=== PATIENT | male | born 1975 | race Caucasian/White ===

== ENCOUNTER 2019-03-08 08:37 | Emergency (ER) | payer OTHER, SELFPAY ==
[2019-03-08 08:38] VITALS: BP 136/83; PULSE 59; RESP 18; TEMP 36.6; O2SAT 100; BMI 21.2
--- NOTE | 2019-03-08 08:47 | CT_ITS ---
STUDY: CT BRAIN WITHOUT CONTRAST REASON FOR EXAM: Male, 43 years old. 3 day history of right occipital headaches. RADIATION DOSAGE (If Supplied By Facility): CTDIvol = ( 44.99 ) mGy, DLP = ( 779.24 ) mGycm TECHNIQUE: Transaxial CT imaging of the brain was performed without administration of intravenous contrast material. Individualized dose optimization techniques were used for this CT. COMPARISON: No relevant priors. FINDINGS: Normal soft tissue structures. Normal calvarium. Normal size ventricles and extra-axial spaces for the patient's age. Normal white matter tracts of the cerebral hemispheres. There is a 7.7 mm hypodensity in the insular cortex of the right temporal lobe suggestive of a small lacunar infarct. Normal brainstem. Normal cerebellum. There is no intracranial hemorrhage. There are no findings of an acute ischemic infarction. Normal visualized paranasal sinuses. CT/Brain/Head without Contrast IMPRESSION: 7.7 mm hypodensity in the insular cortex of the right temporal lobe as described. This may represent a small lacunar infarct. Electronically Signed: Adalberto Floyd, at 10:07 EDT , Service support ,
--- NOTE | 2019-03-08 08:48 | ED.DCSUM_ITS ---
- ER Visit Summary Date of Service: 03/08/19 Chief Complaint: Headache History of Present Illness: The patient is a 43 M who presents with a headache. It started 3 days ago. On the right side of his head. He describes as sharp dull and throbbing. He has had nausea without vomiting. Denies any sinus pre ssure tenderness. He has had blurry vision without photophobia or visual changes. Denies any falls or trauma. No history of migraine headaches in the past. He tried Excedrin at home without any relief. Physical Examination: Vital signs reviewed. HEENT exam unremarkable. Heart is regular rate and rhythm without murmurs. Lungs are clear to auscultation. Abdomen is soft and nontender. Extremities reveal no edema. Skin exam normal. Neurologic exam normal. Test Results: CAT scan of the head reveals a small hypodensity in the insular cortex which could represent a small lacunar infarct. This is likely a chronic issue. Emergency Department Course and Treatment: Patient was given Reglan, Benadryl and Toradol. He was also given normal saline. The CAT scan reveals a small lacunar infarct which is likely chronic and not causing any issues at this time. He states that the sharp pounding pains have gone away but he still feels a slight ache. I will give him a dose of Decadron here as well. I will give him naproxen he can take at home. I feel he can be discharged to follow-up with his PCP. Treatment Plan: [] Disposition: Discharge Impression: Headache This note was generated with [employer] dictation software. It may contain incorrect words, spelling, and punctuation that were not noted in review of the chart prior to signing ED Disposition - Plan for ED Patient: Referrals: NOT,DEFINED [NON-STAFF] -
[2019-03-08] MEDS: Ketorolac 30 MG/ML Syringe IV (09:14)
[2019-03-08] MEDS: DiphenhydrAMINE 50 MG/ML Syringe 25 MG IV (09:14)
[2019-03-08] MEDS: 0.9% Normal Saline 1,000 ML 999 ML IV (09:14)
[2019-03-08] MEDS: proCHLORPERazine 10 MG/2 ML Vial IV (09:14)
[2019-03-08] MEDS: dexAMETHasone 10 MG/ML Vial IV (10:56)
== END 2019-03-08 11:04 | disposition home or self-care (01) ==
PROVIDERS: Emergency Provider Emergency Medicine
DX: R51 Headache (principal); R11.0 Nausea; H53.8 Other visual disturbances; I63.81 Other cerebral infarction due to occlusion or stenosis of small artery
CPT/HCPCS: 70450; 96361; 96374; 96375; 99284; J7030; A4216

== ENCOUNTER → 2022-07-08 | Outpatient (CLI) | payer BC, SELFPAY ==
--- NOTE | 2022-07-08 09:46 | RAD_ITS ---
HISTORY: Psoriatic arthropathy, bilateral tinnitus. TECHNIQUE: XR Pelvis 1 or 2 Views. COMPARISON: None. FINDINGS: OSSEOUS STRUCTURES: No acute displaced fracture identified. Note that overlapping bowel shadows may obscure osseous detail. Mineralization unremarkable. JOINT SPACES: No dislocation. Joint spaces maintained. RAD/Pelvis 1 or 2 Views IMPRESSION: No acute displaced fracture or dislocation identified. Electronically Signed: Dolores Garsia MD at 9:08 EST ,
[2022-07-08 12:19] LABS: Erythrocyte Sedimentation Rate 3 mm/hr (0-20)
[2022-07-08 12:22] LABS: Absolute Lymphocyte Count 1.34 X10^3/uL (0.83-4.51); Absolute Neutrophil Count 2.7 X10^3/uL (2.0-7.7); Basophil# 0.04 X10^3/uL; Basophil% 0.9 % (0-1); Eosinophils% 4.3 % (0-5); Hematocrit 44.9 % (40-54); Hemoglobin 14.7 g/dL (13.0-16.5); Lymphocyte # 1.34 X10^3/ul (0.83-4.51); Lymphocyte % 28.6 % (19-41); Mean Corp Hgb Conc 32.7 g/dL (32-36); Mean Corpuscular Hgb 30.4 pg (27.0-32.0); Mean Corpuscular Volume 92.8 fL (80-94); Mean Platelet Vol. 11.1 fl (6.2-12.0); Monocyte# 0.43 X10^3/uL; Monocyte% 9.2 % (0-10); NRBC Flagged by Analyzer 0 % (0-5); Neutrophil # 2.67 X10^3/uL (2.7-7.7); Neutrophil % 56.8 % (47-70); Platelet Count 227 K/mm3 (150-450); RBC Distribution Width CV 12.2 % (11.6-14.6); RBC Distribution Width SD 41.9 fl (35.1-43.9); Red Blood Count 4.84 M/mm3 (4.6-6.2); White Blood Count 4.7 K/mm3 (4.4-11.0)
[2022-07-08 12:52] LABS: AST(SGOT) 19 U/L (15-37); Alanine Aminotransfer ALT/SGPT 24 U/L (16-61); Albumin, Serum 3.8 g/dL (3.2-5.0); Alkaline Phosphatase 48 U/L (45-117); Anion Gap 3 (5-15); BUN 19 mg/dL (7-18); BUN/Creat Ratio 19.8 RATIO (10-20); CRP < 2.90 mg/L (0.0-3.0); Calcium,Total 9.1 mg/dL (8.5-10.1); Chloride 111 mmol/L (98-107); Creatinine, Serum 0.96 mg/dL (0.70-1.30); EST Glomerular Filtration Rate 89 mL/min (>60); Est Glom Filt Rate - Afr Amer 107 mL/min (>60); Globulin 3.9 g/dL (2.2-4.2); Glucose 103 mg/dL (74-106); Potassium 3.8 mmol/L (3.5-5.1); Protein, Total 7.7 g/dL (6.4-8.2); Rheumatoid Factor < 10.0 IU/mL (<15); Sodium Level 141 mmol/L (136-145)
[2022-07-08 13:15] LABS: Hepatitis B Surface Antibody Non-Reactive; Hepatitis B Surface Antigen Non-Reactive (Nonreactive); Hepatitis C Antibody Non-Reactive (Nonreactive)
[2022-07-09 18:32] LABS: CCP IgG Antibodies 0 units (0-19)
[2022-07-09 18:36] LABS: ANTINUCLEAR ANTIBODIES DIRECT Negative (Negative)
== END | disposition home or self-care (01) ==
LOC: MTLAB 09:41
PROVIDERS: PCP Internal Medicine; Visit Provider Internal Medicine Rheumatology
DX: L40.59 Other psoriatic arthropathy (principal); L40.8 Other psoriasis; H93.13 Tinnitus, bilateral; Z86.19 Personal history of other infectious and parasitic diseases
CPT/HCPCS: 36415; 72170; 80053; 85025; 85652; 86038; 86140; 86200; 86431; 86706; 86803; 87340

== ENCOUNTER → 2022-09-24 | Outpatient (CLI) | payer BC, SELFPAY ==
[2022-09-24 10:37] LABS: Absolute Lymphocyte Count 1.27 X10^3/uL (0.83-4.51); Absolute Neutrophil Count 2.5 X10^3/uL (2.0-7.7); Basophil# 0.03 X10^3/uL; Basophil% 0.7 % (0-1); Eosinophil# 0.29 X10^3/uL; Eosinophils% 6.6 % (0-5); Hematocrit 46.1 % (40-54); Hemoglobin 15.1 g/dL (13.0-16.5); Lymphocyte # 1.27 X10^3/ul (0.83-4.51); Lymphocyte % 28.7 % (19-41); Mean Corp Hgb Conc 32.8 g/dL (32-36); Mean Corpuscular Hgb 30.3 pg (27.0-32.0); Mean Corpuscular Volume 92.6 fL (80-94); Mean Platelet Vol. 10.5 fl (6.2-12.0); Monocyte# 0.37 X10^3/uL; Monocyte% 8.4 % (0-10); NRBC Flagged by Analyzer 0 % (0-5); Neutrophil # 2.45 X10^3/uL (2.7-7.7); Neutrophil % 55.4 % (47-70); Platelet Count 238 K/mm3 (150-450); RBC Distribution Width CV 12.9 % (11.6-14.6); RBC Distribution Width SD 43.5 fl (35.1-43.9); Red Blood Count 4.98 M/mm3 (4.6-6.2); White Blood Count 4.4 K/mm3 (4.4-11.0)
[2022-09-24 11:09] LABS: AST(SGOT) 25 U/L (15-37); Alanine Aminotransfer ALT/SGPT 32 U/L (16-61); Albumin, Serum 3.8 g/dL (3.2-5.0); Alkaline Phosphatase 50 U/L (45-117); Anion Gap 1 (5-15); BUN 11 mg/dL (7-18); BUN/Creat Ratio 10.1 RATIO (10-20); Calcium,Total 9.3 mg/dL (8.5-10.1); Chloride 107 mmol/L (98-107); Creatinine, Serum 1.09 mg/dL (0.70-1.30); EST Glomerular Filtration Rate 77 mL/min (>60); Est Glom Filt Rate - Afr Amer 93 mL/min (>60); Globulin 3.9 g/dL (2.2-4.2); Glucose 92 mg/dL (74-106); Potassium 4.6 mmol/L (3.5-5.1); Protein, Total 7.7 g/dL (6.4-8.2); Sodium Level 136 mmol/L (136-145)
== END | disposition home or self-care (01) ==
LOC: MTLAB 09:27
PROVIDERS: PCP Internal Medicine; Referring Provider Internal Medicine Rheumatology; Visit Provider Internal Medicine Rheumatology
DX: L40.59 Other psoriatic arthropathy (principal); L40.8 Other psoriasis; Z79.899 Other long term (current) drug therapy
CPT/HCPCS: 36415; 80053; 85025

== ENCOUNTER → 2022-11-08 | Outpatient (CLI) | payer BC, SELFPAY ==
[2022-11-08 10:10] LABS: Absolute Lymphocyte Count 1.61 X10^3/uL (0.83-4.51); Absolute Neutrophil Count 3.1 X10^3/uL (2.0-7.7); Basophil# 0.04 X10^3/uL; Basophil% 0.7 % (0-1); Eosinophil# 0.29 X10^3/uL; Eosinophils% 5.3 % (0-5); Hemoglobin 14.6 g/dL (13.0-16.5); Lymphocyte # 1.61 X10^3/ul (0.83-4.51); Lymphocyte % 29.3 % (19-41); Mean Corp Hgb Conc 33.2 g/dL (32-36); Mean Corpuscular Hgb 30.8 pg (27.0-32.0); Mean Corpuscular Volume 92.8 fL (80-94); Mean Platelet Vol. 10.2 fl (6.2-12.0); Monocyte# 0.47 X10^3/uL; Monocyte% 8.6 % (0-10); NRBC Flagged by Analyzer 0 % (0-5); Neutrophil # 3.07 X10^3/uL (2.7-7.7); Neutrophil % 55.9 % (47-70); Platelet Count 280 K/mm3 (150-450); RBC Distribution Width CV 13.3 % (11.6-14.6); RBC Distribution Width SD 44.6 fl (35.1-43.9); Red Blood Count 4.74 M/mm3 (4.6-6.2); White Blood Count 5.5 K/mm3 (4.4-11.0)
[2022-11-08 10:37] LABS: ALB/GLOB Ratio 1.1 RATIO (0.9-2.4); AST(SGOT) 23 U/L (15-37); Alanine Aminotransfer ALT/SGPT 23 U/L (16-61); Albumin, Serum 3.8 g/dL (3.2-5.0); Alkaline Phosphatase 48 U/L (45-117); Anion Gap 9 (5-15); BUN 19 mg/dL (7-18); BUN/Creat Ratio 18.6 RATIO (10-20); Calcium,Total 8.9 mg/dL (8.5-10.1); Chloride 108 mmol/L (98-107); Creatinine, Serum 1.02 mg/dL (0.70-1.30); EST Glomerular Filtration Rate 83 mL/min (>60); Est Glom Filt Rate - Afr Amer 100 mL/min (>60); Globulin 3.5 g/dL (2.2-4.2); Glucose 88 mg/dL (74-106); Potassium 4.1 mmol/L (3.5-5.1); Protein, Total 7.3 g/dL (6.4-8.2); Sodium Level 142 mmol/L (136-145)
== END | disposition home or self-care (01) ==
LOC: MTLAB 07:47
PROVIDERS: PCP Internal Medicine; Referring Provider Internal Medicine Rheumatology; Visit Provider Internal Medicine Rheumatology
DX: L40.59 Other psoriatic arthropathy (principal); Z79.899 Other long term (current) drug therapy
CPT/HCPCS: 36415; 80053; 85025

== ENCOUNTER → 2023-01-17 | Outpatient (CLI) | payer BC, SELFPAY ==
[2023-01-17 09:53] LABS: Absolute Lymphocyte Count 1.02 X10^3/uL (0.83-4.51); Absolute Neutrophil Count 2.2 X10^3/uL (2.0-7.7); Basophil# 0.03 X10^3/uL; Basophil% 0.8 % (0-1); Eosinophil# 0.24 X10^3/uL; Eosinophils% 6.1 % (0-5); Hematocrit 44.9 % (40-54); Hemoglobin 14.4 g/dL (13.0-16.5); Lymphocyte # 1.02 X10^3/ul (0.83-4.51); Mean Corp Hgb Conc 32.1 g/dL (32-36); Mean Corpuscular Volume 96.8 fL (80-94); Mean Platelet Vol. 10.8 fl (6.2-12.0); Monocyte# 0.47 X10^3/uL; NRBC Flagged by Analyzer 0 % (0-5); Neutrophil # 2.15 X10^3/uL (2.7-7.7); Neutrophil % 54.8 % (47-70); Platelet Count 233 K/mm3 (150-450); RBC Distribution Width CV 12.9 % (11.6-14.6); RBC Distribution Width SD 45.4 fl (35.1-43.9); Red Blood Count 4.64 M/mm3 (4.6-6.2); White Blood Count 3.9 K/mm3 (4.4-11.0)
[2023-01-17 10:33] LABS: AST(SGOT) 21 U/L (15-37); Alanine Aminotransfer ALT/SGPT 23 U/L (16-61); Albumin, Serum 3.7 g/dL (3.2-5.0); Alkaline Phosphatase 45 U/L (45-117); Anion Gap 5 (5-15); BUN 12 mg/dL (7-18); BUN/Creat Ratio 11.4 RATIO (10-20); Calcium,Total 9.2 mg/dL (8.5-10.1); Chloride 106 mmol/L (98-107); Creatinine, Serum 1.05 mg/dL (0.70-1.30); EST Glomerular Filtration Rate 80 mL/min (>60); Est Glom Filt Rate - Afr Amer 97 mL/min (>60); Globulin 3.6 g/dL (2.2-4.2); Glucose 114 mg/dL (74-106); Potassium 4.1 mmol/L (3.5-5.1); Protein, Total 7.3 g/dL (6.4-8.2); Sodium Level 141 mmol/L (136-145)
== END | disposition home or self-care (01) ==
LOC: MTLAB 08:00
PROVIDERS: PCP Internal Medicine; Referring Provider Internal Medicine Rheumatology; Visit Provider Internal Medicine Rheumatology
DX: L40.59 Other psoriatic arthropathy (principal); Z79.899 Other long term (current) drug therapy
CPT/HCPCS: 36415; 80053; 85025

== ENCOUNTER → 2023-04-11 | Outpatient (CLI) | payer BC, SELFPAY ==
[2023-04-11 10:21] LABS: Absolute Lymphocyte Count 1.35 X10^3/uL (0.83-4.51); Basophil# 0.04 X10^3/uL; Eosinophil# 0.19 X10^3/uL; Eosinophils% 4.6 % (0-5); Hemoglobin 14.4 g/dL (13.0-16.5); Lymphocyte # 1.35 X10^3/ul (0.83-4.51); Lymphocyte % 32.9 % (19-41); Mean Corp Hgb Conc 32.7 g/dL (32-36); Mean Corpuscular Hgb 30.8 pg (27.0-32.0); Mean Corpuscular Volume 94.2 fL (80-94); Mean Platelet Vol. 10.8 fl (6.2-12.0); Monocyte# 0.49 X10^3/uL; NRBC Flagged by Analyzer 0 % (0-5); Neutrophil # 2.02 X10^3/uL (2.7-7.7); Neutrophil % 49.3 % (47-70); Platelet Count 236 K/mm3 (150-450); RBC Distribution Width CV 12.8 % (11.6-14.6); RBC Distribution Width SD 43.8 fl (35.1-43.9); Red Blood Count 4.67 M/mm3 (4.6-6.2); White Blood Count 4.1 K/mm3 (4.4-11.0)
[2023-04-11 11:00] LABS: AST(SGOT) 24 U/L (15-37); Alanine Aminotransfer ALT/SGPT 28 U/L (16-61); Albumin, Serum 3.5 g/dL (3.2-5.0); Alkaline Phosphatase 53 U/L (45-117); Anion Gap 5 (5-15); BUN 18 mg/dL (7-18); BUN/Creat Ratio 15.9 RATIO (10-20); Calcium,Total 8.9 mg/dL (8.5-10.1); Chloride 108 mmol/L (98-107); Creatinine, Serum 1.13 mg/dL (0.70-1.30); EST Glomerular Filtration Rate 74 mL/min (>60); Est Glom Filt Rate - Afr Amer 89 mL/min (>60); Globulin 3.6 g/dL (2.2-4.2); Glucose 109 mg/dL (74-106); Potassium 4.1 mmol/L (3.5-5.1); Protein, Total 7.1 g/dL (6.4-8.2); Sodium Level 140 mmol/L (136-145)
== END | disposition home or self-care (01) ==
LOC: MTLAB 07:37
PROVIDERS: PCP Internal Medicine; Referring Provider Internal Medicine Rheumatology; Visit Provider Internal Medicine Rheumatology
DX: L40.59 Other psoriatic arthropathy (principal); L40.8 Other psoriasis; Z79.899 Other long term (current) drug therapy
CPT/HCPCS: 36415; 80053; 85025

== ENCOUNTER → 2023-07-15 | Outpatient (CLI) | payer BC, SELFPAY ==
--- OUTSIDE RECORDS SUMMARY | 2023-07-15 07:06 | XMS RPT_ITS | CCD ---
Author Name Unknown Address [address] [place] [address] Organization [facility] Care Team Providers Care Route Vending Machine Servicer Name Role Phone Zaid Philippe MD Primary Care Provider PRACHI ZARCO Attending Unavailable ZAID PHILIPPE Primary Care Unavailable PRACHI ZARCO Referring Unavailable ZAID PHILIPPE Primary Care Unavailable PRACHI ZARCO Attending Unavailable ZAID PHILIPPE Primary Care Unavailable ZAID PHILIPPE Primary Care Unavailable THELMA HARDIN Referring Unavailable ZAID PHILIPPE Primary Care Unavailable THELMA HARDIN Attending Unavailable Allergies Allergy Classification Reported Allergen(s) Allergy Type Date of Onset Reaction(s) Facility (1 source) Seasonal allergy; Translations: [SEASONAL ALLERGIES] Propensity to adverse reactions (disorder) 3 [facility] Repository Medications Completed/Discontinued Medications Medication Drug Class(es) Dates Sig (Normalized) Sig (Original) chondroitin sulfates 400 mg / glucosamine hydrochloride 500 mg oral capsule (2 sources) Start: 05-13-2019 take 1 capsule by mouth once daily Glucosamine-Chondr oit-Vit C-Mn (GLUCOSAMINE CHONDROITIN MAXSTR) 500-400 mg cap Take 1 capsule by mouth once daily. 0 05/13/2019 Active Problems Active Problems Problem Classification Problem Date Documented Date Episodic/Chronic Abdominal pain (1 source) Pelvic and perineal pain; Translations: [Pelvic pain] Onset: 03-19-2023 Episodic Genitourinary symptoms and ill-defined conditions (1 source) Unspecified symptoms and signs involving the genitourinary system; Translations: [Lower urinary tract symptoms (LUTS)] Onset: 03-19-2023 Episodic Other circulatory disease (1 source) Personal history of other diseases of the circulatory system; Translations: [History of Raynaud's syndrome] Onset: 06-06-2023 Episodic Other connective tissue disease (1 source) Pain in left hand; Translations: [Left hand pain] Onset: 06-06-2023 Episodic Other inflammatory condition of skin (3 sources) Psoriasis; Translations: [Psoriasis, unspecified] Onset: 06-20-2021 06-20-2021 Chronic Other inflammatory condition of skin (1 source) Psoriasis, unspecified; Translations: [Psoriasis and similar disorders] Onset: 06-20-2021 Chronic Spondylosis; intervertebral disc disorders; other back problems (2 sources) Degeneration of intervertebral disc; Translations: [DDD (degenerative disc disease)] Onset: 11-10-2009 11-10-2009 Chronic Past or Other Problems Problem Classification Problem Date Documented Da te Episodic/Chronic Immunizations and screening for infectious disease (7 sources) Patient encounter status; Translations: [Encounter for immunization] Onset: 10-25-2022 Episodic Other screening for suspected conditions (not mental disorders or infectious disease) (1 source) Encounter for screening for diabetes mellitus; Translations: [Screening for diabetes mellitus (DM)] Onset: 10-25-2022 Episodic Viral infection (2 sources) Postherpetic neuralgia; Translations: [Other postherpetic nervous system involvement] Onset: 03-22-2019 03-22-2019 Episodic Results Test Name Value Interpretation Reference Range Facil ity Vital Signs Date Time Vital Sign Value Performing Clinician Laine paulson 10-25-2022 07:57-0400 Body height 188.6 cm Prachi Zarco HACK DRIVER.VEHICLE DELIVERY WORKER Work Phone: [facility] 10-25-2022 07:57-0400 Body weight 75.75 kg Prachi Zarco HACK DRIVER.VEHICLE DELIVERY WORKER Work Phone: [facility] 10-25-2022 07:57-0400 Diastolic blood pressure 72 mm[Hg] Prachi Zarco HACK DRIVER.VEHICLE DELIVERY WORKER Work Phone: [facility] 10-25-2022 07:57-0400 Heart rate 72 /min Prachi Zarco HACK DRIVER.VEHICLE DELIVERY WORKER Work Phone: [facility] 10-25-2022 07:57-0400 Respiratory rate 16 /min Prachi Zarco HACK DRIVER.VEHICLE DELIVERY WORKER Work Phone: [facility] 10-25-2022 07:57-0400 Systolic blood pressure 110 mm[Hg] Prachi Zarco HACK DRIVER.VEHICLE DELIVERY WORKER Work Phone: [facility] Encounters Encounter Date Encounter Type Care Provider Facility Start: 06-06-2023 End: 06-07-2023 ambulatory [facility] Facility:[facility] Start: 03-19-2023 End: 03-20-2023 ambulatory ZAID PHILIPPE Facility:[facility] Start: 10-25-2022 End: 10-26-2022 ambulatory [facility] Facility:[facility] Start: 10-25-2022 Encounter for genera l adult medical examination without abnormal findings [facility] Start: 10-25-2022 End: 10-25-2022 Patient encounter procedure Prachi Zarco HACK DRIVER.VEHICLE DELIVERY WORKER Work Phone: [facility] Plan of Treatment Date Care Activity Detail Author Start: 05-13-2029 Urine microalbumin profile DTAP,TDAP,TD (3 - Td or Tdap) [facility] Start: 09-25-2025 DIABETES SCREEN DIABETES SCREEN [facility] Start: 07-02-2024 COLOGUARD (FIT-DNA) COLOGUARD (FIT-DNA) [facility] Start: 07-02-2024 COLORECTAL CANCER SCREENING COLORECTAL CANCER SCREENING [facility] Start: 05-14-2024 LIPID SCREEN LIPID SCREEN [facility] Start: 04-23-2023 Hepb vaccine adult 3 dose schedule for im use HEP B VACCINE, 3-DOSE, AGE 20+ YR (ENGERIX-B, RECOMBIVAX HB) Immunization/Injection Routine Encounter for immunization Expected: 04/23/2023 [facility] Work Phone: Immunizations Immunization Date Immunization Notes Care Provider Fa cility 03-25-2021 COVID-19 original vaccine, full dose, monovalent (MODERNA) Zaid Philippe MD Work Phone: [facility] Work Phone: 03-25-2021 influenza, injectabl e, quadrivalent, preservative free Zaid Philippe MD Work Phone: [facility] Work Phone: 05-16-2020 measles, mumps and rubella virus vaccine Zaid Philippe MD Work Phone: [facility] Work Phone: 03-01-2020 Seasonal, quadrivale nt, recombinant, injectable influenza vaccine, preservative free Zaid Philippe MD Work Phone: [facility] Work Phone: 05-13-2019 influenza, injectabl e, quadrivalent, contains preservative Zaid Philippe MD Work Phone: [facility] 05-13-2019 tetanus toxoid, redu iris diphtheria toxoid, and acellular pertussis vaccine, adsorbed Zaid Philippe MD Work Phone: [facility] 02-24-2013 influenza virus vacc ine, unspecified formulation Zaid Philippe MD Work Phone: [facility] 03-29-2009 novel Influenza-H1N1 -09, live virus for nasal administration Zaid Philippe MD Work Phone: [facility] Work Phone: 06-22-2008 tetanus toxoid, redu iris diphtheria toxoid, and acellular pertussis vaccine, adsorbed Zaid Philippe MD Work Phone: [facility] Payers Date Payer Category Payer Unknown [employer]SLEY [employer]ANNA PPO [id number] 2021-Present [phone] [address] [place] [address] PPO [id number] 2021 Unknown [id number] Social History Date Type Detail Facility Start: 09-27-2011 Tobacco smoking stat us TNIS Never smoked tobacco [facility] Start: 09-27-2011 Tobacco use and exposure Smoke less tobacco non-user [facility] Start: 06-25-2021 End: 10-25-2022 Alcohol intake Current non-drinker of alcohol (finding) [facility] Start: 06-11-2021 History SDOH Alcohol Frequency [address] [facility] Start: 06-11-2021 End: 06-16-2021 History SDOH Alcohol Std Drinks [address] [facility] Start: 06-11-2021 End: 06-16-2021 History SDOH Social Connections Phone [address] [facility] Start: 06-11-2021 History SDOH Financial [address] [facility] Start: 03-07-[address] [facility] Start: 1975 Sex Assigned At Male C [facility] Progress note 06-06-2023 Note Date & Type Note Facility 06-06-2023 Note HNO ID: [id number] Author: NITESH VEGAS RT(R) Service: Radiology Author Type: Technologist Type: Progress Notes Filed: 06/06/2023 13:49 Note Text: Radiology Service Progress Note PATIENT NAME: Naun Montes De Oca DATE OF SERVICE: June 06, 2023 TIME: 1:42 PM PATIENT IDENTITY VERIFICATION COMPLETED USING TWO (2) IDENTIFIERS: Name and Date of confirmed by patient verbally. FALL SCREENING: Has the patient had 2 falls in the last year or 1 fall with injury or currently using an Ambulatory Assistive Device (Walker, Cane, Wheelchair, Crutches, etc.)? No PATIENT GENDER DATA: Male PATIENT RELEVANT IMPLANT DATA REVIEWED: Not Applicable RADIOLOGY DEPARTMENT: General X-ray: Exam(s) Completed: Upper Extremity X-Ray(s): Hand, left PERIPHERAL IV DATA: Not applicable SIGNED BY: RT Napoleon(R) June 06, 2023 1:42 PM [facility] Progress note 06-06-2023 Note Date & Type Note Facility 06-06-2023 Note HNO ID: [id number] Author: PRACHI ZARCO APRN.VEHICLE DELIVERY WORKER Service: ? Author Type: Nurse Specialist Type: Progress Notes Filed: 06/06/2023 13:25 Note Text: SUBJECTIVE: Hepatitis B Vaccine(1 of 3 - 3-dose series) Never done Pneumococcal Vaccine(1 of 2 - PCV) Never done Shingrix Vaccine(1 of 2) Never done Covid-19 Vaccine( season) due on 04/22/2023 Depression Assessment due on 05/26/2023 HPI PCP: Zaid Philippe MD Naun Montes De Oca is a 47 year old male. PMH significant for ACTIVE PROBLEM LIST Ddd (Degenerative Disc Disease) Psoriasis and Similar Disorders Presents today for left hand pain, left index and left thumb pain present for a few days. Point tenderness at midpoint between finger and thumb, tender to palpation. No injury present. Feels his hand is more swollen than usual. Reports history of Raynaud's. Not currently taking beta-kemar. Notes his office can be cold. Not wearing gloves to his visit today because he left the house quickly. Continues on with methotrexate per business systems analyst. Notes that he took prednisone 10 mg for 3 days which did not seem to help much. No cord. No erythema. No recent intervention in his hand. Review of Systems Musculoskeletal: Positive for arthralgias. Skin: Positive for color change (fingers and hand). Objective BP 118/76 Pulse (!) 54 Resp 16 Wt 80.7 kg (178 lb) BMI 22.70 kg/m? Physical Exam Constitutional: Appearance: Normal appearance. He is normal weight. HENT: Head: Normocephalic and atraumatic. Right Ear: Tympanic membrane and ear canal normal. Left Ear: Tympanic membrane and ear canal normal. Eyes: Conjunctiva/sclera: Conjunctivae normal. Neck: Thyroid: No thyromegaly. Vascular: Normal carotid pulses. No JVD. Cardiovascular: Rate and Rhythm: Normal rate and regular rhythm. Pulses: Carotid pulses are 2+ on the right side and 2+ on the left side. Radial pulses are 2+ on the right side and 2+ on the left side. Heart sounds: Normal heart sounds. Pulmonary: Effort: Pulmonary effort is normal. Breath sounds: Normal breath sounds. Abdominal: General: Bowel sounds are normal. Palpations: Abdomen is soft. Musculoskeletal: Left hand: Tenderness present. Decreased strength. Normal pulse. Right lower leg: No edema. Left lower leg: No edema. Skin: General: Skin is warm. Comments: Bluish-purple discoloration both hands, both hands cool to touch Neurological: General: No focal deficit present. Mental Status: He is alert and oriented to person, place, and time. ALLERGIES Allergen Reactions Seasonal Allergies Unknown Medication Herbal Drugs tab Niaicin supplement twice daily from dermatology methotrexate 2.5 mg tablet 20 mg. folic acid 1 mg tablet cycloSPORINE (RESTASIS) 0.05 % ophthalmic emulsion ekotfhs-czdw-xsufr-oreg-capryl 100 mg-150 mg- 50 mg-150 mg cap Take by mouth. leucovorin (LEUCOVORIN) 15 mg tablet Take 15 mg by mouth one time a week. SOOLANTRA 1 % crea Apply 1 application to affected area daily at bedtime. Per [facility]. Bhcocvsuvmg-Njhohehkg-Lve C-Mn (GLUCOSAMINE CHONDROITIN MAXSTR) 500-400 mg cap Take 1 capsule by mouth once daily. multivitamin tablet Take 1 tablet by mouth once daily. 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 Contact dermatitis and other eczema, due to unspecified cause 06/22/2008 DDD (degenerative disc disease) 11/10/2009 External hemorrhoids without mention of complication 11/10/2009 Family history of diabetes mellitus 11/10/2009 Family history of melanoma 11/10/2009 Family history of prostate cancer 11/10/2009 Postherpetic neuralgia 03/22/2019 Shoulder dislocation, left, initial encounter 09/15/2017 Kayaking Tinea corporis 11/10/2009 Social History Tobacco Use Smoking status: Never Smokeless tobacco: Never Vaping Use Vaping Use: Never used Substance Use Topics Alcohol use: No Drug use: No ASSESSMENT/PLAN: 1. Left hand pain - ICD9: 729.5, ICD10: M79.642 (primary diagnosis) - XR HAND GENERAL 3V PA/LAT/OBL LEFT 2. History of Raynaud's syndrome - ICD9: V12.59, ICD10: Z86.79 - XR HAND GENERAL 3V PA/LAT/OBL LEFT 3. Psoriasis and similar disorders - ICD9: 696.1, ICD10: L40.9 - XR HAND GENERAL 3V PA/LAT/OBL LEFT Left hand pain of unclear etiology. Possible exacerbation of psoriasis. Exam consistent with Raynaud's, hands were cold and not wearing gloves. Endorse lifestyle measures. Consider beta-kemar if needed. He is concerned about possible clot in his hand but no recent intervention and exam is not consistent with this. Advised: Recommend keeping your hands warm, wear gloves fingerless minutes or long sleeves. Take prednisone 40 mg today, 30 mg tomorrow, 20 mg next day and 10 mg the following day. Take prednisone with food. Let us know if you are not feeling improved with these measures. (more content not included)... [facility] Progress note 03-19-2023 Note Date & Type Note Facility 03-19-2023 Note HNO ID: [id number] Author: Thelma Main APRN.SINTIA Service: ? Author Type: Nurse Practitioner Type: Progress Notes Filed: 03/19/2023 8:55 AM Note Text: CC: Patient presents with: prostate cancer screen muscle loss and weakness shingrix vaccine HPI Naun Montes De Oca is a 47 year old male who presents today for above. Patient reports intermittent urinary symptoms x 3 months. Symptoms include hesitancy, frequency, weak stream, urgency, nocturia 2-3 times a night. Denies hematuria and dysuria. Around the same time a few months he developed an intermittent discomfort in the pelvic/hip area. Described as a soreness and heat . Pain is not aggravated by anything and resolves on its own. Occasionally he will have a muscle spasm in the pelvic area when he urinates. He has a history of psoriatic arthritis treated with Methotrexate and leucovorin. Assembler Fitter monitors CBC and CMP every 3 months and he will have x-rays of both hips done in March. Review of Systems Constitutional: Positive for fatigue. Negative for chills, diaphoresis, fever and unexpected weight change. Gastrointestinal: Positive for diarrhea (chronic, intermittent). Negative for abdominal pain, anal bleeding, blood in stool, constipation, nausea, rectal pain and vomiting. Endocrine: Negative for polydipsia and polyphagia. Genitourinary: Negative for penile discharge, penile pain, penile swelling, scrotal swelling and testicular pain. 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 Contact dermatitis and other eczema, due to unspecified cause 06/22/2008 DDD (degenerative disc disease) 11/10/2009 External hemorrhoids without mention of complication 11/10/2009 Family history of diabetes mellitus 11/10/2009 Family history of melanoma 11/10/2009 Family history of prostate cancer 11/10/2009 Postherpetic neuralgia 03/22/2019 Shoulder dislocation, left, initial encounter 09/15/2017 Kayaking Tinea corporis 11/10/2009 PAST SURGICAL HISTORY Procedure Laterality Date NONE ALLERGIES Seasonal Allergies MEDICATIONS methotrexate 2.5 mg tablet take 6 tablets by mouth every week folic acid 1 mg tablet cycloSPORINE (RESTASIS) 0.05 % ophthalmic emulsion wcjslyz-chug-xqaai-oreg-capryl 100 mg-150 mg- 50 mg-150 mg cap Take by mouth. leucovorin (LEUCOVORIN) 15 mg tablet Take 15 mg by mouth one time a week. SOOLANTRA 1 % crea Apply 1 application to affected area daily at bedtime. Per [facility]. Hntxtsbfwcm-Xpbzqmmmf-Jfn C-Mn (GLUCOSAMINE CHONDROITIN MAXSTR) 500-400 mg cap Take 1 capsule by mouth once daily. multivitamin tablet Take 1 tablet by mouth once daily. FAMILY HISTORY Problem Relation Age of Onset Hypertension Mother Diabetes Mother Genitourinary () Father kidneys stones, Prostate Cancer, Renal insufficiency, Melanoma Cancer Father non-Hodgkins lymphoma Hypertension Maternal Grandfather Hypertension Maternal Grandmother other (Migraine) Sister other (Migraine) Sister Alzheimer's Disease Paternal Grandmother Social History Tobacco Use Smoking status: Never Smokeless tobacco: Never Vaping Use Vaping Use: Never used Substance Use Topics Alcohol use: No Drug use: No BP 132/84 Pulse 75 Resp 14 Wt 78.5 kg (173 lb) SpO2 99% BMI 22.06 kg/m? Physical Exam Vitals reviewed. Constitutional: General: He is not in acute distress. Appearance: Normal appearance. He is not ill-appearing. Cardiovascular: Rate and Rhythm: Normal rate and regular rhythm. Heart sounds: Normal heart sounds. No murmur heard. Pulmonary: Effort: Pulmonary effort is normal. Breath sounds: Normal breath sounds and air entry. No wheezing, rhonchi or rales. Abdominal: General: Bowel sounds are normal. There is no distension. Palpations: Abdomen is soft. There is no mass. Tenderness: There is no abdominal tenderness. Musculoskeletal: Lumbar back: No spasms or tenderness. Normal range of motion (discomfort with rotation). Negative right straight leg raise test and negative left straight leg raise test. Right hip: No deformity or tenderness. Normal range of motion (painless). Left hip: No deformity or tenderness. Normal range of motion (painless). Neurological: Mental Status: He is alert. DATA REVIEWED: most recent labs done at [facility], ordered by rheumatology ASSESSMENT/PLAN: 1. Pelvic pain - ICD9: [id number], ICD10: R10.2 (primary diagnosis) Etiology unclear Differential Diagnosis includes pelvic floor dysfunction, osteoarthritis, referred pain from lumbar spine Evaluate further with: - PSA/PROSTSPECAG DIAG - URINALYSIS, WITH MICROSCOPIC - URINE CULTURE Referral to urology for further evaluation and recommendations 2. Lower urinary tract symptoms (LUTS) - ICD9: 788.99, ICD10: R39.9 As above - PSA/PROSTSPECAG DIAG - URINALYSIS, WITH MICROSCOPIC - URINE CULTUR (more content not included)... [facility] Progress note 10-25-2022 Note Date & Type Note Facility 10-25-2022 Note HNO ID: [id number] Author: Prachi Zarco APRN.VEHICLE DELIVERY WORKER Service: ? Author Type: Nurse Specialist Type: Progress Notes Filed: 10/25/2022 9:33 AM Note Text: SUBJECTIVE: HEPATITIS B(1 of 3 - 3-dose series) Never done PNEUMOCOCCAL(1 - PCV) Never done HEPATITIS C SCREENING Never done HIV SCREENING Never done SHINGRIX VACCINE(1 of 2) Never done DIABETES SCREEN due on 05/14/2022 DEPRESSION ASSESSMENT Never done HPI PCP: Zaid Philippe MD Naun Montes De Oca is a 46 year old male. PMH significant for ACTIVE PROBLEM LIST Ddd (Degenerative Disc Disease) Postherpetic Neuralgia Psoriasis and Similar Disorders Presents today for routine physical exam. He is in his usual state of health. Weight is stable. Active. Tries to eat a healthy diet. He notes that psoriasis use seems worse with increased gluten intake. Labs completed 09/2022 at [facility] per Dr Matthews. See scanned documents. All WNL. Followed by Dr Matthews business systems analyst for psoriatic arthropathy. Taking methotrexate and leucovorin. He notes having Covid19 about three months ago. Did recover back to baseline. Notes did have shingles in the past. Has not yet had vaccine. Review of Systems Musculoskeletal: Positive for arthralgias. Skin: Positive for rash. Objective BP 110/72 Pulse 72 Resp 16 Ht 188.6 cm (6' 2.25 ) Wt 75.8 kg (167 lb) BMI 21.30 kg/m? Physical Exam Constitutional: Appearance: Normal appearance. He is normal weight. HENT: Head: Normocephalic and atraumatic. Right Ear: Tympanic membrane and ear canal normal. Left Ear: Tympanic membrane and ear canal normal. Eyes: Conjunctiva/sclera: Conjunctivae normal. Neck: Thyroid: No thyromegaly. Vascular: Normal carotid pulses. No JVD. Cardiovascular: Rate and Rhythm: Normal rate and regular rhythm. Pulses: Carotid pulses are 2+ on the right side and 2+ on the left side. Radial pulses are 2+ on the right side and 2+ on the left side. Heart sounds: Normal heart sounds. Pulmonary: Effort: Pulmonary effort is normal. Breath sounds: Normal breath sounds. Abdominal: General: Bowel sounds are normal. Palpations: Abdomen is soft. Musculoskeletal: Right lower leg: No edema. Left lower leg: No edema. Skin: General: Skin is warm. Neurological: General: No focal deficit present. Mental Status: He is alert and oriented to person, place, and time. ALLERGIES Allergen Reactions Seasonal Allergies Unknown Medication methotrexate 2.5 mg tablet take 6 tablets by mouth every week folic acid 1 mg tablet cycloSPORINE (RESTASIS) 0.05 % ophthalmic emulsion amkroyt-dmvz-vcgoe-oreg-capryl 100 mg-150 mg- 50 mg-150 mg cap Take by mouth. leucovorin (LEUCOVORIN) 15 mg tablet Take 15 mg by mouth one time a week. SOOLANTRA 1 % crea Apply 1 application to affected area daily at bedtime. Per [facility]. Maqhcyswfan-Wodmwbsbi-Daz C-Mn (GLUCOSAMINE CHONDROITIN MAXSTR) 500-400 mg cap Take 1 capsule by mouth once daily. multivitamin tablet Take 1 tablet by mouth once daily. 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 Contact dermatitis and other eczema, due to unspecified cause 06/22/2008 DDD (degenerative disc disease) 11/10/2009 External hemorrhoids without mention of complication 11/10/2009 Family history of diabetes mellitus 11/10/2009 Family history of melanoma 11/10/2009 Family history of prostate cancer 11/10/2009 Postherpetic neuralgia 03/22/2019 Shoulder dislocation, left, initial encounter 09/15/2017 Kayaking Tinea corporis 11/10/2009 Social History Tobacco Use Smoking status: Never Smokeless tobacco: Never Vaping Use Vaping Use: Never used Substance Use Topics Alcohol use: No Drug use: No Depression Screening 09/27/2011 06/11/2021 10/25/2022 PHQ-2 Score 0 0 0 PHQ-9 Score 4 - - Depression screening tool completed and reviewed. Based on score and interview, patient is not at risk for depression. Screening tool discussed with patient, and I recommended no further intervention at this time. ASSESSMENT/PLAN: 1. Routine medical exam - ICD9: V70.0, ICD10: Z00.00 (primary diagnosis) Endorse plant-based diet such as Mediterranean diet and routine exercise such as walking. 2. Encounter for immunization - ICD9: V03.89, ICD10: Z23 He will check with campus ambassador and regarding insurance coverage for vaccines. - PNEUMOCOCCAL VACCINE (PREVNAR 20) - ZOSTER VACCINE, RECOMBINANT (SHINGRIX) -eligible due to immunosuppression and age - HEP B VACCINE, 3-DOSE, AGE 20+ YR (ENGERIX-B, RECOMBIVAX HB) - HEP B VACCINE, 3-DOSE, AGE 20+ YR (ENGERIX-B, RECOMBIVAX HB) - HEP B VACCINE, 3-DOSE, AGE 20+ YR (ENGERIX-B, RECOMBIVAX HB) 3. Special screening examination for viral disease - ICD9: V73.99, ICD10: Z11.59 - HEP C AB IA W/CONF SCRN 4. Screening for HIV (human immunodeficiency virus) - ICD9: V73.89, ICD10: (more content not included)... [facility]22 Patient Instructions Note Date & Type Note Facility 10-25-2022 Instructions Prachi Zarco APRN.CNS - 10/25/2022 8:48 AM EDT Check with your business systems analyst regarding vaccines: Pneumococcal, shingles, hepatitis B Check with your insurance for what location to get vaccines may be best covered at your local pharmacy where you get prescriptions filled or at the clinic documented in this encounter [facility] History of Present illness Narrative 10-25-2022 Prachi Zarco APRN.CNS - 10/25/2022 8:16 AM EDT Note Date & Type Note Facility 10-25-2022 History of Presen t illness Narrative SUBJECTIVE: HEPATITIS B(1 of 3 - 3-dose series) Never done PNEUMOCOCCAL(1 - PCV) Never done HEPATITIS C SCREENING Never done HIV SCREENING Never done SHINGRIX VACCINE(1 of 2) Never done DIABETES SCREEN due on 05/14/2022 DEPRESSION ASSESSMENT Never done HPI PCP: Zaid Philippe MD Naun Montes De Oca is a 46 year old male. PMH significant for ACTIVE PROBLEM LIST Ddd (Degenerative Disc Disease) Postherpetic Neuralgia Psoriasis and Similar Disorders Presents today for routine physical exam. He is in his usual state of health. Weight is stable. Active. Tries to eat a healthy diet. He notes that psoriasis use seems worse with increased gluten intake. Labs completed 09/2022 at [facility] per Dr Matthews. See scanned documents. All WNL. Followed by Dr Matthews business systems analyst for psoriatic arthropathy. Taking methotrexate and leucovorin. He notes having Covid19 about three months ago. Did recover back to baseline. Notes did have shingles in the past. Has not yet had vaccine. Review of Systems Musculoskeletal: Positive for arthralgias. Skin: Positive for rash. Objective BP 110/72 Pulse 72 Resp 16 Ht 188.6 cm (6' 2.25 ) Wt 75.8 kg (167 lb) BMI 21.30 kg/m Physical Exam Constitutional: Appearance: Normal appearance. He is normal weight. HENT: Head: Normocephalic and atraumatic. Right Ear: Tympanic membrane and ear canal normal. Left Ear: Tympanic membrane and ear canal normal. Eyes: Conjunctiva/sclera: Conjunctivae normal. Neck: Thyroid: No thyromegaly. Vascular: Normal carotid pulses. No JVD. Cardiovascular: Rate and Rhythm: Normal rate and regular rhythm. Pulses: Carotid pulses are 2+ on the right side and 2+ on the left side. Radial pulses are 2+ on the right side and 2+ on the left side. Heart sounds: Normal heart sounds. Pulmonary: Effort: Pulmonary effort is normal. Breath sounds: Normal breath sounds. Abdominal: General: Bowel sounds are normal. Palpations: Abdomen is soft. Musculoskeletal: Right lower leg: No edema. Left lower leg: No edema. Skin: General: Skin is warm. Neurological: General: No focal deficit present. Mental Status: He is alert and oriented to person, place, and time. ALLERGIES Allergen Reactions Seasonal Allergies Unknown Medication methotrexate 2.5 mg tablet take 6 tablets by mouth every week folic acid 1 mg tablet cycloSPORINE (RESTASIS) 0.05 % ophthalmic emulsion rdpxvtx-ecgf-izavi-oreg-capryl 100 mg-150 mg- 50 mg-150 mg cap Take by mouth. leucovorin (LEUCOVORIN) 15 mg tablet Take 15 mg by mouth one time a week. SOOLANTRA 1 % crea Apply 1 application to affected area daily at bedtime. Per [facility]. Rgnpndzhrrx-Wbqiymadw-Iux C-Mn (GLUCOSAMINE CHONDROITIN MAXSTR) 500-400 mg cap Take 1 capsule by mouth once daily. multivitamin tablet Take 1 tablet by mouth once daily. 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 Contact dermatitis and other eczema, due to unspecified cause 06/22/2008 DDD (degenerative disc disease) 11/10/2009 External hemorrhoids without mention of complication 11/10/2009 Family history of diabetes mellitus 11/10/2009 Family history of melanoma 11/10/2009 Family history of prostate cancer 11/10/2009 Postherpetic neuralgia 03/22/2019 Shoulder dislocation, left, initial encounter 09/15/2017 Kayaking Tinea corporis 11/10/2009 Social History Tobacco Use Smoking status: Never Smokeless tobacco: Never Vaping Use Vaping Use: Never used Substance Use Topics Alcohol use: No Drug use: No Depression Screening 09/27/2011 06/11/2021 10/25/2022 PHQ-2 Score 0 0 0 PHQ-9 Score 4 - - Depression screening tool completed and reviewed. Based on score and interview, patient is not at risk for depression. Screening tool discussed with patient, and I recommended no further intervention at this time. ASSESSMENT/PLAN: 1. Routine medical exam - ICD9: V70.0, ICD10: Z00.00 (primary diagnosis) Endorse plant-based diet such as Mediterranean diet and routine exercise such as walking. 2. Encounter for immunization - ICD9: V03.89, ICD10: Z23 He will check with campus ambassador and regarding insurance coverage for vaccines. - PNEUMOCOCCAL VACCINE (PREVNAR 20) - ZOSTER VACCINE, RECOMBINANT (SHINGRIX) -eligible due to immunosuppression and age - HEP B VACCINE, 3-DOSE, AGE 20+ YR (ENGERIX-B, RECOMBIVAX HB) - HEP B VACCINE, 3-DOSE, AGE 20+ YR (ENGERIX-B, RECOMBIVAX HB) - HEP B VACCINE, 3-DOSE, AGE 20+ YR (ENGERIX-B, RECOMBIVAX HB) 3. Special screening examination for viral disease - ICD9: V73.99, ICD10: Z11.59 - HEP C AB IA W/CONF SCRN 4. Screening for HIV (human immunodeficiency virus) - ICD9: V73.89, ICD10: Z11.4 - HIV 1 2 COMBO(AG/AB),WITH REFLEX TO DIFFERENTIATION 5. Screening for diabetes mellitus (DM) - ICD9: V77.1, ICD10: Z13.1 Glucose within normal limits at [facility] 09/2022 6. Psoriasis and similar disorders - ICD9: 696.1, ICD10: L40.9 Followed by business systems analyst Dr. 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 Patient contacted and was much better. No further action. Patient states started with a tickle in throat that started on 08/19/22 and test + for COVID with home test on 08/21/22. Has been having a temp off and on and the highest reading is 101. Has been taking tylenol cold and flu and has been helping with the congestion. Dry cough which can be productive at times. Patient did states he had been taking methotrexate but not noted on medication list. Did suggest that he do a 16/12 virtual visit on line to see if he would need treated with Paxlovid. documented in this encounter [facility] History of Past illness Narrative 04-25-2009 Note Date & Type Note Facility documented as of this encounter (statuses as of 08/25/2022) [facility] History of Past illness Narrative 04-25-2009 Note Date & Type Note Facility documented as of this encounter (statuses as of 10/25/2022) [facility] Evaluation note Note Date & Type Note Facility documented in this encounter [facility] Summary Purpose Family History No Family History Records Found Advance Directives No Advanced Directives Records Found Additional Source Comments Source Comments (unrecognize d section and content) In the event this informatio n is protected by the Federal Confidentiality of Alcohol and Drug Abuse Patient Records regulations: The Federal rules restrict any use of the information to criminally investigate or prosecute any alcohol or drug abuse patient.[facility] event this information is protected by the Federal Confidentiality of Alcohol and Drug Abuse Patient Records regulations: The Federal rules restrict any use of the information to criminally investigate or prosecute any alcohol or drug abuse patient.[facility] Reason for Visit (unrecogniz ed section and content) Reason Comments [facility] Teams (unrecognized sec tion and content) Route Vending Machine Servicer Relationship Specialty Start Date End Date Zaid Philippe MD [address] [place] [address] PCP - General Internal Medicine 5/7/20 (unrecognized sect ion and content) No Status Records Found INFORMATION SOURCE (unrecogn ized section and content) FOR RECORDS PERTAINING TO PATIENTS WHO ARE OR HAVE BEEN ENROLLED IN A CHEMICAL DEPENDENCY/SUBSTANCEABUSE PROGRAM, SOME INFORMATION MAY BE OMITTED. This clinical summary was aggregated from multiple sources. Caution should be exercised in using it in the provision of clinical care. This summary normalizes information from multiple sources, and as a consequence, information in this document may materially change the coding, format and clinical context of patient data. In addition, data may be omitted in some cases. CLINICAL DECISIONS SHOULD BE BASED ON THE PRIMARY CLINICAL RECORDS. [facility] [employer] [facility]. provides no warranty or guarantee of the accuracy or completeness of information in this document.
[2023-07-15 09:54] LABS: Absolute Lymphocyte Count 1.34 X10^3/uL (0.83-4.51); Absolute Neutrophil Count 2.6 X10^3/uL (2.0-7.7); Basophil# 0.04 X10^3/uL; Basophil% 0.9 % (0-1); Eosinophil# 0.19 X10^3/uL; Eosinophils% 4.1 % (0-5); Hematocrit 44.3 % (40-54); Hemoglobin 14.7 g/dL (13.0-16.5); Lymphocyte # 1.34 X10^3/ul (0.83-4.51); Mean Corp Hgb Conc 33.2 g/dL (32-36); Mean Corpuscular Hgb 31.3 pg (27.0-32.0); Mean Corpuscular Volume 94.5 fL (80-94); Monocyte# 0.41 X10^3/uL; Monocyte% 8.9 % (0-10); NRBC Flagged by Analyzer 0 % (0-5); Neutrophil # 2.63 X10^3/uL (2.7-7.7); Neutrophil % 56.9 % (47-70); Platelet Count 242 K/mm3 (150-450); RBC Distribution Width SD 44.3 fl (35.1-43.9); Red Blood Count 4.69 M/mm3 (4.6-6.2); White Blood Count 4.6 K/mm3 (4.4-11.0)
[2023-07-15 10:09] LABS: AST(SGOT) 22 U/L (15-37); Alanine Aminotransfer ALT/SGPT 29 U/L (16-61); Albumin, Serum 3.7 g/dL (3.2-5.0); Alkaline Phosphatase 52 U/L (45-117); Anion Gap 3 (5-15); BUN 16 mg/dL (7-18); BUN/Creat Ratio 14.5 RATIO (10-20); Calcium,Total 9.1 mg/dL (8.5-10.1); Chloride 109 mmol/L (98-107); EST Glomerular Filtration Rate 76 mL/min (>60); Est Glom Filt Rate - Afr Amer 92 mL/min (>60); Globulin 3.7 g/dL (2.2-4.2); Glucose 123 mg/dL (74-106); Potassium 3.9 mmol/L (3.5-5.1); Protein, Total 7.4 g/dL (6.4-8.2); Sodium Level 139 mmol/L (136-145)
== END | disposition home or self-care (01) ==
LOC: MTLAB 07:03
PROVIDERS: PCP Internal Medicine; Referring Provider Internal Medicine Rheumatology; Visit Provider Internal Medicine Rheumatology
DX: L40.59 Other psoriatic arthropathy (principal); Z79.899 Other long term (current) drug therapy
CPT/HCPCS: 36415; 80053; 85025

== ENCOUNTER → 2023-10-03 | Outpatient (CLI) | payer BC, SELFPAY ==
[2023-10-03 10:29] LABS: Absolute Lymphocyte Count 1.24 X10^3/uL (0.83-4.51); Absolute Neutrophil Count 2.8 X10^3/uL (2.0-7.7); Basophil# 0.03 X10^3/uL; Basophil% 0.6 % (0-1); Eosinophil# 0.17 X10^3/uL; Eosinophils% 3.6 % (0-5); Hematocrit 46.3 % (40-54); Hemoglobin 15.1 g/dL (13.0-16.5); Lymphocyte # 1.24 X10^3/ul (0.83-4.51); Lymphocyte % 26.4 % (19-41); Mean Corp Hgb Conc 32.6 g/dL (32-36); Mean Corpuscular Hgb 31.3 pg (27.0-32.0); Mean Corpuscular Volume 95.9 fL (80-94); Mean Platelet Vol. 11.1 fl (6.2-12.0); Monocyte# 0.45 X10^3/uL; Monocyte% 9.6 % (0-10); NRBC Flagged by Analyzer 0 % (0-5); Neutrophil # 2.79 X10^3/uL (2.7-7.7); Neutrophil % 59.6 % (47-70); Platelet Count 268 K/mm3 (150-450); RBC Distribution Width CV 12.9 % (11.6-14.6); RBC Distribution Width SD 45.1 fl (35.1-43.9); Red Blood Count 4.83 M/mm3 (4.6-6.2); White Blood Count 4.7 K/mm3 (4.4-11.0)
[2023-10-03 11:24] LABS: ALB/GLOB Ratio 0.9 RATIO (0.9-2.4); AST(SGOT) 21 U/L (15-37); Alanine Aminotransfer ALT/SGPT 22 U/L (16-61); Albumin, Serum 3.6 g/dL (3.2-5.0); Alkaline Phosphatase 54 U/L (45-117); Anion Gap 4 (5-15); BUN 15 mg/dL (7-18); BUN/Creat Ratio 14.4 RATIO (10-20); Calcium,Total 9.1 mg/dL (8.5-10.1); Chloride 107 mmol/L (98-107); Creatinine, Serum 1.04 mg/dL (0.70-1.30); EST Glomerular Filtration Rate 81 mL/min (>60); Est Glom Filt Rate - Afr Amer 98 mL/min (>60); Globulin 3.8 g/dL (2.2-4.2); Glucose 100 mg/dL (74-106); Potassium 3.7 mmol/L (3.5-5.1); Protein, Total 7.4 g/dL (6.4-8.2); Sodium Level 140 mmol/L (136-145)
== END | disposition home or self-care (01) ==
LOC: MTLAB 08:05
PROVIDERS: PCP Internal Medicine; Referring Provider Internal Medicine Rheumatology; Visit Provider Internal Medicine Rheumatology
DX: L40.59 Other psoriatic arthropathy (principal); L40.8 Other psoriasis; H93.13 Tinnitus, bilateral; Z86.19 Personal history of other infectious and parasitic diseases; Z79.899 Other long term (current) drug therapy
CPT/HCPCS: 36415; 80053; 85025

== ENCOUNTER → 2023-12-30 | Outpatient (CLI) | payer BC, SELFPAY ==
[2023-12-30 10:39] LABS: Absolute Lymphocyte Count 1.77 X10^3/uL (0.83-4.51); Absolute Neutrophil Count 2.3 X10^3/uL (2.0-7.7); Basophil# 0.02 X10^3/uL; Basophil% 0.4 % (0-1); Eosinophil# 0.18 X10^3/uL; Eosinophils% 3.8 % (0-5); Hematocrit 42.5 % (40-54); Hemoglobin 14.1 g/dL (13.0-16.5); Lymphocyte # 1.77 X10^3/ul (0.83-4.51); Lymphocyte % 37.3 % (19-41); Mean Corp Hgb Conc 33.2 g/dL (32-36); Mean Corpuscular Volume 93.4 fL (80-94); Mean Platelet Vol. 11.4 fl (6.2-12.0); Monocyte# 0.41 X10^3/uL; Monocyte% 8.6 % (0-10); NRBC Flagged by Analyzer 0 % (0-5); Neutrophil # 2.34 X10^3/uL (2.7-7.7); Neutrophil % 49.5 % (47-70); Platelet Count 249 K/mm3 (150-450); RBC Distribution Width CV 12.9 % (11.6-14.6); RBC Distribution Width SD 43.9 fl (35.1-43.9); Red Blood Count 4.55 M/mm3 (4.6-6.2); White Blood Count 4.7 K/mm3 (4.4-11.0)
[2023-12-30 10:56] LABS: ALB/GLOB Ratio 0.9 RATIO (0.9-2.4); AST(SGOT) 24 U/L (15-37); Alanine Aminotransfer ALT/SGPT 27 U/L (16-61); Albumin, Serum 3.4 g/dL (3.2-5.0); Alkaline Phosphatase 56 U/L (45-117); Anion Gap 6 (5-15); BUN 15 mg/dL (7-18); BUN/Creat Ratio 13.2 RATIO (10-20); Chloride 109 mmol/L (98-107); Creatinine, Serum 1.14 mg/dL (0.70-1.30); EST Glomerular Filtration Rate 73 mL/min (>60); Est Glom Filt Rate - Afr Amer 88 mL/min (>60); Globulin 3.9 g/dL (2.2-4.2); Glucose 111 mg/dL (74-106); Protein, Total 7.3 g/dL (6.4-8.2); Sodium Level 139 mmol/L (136-145)
== END | disposition home or self-care (01) ==
LOC: MTLAB 08:15
PROVIDERS: PCP Internal Medicine; Referring Provider Internal Medicine Rheumatology; Visit Provider Internal Medicine Rheumatology
DX: L40.59 Other psoriatic arthropathy (principal); Z79.899 Other long term (current) drug therapy
CPT/HCPCS: 36415; 80053; 85025

== ENCOUNTER 2024-01-04 08:46 | Emergency (ER) | payer BC, SELFPAY ==
[2024-01-04 08:46] VITALS: BP 132/89; PULSE 64; RESP 16; TEMP 35.8; O2SAT 100; BMI 22.8
--- NOTE | 2024-01-04 09:38 | EX.ED.UPPERE ---
HPI History of Present Illness HPI Narrative: The patient presents with foreign body to his left middle finger that occurred this morning. Patient states he was cleaning out his car and there was a fish lure that was stuck on the floor of the trunk. Patient states that he did not realize that there was a fistula were in the trunk and when he pulled it became embedded into his left middle finger. Patient denies any paresthesias or weakness. Patient is unsure of his last tetanus. Patient describes the pain as sharp. Patient states nothing makes it better and nothing makes it worse. Chief Complaint: Foreign Body Informant: patient Occured/Mechanism Mechanism/Context: Yes puncture wound Onset/Context/Timing Onset: Today Context: Sudden Onset Timing: Continuous Quality of Pain: Sharp Location: Left middle finger Worsened by: Nothing Relieved by: Nothing Associated Symptoms Associated Symptoms: Negative for Parasthesia, Weakness or Loss of Funtion Narrative Tetanus Immunization: Unknown [facility] Medical History (Updated 01/04/24 @ 10:[address] Maximino Colin DO) Psoriatic arthritis Home Medications ?Medication ?Instructions ?Recorded ?Last Taken ?Type naproxen 500 mg tablet 500 mg PO BID PRN #20 tabs 03/08/19 Unknown Rx Allergy/AdvReac Type Severity Reaction Status Date / Time No Known Allergies Allergy Verified 01/04/24 08:46 Surgical History no surgical history no surgical history Social History Smoking Status: Never smoker ROS ROS ED Constitutional Constitutional ED: Denies chills or fever(s) Eyes Eyes: Denies blurry vision or change in vision ENT ENT ED: Denies rhinorrhea or sore throat Cardiovascular Cardiovascular: Denies chest pain or palpitations Respiratory/Chest Respiratory/Chest: Denies cough or dyspnea Gastrointestinal Gastrointestinal: Denies nausea or vomiting Genitourinary Genitourinary ED: Denies dysuria or hematuria Musculoskeletal Musculoskeletal: Denies back pain or neck pain Integumentary Denies abscess or rash Neurologic Neurologic: Denies headache(s) or weakness Allergic/Immunologic Allergic/Immunologic ED: Denies mouth swelling or urticaria EXAM Physical Exam Const Vital Signs: 01/04/24 08:46 01/04/24 08:52 Temperature 96.5 F L Temperature Source Temporal Pulse Rate 64 Respiratory Rate 16 Respiratory Effort Normal Respiratory Pattern Normal Blood Pressure 132/89 H Blood Pressure Mean 103 Pulse Ox 100 Oxygen Delivery Method Room Air Positive well nourished and well developed General Appearance ED: well developed and NAD HEENT Reports moist mucous membranes Neck full ROM and supple Extremity Extremity Narrative: There is a fishhook embedded into the radial aspect of the middle phalanx of the left middle finger. There is no surrounding erythema or warmth. There is no discharge or drainage noted. There is minimal bleeding noted. There is minimal tenderness. Sensation was intact to light touch in all digits. Capillary refill was less than 2 seconds in all digits. Strength is 5/5 in flexion and extension of the MP, PIP, and DIP joints of the left middle finger. Neuro oriented x3, CN's II-XII intact bilaterally, moves all extremities, no focal motor deficits and no sensory deficits noted Sensorium / Orientation: alert Motor Exam: strength 5/5 throughout Psych mental status grossly normal MDM MDM MDM Narrative Medical decision making narrative: The puncture wound area was cleaned with chlorhexidine and anesthetized with 1% lidocaine locally. The fishhook was pushed through the skin and the jalyn of the fishhook was cut off. The fishhook was then removed. Patient was given a tetanus booster. Patient was instructed to keep the wound clean and dry. Bacitracin dressing was applied. Patient was instructed to follow-up with his primary care physician in 5 to 7 days. Patient understood and was agreeable with the plan. All questions were answered. Discharge Plan Triage Chief Complaint: Foreign Body ED Provider: Maximino Colin Dx/Rx/DC Orders Clinical Impression: Foreign body in skin of left middle finger, Psoriatic arthritis Instructions: ED Foreign Body, Soft Tissue (Removed) Prescriptions: No Action naproxen 500 MG tablet 500 mg PO BID PRN Qty: 20 0RF Primary Care Provider: Zaid Dove Referrals: Zaid Dove MD [Primary Care Provider] - 5-7 Days Print Language: Lithuanian Disposition Disposition: Home, Self Care
[2024-01-04] MEDS: Diphth,Pertuss(Acell),Tet Vac 0.5 ML Vial IM (09:51)
[2024-01-04] MEDS: Lidocaine 1% (20 ml mdv) 20 ML Vial INFILT (09:52)
== END 2024-01-04 10:28 | disposition home or self-care (01) ==
PROVIDERS: Emergency Provider Emergency Medicine; PCP Internal Medicine; Visit Provider Emergency Medicine
DX: S60.453A Superficial foreign body of left middle finger, initial encounter (principal); L40.50 Arthropathic psoriasis, unspecified; W45.8XXA Other foreign body or object entering through skin, initial encounter
CPT/HCPCS: 90715; 99283

== ENCOUNTER → 2024-03-17 | Outpatient (CLI) | payer BC, SELFPAY ==
--- OUTSIDE RECORDS SUMMARY | 2024-03-17 08:33 | XMS RPT_ITS | CCD ---
Author Organization [facility] Care Team Providers Care Wellness Consultant Name Role Phone Derrell VALLES, Zaid Herron Primary Care Provider [phone] ZAID PHILIPPE Primary Care Unavailable INGE ZARCO Attending Unavailable ZAID PHILIPPE Primary Care Unavailable LEAH HARDIN Referring Unavailable ZAID PHILIPPE Primary Care Unavailable LEAH HARDIN Attending Unavailable ZAID PHILIPPE Primary Care Unavailable CAROLYN BUCKLEY Attending Unavailable ZAID PHILIPPE Primary Care Unavailable INGE ZARCO Referring Unavailable ZAID PHILIPPE Attending Unavailable ZAID PHILIPPE Primary Care Unavailable INGE ZARCO Referring Unavailable Zaid Philippe MD Primary Care Provider [phone] Allergies Allergy Classification Reported Allergen(s) Allergy Type Date of Onset Reaction(s) Facility (1 source) Seasonal allergy; Translations: [SEASONAL ALLERGIES] Propensity to adverse reactions (disorder) 3 [facility] Medications Current Medications Medication Drug Class(es) Dates Sig (Normalized) Sig (Original) chondroitin sulfates 400 mg / glucosamine hydrochloride 500 mg oral capsule (6 sources) Start: 05-13-2019 take 1 capsule by mouth once daily Glucosamine-Chondr oit-Vit C-Mn (GLUCOSAMINE CHONDROITIN MAXSTR) 500-400 mg cap Take 1 capsule by mouth once daily. 05/13/2019 Active Comment on above: Take 1 capsule by [facility] once daily. cycloSPORINE (RESTASIS) 0.05 % ophthalmic emulsion (5 sources) Start: 08-09-2022 cycloSPORINE (RESTASIS) 0.05 % ophthalmic emulsion 08/09/2022 Active Start: 08-09-2022 cycloSPORINE ( RESTASIS) 0.05 % ophthalmic emulsion folic acid 1 mg oral tablet (5 sources) Start: 10-23-2022 folic acid 1 m g tablet 10/23/2022 Active Herbal Drugs tab (4 sources) Start: 03-19-2023 Herbal Drugs t ab Niaicin supplement twice daily from dermatology 03/19/2023 Active Start: 03-19-2023 Herbal Drugs t ab Niaicin supplement twice daily from dermatology 0 03/19/2023 Active hyoscyamine sulfate 0.125 mg sublingual tablet (3 sources) Start: 10-28-2023 take 1 tablet under the tongue four times daily as needed hyoscyamine sublingual (LEVSIN SL) 0.125 mg Indications: Irritable bowel syndrome with both constipation and diarrhea Dissolve 1-2 tablets under the tongue four times a day as needed (gastrointestinal symptoms.). 100 tablet 0 10/28/2023 Active ivermectin 10 mg/ml topical cream (6 sources) Antiparasitic, Pediculicide Start: 05-13-2019 SOOLANTRA 1 % crea Apply 1 application to affected area daily at bedtime. Per [facility]. 0 05/13/2019 Active Comment on above: Apply 1 application to affected area daily at bedtime. Per [facility]. leucovorin 15 mg oral tablet (5 sources) Folate Analog Start: 09-26-2022 take 1 tablet by mouth every week leucovorin (LEUCOVORIN) 15 mg tablet Take 15 mg by mouth one time a week. 09/26/2022 Active Comment on above: Take 15 mg by mouth one time a week. methotrexate 2.5 mg oral tablet (5 sources) Folate Analog Metabolic Inhibitor Start: 09-26-2022 methotrexate 2.5 mg tablet 20 mg. 09/26/2022 Active Start: 09-26-2022 take 6 tablets by mo ut every week methotrexate 2.5 mg tablet take 6 tablets by mouth every week 0 09/26/2022 Active Comment on above: take 6 tablets by mo uth every week multivitamin tablet (6 sources) Start: 05-13-2019 take 1 tablet by mouth once daily multivitamin tablet Take 1 tablet by mouth once daily. 05/13/2019 Active Start: 05-13-2019 take 1 tablet by bon once daily multivitamin tablet Take 1 tablet by mouth once daily. 0 05/13/2019 Active Comment on above: Take 1 tablet by bon th once daily. ljzuqsz-qwnc-leubh-oreg-capr yl 100 mg-150 mg- 50 mg-150 mg cap (5 sources) swzqiwf-vsdq-gxj ve-oreg-ca pryl 100 mg-150 mg- 50 mg-150 mg cap Take by mouth. Active jedhxfq-ktxi-otv kc-ugrw-ydbkrc 100 mg-150 mg- 50 mg-150 mg cap Take by mouth. 0 Active Comment on above: Take by mouth. Problems Active Problems Problem Classification Problem Date Documented Da te Episodic/Chronic Immunizations and screening for infectious disease (9 sources) Patient encounter status; Translations: [Encounter for immunization] Onset: 03-19-2023 Episodic Other circulatory disease (1 source) H/O: cardiovascular disease; Translations: [Personal history of other diseases of the circulatory system] 06-06-2023 Episodic Other connective tissue disease (1 source) Pain of left hand; Translations: [Pain in left hand] 06-06-2023 Episodic Other gastrointestinal disorders (1 source) Irritable bowel syndrome; Translations: [Mixed irritable bowel syndrome] 10-28-2023 Chronic Other inflammatory condition of skin (8 sources) Psoriasis; Translations: [Psoriasis, unspecified] Onset: 06-20-2021 06-20-2021 Chronic Other inflammatory condition of skin (5 sources) Psoriatic arthritis; Translations: [Arthropathic psoriasis, unspecified] Onset: 09-30-2022 10-28-2023 Chronic Other inflammatory condition of skin (1 source) Psoriasis, unspecified; Translations: [Psoriasis and similar disorders] Onset: 06-20-2021 Chronic Spondylosis; intervertebral disc disorders; other back problems (6 sources) Degeneration of intervertebral disc; Translations: [DDD (degenerative disc disease)] Onset: 11-10-2009 11-10-2009 Chronic Past or Other Problems Problem Classification Problem Date Documented Date [...] Translations: [Left hand pain] Onset: 06-06-2023 Episodic Spondylosis; intervertebral disc disorders; other back problems (4 sources) Backache; Translations: [Dorsalgia, unspecified] Onset: 04-25-2009 Resolved: 11-10-2009 11-10-2009 Episodic Viral infection (6 sources) Postherpetic neuralgia; Translations: [Other postherpetic nervous system involvement] Onset: 03-22-2019 Resolved: 03-19-2023 03-22-2019 Episodic Results Test Name Value Interpretation Reference Range Facility CNOVon 11-26-2023 CNOV Office Visit (INTMWS ) FALGUNINAUN ([id number]) 1975 M Date Time Provider Department 11/26/23 7:20 AM CAROLYN BUCKLEY INTMWS During your visit today, we recorded the following information about you: Mukul Huff LPN 11/26/2023 7:52 AM Signed Patient here for his 2nd Hepatitis B injection. Vaccine given and Naun tolerated injection well. Allergies As of Date: 11/26/2023 Noted Allergy Reaction SEASONAL ALLERGIES 10/25/2022 16 - Unknown Date Reviewed: 10/28/2023 Reviewed by: Barb Spears LPN - Fully Assessed Reason for Visit: Imm/Inj [58] Primary Visit Diagnosis:Need for vaccination [Z23] Order(s):HEP B VACCINE, 3-DOSE, AGE 20+ YR (ENGERIX-B, RECOMBIVAX HB) [[id number]] Order #: [id number] FUTURE Prescriptions as of 11/26/2023 - hyoscyamine sublingual (LEVSIN SL) 0.125 mg Dissolve 1-2 tablets under the tongue four times a day as needed (gastrointestinal symptoms.). - Herbal Drugs tab Niaicin supplement twice daily from dermatology - methotrexate 2.5 mg tablet 20 mg. - folic acid 1 mg tablet - cycloSPORINE (RESTASIS) 0.05 % ophthalmic emulsion - kmjclwz-ocjm-oosgg-oreg-cap ryl 100 mg-150 mg- 50 mg-150 mg cap Take by mouth. - leucovorin (LEUCOVORIN) 15 mg tablet Take 15 mg by mouth one time a week. - SOOLANTRA 1 % crea Apply 1 application to affected area daily at bedtime. Per [facility]. - Iamrdrnusps-Urexanycu-Lxn C-Mn (GLUCOSAMINE CHONDROITIN MAXSTR) 500-400 mg cap Take 1 capsule by mouth once daily. - multivitamin tablet Take 1 tablet by mouth once daily. Problem List As Of Date 11/26/2023 Noted Resolved Unspecified Backache [M54.9] 04/25/2009 11/10/2009 DDD (Degenerative Disc Disease) [HYM6815] 11/10/2009 Postherpetic neuralgia [B02.29] 03/22/2019 03/19/2023 Psoriasis and similar disorders [L40.9] 06/20/2021 Psoriatic arthritis (HCC) [L40.50] 09/30/2022 Encounter Status:Closed by CAROLYN BUCKLEY on 11/26/23 [facility] CNOVon 10-28-2023 CNOV Office Visit (INTMWS ) NAUN MONTES DE OCA ([id number]) 1975 M Date Time Provider Department 10/28/23 8:00 AM ZAID PHILIPPE INTMWS During your visit today, we recorded the following information about you: Pulse Respiration Blood pressure Weight 60/minute 16/minute 116/72 81.2 kg Height 1.886 m Zaid Philippe MD 10/28/2023 9:14 AM Signed This note was created using NoteWriter. Subjective Patient presents with: Physical Naun Montes De Oca is a 47 year old male. He was doing well in general. He notes non specific fatigue related to his medications. Psoriatic arthritis was diagnosed last year primarily involving his hands and hips. He sees Dr. Avril Matthews and has been on methotrexate with improvement. He continues to be on topicals for psoriasis from Dr. Jose Reyes. He noted bloating, diarrhea, and constipation since he had post herpetic neuralgia and Covid few years ago. He has been modifying his diet to improve his symptoms. He had been on gluten free diet and was now starting a lactose free diet. His weight was up as he was not as active as before. Review of Systems Constitutional: Positive for fatigue. Negative for appetite change, fever and unexpected weight change. HENT: Negative. Eyes: Negative for visual disturbance. Respiratory: Negative for cough and shortness of breath. Cardiovascular: Negative for chest pain, palpitations and leg swelling. Gastrointestinal: Positive for constipation and diarrhea. Negative for abdominal pain, blood in stool, nausea and vomiting. Genitourinary: Negative for difficulty urinating. Musculoskeletal: Positive for arthralgias. Neurological: Negative for dizziness, numbness and headaches. Psychiatric/Behavioral: Negative. 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 Contact dermatitis and other eczema, due to unspecified cause 06/22/2008 DDD (degenerative disc disease) 11/10/2009 External hemorrhoids without mention of complication 11/10/2009 Family history of diabetes mellitus 11/10/2009 Family history of melanoma 11/10/2009 Family history of prostate cancer 11/10/2009 Postherpetic neuralgia 03/22/2019 Psoriatic arthritis (HCC) 09/30/2022 Shoulder dislocation, left, initial encounter 09/15/2017 Kayaking Tinea corporis 11/10/2009 PAST SURGICAL HISTORY Procedure Laterality Date NONE FAMILY HISTORY Problem Relation Age of Onset Hypertension Mother Diabetes Mother Genitourinary () Father kidneys stones, Prostate Cancer, Renal insufficiency, Melanoma Cancer Father non-Hodgkins lymphoma Skin Cancer Father other (Migraine) Sister other (Migraine) Sister Hypertension Maternal Grandmother Hypertension Maternal Grandfather Alzheimer's Disease Paternal Grandmother Social History Tobacco Use Smoking status: Never Smokeless tobacco: Never Vaping Use Vaping Use: Never used Substance Use Topics Alcohol use: No Drug use: No ALLERGIES Allergen Reactions Seasonal Allergies Unknown Current Outpatient Medications Medication Sig Herbal Drugs tab Niaicin supplement twice daily from dermatology methotrexate 2.5 mg tablet 20 mg. folic acid 1 mg tablet cycloSPORINE (RESTASIS) 0.05 % ophthalmic emulsion hrxibrm-yrgj-hdjdl-oreg-cap ryl 100 mg-150 mg- 50 mg-150 mg cap Take by mouth. leucovorin (LEUCOVORIN) 15 mg tablet Take 15 mg by mouth one time a week. SOOLANTRA 1 % crea Apply 1 application to affected area daily at bedtime. Per [facility]. Ffisklkmffx-Zanbipggr-Tra C-Mn (GLUCOSAMINE CHONDROITIN MAXSTR) 500-400 mg cap Take 1 capsule by mouth once daily. multivitamin tablet Take 1 tablet by mouth once daily. hyoscyamine sublingual (LEVSIN SL) 0.125 mg Dissolve 1-2 tablets under the tongue four times a day as needed (gastrointestinal symptoms.). No current facility-administered medications for this visit. Objective BP 116/72 (BP Site: Left Arm, BP Position: Sitting, BP Cuff Size: Large Adult) Pulse 60 Resp 16 Ht 188.6 cm (6' 2.25 ) Wt 81.2 kg (179 lb) BMI 22.83 kg/m? Physical Exam Constitutional: Appearance: Normal appearance. HENT: Head: Normocephalic. Eyes: General: No scleral icterus. Conjunctiva/sclera: Conjunctivae normal. Cardiovascular: Rate and Rhythm: Normal rate and regular rhythm. Heart sounds: No murmur heard. No gallop. Pulmonary: Breath sounds: Normal breath sounds. Abdominal: Palpations: Abdomen is soft. There is no mass. Tenderness: There is no abdominal tenderness. Musculoskeletal: General: No swelling or tenderness. Normal range of motion. Right lower leg: No edema. Left lower leg: No edema. Lymphadenopathy: Cervical: No cervical adenopathy. Neurological: General: No focal deficit present. Mental Status: He is alert. Depression Scre (more content not included)... Normal [facility] XR Hand - left PA and Latera l and Obliqueon 06-09-2023 IMPRESSION: Negative 3 views of the left hand. Chief Technician: INDER Transcribe Date/Time: Jun 09 2023 5:03P Dictated by : JONA PIZANO MD This examination was interpreted and the report reviewed and electronically signed by: JONA PIZANO MD on Jun 09 2023 5:05PM [facility] DIVISION OF RADIOLOGY * * *Final Report* * * DATE OF EXAM: Jun 06 2023 1:49PM [id number] - XR HAND 3V PA/LAT/OBL LT / PROCEDURE REASON: multiple diagnoses * * * * Physician Interpretation * * * * EXAM TITLE: XR HAND 3V PA/LAT/OBL LT EXAM DATE/TIME: 06/06/2023 1:49 PM COMPARISON: None. CLINICAL INDICATION/HISTORY: Raynaud's syndrome. TECHNIQUE: PA, lateral and oblique views of the left hand are presented. FINDINGS: No fractures or subluxations are noted. No bony erosions are seen. The joint spaces are well preserved. The mineralization of the bones is normal. There is no significant soft tissue swelling. DIVISION OF RADIOLOGY Provider, Nat Benton [facility] - 06/09/2023 * * *Final Report* * * DATE OF EXAM: Jun 06 2023 1:49PM WOX [id number] - XR HAND 3V PA/LAT/OBL LT / PROCEDURE REASON: multiple diagnoses * * * * Physician Interpretation * * * * EXAM TITLE: XR HAND 3V PA/LAT/OBL LT EXAM DATE/TIME: 06/06/2023 1:49 PM COMPARISON: None. CLINICAL INDICATION/HISTORY: Raynaud's syndrome. TECHNIQUE: PA, lateral and oblique views of the left hand are presented. FINDINGS: No fractures or subluxations are noted. No bony erosions are seen. The joint spaces are well preserved. The mineralization of the bones is normal. There is no significant soft tissue swelling. IMPRESSION IMPRESSION: Negative 3 views of the left hand. Chief Technician: PSCB Transcribe Date/Time: Jun 09 2023 5:03P Dictated by : JONA PIZANO MD This examination was interpreted and the report reviewed and electronically signed by: JONA PIZANO MD on Jun 09 2023 5:05PM [facility] XR Hand - left PA and Latera l and ObliqueOrdered By: Cc Provider on 06-09-2023 [facility] CNOVon 06-06-2023 CNOV Office Visit (INTMWS ) NAUN MONTES DE OCA ([id number]) 1975 M Date Time Provider Department 06/06/23 12:40 PM INGE ZARCO INTMWS During your visit today, we recorded the following information about you: Pulse Respiration Blood pressure Weight 54/minute 16/minute 118/76 80.7 kg Inge Zarco, DATA SECURITY ADMINISTRATOR.HEEL GOUGER 06/06/2023 1:25 PM Signed SUBJECTIVE: Hepatitis B Vaccine(1 of 3 - [...] house quickly. Continues on with methotrexate per discharge door operator. Notes that he took prednisone 10 mg [...] tablet cycloSPORINE (RESTASIS) 0.05 % ophthalmic emulsion lptylar-gadk-wdeez-oreg-cap ryl 100 mg-150 mg- 50 mg-150 mg cap Take by mouth. leucovorin (LEUCOVORIN) 15 mg tablet Take 15 mg by mouth one time a week. SOOLANTRA 1 % crea Apply 1 application to affected area daily at bedtime. Per [facility]. Htfxvrmedqj-Qcrawbupi-Row C-Mn (GLUCOSAMINE CHONDROITIN MAXSTR) 500-400 mg cap [...] is not consistent with this. Advised: Recommend keep (more content not included)... Normal [facility] XR HAND 3V PA/LAT/OBL LTon 0 06-06-2023 XR HAND 3V PA/LAT/OBL LT * * *Final Report* * * DATE OF EXAM: Jun 06 2023 1:49PM WOX [id number] - XR HAND 3V PA/LAT/OBL LT / PROCEDURE REASON: multiple diagnoses * * * * Physician Interpretation * * * * EXAM TITLE: XR HAND 3V PA/LAT/OBL LT EXAM DATE/TIME: 06/06/2023 1:49 PM COMPARISON: None. CLINICAL INDICATION/HISTORY: Raynaud's syndrome. TECHNIQUE: PA, lateral and oblique views of the left hand are presented. FINDINGS: No fractures or subluxations are noted. No bony erosions are seen. The joint spaces are well preserved. The mineralization of the bones is normal. There is no significant soft tissue swelling. IMPRESSION: Negative 3 views of the left hand. Chief Technician: PSCB Transcribe Date/Time: Jun 09 2023 5:03P Dictated by : JONA PIZANO MD This examination was interpreted and the report reviewed and electronically signed by: JONA PIZANO MD on Jun 09 2023 5:05PM EST [id number] Normal [facility] XR Hand - left PA and Latera l and Obliqueon 06-06-2023 Radiology Study observation (narrative) [facility] Bacteria Ur Culton 3 Bacteria identified Cx Nom (U) CULTURE, URINE: No growth (<1,000 CFU/ml) Normal [facility] Comment on above: Performed By: #### 2 857-1 #### [facility] CLIA [id number] [address] [place] [address] [place] CNOVon 03-19-2023 CNOV Office Visit (INTMWS ) NAUN MONTES DE OCA ([id number]) 1975 M Date Time Provider Department 03/19/23 8:00 AM LEAH BOOGIE INTMWS During your visit today, we recorded the following information about you: Pulse Respiration Blood pressure Weight 75/minute 14/minute 132/84 78.5 kg Leah Boogie APRN.WATER REUSE PROGRAM MANAGER 03/19/2023 8:55 AM Signed CC: Patient presents with: prostate cancer screen [...] psoriatic arthritis treated with Methotrexate and leucovorin. Ribbon Cutter monitors CBC and CMP every 3 months [...] tablet cycloSPORINE (RESTASIS) 0.05 % ophthalmic emulsion blayyno-lgzi-ewxoh-oreg-cap ryl 100 mg-150 mg- 50 mg-150 mg cap Take by mouth. leucovorin (LEUCOVORIN) 15 mg tablet Take 15 mg by mouth one time a week. SOOLANTRA 1 % crea Apply 1 application to affected area daily at bedtime. Per [facility]. Knehahzfuub-Lsyuwusqd-Fss C-Mn (GLUCOSAMINE CHONDROITIN MAXSTR) 500-400 mg cap [...] DATA REVIEWED: most recent labs done at [facility], ordered by rheumatology ASSESSMENT/PLAN: 1. Pelvic pain - ICD9: [id number], ICD10: R10.2 (primary diagnosis) Etiology unclear Differential Diagnosis includes pelvic floor dysfunction, osteoarthritis, referred pain from lumbar spine Evaluate further with: - PSA/PROSTSPECAG DIAG - URINALYSIS, WITH DE (more content not included)... Normal [facility] HCV Ab Ser Qlon 03-19-2023 HCV Ab Ql (S) Negative Normal Negative [facility] Comment on above: Order Comment: Speci men Type: BLOOD SPECIMEN Ordering Facility: [facility] Address: [address] [address] Result Comment: The result suggests no evidence of active infection with Hepatitis C virus. Should recent infection be suspected, repeat testing may be considered 4-6 weeks after this draw. Performed By: #### 1 6128-1 #### [facility] CLIA [id number] [address] [place] [address] [place] HIV 1+2 Ab IA Qlon 3 HIV 1 and 2 Ab IA.rapid Nom Normal [facility] Comment on above: Order Comment: Speci men Type: BLOOD SPECIMEN Ordering Facility: [facility] Address: [address] [address] Result Comment: Test not indicated. Performed By: #### 2 857-1 #### [facility] CLIA [id number] [address] [place] [address] [place] HIV 1+2 Ab+HIV1 p24 Ag IA Ql Non-Reactive Normal Nonreactive [facility] Comment on above: Order Comment: Speci men Type: BLOOD SPECIMEN Ordering Facility: [facility] Address: [address] [address] Performed By: #### 2 857-1 #### [facility] CLIA [id number] [address] [place] [address] [place] HIV immunoassay testing algorithm interpretation (S/P/Bld) [Interp] Normal [facility] Comment on above: Order Comment: Speci men Type: BLOOD SPECIMEN Ordering Facility: [facility] Address: [address] [address] Result Comment: No e vidence of HIV-1 or HIV-2 infection. Should recent infection be suspected, repeat testing may be considered 2-3 weeks after this draw. [place] Rev. Code 3701.243(E): This information has been disclosed to you from confidential records protected from disclosure by state law. ???You shall make no further disclosure of this information without the specific, written, and informed release of the individual to whom it pertains or as otherwise permitted by state law. A general authorization for the release of medical or other information is not sufficient for the purpose of the release of HIV test results or diagnoses. Performed By: #### 2 857-1 #### [facility] CLIA [id number] [address] [place] [address] [place] PSA [facility] 03-19-2023 Prostate specific Ag [Mass/Vol] 2.04 ng/mL Normal <2.60 [facility] Comment on above: Order Comment: Speci men Type: BLOOD SPECIMEN Ordering Facility: [facility] Address: [address] [place] [address] Result Comment: Tota l PSA test methodology used is the Electrochemiluminescence Immunoassay by [employer]. Total PSA values by differing methodologies cannot be interchanged. Performed By: #### 2 857-1 #### [facility] CLIA [id number] [address] [place] [address] [place] Urinalysis complete panel (U )on 03-19-2023 Bacteria LM.HPF (Urine sed) [#/Area] Negative Normal Negative [facility] Comment on above: Order Comment: Speci men Type: URINE SPECIMEN Ordering Facility: [facility] Address: [address] [place] [address] Performed By: #### 2 4356-8 #### [facility] CLIA [id number] [address] [place] [address] [place] Bilirubin Ql (U) Negative Normal Negative [facility] Comment on above: Order Comment: Speci men Type: URINE SPECIMEN Ordering Facility: [facility] Address: [address] [place] [address] Performed By: #### 2 4356-8 #### [facility] CLIA [id number] [address] [place] [address] [place] Clarity (Unsp spec) Clear Normal Clear [facility] Comment on above: Order Comment: Speci men Type: URINE SPECIMEN Ordering Facility: [facility] Address: [address] [place] [address] Performed By: #### 2 4356-8 #### [facility] CLIA [id number] [address] [place] [address] [place] Color (U) Yellow Normal Yellow [facility] Comment on above: Order Comment: Speci men Type: URINE SPECIMEN Ordering Facility: [facility] Address: [address] [place] [address] Performed By: #### 2 4356-8 #### [facility] CLIA [id number] [address] [place] [address] [place] Epithelial cells LM.HPF (Urine sed) [#/Area] None Seen Normal [facility] Comment on above: Order Comment: Speci men Type: URINE SPECIMEN Ordering Facility: [facility] Address: [address] [place] [address] Performed By: #### 2 4356-8 #### [facility] CLIA [id number] [address] [place] [address] [place] Glucose Test strip (U) [Mass/Vol] Negative Normal Negative [facility] Comment on above: Order Comment: Speci men Type: URINE SPECIMEN Ordering Facility: [facility] Address: [address] [place] [address] Performed By: #### 2 4356-8 #### [facility] CLIA [id number] [address] [place] [address] [place] Hemoglobin Ql (U) Negative Normal Negative [facility] Comment on above: Order Comment: Speci men Type: URINE SPECIMEN Ordering Facility: [facility] Address: [address] [place] [address] Performed By: #### 2 4356-8 #### [facility] CLIA [id number] [address] [place] [address] [place] Hyaline casts (Urine sed) [#/Area] 4-10 /LPF Abnormal 0 /LPF [facility] Comment on above: Order Comment: Speci men Type: URINE SPECIMEN Ordering Facility: [facility] Address: [address] [address] Performed By: #### 2 4356-8 #### [facility] CLIA [id number] [address] [place] [address] [place] Ketones Ql (U) Trace Abnormal Negative [facility] Comment on above: Order Comment: Speci men Type: URINE SPECIMEN Ordering Facility: [facility] Address: [address] [place] [address] Performed By: #### 2 4356-8 #### [facility] CLIA [id number] [address] [place] [address] [place] Leukocyte esterase Test strip Ql (U) Negative Normal Negative [facility] Comment on above: Order Comment: Speci men Type: URINE SPECIMEN Ordering Facility: [facility] Address: [address] [address] Performed By: #### 2 4356-8 #### [facility] CLIA [id number] [address] [place] [address] [place] Nitrite Ql (U) Negative Normal Negative [facility] Comment on above: Order Comment: Speci men Type: URINE SPECIMEN Ordering Facility: [facility] Address: [address] [address] Performed By: #### 2 4356-8 #### [facility] CLIA [id number] [address] [place] [address] [place] pH (U) 6.5 [pH] Normal <8.5 [facility] Comment on above: Order Comment: Speci men Type: URINE SPECIMEN Ordering Facility: [facility] Address: [address] [address] Performed By: #### 2 4356-8 #### [facility] CLIA [id number] [address] [place] [address] [place] Protein (U) [Mass/Vol] Negative Normal Negative [facility] Comment on above: Order Comment: Speci men Type: URINE SPECIMEN Ordering Facility: [facility] Address: [address] [address] Performed By: #### 2 4356-8 #### [facility] CLIA [id number] [address] [place] [address] [place] RBC LM.HPF (Urine sed) [#/Area] 0-2 /HPF Normal 0-2 /HPF [facility] Comment on above: Order Comment: Speci men Type: URINE SPECIMEN Ordering Facility: [facility] Address: [address] [address] Performed By: #### 2 4356-8 #### [facility] CLIA [id number] [address] [place] [address] [place] Specific gravity (U) [Rel density] 1.018 Normal 1.005-1.030 [facility] Comment on above: Order Comment: Speci men Type: URINE SPECIMEN Ordering Facility: [facility] Address: [address] [place] [address] Performed By: #### 2 4356-8 #### [facility] CLIA [id number] [address] [place] [address] [place] Urobilinogen Ql (U) 0.2 EU/dL Normal 0.2-1.0 EU/dL [facility] Comment on above: Order Comment: Speci men Type: URINE SPECIMEN Ordering Facility: [facility] Address: [address] [place] [address] Performed By: #### 2 4356-8 #### [facility] CLIA [id number] [address] [place] [address] [place] WBC LM.HPF (Urine sed) [#/Area] 0-5 /HPF Normal 0-5 /HPF [facility] Comment on above: Order Comment: Speci men Type: URINE SPECIMEN Ordering Facility: [facility] Address: [address] [place] [address] Performed By: #### 2 4356-8 #### [facility] CLIA [id number] [address] [place] [address] [place] Vital Signs Date Time Vital Sign Value Performing Clinician Faci khurram 10-28-2023 08:00-0400 Body height 188.6 cm Zaid Philippe MD Work Phone: [facility] 10-28-2023 08:00-0400 Body mass index (BMI) [Ratio] 22.83 kg/m2 Zaid Philippe MD Work Phone: [facility] 10-28-2023 08:00-0400 Body weight 81.19 kg Zaid Philippe MD Work Phone: [facility] 10-28-2023 08:00-0400 Diastolic blood pressure 72 mm[Hg] Zaid Philippe MD Work Phone: [facility] 10-28-2023 08:00-0400 Heart rate 60 /min Zaid Philippe MD Work Phone: [facility] 10-28-2023 08:00-0400 Respiratory rate 16 /min Zaid Philippe MD Work Phone: [facility] 10-28-2023 08:00-0400 Systolic blood pressure 116 mm[Hg] Zaid Philippe MD Work Phone: [facility] 10-25-2022 07:57-0400 Body height 188.6 cm Inge Zarco DATA SECURITY ADMINISTRATOR.HEEL GOUGER Work Phone: [facility] 10-25-2022 07:57-0400 Body weight 75.75 kg Inge Zarco DATA SECURITY ADMINISTRATOR.HEEL GOUGER Work Phone: [facility] 10-25-2022 07:57-0400 Diastolic blood pressure 72 mm[Hg] Inge Zarco DATA SECURITY ADMINISTRATOR.HEEL GOUGER Work Phone: [facility] 10-25-2022 07:57-0400 Heart rate 72 /min Inge Zarco DATA SECURITY ADMINISTRATOR.HEEL GOUGER Work Phone: [facility] 10-25-2022 07:57-0400 Respiratory rate 16 /min Inge Zarco DATA SECURITY ADMINISTRATOR.HEEL GOUGER Work Phone: [facility] 10-25-2022 07:57-0400 Systolic blood pressure 110 mm[Hg] Inge Zarco DATA SECURITY ADMINISTRATOR.HEEL GOUGER Work Phone: [facility] Encounters Encounter Date Encounter Type Care Provider Facility Start: 11-26-2023 End: 11-26-2023 ambulatory ZAID PHILIPPE Facility:[facility] Start: 11-26-2023 End: 11-26-2023 Patient encounter procedure Carolyn Marcio DATA SECURITY ADMINISTRATOR.WATER REUSE PROGRAM MANAGER Work Phone: [facility] Comment on above: Need for vaccination (Primary Dx) Start: 11-13-2023 ambulatory Zaid huynh MD Work Phone: [facility] Start: 11-13-2023 Patient encounter procedure Vi margarita Philippe MD Work Phone: [facility] [place] Comment on above: Consult Appointment Start: 10-28-2023 End: 10-28-2023 ambulatory ZAID PHILIPPE Facility:[facility] Start: 10-28-2023 End: 10-28-2023 Patient encounter procedure Zaid Philippe MD Work Phone: [facility] Comment on above: Routine medical exam (Primary Dx); Irritable bowel syndrome with both constipation and diarrhea; Psoriatic arthritis (HCC); Need for vaccination Start: 10-28-2023 End: 10-28-2023 Patient encounter status Zaid Philippe MD Work Phone: [facility] Work Phone: Start: 06-06-2023 End: 06-06-2023 Subsequent hospital visit by physician Xr [facility] Work Phone: Radiology Comment on above: Left hand pain [M79. 642] Start: 06-06-2023 End: 06-06-2023 ambulatory ZAID PHILIPPE Facility:[facility] Start: 03-19-2023 End: 03-19-2023 ambulatory ZAID PHILIPPE Facility:[facility] Start: 10-25-2022 End: 10-25-2022 Patient encounter procedure Inge Zarco APRN.HEEL GOUGER Work Phone: [facility] [place] Comment on above: Routine medical exam (Primary Dx); Encounter for immunization; Special screening examination for viral disease; Screening for HIV (human immunodeficiency virus); Screening for diabetes mellitus (DM); Psoriasis and similar disorders Start: 10-25-2022 End: 10-25-2022 Patient encounter status Inge Zarco APRN.HEEL GOUGER Work Phone: [facility] [place] Start: 08-23-2022 Telephone encounter Zaid avila MD Work Phone: [facility] Comment on above: + covid home test Procedures Date Procedure Procedure Detail Performing Clinician Start: 10-28-2023 Adult depression screening assessment [facility] Work Phone: Start: 06-06-2023 Radex hand minimum 3 views Inge Zarco APRN.HEEL GOUGER Work Phone: Start: 05-14-2019 Lipid 1996 panel - S iliana or Plasma Zaid Philippe MD Work Phone: Plan of Treatment Date Care Activity Detail Author Start: 01-03-2034 Urine microalbumin profile DTaP,Tdap,Td Vaccine (4 - Td or Tdap) [facility] Start: 05-13-2029 Urine microalbumin profile [facility] Start: 09-25-2025 DIABETES SCREEN DIABETES SCREEN [facility] Start: 09-25-2025 Diabetes Screening Diabetes Screenin g [facility] Start: 10-28-2024 End: 10-28-2024 Patient encounter procedure 10/28/2024 8:00 AM EDT Office Visit [facility] [place] [address], [place] [id number] Zaid Philippe MD [address] [place], [place] [id number] Annual [facility] [place] Comment on above: Annual Start: 10-27-2024 Anxiety Screening Anxiety Screening [facility] Start: 10-27-2024 Depression Screening Depression Scre ening [facility] Start: 07-02-2024 COLOGUARD (FIT-DNA) COLOGUARD (FIT-D NA) [facility] Start: 07-02-2024 COLORECTAL CANCER SCREENING COLORECTAL CANCER SCREENING [facility] Start: 07-02-2024 Screening for malign ant neoplasm of colon [facility] Start: 05-14-2024 Lipid panel Lipid Screening [facility] Start: 05-14-2024 LIPID SCREEN LIPID SCREEN [facility] Start: 04-28-2024 Hepatitis B Vaccine (3 of 3 - 19+ 3-dose series) Hepatitis B Vaccine (3 of 3 - 19+ 3-dose series) [facility] Start: 04-25-2024 Hepb vaccine adult 3 dose schedule for im use HEP B VACCINE, 3-DOSE, AGE 20+ YR (ENGERIX-B, RECOMBIVAX HB) Immunization/Injection Routine Need for vaccination Expected: 04/25/2024 (Approximate) [facility] Comment on above: Expected: 04/25/2024 (Approximate) Start: 03-29-2024 End: 03-29-2024 Nursing evaluation of patient and report 03/29/2024 9:15 AM EST Nurse Visit [facility] [place] [address] [place], [place] [phone] Nurse, [place] [address] [place], [place] [phone] Hep B - 3rd [facility] [place] Comment on above: Hep B - 3rd Start: 01-25-2024 Covid-19 Vaccine ( season) Covid-19 Vaccine ( season) [facility] Start: 01-25-2024 Influenza vaccination Influenza Vacc ine (#1) [facility] Start: 11-27-2023 Hepb vaccine adult 3 dose schedule for im use HEP B VACCINE, 3-DOSE, AGE 20+ YR (ENGERIX-B, RECOMBIVAX HB) Immunization/Injection Routine Need for vaccination Expected: 11/27/2023 (Approximate) [facility] Work Phone: Comment on above: Expected: 11/27/2023 (Approximate) Start: 11-27-2023 Orders Only 11/27/2023 Ord ers Only [facility] [place] [address] [place] [address] Zaid Philippe MD [address] [place], [place] [id number] Need for vaccination [facility] [place] Comment on above: Need for vaccination Start: 11-26-2023 End: 11-26-2023 Patient encounter procedure 11/26/2023 7:20 AM EDT Office Visit [facility] [place] [address], [place] [phone] Carolyn Buckley APRN.WATER REUSE PROGRAM MANAGER [address] [place], [place] [address] Shot 2 of Hepatitis B vax [facility] Comment on above: Shot 2 of Hepatitis B vax Start: 11-25-2023 Hepatitis B Vaccine (2 of 3 - 19+ 3-dose series) Hepatitis B Vaccine (2 of 3 - 19+ 3-dose series) [facility] Start: 04-23-2023 Hepb vaccine adult 3 dose schedule for im use HEP B VACCINE, 3-DOSE, AGE 20+ YR (ENGERIX-B, RECOMBIVAX HB) Immunization/Injection Routine Encounter for immunization Expected: 04/23/2023 [facility] Work Phone: Comment on above: Expected: 04/23/2023 Start: 04-22-2023 Covid-19 Vaccine ( season) Covid-19 Vaccine () [facility] Start: 01-24-2023 Influenza vaccination INFLUENZA (Sea son Ended) [facility] Start: 11-24-2022 Hepb vaccine adult 3 dose schedule for im use HEP B VACCINE, 3-DOSE, AGE 20+ YR (ENGERIX-B, RECOMBIVAX HB) Immunization/Injection Routine Encounter for immunization Expected: 11/24/2022 [facility] Work Phone: Comment on above: Expected: 11/24/2022 Start: 10-25-2022 End: 12-25-2022 Hepatitis C virus Ab [Presence] in Serum HEP C AB IA W/CONF SCRN Lab Routine Special screening examination for viral disease Expected: 10/25/2022, Expires: 12/25/2022 [facility] Work Phone: Comment on above: Expected: 10/25/2022 , Expires: 12/25/2022 Start: 10-25-2022 End: 12-25-2022 HIV 1+2 Ab [Presence] in Serum or Plasma by Immunoassay HIV 1 2 COMBO(AG/AB),WITH REFLEX TO DIFFERENTIATION Lab Routine Screening for HIV (human immunodeficiency virus) Expected: 10/25/2022, Expires: 12/25/2022 [facility] Work Phone: Comment on above: Expected: 10/25/2022 , Expires: 12/25/2022 Start: 05-26-2022 DEPRESSION ASSESSMENT DEPRESSION ASS ESSMENT [facility] Start: 05-14-2022 DIABETES SCREEN DIABETES SCREEN [facility] Start: 05-20-2021 COVID-19 VACCINE (4 - Booster for Moderna series) COVID-19 VACCINE (4 - Booster for Moderna series) [facility] Start: 11-30-2019 Colonoscopy COLONOSCOPY [facility] Start: 11-30-[address] COLONOGRAPHY [facility] Start: 11-30-2019 FECAL OCCULT BLOOD FECAL OCCULT BLOO D [facility] Start: 11-30-2019 Screening for malign ant neoplasm of colon [facility] Start: 11-30-2019 SIGMOIDOSCOPY SIGMOIDOSCOPY [facility] Start: 1993 SHINGRIX VACCINE (1 of 2) SHINGRIX VACCINE (1 of 2) [facility] Start: 1992 HEPATITIS C SCREENING HEPATITIS C SC REENING [facility] Start: 1992 HIV SCREENING HIV SCREENING [facility] Start: 1980 PNEUMOCOCCAL (1 - PCV) PNEUMOCOCCAL (1 - PCV) [facility] Start: 1980 Pneumococcal vaccination Pneumococcal Vaccine (1 of 2 - PCV) [facility] Start: 1974 HEPATITIS B (1 of 3 - 3-dose series) HEPATITIS B (1 of 3 - 3-dose series) [facility] Hepb vaccine adult 3 dose schedule for im use HEP B VACCINE, 3-DOSE, AGE 20+ YR (ENGERIX-B, RECOMBIVAX HB) Immunization/Injection Routine Encounter for immunization 1 Occurrences starting 10/25/2022 [facility] Work Phone: Comment on above: 1 Occurrences starti ng 10/25/2022 Hzv zoster vacc recombinant adjuvanted im njx ZOSTER VACCINE, RECOMBINANT (SHINGRIX) Immunization/Injection Routine Encounter for immunization 1 Occurrences starting 10/25/2022 [facility] Work Phone: Comment on above: 1 Occurrences starti ng 10/25/2022 Pneumococcal vaccination PNEUMOCOCCAL VACCINE (PREVNAR 20) Immunization/Injection Routine Encounter for immunization 1 Occurrences starting 10/25/2022 [facility] Work Phone: Comment on above: 1 [facility]ur[facility]i ng [facility] Immunization Date Immunization Notes Care Provider Stephan vasquez 11-26-2023 hepatitis B vaccine, adult dosage Carolyn Buckley APRN.CNP Work Phone: [facility] 10-28-2023 hepatitis B vaccine, adult dosage Zaid Philippe MD Work Phone: [facility] 04-07-2023 influenza, injectabl e, quadrivalent, preservative free Zaid Philippe MD Work Phone: [facility] 04-07-2023 influenza virus vacc ine, unspecified formulation Carolyn Messinarenetta ROCKWATER REUSE PROGRAM MANAGER Work Phone: [facility] 02-08-2022 influenza, injectabl e, quadrivalent, preservative free Zaid Philippe MD Work Phone: [facility] 03-25-2021 COVID-19 original vaccine, full dose, monovalent (MODERNA) Zaid Philippe MD Work Phone: [facility] Work Phone: 03-25-2021 influenza, injectabl e, quadrivalent, preservative free Zaid Philippe MD Work Phone: [facility] Work Phone: 05-16-2020 measles, mumps and rubella virus vaccine Zaid Philippe MD Work Phone: [facility] Work Phone: 03-01-2020 Seasonal, quadrivale nt, recombinant, injectable influenza vaccine, preservative free Zaid Philippe MD Work Phone: [facility] Work Phone: 05-13-2019 influenza, injectabl e, quadrivalent, contains preservative Zaid Philippe MD Work Phone: [facility] 05-13-2019 tetanus toxoid, redu iris diphtheria toxoid, and acellular pertussis vaccine, adsorbed Zaid Philippe MD Work Phone: [facility] 02-24-2013 influenza virus vacc ine, unspecified formulation Zaid Philippe MD Work Phone: [facility] 03-29-2009 novel Influenza-H1N1 -09, live virus for nasal administration Zaid Philippe MD Work Phone: [facility] Work Phone: 06-22-2008 tetanus toxoid, redu iris diphtheria toxoid, and acellular pertussis vaccine, adsorbed Zaid Philippe MD Work Phone: [facility] Payers Date Payer Category Payer Unknown [employer] PPO [id number] 2021-Present [phone] [address] [place] [address] PPO [id number] 2021 Unknown [id number] Social History Date Type Detail Facility Start: 09-27-2011 Tobacco smoking stat [facility] Never smoked tobacco [facility] Start: 09-27-2011 Tobacco use and exposure Smoke less tobacco non-user [facility] Start: 06-25-2021 End: 06-06-2023 Alcohol intake Current non-drinker of alcohol (finding) [facility] Start: 06-11-2021 History SDOH Alcohol Frequency 3 [facility] Start: 06-11-2021 End: 06-16-2021 History SDOH Alcohol Std Drinks 1 [facility] Start: 06-11-2021 End: 06-16-2021 History SDOH Social Connections Phone 2 [facility] Start: 06-11-2021 History SDOH Financial 5 [facility] Start: 03-07-2020 Education 20 [facility] Start: 1975 Sex Assigned At Male C [facility] Start: 10-25-2022 End: 03-17-2023 History of Social function [facility] Start: 10-25-2022 End: 03-17-2023 [facility] [employer] [facility] Has the [employer], or [employer] threatened to shut off services in your home in past 12Mo No [facility] Frequency of Social Gatherings with Friends and Family Not on file [facility] Are you now , , , , never or living with a partner? [facility] How often to you hav e a drink containing alcohol? Monthly or less [facility] How many standard dr inks containing alcohol do you have on a typical day? 1 or 2 [facility] How often do you hav e 6 or more drinks on 1 occasion? Never [facility] Do you feel stress - tense, restless, nervous, or anxious, or unable to sleep at night because your mind is troubled all the time - these days [OSQ] Only a little [facility] (I/We) worried wheth er (my/our) food would run out before (I/we) got money to buy more. Never true [facility] Start: 04-18-2020 Gender identity Identifies as male gender (finding) [facility] Start: 04-18-2020 Sexual orientation Heterosexual (fin vidal) [facility] Clinical Notes 04-25-2009 to 11-26-2023 Mukul Huff LPN - 11/26/2023 7:37 AM EDTTelephone Encounter - Elizabeth Muniz LPN - 11/17/2023 9:39 AM EDTTelephone Encounter - Elizabeth Muniz LPN - 11/17/2023 9:39 AM EDTPatient Instructions Note Date & Type Note Facility 11-26-2023 Note HNO ID: [id number] Author: MUKUL HUFF LPN Service: ? Author Type: LICENSED NURSE Type: Progress Notes Filed: 11/26/2023 07:52 Note Text: Patient here for his 2nd Hepatitis B injection. Vaccine given and Naun tolerated injection well. [facility] 11-26-2023 History of Presen t illness Narrative Patient here for his 2nd Hepatitis B injection. Vaccine given and Naun tolerated injection well. documented in this encounter [facility] 11-17-2023 Telephone encounter Note Message left to pts father to either call in for appt for daughter or have daughter call in. [facility] 11-17-2023 Miscellaneous Notes Message left to pts father to either call in for appt for daughter or have daughter call in. Schedule daughter to establish. documented in this encounter [facility] 11-15-2023 Telephone encounter Note Schedule daughter to establish. [facility] 10-28-2023 Instructions Zaid Philippe MD - 10/28/2023 8:45 AM EDT Hepatitis B 3 shot series. Consider FODMAP diet for irritable bowel syndrome. documented in this encounter [facility] 10-28-2023 Note HNO ID: [id number] Author: ZAID PHILIPPE MD Service: ? Author Type: Physician Type: Progress Notes Filed: 10/28/2023 09:14 Note Text: This note was created using G-Snap!riter. Subjective Patient presents with: Physical Naun Montes De Oca is a 47 year old male. He was doing well in general. He notes non specific fatigue related to his medications. Psoriatic arthritis was diagnosed last year primarily involving his hands and hips. He sees Dr. Avril Matthews and has been on methotrexate with improvement. He continues to be on topicals for psoriasis from Dr. Jose Reyes. He noted bloating, diarrhea, and constipation since he had post herpetic neuralgia and Covid few years ago. He has been modifying his diet to improve his symptoms. He had been on gluten free diet and was now starting a lactose free diet. His weight was up as he was not as active as before. Review of Systems Constitutional: Positive for fatigue. Negative for appetite change, fever and unexpected weight change. HENT: Negative. Eyes: Negative for visual disturbance. Respiratory: Negative for cough and shortness of breath. Cardiovascular: Negative for chest pain, palpitations and leg swelling. Gastrointestinal: Positive for constipation and diarrhea. Negative for abdominal pain, blood in stool, nausea and vomiting. Genitourinary: Negative for difficulty urinating. Musculoskeletal: Positive for arthralgias. Neurological: Negative for dizziness, numbness and headaches. Psychiatric/Behavioral: Negative. 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 Contact dermatitis and other eczema, due to unspecified cause 06/22/2008 DDD (degenerative disc disease) 11/10/2009 External hemorrhoids without mention of complication 11/10/2009 Family history of diabetes mellitus 11/10/2009 Family history of melanoma 11/10/2009 Family history of prostate cancer 11/10/2009 Postherpetic neuralgia 03/22/2019 Psoriatic arthritis (HCC) 09/30/2022 Shoulder dislocation, left, initial encounter 09/15/2017 Kayaking Tinea corporis 11/10/2009 PAST SURGICAL HISTORY Procedure Laterality Date NONE FAMILY HISTORY Problem Relation Age of Onset Hypertension Mother Diabetes Mother Genitourinary () Father kidneys stones, Prostate Cancer, Renal insufficiency, Melanoma Cancer Father non-Hodgkins lymphoma Skin Cancer Father other (Migraine) Sister other (Migraine) Sister Hypertension Maternal Grandmother Hypertension Maternal Grandfather Alzheimer's Disease Paternal Grandmother Social History Tobacco Use Smoking status: Never Smokeless tobacco: Never Vaping Use Vaping Use: Never used Substance Use Topics Alcohol use: No Drug use: No ALLERGIES Allergen Reactions Seasonal Allergies Unknown Current Outpatient Medications Medication Sig Herbal Drugs tab Niaicin supplement twice daily from dermatology methotrexate 2.5 mg tablet 20 mg. folic acid 1 mg tablet cycloSPORINE (RESTASIS) 0.05 % ophthalmic emulsion pcyzxdh-rlsg-atsyy-oreg-capryl 100 mg-150 mg- 50 mg-150 mg cap Take by mouth. leucovorin (LEUCOVORIN) 15 mg tablet Take 15 mg by mouth one time a week. SOOLANTRA 1 % crea Apply 1 application to affected area daily at bedtime. Per [facility]. Cueitjaxjlb-Rufkwxgzl-Lhi C-Mn (GLUCOSAMINE CHONDROITIN MAXSTR) 500-400 mg cap Take 1 capsule by mouth once daily. multivitamin tablet Take 1 tablet by mouth once daily. hyoscyamine sublingual (LEVSIN SL) 0.125 mg Dissolve 1-2 tablets under the tongue four times a day as needed (gastrointestinal symptoms.). No current facility-administered medications for this visit. Objective BP 116/72 (BP Site: Left Arm, BP Position: Sitting, BP Cuff Size: Large Adult) Pulse 60 Resp 16 Ht 188.6 cm (6' 2.25 ) Wt 81.2 kg (179 lb) BMI 22.83 kg/m? Physical Exam Constitutional: Appearance: Normal appearance. HENT: Head: Normocephalic. Eyes: General: No scleral icterus. Conjunctiva/sclera: Conjunctivae normal. Cardiovascular: Rate and Rhythm: Normal rate and regular rhythm. Heart sounds: No murmur heard. No gallop. Pulmonary: Breath sounds: Normal breath sounds. Abdominal: Palpations: Abdomen is soft. There is no mass. Tenderness: There is no abdominal tenderness. Musculoskeletal: General: No swelling or tenderness. Normal range of motion. Right lower leg: No edema. Left lower leg: No edema. Lymphadenopathy: Cervical: No cervical adenopathy. Neurological: General: No focal deficit present. Mental Status: He is alert. Depression Screening PHQ-2 Score PATSY-2 Total Score 10/28/2023 0 0 Depression screening tool completed and reviewed. Based on score and interview, patient is not at risk for depression. Screening tool discussed with patient, and I recommended no further intervention at this time. Assessment and Shawn (more content not included)... [facility] 10-28-2023 History of Presen t illness Narrative This note was created using [email or web address]. Subjective Patient presents with: Physical Naun Montes De Oca is a 47 year old male. He was doing well in general. He notes non specific fatigue related to his medications. Psoriatic arthritis was diagnosed last year primarily involving his hands and hips. He sees Dr. Avril Matthews and has been on methotrexate with improvement. He continues to be on topicals for psoriasis from Dr. Jose Reyes. He noted bloating, diarrhea, and constipation since he had post herpetic neuralgia and Covid few years ago. He has been modifying his diet to improve his symptoms. He had been on gluten free diet and was now starting a lactose free diet. His weight was up as he was not as active as before. Review of Systems Constitutional: Positive for fatigue. Negative for appetite change, fever and unexpected weight change. HENT: Negative. Eyes: Negative for visual disturbance. Respiratory: Negative for cough and shortness of breath. Cardiovascular: Negative for chest pain, palpitations and leg swelling. Gastrointestinal: Positive for constipation and diarrhea. Negative for abdominal pain, blood in stool, nausea and vomiting. Genitourinary: Negative for difficulty urinating. Musculoskeletal: Positive for arthralgias. Neurological: Negative for dizziness, numbness and headaches. Psychiatric/Behavioral: Negative. 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 Contact dermatitis and other eczema, due to unspecified cause 06/22/2008 DDD (degenerative disc disease) 11/10/2009 External hemorrhoids without mention of complication 11/10/2009 Family history of diabetes mellitus 11/10/2009 Family history of melanoma 11/10/2009 Family history of prostate cancer 11/10/2009 Postherpetic neuralgia 03/22/2019 Psoriatic arthritis (HCC) 09/30/2022 Shoulder dislocation, left, initial encounter 09/15/2017 Kayaking Tinea corporis 11/10/2009 PAST SURGICAL HISTORY Procedure Laterality Date NONE FAMILY HISTORY Problem Relation Age of Onset Hypertension Mother Diabetes Mother Genitourinary () Father kidneys stones, Prostate Cancer, Renal insufficiency, Melanoma Cancer Father non-Hodgkins lymphoma Skin Cancer Father other (Migraine) Sister other (Migraine) Sister Hypertension Maternal Grandmother Hypertension Maternal Grandfather Alzheimer's Disease Paternal Grandmother Social History Tobacco Use Smoking status: Never Smokeless tobacco: Never Vaping Use Vaping Use: Never used Substance Use Topics Alcohol use: No Drug use: No ALLERGIES Allergen Reactions Seasonal Allergies Unknown Current Outpatient Medications Medication Sig Herbal Drugs tab Niaicin supplement twice daily from dermatology methotrexate 2.5 mg tablet 20 mg. folic acid 1 mg tablet cycloSPORINE (RESTASIS) 0.05 % ophthalmic emulsion jnajtsr-murd-bsfzd-oreg-capryl 100 mg-150 mg- 50 mg-150 mg cap Take by mouth. leucovorin (LEUCOVORIN) 15 mg tablet Take 15 mg by mouth one time a week. SOOLANTRA 1 % crea Apply 1 application to affected area daily at bedtime. Per [facility]. Rmwjhnpyzrh-Qstugxuaw-Zuo C-Mn (GLUCOSAMINE CHONDROITIN MAXSTR) 500-400 mg cap Take 1 capsule by mouth once daily. multivitamin tablet Take 1 tablet by mouth once daily. hyoscyamine sublingual (LEVSIN SL) 0.125 mg Dissolve 1-2 tablets under the tongue four times a day as needed (gastrointestinal symptoms.). No current facility-administered medications for this visit. Objective BP 116/72 (BP Site: Left Arm, BP Position: Sitting, BP Cuff Size: Large Adult) Pulse 60 Resp 16 Ht 188.6 cm (6' 2.25 ) Wt 81.2 kg (179 lb) BMI 22.83 kg/m Physical Exam Constitutional: Appearance: Normal appearance. HENT: Head: Normocephalic. Eyes: General: No scleral icterus. Conjunctiva/sclera: Conjunctivae normal. Cardiovascular: Rate and Rhythm: Normal rate and regular rhythm. Heart sounds: No murmur heard. No gallop. Pulmonary: Breath sounds: Normal breath sounds. Abdominal: Palpations: Abdomen is soft. There is no mass. Tenderness: There is no abdominal tenderness. Musculoskeletal: General: No swelling or tenderness. Normal range of motion. Right lower leg: No edema. Left lower leg: No edema. Lymphadenopathy: Cervical: No cervical adenopathy. Neurological: General: No focal deficit present. Mental Status: He is alert. Depression Screening PHQ-2 Score PATSY-2 Total Score 10/28/2023 0 0 Depression screening tool completed and reviewed. Based on score and interview, patient is not at risk for depression. Screening tool discussed with patient, and I recommended no further intervention at this time. Assessment and Plan 1. Routine medical exam - ICD9: V70.0, ICD10: Z00.00 (primary diagnosis) - Counseled on healthy diet and regular exercise - Patient was counseled [id number] by myself (the billing provider) for the following immunizations and vaccine components, including side effects: Hep B Vaccine. Patient consents for immunization and understands risks and benefits. A VIS sheet on each immunization was given to the patient. 2. Irritable bowel syndrome with both constipation and diarrhea - ICD9: 564.1, ICD10: K58.2 - Consider FODMAP diet. - HYOSCYAMINE 0.125 MG SUBLINGUAL TABLET Discussed medication dosage, usage, goals of therapy, and side effects. 3. Psoriatic arthritis (HCC) - ICD9: 696.0, ICD10: L40.50 - Controlled per rheumatology. 4. Need for vaccination - ICD9: V05.9, ICD10: Z23 - HEP B VACCINE, 3-DOSE, AGE 20+ YR (ENGERIX-B, RECOMBIVAX HB) - HEP B VACCINE, 3-DOSE, AGE 20+ YR (ENGERIX-B, RECOMBIVAX HB) - HEP B VACCINE, 3-DOSE, AGE 20+ YR (ENGERIX-B, RECOMBIVAX HB) Zaid Philippe MD documented in this encounter [facility] 06-06-2023 History of Presen t illness Narrative Radiology Service Progress Note PATIENT NAME: Naun Montes eD Oca DATE OF SERVICE: June 06, 2023 [...] RT Napoleon(R) June 06, 2023 1:42 PM documented in this encounter [facility] 06-06-2023 Miscellaneous Notes No concerning findings on x-ray of hand. documented in this encounter [facility] 06-06-2023 Note HNO ID: [id number] Author: CAROLYN VEGAS RT(Renetta) Service: Radiology Author Type: Technologist Type: Progress [...] RT Napoleon(R) June 06, 2023 1:42 PM [facility] 06-06-2023 Progress note Formatting of t his note might be different from the original. No concerning findings on x-ray of hand. [facility] 06-06-2023 Note HNO ID: [id number] Author: INGE ZARCO APRN.CNS Service: ? Author Type: Nurse Specialist Type: Progress Notes Filed: 06/06/2023 13:25 Note Text: SUBJECTIVE: Hepatitis B Vaccine(1 of 3 - 3-dose series) Never done Pneumococcal Vaccine(1 of 2 - PCV) Never done Shingrix Vaccine(1 of 2) Never done Covid-19 Vaccine(2022- season) due on 04/22/2023 Depression Assessment due [...] house quickly. Continues on with methotrexate per discharge door operator. Notes that he took prednisone 10 mg [...] tablet cycloSPORINE (RESTASIS) 0.05 % ophthalmic emulsion wwmsnfl-rthm-mqkhs-oreg-capryl 100 mg-150 mg- 50 mg-150 mg cap Take by mouth. leucovorin (LEUCOVORIN) 15 mg tablet Take 15 mg by mouth one time a week. SOOLANTRA 1 % crea Apply 1 application to affected area daily at bedtime. Per [facility]. Cqixezbqiae-Qxpfrmxcu-Kru C-Mn (GLUCOSAMINE CHONDROITIN MAXSTR) 500-400 mg cap [...] with these measures. (more content not included)... [facility] 03-19-2023 Note HNO ID: [id number] Author: Leah Boogie APRN.WATER REUSE PROGRAM MANAGER Service: ? Author Type: Nurse Practitioner Type: [...] psoriatic arthritis treated with Methotrexate and leucovorin. Ribbon Cutter monitors CBC and CMP every 3 months [...] tablet cycloSPORINE (RESTASIS) 0.05 % ophthalmic emulsion bddzkjl-nopu-tnyqe-oreg-capryl 100 mg-150 mg- 50 mg-150 mg cap Take by mouth. leucovorin (LEUCOVORIN) 15 mg tablet Take 15 mg by mouth one time a week. SOOLANTRA 1 % crea Apply 1 application to affected area daily at bedtime. Per [facility]. Rosatddhgaw-Kwumsmysq-Wme C-Mn (GLUCOSAMINE CHONDROITIN MAXSTR) 500-400 mg cap [...] DATA REVIEWED: most recent labs done at [facility], ordered by rheumatology ASSESSMENT/PLAN: 1. Pelvic pain - ICD9: [id number], ICD10: R10.2 (primary diagnosis) Etiology unclear Differential [...] - URINE CULTUR (more content not included)... [facility] 10-25-2022 Instructions Inge Zarco APRN.CNS - 10/25/2022 8:48 AM EDT Check with your discharge door operator regarding vaccines: Pneumococcal, shingles, hepatitis B Check with your insurance for what location to get vaccines may be best covered at your local pharmacy where you get prescriptions filled or at the clinic documented in this encounter [facility] 10-25-2022 History of Presen t illness Narrative [...] increased gluten intake. Labs completed 09/[address] [facility] per Dr Matthews. See scanned documents. All WNL. Followed by Dr Matthews discharge door operator for psoriatic arthropathy. Taking methotrexate and leucovorin. [...] tablet cycloSPORINE (RESTASIS) 0.05 % ophthalmic emulsion sgqbywv-ujyc-qntkw-oreg-capryl 100 mg-150 mg- 50 mg-150 mg cap Take by mouth. leucovorin (LEUCOVORIN) 15 mg tablet Take 15 mg by mouth one time a week. SOOLANTRA 1 % crea Apply 1 application to affected area daily at bedtime. Per [facility]. Diyzosusyyq-Ufiknxiwi-Sqe C-Mn (GLUCOSAMINE CHONDROITIN MAXSTR) 500-400 mg cap [...] V03.89, ICD10: Z23 He will check with director radio news and regarding insurance coverage for vaccines. - [...] ICD10: Z13.1 Glucose within normal limits at [facility] 09/2022 6. Psoriasis and similar disorders - ICD9: 696.1, ICD10: L40.9 Followed by discharge door operator Dr. Matthews Currently controlled with methotrexate Physical form completed and returned 1 yr follow up MD Inge Robert APRN.HEEL GOUGER documented in this encounter [facility] 08-25-2022 Miscellaneous Notes Patient contacted and was much better. No [...] list. Did suggest that he do a 24/7 virtual visit on line to see if he would need treated with Paxlovid. documented in this encounter [facility] 04-25-2009 History of Past i llness Narrative Problem Noted Date Resolved Date Backache, unspecified 04/25/2009 11/10/2009 documented as of this encounter (statuses as of 08/25/2022) [facility]12[facility] History of Past illness Narrative* Problem Noted Date Resolved Date Backache, unspecified 04/25/2009 11/10/2009 documented as of this encounter (statuses as of 10/25/2022) [facility] note* Diagnosis Routine medical exam- Primary Routine general medical examination at a health care facility Encounter for immunization Need for other specified prophylactic vaccination against single bacterial disease Special screening examination for viral disease Special screening examination for unspecified viral disease Screening for HIV (human immunodeficiency virus) Special screening examination for other specified viral diseases Screening for diabetes mellitus (DM) Screening for diabetes mellitus Psoriasis and similar disorders Other psoriasis documented in this encounter [facility] note* Diagnosis Routine medical exam- Primary Routine general medical examination at a health care facility Irritable bowel syndrome with both constipation and diarrhea Psoriatic arthritis (HCC) Psoriatic arthropathy Need for vaccination Need for prophylactic vaccination and inoculation against unspecified single disease [facility] Diagnosis Need for vaccination- Primary Need for prophylactic vaccination and inoculation against unspecified single disease Need for vaccination Need for prophylactic vaccination and inoculation against unspecified single disease documented in this encounter [facility] note* Diagnosis Left hand pain Pain in limb History of Raynaud's syndrome Personal history of other diseases of circulatory system Psoriasis and similar disorders Other psoriasis documented in this encounter [facility] for referral (narrative)* Diagnostic Procedure Only (Routine) - Closed Specialty Diagnoses / Procedures Referred By Saskia westbrook Referred To Contact XR IMAGING Diagnoses Left hand pain History of Raynaud's syndrome Psoriasis and similar disorders Procedures XR HAND GENERAL 3V PA/LAT/OBL LEFT RADEX HAND MINIMUM 3 VIEWS Inge Zarco APRN.CNS [address] [place] [address] [place] [id number] Referral ID Status Reason Start Date Expiration Date V isits Requested Visits Authorized [id number] Closed Auto-Generate d Referral 06/06/2023 07/05/[address] [facility] for visit Narrative* Diagnostic Procedure Only (Routine) - Closed Specialty Diagnoses / Procedures Referred By Contac t Referred To Contact XR IMAGING Diagnoses Left hand pain History of Raynaud's syndrome Psoriasis and similar disorders Procedures XR HAND GENERAL 3V PA/LAT/OBL LEFT RADEX HAND MINIMUM 3 VIEWS Inge Zarco, DATA SECURITY ADMINISTRATOR.HEEL GOUGER [address] [facility] [place] [address] [place] [address] Referral ID Status Reason Start Date Expiration Date V isits Requested Visits Authorized [id number] Closed Auto-Generate d Referral 06/06/2023 07/05/2024 1 1 [facility] Summary Purpose Family History No Family History [...] or prosecute any alcohol or drug abuse patient.[facility] the event this information is protected by the Federal Confidentiality of Alcohol and Drug Abuse Patient Records regulations: The Federal rules restrict any use of the information to criminally investigate or prosecute any alcohol or drug abuse patient.[facility] the event this information is protected by the Federal Confidentiality of Alcohol and Drug Abuse Patient Records regulations: The Federal rules restrict any use of the information to criminally investigate or prosecute any alcohol or drug abuse patient.[facility] the event this information is protected by the Federal Confidentiality of Alcohol and Drug Abuse Patient Records regulations: The Federal rules restrict any use of the information to criminally investigate or prosecute any alcohol or drug abuse patient.[facility] the event this information is protected by the Federal Confidentiality of Alcohol and Drug Abuse Patient Records regulations: The Federal rules restrict any use of the information to criminally investigate or prosecute any alcohol or drug abuse patient.[facility] the event this information is protected by the Federal Confidentiality of Alcohol and Drug Abuse Patient Records regulations: The Federal rules restrict any use of the information to criminally investigate or prosecute any alcohol or drug abuse patient.[facility] Reason for Visit (unrecogniz ed section and content) Reason Comments + covid home test Reason Comments Camp Physical Reason Comments Physical Reason Comments Imm/Inj Care Teams (unrecognized sec tion and content) Wellness Consultant Relationship Specialty Start Date End Date Zaid Philippe MD [address] [place] [address] PCP - General Internal Medicine 09/30/19 Wellness Consultant Relationship Specialty Start Date End Date Zaid Philippe MD [address] [place], [place] [id number] PCP - General Internal Medicine 09/30/19 Wellness Consultant Relationship Specialty Start Date End Date Zaid Philippe MD [address] [place] [address] PCP - General Internal Medicine 09/30/19 Wellness Consultant Relationship Specialty Start Date End Date Zaid Philippe MD [address] [place] [address] PCP - General Internal Medicine 09/30/19 Wellness Consultant Relationship Specialty Start Date End Date Zaid Philippe MD [address] [place] [address] PCP - General Internal Medicine 09/30/19 Wellness Consultant Relationship Specialty Start Date End Date Zaid Philippe MD [address] [place] [address] PCP - General Internal Medicine 09/30/19 (unrecognized sect ion and content) No Status Records Found INFORMATION SOURCE (unrecogn ized section and content) DATE CREATED AUTHOR 11/27/2023 [facility] FOR RECORDS PERTAINING TO PATIENTS WHO ARE [...] BE BASED ON THE PRIMARY CLINICAL RECORDS. [facility]. provides no warranty or guarantee of the accuracy or completeness of information in this document.
[2024-03-17 10:33] LABS: Absolute Lymphocyte Count 1.46 X10^3/uL (0.83-4.51); Absolute Neutrophil Count 2.5 X10^3/uL (2.0-7.7); Basophil# 0.05 X10^3/uL; Basophil% 1.1 % (0-1); Eosinophil# 0.17 X10^3/uL; Eosinophils% 3.6 % (0-5); Hematocrit 44.2 % (40-54); Hemoglobin 14.5 g/dL (13.0-16.5); Lymphocyte # 1.46 X10^3/ul (0.83-4.51); Lymphocyte % 30.9 % (19-41); Mean Corp Hgb Conc 32.8 g/dL (32-36); Mean Corpuscular Hgb 30.7 pg (27.0-32.0); Mean Corpuscular Volume 93.6 fL (80-94); Mean Platelet Vol. 11.6 fl (6.2-12.0); Monocyte# 0.49 X10^3/uL; Monocyte% 10.4 % (0-10); NRBC Flagged by Analyzer 0 % (0-5); Neutrophil # 2.54 X10^3/uL (2.7-7.7); Neutrophil % 53.8 % (47-70); Platelet Count 253 K/mm3 (150-450); RBC Distribution Width CV 12.6 % (11.6-14.6); RBC Distribution Width SD 43.4 fl (35.1-43.9); Red Blood Count 4.72 M/mm3 (4.6-6.2); White Blood Count 4.7 K/mm3 (4.4-11.0)
[2024-03-17 11:00] LABS: AST(SGOT) 21 U/L (15-37); Alanine Aminotransfer ALT/SGPT 28 U/L (16-61); Albumin, Serum 3.6 g/dL (3.2-5.0); Alkaline Phosphatase 55 U/L (45-117); Anion Gap 3 (5-15); BUN 16 mg/dL (7-18); Calcium,Total 9.1 mg/dL (8.5-10.1); Chloride 108 mmol/L (98-107); EST Glomerular Filtration Rate 84 mL/min (>60); Est Glom Filt Rate - Afr Amer 102 mL/min (>60); Globulin 3.6 g/dL (2.2-4.2); Glucose 88 mg/dL (74-106); Potassium 4.4 mmol/L (3.5-5.1); Protein, Total 7.2 g/dL (6.4-8.2); Sodium Level 138 mmol/L (136-145)
== END | disposition home or self-care (01) ==
LOC: MTLAB 08:14
PROVIDERS: PCP Internal Medicine; Referring Provider Internal Medicine Rheumatology; Visit Provider Internal Medicine Rheumatology
DX: L40.59 Other psoriatic arthropathy (principal); Z79.899 Other long term (current) drug therapy
CPT/HCPCS: 36415; 80053; 85025

== ENCOUNTER → 2024-03-19 | Outpatient (CLI) | payer BC, SELFPAY ==
--- OUTSIDE RECORDS SUMMARY | 2024-03-19 08:06 | XMS RPT_ITS | CCD ---
Author Organization [facility] Care Team Providers Care Community Health Planning Director Name Role Phone Derrell VALLES, Zaid Herron Primary Care Provider [phone] ZAID PHILIPPE Primary Care Unavailable INGE ZARCO [...] Zaid Philippe MD Primary Care Provider [phone] Allergies Allergy Classification Reported Allergen(s) Allergy Type Date of Onset Reaction(s) Facility (1 source) Seasonal allergy; Translations: [SEASONAL ALLERGIES] Propensity to adverse reactions (disorder) 3 [facility] Repository Medications Current Medications Medication Drug Class(es) Dates Sig (Normalized) Sig (Original) chondroitin sulfates 400 mg / glucosamine hydrochloride 500 mg oral capsule (6 sources) Start: 05-13-2019 take 1 capsule by mouth once daily Glucosamine-Chondr oit-Vit C-Mn (GLUCOSAMINE CHONDROITIN MAXSTR) 500-400 mg cap Take 1 capsule by mouth once daily. 05/13/2019 Active Comment on above: Take 1 capsule by [facility] once daily. cycloSPORINE (RESTASIS) 0.05 % [...] affected area daily at bedtime. Per [facility]. 0 05/13/2019 Active Comment on above: Apply 1 application to affected area daily at bedtime. Per [facility]. leucovorin 15 mg oral tablet (5 [...] 1 tablet by bon th once daily. hmyyciq-gxxn-jwihu-oreg-capr yl 100 mg-150 mg- 50 mg-150 mg cap (5 sources) xwinjsm-nzeg-myb ve-oreg-ca pryl 100 mg-150 mg- 50 mg-150 mg cap Take by mouth. Active kdljsoe-gevy-pol eb-nbzm-rymapo 100 mg-150 mg- 50 mg-150 mg cap [...] 11-26-2023 CNOV Office Visit (INTMWS ) FALGUNINAUN ([id number]) 1975 M Date Time Provider Department 11/26/23 [...] 3-DOSE, AGE 20+ YR (ENGERIX-B, RECOMBIVAX HB) [[id number]] Order #: [id number] FUTURE Prescriptions as of 11/26/2023 - hyoscyamine sublingual (LEVSIN SL) 0.125 mg Dissolve 1-2 tablets under the tongue four times a day as needed (gastrointestinal symptoms.). - Herbal Drugs tab Niaicin supplement twice daily from dermatology - methotrexate 2.5 mg tablet 20 mg. - folic acid 1 mg tablet - cycloSPORINE (RESTASIS) 0.05 % ophthalmic emulsion - rqflozn-nskd-vhtby-oreg-cap ryl 100 mg-150 mg- 50 mg-150 mg cap Take by mouth. - leucovorin (LEUCOVORIN) 15 mg tablet Take 15 mg by mouth one time a week. - SOOLANTRA 1 % crea Apply 1 application to affected area daily at bedtime. Per [facility]. - Xozycnycmvz-Uxhwomifj-Wqz C-Mn (GLUCOSAMINE CHONDROITIN MAXSTR) 500-400 mg cap Take 1 capsule by mouth once daily. - multivitamin tablet Take 1 tablet by mouth once daily. Problem List As Of Date 11/26/2023 Noted Resolved Unspecified Backache [M54.9] 04/25/2009 11/10/2009 DDD (Degenerative Disc Disease) [[id number]] 11/10/2009 Postherpetic neuralgia [B02.29] 03/22/2019 03/19/2023 Psoriasis and similar disorders [L40.9] 06/20/2021 Psoriatic arthritis (HCC) [L40.50] 09/30/2022 Encounter Status:Closed by CAROLYN BUCKLEY on 11/26/23 [facility] CNOVon 10-28-2023 CNOV Office Visit (INTMWS ) NAUN MONTES DE OCA ([id number]) 1975 M Date Time Provider Department 10/28/23 [...] tablet cycloSPORINE (RESTASIS) 0.05 % ophthalmic emulsion vwidffg-yhrq-lfzdq-oreg-cap ryl 100 mg-150 mg- 50 mg-150 mg cap Take by mouth. leucovorin (LEUCOVORIN) 15 mg tablet Take 15 mg by mouth one time a week. SOOLANTRA 1 % crea Apply 1 application to affected area daily at bedtime. Per [facility]. Hqvayacgwvd-Sfznmhapp-Ftf C-Mn (GLUCOSAMINE CHONDROITIN MAXSTR) 500-400 mg cap [...] Depression Scre (more content not included)... Normal [facility] XR Hand - left PA and Latera l and Obliqueon 06-09-2023 IMPRESSION: Negative 3 views of the left hand. Lumber Tailer: INDER Transcribe Date/Time: Jun 09 2023 5:03P Dictated by : JONA PIZANO MD This examination was interpreted and the report reviewed and electronically signed by: JONA PIZANO MD on Jun 09 2023 5:05PM [facility] DIVISION OF RADIOLOGY * * *Final Report* [...] swelling. DIVISION OF RADIOLOGY Provider, Nat Benton [facility] - 06/09/2023 * * *Final Report* * [...] Negative 3 views of the left hand. Lumber Tailer: PSCB Transcribe Date/Time: Jun 09 2023 5:03P Dictated by : JONA PIZANO MD This examination was interpreted and the report reviewed and electronically signed by: JONA PIZANO MD on Jun 09 2023 5:05PM [facility] XR Hand - left PA and Latera l and ObliqueOrdered By: Cc Provider on 06-09-2023 [facility] CNOVon 06-06-2023 CNOV Office Visit (INTMWS ) NAUN MONTES DE OCA ([id number]) 1975 M Date Time Provider Department 06/06/23 12:40 PM INGE ZARCO INTMWS During your visit today, we recorded the following information about you: Pulse Respiration Blood pressure Weight 54/minute 16/minute 118/76 80.7 kg Inge Zarco, ADOPTION SERVICES MANAGER.CAMERA REPAIR TECHNICIAN 06/06/2023 1:25 PM Signed SUBJECTIVE: Hepatitis B [...] house quickly. Continues on with methotrexate per aging room operator. Notes that he took prednisone 10 [...] tablet cycloSPORINE (RESTASIS) 0.05 % ophthalmic emulsion lbvntrx-qjwy-mnshm-oreg-cap ryl 100 mg-150 mg- 50 mg-150 mg cap Take by mouth. leucovorin (LEUCOVORIN) 15 mg tablet Take 15 mg by mouth one time a week. SOOLANTRA 1 % crea Apply 1 application to affected area daily at bedtime. Per [facility]. Bfafalshtrd-Lhylbaziu-Reo C-Mn (GLUCOSAMINE CHONDROITIN MAXSTR) 500-400 mg cap [...] Recommend keep (more content not included)... Normal [facility] XR HAND 3V PA/LAT/OBL LTon 0 06-06-2023 [...] Negative 3 views of the left hand. Lumber Tailer: PSCB Transcribe Date/Time: Jun 09 2023 5:03P Dictated by : JONA PIZANO MD This examination was interpreted and the report reviewed and electronically signed by: JONA PIZANO MD on Jun 09 2023 5:05PM EST [id number] Normal [facility] XR Hand - left PA and Latera l and Obliqueon 06-06-2023 Radiology Study observation (narrative) [facility] Bacteria Ur Culton 3 Bacteria identified Cx Nom (U) CULTURE, URINE: No growth (<1,000 CFU/ml) Normal [facility] Comment on above: Performed By: #### 2 857-1 #### [facility] CLIA [id number] [address] [address] [place] CNOVon 03-19-2023 CNOV Office Visit (INTMWS ) NAUN MONTES DE OCA ([id number]) 1975 M Date Time Provider Department 03/19/23 8:00 AM LEAH BOOGIE INTMWS During your visit today, we recorded the following information about you: Pulse Respiration Blood pressure Weight 75/minute 14/minute 132/84 78.5 kg Leah Boogie APRN.STORE MERCHANDISER 03/19/2023 8:55 AM Signed CC: Patient presents [...] psoriatic arthritis treated with Methotrexate and leucovorin. Mold Mechanic monitors CBC and CMP every 3 months [...] tablet cycloSPORINE (RESTASIS) 0.05 % ophthalmic emulsion isiurjm-qtyq-zghvr-oreg-cap ryl 100 mg-150 mg- 50 mg-150 mg cap Take by mouth. leucovorin (LEUCOVORIN) 15 mg tablet Take 15 mg by mouth one time a week. SOOLANTRA 1 % crea Apply 1 application to affected area daily at bedtime. Per [facility]. Lrfzagoidcy-Ukptkptur-Tmw C-Mn (GLUCOSAMINE CHONDROITIN MAXSTR) 500-400 mg cap [...] DATA REVIEWED: most recent labs done at [facility], ordered by rheumatology ASSESSMENT/PLAN: 1. Pelvic pain - ICD9: [id number], ICD10: R10.2 (primary diagnosis) Etiology unclear Differential Diagnosis includes pelvic floor dysfunction, osteoarthritis, referred pain from lumbar spine Evaluate further with: - PSA/PROSTSPECAG DIAG - URINALYSIS, WITH IA (more content not included)... Normal [facility] HCV Ab Ser Qlon 03-19-2023 HCV Ab Ql (S) Negative Normal Negative [facility] Comment on above: Order Comment: Speci men Type: BLOOD SPECIMEN Ordering Facility: [facility] Address: [address] [place] [address] Result Comment: The result suggests no evidence of active infection with Hepatitis C virus. Should recent infection be suspected, repeat testing may be considered 4-6 weeks after this draw. Performed By: #### 1 6128-1 #### [facility] CLIA [id number] [address] [place] [address] [place] HIV 1+2 Ab IA Qlon 3 HIV 1 and 2 Ab IA.rapid Nom Normal [facility] Comment on above: Order Comment: Speci men Type: BLOOD SPECIMEN Ordering Facility: [facility] Address: [address] [place] [address] Result Comment: Test not indicated. Performed By: #### 2 857-1 #### [facility] CLIA [id number] [address] [place] [address] [place] HIV 1+2 Ab+HIV1 p24 Ag IA Ql Non-Reactive Normal Nonreactive [facility] Comment on above: Order Comment: Speci men Type: BLOOD SPECIMEN Ordering Facility: [facility] Address: [address] [place] [address] Performed By: #### 2 857-1 #### [facility] CLIA [id number] [address] [place] [address] [place] HIV immunoassay testing algorithm interpretation (S/P/Bld) [Interp] Normal [facility] Comment on above: Order Comment: Speci men Type: BLOOD SPECIMEN Ordering Facility: [facility] Address: [address] [place] [address] Result Comment: No e vidence of HIV-1 or HIV-2 infection. Should recent infection be suspected, repeat testing may be considered 2-3 weeks after this draw. [place] Rev. Code 3701.243(E): This information has been [...] diagnoses. Performed By: #### 2 857-1 #### [facility] CLIA [id number] [address] [place] [address] [place] PSA [facility] 03-19-2023 Prostate specific Ag [Mass/Vol] 2.04 ng/mL Normal <2.60 [facility] Comment on above: Order Comment: Speci men Type: BLOOD SPECIMEN Ordering Facility: [facility] Address: [address] [place] [address] Result Comment: Tota l PSA test methodology used is the Electrochemiluminescence Immunoassay by [employer]. Total PSA values by differing methodologies cannot be interchanged. Performed By: #### 2 857-1 #### [facility] CLIA [id number] [address] [place] [address] [place] Urinalysis complete panel (U )on 03-19-2023 Bacteria LM.HPF (Urine sed) [#/Area] Negative Normal Negative [facility] Comment on above: Order Comment: Speci men Type: URINE SPECIMEN Ordering Facility: [facility] Address: [address] [place] [address] Performed By: #### 2 4356-8 #### [facility] CLIA [id number] [address] [place] [address] [place] Bilirubin Ql (U) Negative Normal Negative [facility] Comment on above: Order Comment: Speci men Type: URINE SPECIMEN Ordering Facility: [facility] Address: [address] [place] [address] Performed By: #### 2 4356-8 #### [facility] CLIA [id number] [address] [place] [address] [place] Clarity (Unsp spec) Clear Normal Clear [facility] Comment on above: Order Comment: Speci men Type: URINE SPECIMEN Ordering Facility: [facility] Address: [address] [place] [address] Performed By: #### 2 4356-8 #### [facility] CLIA [id number] [address] [place] [address] [place] Color (U) Yellow Normal Yellow [facility] Comment on above: Order Comment: Speci men Type: URINE SPECIMEN Ordering Facility: [facility] Address: [address] [place] [address] Performed By: #### 2 4356-8 #### [facility] CLIA [id number] [address] [place] [address] [place] Epithelial cells LM.HPF (Urine sed) [#/Area] None Seen Normal [facility] Comment on above: Order Comment: Speci men Type: URINE SPECIMEN Ordering Facility: [facility] Address: [address] [place] [address] Performed By: #### 2 4356-8 #### [facility] CLIA [id number] [address] [place] [address] [place] Glucose Test strip (U) [Mass/Vol] Negative Normal Negative [facility] Comment on above: Order Comment: Speci men Type: URINE SPECIMEN Ordering Facility: [facility] Address: [address] [place] [address] Performed By: #### 2 4356-8 #### [facility] CLIA [id number] [address] [place] [address] [place] Hemoglobin Ql (U) Negative Normal Negative [facility] Comment on above: Order Comment: Speci men Type: URINE SPECIMEN Ordering Facility: [facility] Address: [address] [place] [address] Performed By: #### 2 4356-8 #### [facility] CLIA [id number] [address] [place] [address] [place] Hyaline casts (Urine sed) [#/Area] 4-10 /LPF Abnormal 0 /LPF [facility] Comment on above: Order Comment: Speci men Type: URINE SPECIMEN Ordering Facility: [facility] Address: [address] [place] [address] Performed By: #### 2 4356-8 #### [facility] CLIA [id number] [address] [place] [address] [place] Ketones Ql (U) Trace Abnormal Negative [facility] Comment on above: Order Comment: Speci men Type: URINE SPECIMEN Ordering Facility: [facility] Address: [address] [place] [address] Performed By: #### 2 4356-8 #### [facility] CLIA [id number] [address] [place] [address] [place] Leukocyte esterase Test strip Ql (U) Negative Normal Negative [facility] Comment on above: Order Comment: Speci men Type: URINE SPECIMEN Ordering Facility: [facility] Address: [address] [place] [address] Performed By: #### 2 4356-8 #### [facility] CLIA [id number] [address] [place] [address] [place] Nitrite Ql (U) Negative Normal Negative [facility] Comment on above: Order Comment: Speci men Type: URINE SPECIMEN Ordering Facility: [facility] Address: [address] [place] [address] Performed By: #### 2 4356-8 #### [facility] CLIA [id number] [address] [place] [address] [place] pH (U) 6.5 [pH] Normal <8.5 [facility] Comment on above: Order Comment: Speci men Type: URINE SPECIMEN Ordering Facility: [facility] Address: [address] [place] [address] Performed By: #### 2 4356-8 #### [facility] CLIA [id number] [address] [place] [address] [place] Protein (U) [Mass/Vol] Negative Normal Negative [facility] Comment on above: Order Comment: Speci men Type: URINE SPECIMEN Ordering Facility: [facility] Address: [address] [place] [address] Performed By: #### 2 4356-8 #### [facility] CLIA [id number] [address] [place] [address] [place] RBC LM.HPF (Urine sed) [#/Area] 0-2 /HPF Normal 0-2 /HPF [facility] Comment on above: Order Comment: Speci men Type: URINE SPECIMEN Ordering Facility: [facility] Address: [address] [place] [address] Performed By: #### 2 4356-8 #### [facility] CLIA [id number] [address] [place] [address] [place] Specific gravity (U) [Rel density] 1.018 Normal 1.005-1.030 [facility] Comment on above: Order Comment: Speci men Type: URINE SPECIMEN Ordering Facility: [facility] Address: [address] [place] [address] Performed By: #### 2 4356-8 #### [facility] CLIA [id number] [address] [place] [address] [place] Urobilinogen Ql (U) 0.2 EU/dL Normal 0.2-1.0 EU/dL [facility] Comment on above: Order Comment: Speci men Type: URINE SPECIMEN Ordering Facility: [facility] Address: [address] [place] [address] Performed By: #### 2 4356-8 #### [facility] CLIA [id number] [address] [place] [address] [place] WBC LM.HPF (Urine sed) [#/Area] 0-5 /HPF Normal 0-5 /HPF [facility] Comment on above: Order Comment: Speci men Type: URINE SPECIMEN Ordering Facility: [facility] Address: [address] [place] [address] Performed By: #### 2 4356-8 #### [facility] CLIA [id number] [address] [place] [address] [place] Vital Signs Date Time Vital Sign Value Performing Clinician Faci khurram 10-28-2023 08:00-0400 Body height 188.6 cm Zaid Philippe MD Work Phone: [facility] 10-28-2023 08:00-0400 Body mass index (BMI) [Ratio] 22.83 kg/m2 Zaid Philippe MD Work Phone: [facility] 10-28-2023 08:00-0400 Body weight 81.19 kg Zaid Philippe MD Work Phone: [facility] 10-28-2023 08:00-0400 Diastolic blood pressure 72 mm[Hg] Zaid Philippe MD Work Phone: [facility] 10-28-2023 08:00-0400 Heart rate 60 /min Zaid Philippe MD Work Phone: [facility] 10-28-2023 08:00-0400 Respiratory rate 16 /min Zaid Philippe MD Work Phone: [facility] 10-28-2023 08:00-0400 Systolic blood pressure 116 mm[Hg] Zaid Philippe MD Work Phone: [facility] 10-25-2022 07:57-0400 Body height 188.6 cm Inge Zarco ADOPTION SERVICES MANAGER.CAMERA REPAIR TECHNICIAN Work Phone: [facility] 10-25-2022 07:57-0400 Body weight 75.75 kg Inge Zarco ADOPTION SERVICES MANAGER.CAMERA REPAIR TECHNICIAN Work Phone: [facility] 10-25-2022 07:57-0400 Diastolic blood pressure 72 mm[Hg] Inge Zacro ADOPTION SERVICES MANAGER.CAMERA REPAIR TECHNICIAN Work Phone: [facility] 10-25-2022 07:57-0400 Heart rate 72 /min Inge Zarco ADOPTION SERVICES MANAGER.CAMERA REPAIR TECHNICIAN Work Phone: [facility] 10-25-2022 07:57-0400 Respiratory rate 16 /min Inge Zarco ADOPTION SERVICES MANAGER.CAMERA REPAIR TECHNICIAN Work Phone: [facility] 10-25-2022 07:57-0400 Systolic blood pressure 110 mm[Hg] Inge Zarco ADOPTION SERVICES MANAGER.CAMERA REPAIR TECHNICIAN Work Phone: [facility] Encounters Encounter Date Encounter Type Care Provider Facility Start: 11-26-2023 End: 11-26-2023 ambulatory ZAID PHILIPPE Facility:[facility] Start: 11-26-2023 End: 11-26-2023 Patient encounter procedure Carolyn Marcio ADOPTION SERVICES MANAGER.STORE MERCHANDISER Work Phone: [facility] Comment on above: Need for vaccination (Primary Dx) Start: 11-13-2023 ambulatory Zaid huynh MD Work Phone: [facility] Start: 11-13-2023 Patient encounter procedure Vi margarita Philippe MD Work Phone: [facility] [place] Comment on above: Consult Appointment Start: 10-28-2023 End: 10-28-2023 ambulatory ZAID PHILIPPE Facility:[facility] Start: 10-28-2023 End: 10-28-2023 Patient encounter procedure Zaid Philippe MD Work Phone: [facility] Comment on above: Routine medical exam (Primary Dx); Irritable bowel syndrome with both constipation and diarrhea; Psoriatic arthritis (HCC); Need for vaccination Start: 10-28-2023 End: 10-28-2023 Patient encounter status Zaid Philippe MD Work Phone: [facility] Work Phone: Start: 06-06-2023 End: 06-06-2023 Subsequent hospital visit by physician [facility] Work Phone: Radiology Comment on above: Left hand pain [M79. 642] Start: 06-06-2023 End: 06-06-2023 ambulatory ZAID PHILIPPE Facility:[facility] Start: 03-19-2023 End: 03-19-2023 ambulatory ZAID PHILIPPE Facility:[facility] Start: 10-25-2022 End: 10-25-2022 Patient encounter procedure Inge Zarco APRN.CAMERA REPAIR TECHNICIAN Work Phone: [facility] [place] Comment on above: Routine medical exam (Primary Dx); Encounter for immunization; Special screening examination for viral disease; Screening for HIV (human immunodeficiency virus); Screening for diabetes mellitus (DM); Psoriasis and similar disorders Start: 10-25-2022 End: 10-25-2022 Patient encounter status Inge Zarco APRN.CAMERA REPAIR TECHNICIAN Work Phone: [facility] [place] Start: 08-23-2022 Telephone encounter Zaid avila MD Work Phone: [facility] Comment on above: + covid home test Procedures Date Procedure Procedure Detail Performing Clinician Start: 10-28-2023 Adult depression screening assessment [facility] Work Phone: Start: 06-06-2023 Radex hand minimum 3 views Inge Zarco APRN.CAMERA REPAIR TECHNICIAN Work Phone: Start: 05-14-2019 Lipid 1996 panel - S iliana or Plasma Zaid Philippe MD Work Phone: Plan of Treatment Date Care Activity Detail Author Start: 01-03-2034 Urine microalbumin profile DTaP,Tdap,Td Vaccine (4 - Td or Tdap) [facility] Start: 05-13-2029 Urine microalbumin profile [facility] Start: 09-25-2025 DIABETES SCREEN DIABETES SCREEN [facility] Start: 09-25-2025 Diabetes Screening Diabetes Screenin g [facility] Start: 10-28-2024 End: 10-28-2024 Patient encounter procedure 10/28/2024 8:00 AM EDT Office Visit [facility] [place] [address] [place], [place] [phone] Zaid Philippe MD [address] [place], [place] [phone] Annual [facility] [place] Comment on above: Annual Start: 10-27-2024 Anxiety Screening Anxiety Screening [facility] Start: 10-27-2024 Depression Screening Depression Scre ening [facility] Start: 07-02-2024 COLOGUARD (FIT-DNA) COLOGUARD (FIT-D NA) [facility] Start: 07-02-2024 COLORECTAL CANCER SCREENING COLORECTAL CANCER SCREENING [facility] Start: 07-02-2024 Screening for malign ant neoplasm of colon [facility] Start: 05-14-2024 Lipid panel Lipid Screening [facility] Start: 05-14-2024 LIPID SCREEN LIPID SCREEN [facility] Start: 04-28-2024 Hepatitis B Vaccine (3 of 3 - 19+ 3-dose series) Hepatitis B Vaccine (3 of 3 - 19+ 3-dose series) [facility] Start: 04-25-2024 Hepb vaccine adult 3 dose schedule for im use HEP B VACCINE, 3-DOSE, AGE 20+ YR (ENGERIX-B, RECOMBIVAX HB) Immunization/Injection Routine Need for vaccination Expected: 04/25/2024 (Approximate) [facility] Comment on above: Expected: 04/25/2024 (Approximate) Start: 03-29-2024 End: 03-29-2024 Nursing evaluation of patient and report 03/29/2024 9:15 AM EST Nurse Visit [facility] [place] [address] [place], [place] [phone] Nurse, [place] [address] [place], [place] [phone] Hep B - 3rd [facility] [place] Comment on above: Hep B - 3rd Start: 01-25-2024 Covid-19 Vaccine ( season) Covid-19 Vaccine ( season) [facility] Start: 01-25-2024 Influenza vaccination Influenza Vacc ine (#1) [facility] Start: 11-27-2023 Hepb vaccine adult 3 dose schedule for im use HEP B VACCINE, 3-DOSE, AGE 20+ YR (ENGERIX-B, RECOMBIVAX HB) Immunization/Injection Routine Need for vaccination Expected: 11/27/2023 (Approximate) [facility] Work Phone: Comment on above: Expected: 11/27/2023 (Approximate) Start: 11-27-2023 Orders Only 11/27/2023 Ord ers Only [facility] [place] [address] [place] [address] Zaid Philippe MD [address] [place], [place] [id number] Need for vaccination [facility] Comment on above: Need for vaccination Start: 11-26-2023 End: 11-26-2023 Patient encounter procedure 11/26/2023 7:20 AM EDT Office Visit [facility] [address] [place], [place] [address] Carolyn Buckley APRN.STORE MERCHANDISER [address] [place], [place] [address] Shot 2 of Hepatitis B vax [facility] [place] Comment on above: Shot 2 of Hepatitis B vax Start: 11-25-2023 Hepatitis B Vaccine (2 of 3 - 19+ 3-dose series) Hepatitis B Vaccine (2 of 3 - 19+ 3-dose series) [facility] Start: 04-23-2023 Hepb vaccine adult 3 dose schedule for im use HEP B VACCINE, 3-DOSE, AGE 20+ YR (ENGERIX-B, RECOMBIVAX HB) Immunization/Injection Routine Encounter for immunization Expected: 04/23/2023 [facility] Work Phone: Comment on above: Expected: 04/23/2023 Start: 04-22-2023 Covid-19 Vaccine ( season) Covid-19 Vaccine () [facility] Start: 01-24-2023 Influenza vaccination INFLUENZA (Sea son Ended) [facility] Start: 11-24-2022 Hepb vaccine adult 3 dose schedule for im use HEP B VACCINE, 3-DOSE, AGE 20+ YR (ENGERIX-B, RECOMBIVAX HB) Immunization/Injection Routine Encounter for immunization Expected: 11/24/2022 [facility] Work Phone: Comment on above: Expected: 11/24/2022 Start: 10-25-2022 End: 12-25-2022 Hepatitis C virus Ab [Presence] in Serum HEP C AB IA W/CONF SCRN Lab Routine Special screening examination for viral disease Expected: 10/25/2022, Expires: 12/25/2022 [facility] Work Phone: Comment on above: Expected: 10/25/2022 , Expires: 12/25/2022 Start: 10-25-2022 End: 12-25-2022 HIV 1+2 Ab [Presence] in Serum or Plasma by Immunoassay HIV 1 2 COMBO(AG/AB),WITH REFLEX TO DIFFERENTIATION Lab Routine Screening for HIV (human immunodeficiency virus) Expected: 10/25/2022, Expires: 12/25/2022 [facility] Work Phone: Comment on above: Expected: 10/25/2022 , Expires: 12/25/2022 Start: 05-26-2022 DEPRESSION ASSESSMENT DEPRESSION ASS ESSMENT [facility] Start: 05-14-2022 DIABETES SCREEN DIABETES SCREEN [facility] Start: 05-20-2021 COVID-19 VACCINE (4 - Booster for Moderna series) COVID-19 VACCINE (4 - Booster for Moderna series) [facility] Start: 11-30-2019 Colonoscopy COLONOSCOPY [facility] Start: 11-30-[address] COLONOGRAPHY [facility] Start: 11-30-2019 FECAL OCCULT BLOOD FECAL OCCULT BLOO D [facility] Start: 11-30-2019 Screening for malign ant neoplasm of colon [facility] Start: 11-30-2019 SIGMOIDOSCOPY SIGMOIDOSCOPY [facility] Start: 1993 SHINGRIX VACCINE (1 of 2) SHINGRIX VACCINE (1 of 2) [facility] Start: 1992 HEPATITIS C SCREENING HEPATITIS C SC REENING [facility] Start: 1992 HIV SCREENING HIV SCREENING [facility] Start: 1980 PNEUMOCOCCAL (1 - PCV) PNEUMOCOCCAL (1 - PCV) [facility] Start: 1980 Pneumococcal vaccination Pneumococcal Vaccine (1 of 2 - PCV) [facility] Start: 1974 HEPATITIS B (1 of 3 - 3-dose series) HEPATITIS B (1 of 3 - 3-dose series) [facility] Hepb vaccine adult 3 dose schedule for im use HEP B VACCINE, 3-DOSE, AGE 20+ YR (ENGERIX-B, RECOMBIVAX HB) Immunization/Injection Routine Encounter for immunization 1 Occurrences starting 10/25/2022 [facility] Work Phone: Comment on above: 1 Occurrences starti ng 10/25/2022 Hzv zoster vacc recombinant adjuvanted im njx ZOSTER VACCINE, RECOMBINANT (SHINGRIX) Immunization/Injection Routine Encounter for immunization 1 Occurrences starting 10/25/2022 [facility] Work Phone: Comment on above: 1 Occurrences starti ng 10/25/2022 Pneumococcal vaccination PNEUMOCOCCAL VACCINE (PREVNAR 20) Immunization/Injection Routine Encounter for immunization 1 Occurrences starting 10/25/2022 [facility] Work Phone: Comment on above: 1 Occurrences starti ng 10/25/[facility]22 [facility] Immun[facility] Immunization Date Immunization Notes Care Provider Stephan vasquez 11-26-2023 hepatitis B vaccine, adult dosage Carolyn Buckley APRN.CNP Work Phone: [facility] 10-28-2023 hepatitis B vaccine, adult dosage Zaid Philippe MD Work Phone: [facility] 04-07-2023 influenza, injectabl e, quadrivalent, preservative free Zaid Philippe MD Work Phone: [facility] 04-07-2023 influenza virus vacc ine, unspecified formulation Carolyn Messinarenetta [employer] Work Phone: [facility] 02-08-2022 influenza, injectabl e, quadrivalent, preservative free Zaid Philippe MD Work Phone: [facility] 03-25-2021 COVID-19 original vaccine, full dose, monovalent (MODERNA) Zaid Philippe MD Work Phone: [facility] Work Phone: 03-25-2021 influenza, injectabl e, quadrivalent, preservative free Zaid Philippe MD Work Phone: [facility] Work Phone: 05-16-2020 measles, mumps and rubella virus vaccine Zaid Philippe MD Work Phone: [facility] Work Phone: 03-01-2020 Seasonal, quadrivale nt, recombinant, injectable influenza vaccine, preservative free Zaid Philippe MD Work Phone: [facility] Work Phone: 05-13-2019 influenza, injectabl e, quadrivalent, contains preservative Zaid Philippe MD Work Phone: [facility] 05-13-2019 tetanus toxoid, redu iris diphtheria toxoid, and acellular pertussis vaccine, adsorbed Zaid Philippe MD Work Phone: [facility] 02-24-2013 influenza virus vacc ine, unspecified formulation Zaid Philippe MD Work Phone: [facility] 03-29-2009 novel Influenza-H1N1 -09, live virus for nasal administration Zaid Philippe MD Work Phone: [facility] Work Phone: 06-22-2008 tetanus toxoid, redu iris diphtheria toxoid, and acellular pertussis vaccine, adsorbed Zaid Philippe MD Work Phone: [facility] Payers Date Payer Category Payer Unknown [employer] PPO [id number] 2021-Present [phone] [address] [place] [address] PPO [id number] 2021 Unknown [id number] Social History Date Type Detail Facility Start: 09-27-2011 Tobacco smoking stat [facility] Never smoked tobacco [facility] Start: 09-27-2011 Tobacco use and exposure Smoke less tobacco non-user [facility] Start: 06-25-2021 End: 06-06-2023 Alcohol intake Current non-drinker of alcohol (finding) [facility] Start: 06-11-2021 History SDOH Alcohol Frequency 3 [facility] Start: 06-11-2021 End: 06-16-2021 History SDOH Alcohol Std Drinks 1 [facility] Start: 06-11-2021 End: 06-16-2021 History SDOH Social Connections Phone 2 [facility] Start: 06-11-2021 History SDOH Financial 5 [facility] Start: 03-07-2020 Education 20 [facility] Start: 1975 Sex Assigned At Male C [facility] Start: 10-25-2022 End: 03-17-2023 History of Social function [facility] Start: 10-25-2022 End: 03-17-2023 [facility] [employer] [facility] Has the [employer], or [employer] threatened to shut off services in your home in past 12Mo No [facility] Frequency of Social Gatherings with Friends and Family Not on file [facility] Are you now , , , , never or living with a partner? [facility] How often to you hav e a drink containing alcohol? Monthly or less [facility] How many standard dr inks containing alcohol do you have on a typical day? 1 or 2 [facility] How often do you hav e 6 or more drinks on 1 occasion? Never [facility] Do you feel stress - tense, restless, nervous, or anxious, or unable to sleep at night because your mind is troubled all the time - these days [OSQ] Only a little [facility] (I/We) worried wheth er (my/our) food would run out before (I/we) got money to buy more. Never true [facility] Start: 04-18-2020 Gender identity Identifies as male gender (finding) [facility] Start: 04-18-2020 Sexual orientation Heterosexual (fin vidal) [facility] Clinical Notes 04-25-2009 to 11-26-2023 Mukul Huff LPN - 11/26/2023 7:37 AM EDTTelephone Encounter - Elizabeth Muniz LPN - 11/17/2023 9:39 AM EDTTelephone Encounter - Elizabeth Muniz LPN - 11/17/2023 9:39 AM EDTPatient Instructions Note Date & Type Note Facility 11-26-2023 Note HNO ID: [id number] Author: MUKUL HUFF LPN Service: ? Author Type: LICENSED NURSE Type: Progress Notes Filed: 11/26/2023 07:52 Note Text: Patient here for his 2nd Hepatitis B injection. Vaccine given and Naun tolerated injection well. [facility] 11-26-2023 History of Presen t illness Narrative Patient here for his 2nd Hepatitis B injection. Vaccine given and Naun tolerated injection well. documented in this encounter [facility] 11-17-2023 Telephone encounter Note Message left to pts father to either call in for appt for daughter or have daughter call in. [facility] 11-17-2023 Miscellaneous Notes Message left to pts father to either call in for appt for daughter or have daughter call in. Schedule daughter to establish. documented in this encounter [facility] 11-15-2023 Telephone encounter Note Schedule daughter to establish. [facility] 10-28-2023 Instructions Zaid Philippe MD - 10/28/2023 8:45 AM EDT Hepatitis B 3 shot series. Consider FODMAP diet for irritable bowel syndrome. documented in this encounter [facility] 10-28-2023 Note HNO ID: [id number] Author: ZAID PHILIPPE MD Service: ? Author Type: Physician Type: Progress Notes Filed: 10/28/2023 09:14 Note Text: This note was created using [employer]. Subjective Patient presents with: Physical Naun Montes [...] tablet cycloSPORINE (RESTASIS) 0.05 % ophthalmic emulsion lpowebp-talv-xcuwv-oreg-capryl 100 mg-150 mg- 50 mg-150 mg cap Take by mouth. leucovorin (LEUCOVORIN) 15 mg tablet Take 15 mg by mouth one time a week. SOOLANTRA 1 % crea Apply 1 application to affected area daily at bedtime. Per [facility]. Xnbvbztkrrc-Sviextdih-Bue C-Mn (GLUCOSAMINE CHONDROITIN MAXSTR) 500-400 mg cap [...] Assessment and Shawn (more content not included)... [facility] 10-28-2023 History of Presen t illness Narrative This note was created using [employer] Subjective Patient presents with: Physical Naun Montes [...] tablet cycloSPORINE (RESTASIS) 0.05 % ophthalmic emulsion dmklnir-xfph-ogsen-oreg-capryl 100 mg-150 mg- 50 mg-150 mg cap Take by mouth. leucovorin (LEUCOVORIN) 15 mg tablet Take 15 mg by mouth one time a week. SOOLANTRA 1 % crea Apply 1 application to affected area daily at bedtime. Per [facility]. Ofczdgpxnks-Moopkcori-Qtq C-Mn (GLUCOSAMINE CHONDROITIN MAXSTR) 500-400 mg cap [...] and regular exercise - Patient was counseled [id number]-[id number] by myself (the billing provider) for the [...] Zaid Philippe MD documented in this encounter [facility] 06-06-2023 History of Presen t illness Narrative [...] 2023 1:42 PM documented in this encounter [facility] 06-06-2023 Miscellaneous Notes No concerning findings on x-ray of hand. documented in this encounter [facility] 06-06-2023 Note HNO ID: [id number] Author: CAROLYN VEGAS RT(Renetta) Service: Radiology Author [...] RT Napoleon(R) June 06, 2023 1:42 PM [facility] 06-06-2023 Progress note Formatting of t his note might be different from the original. No concerning findings on x-ray of hand. [facility] 06-06-2023 Note HNO ID: [id number] Author: INGE ZARCO APRN.CNS Service: ? Author [...] house quickly. Continues on with methotrexate per aging room operator. Notes that he took prednisone 10 [...] tablet cycloSPORINE (RESTASIS) 0.05 % ophthalmic emulsion byemiqh-qjcl-vnacm-oreg-capryl 100 mg-150 mg- 50 mg-150 mg cap Take by mouth. leucovorin (LEUCOVORIN) 15 mg tablet Take 15 mg by mouth one time a week. SOOLANTRA 1 % crea Apply 1 application to affected area daily at bedtime. Per [facility]. Qqfyymdvbvy-Hkflssdbp-Mfu C-Mn (GLUCOSAMINE CHONDROITIN MAXSTR) 500-400 mg cap [...] with these measures. (more content not included)... [facility] 03-19-2023 Note HNO ID: [id number] Author: Leah Boogie APRN.[employer] Service: ? Author Type: Nurse Practitioner Type: [...] psoriatic arthritis treated with Methotrexate and leucovorin. Mold Mechanic monitors CBC and CMP every 3 months [...] tablet cycloSPORINE (RESTASIS) 0.05 % ophthalmic emulsion bhrqizs-mmxz-xzwax-oreg-capryl 100 mg-150 mg- 50 mg-150 mg cap Take by mouth. leucovorin (LEUCOVORIN) 15 mg tablet Take 15 mg by mouth one time a week. SOOLANTRA 1 % crea Apply 1 application to affected area daily at bedtime. Per [facility]. Qczdgaxjyui-Besgkyipx-Anw C-Mn (GLUCOSAMINE CHONDROITIN MAXSTR) 500-400 mg cap [...] DATA REVIEWED: most recent labs done at [facility], ordered by rheumatology ASSESSMENT/PLAN: 1. Pelvic pain - ICD9: [id number], ICD10: R10.2 (primary diagnosis) Etiology unclear Differential [...] - URINE CULTUR (more content not included)... [facility] 10-25-2022 Instructions Inge Zarco APRN.CNS - 10/25/2022 8:48 AM EDT Check with your aging room operator regarding vaccines: Pneumococcal, shingles, hepatitis B Check with your insurance for what location to get vaccines may be best covered at your local pharmacy where you get prescriptions filled or at the clinic documented in this encounter [facility] 10-25-2022 History of Presen t illness Narrative [...] increased gluten intake. Labs completed 09/2022 at [facility] per Dr Matthews. See scanned documents. All WNL. Followed by Dr Matthews aging room operator for psoriatic arthropathy. Taking methotrexate and [...] tablet cycloSPORINE (RESTASIS) 0.05 % ophthalmic emulsion mqwpubv-qvny-mlfyq-oreg-capryl 100 mg-150 mg- 50 mg-150 mg cap Take by mouth. leucovorin (LEUCOVORIN) 15 mg tablet Take 15 mg by mouth one time a week. SOOLANTRA 1 % crea Apply 1 application to affected area daily at bedtime. Per [facility]. Scvewpjdwzj-Axregaqid-Vyl C-Mn (GLUCOSAMINE CHONDROITIN MAXSTR) 500-400 mg cap [...] V03.89, ICD10: Z23 He will check with ms sql server developer and regarding insurance coverage for vaccines. - [...] ICD10: Z13.1 Glucose within normal limits at [facility] 09/2022 6. Psoriasis and similar disorders - ICD9: 696.1, ICD10: L40.9 Followed by aging room operator Dr. Matthews Currently controlled with methotrexate Physical form completed and returned 1 yr follow up MD Inge Robert APRN.CAMERA REPAIR TECHNICIAN documented in this encounter [facility] 08-25-2022 Miscellaneous Notes Patient contacted and was [...] treated with Paxlovid. documented in this encounter [facility] 04-25-2009 History of Past i llness Narrative Problem Noted Date Resolved Date Backache, unspecified 04/25/2009 11/10/2009 documented as of this encounter (statuses as of 08/25/2022) [facility]12-01-2009 History of Past illness Narrative* Problem Noted Date Resolved Date Backache, unspecified 04/25/2009 11/10/2009 documented as of this encounter (statuses as of 10/25/2022) [facility] note* Diagnosis Routine medical exam- Primary [...] disorders Other psoriasis documented in this encounter [facility] note* Diagnosis Routine medical exam- Primary Routine general medical examination at a health care facility Irritable bowel syndrome with both constipation and diarrhea Psoriatic arthritis (HCC) Psoriatic arthropathy Need for vaccination Need for prophylactic vaccination and inoculation against unspecified single disease [facility] Need for vaccination- Primary Need for prophylactic vaccination and inoculation against unspecified single disease Need for vaccination Need for prophylactic vaccination and inoculation against unspecified single disease documented in this encounter [facility] note* Diagnosis Left hand pain Pain in limb History of Raynaud's syndrome Personal history of other diseases of circulatory system Psoriasis and similar disorders Other psoriasis documented in this encounter [facility] for referral (narrative)* Diagnostic Procedure Only (Routine) - Closed Specialty Diagnoses / Procedures Referred By Saskia westbrook Referred To Contact XR IMAGING Diagnoses Left hand pain History of Raynaud's syndrome Psoriasis and similar disorders Procedures XR HAND GENERAL 3V PA/LAT/OBL LEFT RADEX HAND MINIMUM 3 VIEWS Inge Zarco APRN.CNS [address] [place] [address] [place] [address] Referral ID Status Reason Start Date Expiration Date V isits Requested Visits Authorized [id number] Closed Auto-Generate d Referral 06/06/2023 07/05/2024 1 1 [facility] for visit Narrative* Diagnostic Procedure Only (Routine) - Closed Specialty Diagnoses / Procedures Referred By Contac t Referred To Contact XR IMAGING Diagnoses Left hand pain History of Raynaud's syndrome Psoriasis and similar disorders Procedures XR HAND GENERAL 3V PA/LAT/OBL LEFT RADEX HAND MINIMUM 3 VIEWS Inge Zarco, ADOPTION SERVICES MANAGER.CAMERA REPAIR TECHNICIAN [address] [place] [address] [place] [address] Referral ID Status Reason Start Date Expiration Date V isits Requested Visits Authorized [id number] Closed Auto-Generate d Referral 06/06/2023 07/05/2024 1 1 [facility] Summary Purpose Family History No Family History [...] or prosecute any alcohol or drug abuse patient.[facility] the event this information is protected by the Federal Confidentiality of Alcohol and Drug Abuse Patient Records regulations: The Federal rules restrict any use of the information to criminally investigate or prosecute any alcohol or drug abuse patient.[facility] the event this information is protected by the Federal Confidentiality of Alcohol and Drug Abuse Patient Records regulations: The Federal rules restrict any use of the information to criminally investigate or prosecute any alcohol or drug abuse patient.[facility] Administration[facility] the event this information is protected by the Federal Confidentiality of Alcohol and Drug Abuse Patient Records regulations: The Federal rules restrict any use of the information to criminally investigate or prosecute any alcohol or drug abuse patient.[facility] the event this information is protected by the Federal Confidentiality of Alcohol and Drug Abuse Patient Records regulations: The Federal rules restrict any use of the information to criminally investigate or prosecute any alcohol or drug abuse patient.[facility] Administration[facility] the event this information is protected by the Federal Confidentiality of Alcohol and Drug Abuse Patient Records regulations: The Federal rules restrict any use of the information to criminally investigate or prosecute any alcohol or drug abuse patient.[facility] Reason for Visit (unrecogniz ed section and content) Reason Comments + covid home test Reason Comments Camp Physical Reason Comments Physical Reason Comments Imm/Inj Care Teams (unrecognized sec tion and content) Community Health Planning Director Relationship Specialty Start Date End Date Zaid Philippe MD [address] [place] [address] PCP - General Internal Medicine 09/30/19 Community Health Planning Director Relationship Specialty Start Date End Date Zaid Philippe MD [address] [place], [place] [id number] PCP - General Internal Medicine 09/30/19 Community Health Planning Director Relationship Specialty Start Date End Date Zaid Philippe MD [address] [place] [address] PCP - General Internal Medicine 09/30/19 Community Health Planning Director Relationship Specialty Start Date End Date Zaid Philippe MD [address] [place] [address] PCP - General Internal Medicine 09/30/19 Community Health Planning Director Relationship Specialty Start Date End Date Zaid Philippe MD [address] [place] [address] PCP - General Internal Medicine 09/30/19 Community Health Planning Director Relationship Specialty Start Date End Date Zaid Philippe MD [address] [place] [address] PCP - General Internal Medicine 09/30/19 (unrecognized sect ion and content) No Status Records Found INFORMATION SOURCE (unrecogn ized section and content) DATE CREATED AUTHOR 11/27/2023 [facility] FOR RECORDS PERTAINING TO PATIENTS WHO ARE [...] BE BASED ON THE PRIMARY CLINICAL RECORDS. [facility]. provides no warranty or guarantee of the accuracy or completeness of information in this document.
[2024-03-23 14:10] LABS: QNTFERON TB Mitogen Value > 10.00 IU/mL (.); QNTFERON TB Nil Value 0 IU/mL (.); QNTFERON TB1+ Ag Value 0.01 IU/mL (.); QNTFERON TB2+ Ag Value 0 IU/mL (.); QNTIFERON TB Positive Criteria Negative (Negative)
== END | disposition home or self-care (01) ==
LOC: MTLAB 07:55
PROVIDERS: PCP Internal Medicine; Referring Provider Internal Medicine Rheumatology; Visit Provider Internal Medicine Rheumatology
DX: L40.59 Other psoriatic arthropathy (principal); Z79.899 Other long term (current) drug therapy
CPT/HCPCS: 36415; 86480

== ENCOUNTER → 2024-06-07 | Outpatient (CLI) | payer BC, SELFPAY ==
[2024-06-07 10:28] LABS: Absolute Lymphocyte Count 1.35 X10^3/uL (0.83-4.51); Absolute Neutrophil Count 2.5 X10^3/uL (2.0-7.7); Basophil# 0.03 X10^3/uL; Basophil% 0.6 % (0-1); Eosinophils% 4.3 % (0-5); Hematocrit 43.7 % (40-54); Hemoglobin 14.3 g/dL (13.0-16.5); Lymphocyte # 1.35 X10^3/ul (0.83-4.51); Lymphocyte % 28.9 % (19-41); Mean Corp Hgb Conc 32.7 g/dL (32-36); Mean Corpuscular Hgb 31.1 pg (27.0-32.0); Mean Platelet Vol. 11.4 fl (6.2-12.0); Monocyte# 0.56 X10^3/uL; NRBC Flagged by Analyzer 0 % (0-5); Neutrophil # 2.52 X10^3/uL (2.7-7.7); Platelet Count 240 K/mm3 (150-450); RBC Distribution Width CV 13.1 % (11.6-14.6); RBC Distribution Width SD 44.7 fl (35.1-43.9); White Blood Count 4.7 K/mm3 (4.4-11.0)
[2024-06-07 11:02] LABS: ALB/GLOB Ratio 1.1 RATIO (0.9-2.4); AST(SGOT) 26 U/L (15-37); Alanine Aminotransfer ALT/SGPT 29 U/L (16-61); Albumin, Serum 3.8 g/dL (3.2-5.0); Alkaline Phosphatase 60 U/L (45-117); Anion Gap 4 (5-15); BUN 20 mg/dL (7-18); BUN/Creat Ratio 17.2 RATIO (10-20); Calcium,Total 9.4 mg/dL (8.5-10.1); Chloride 108 mmol/L (98-107); Creatinine, Serum 1.16 mg/dL (0.70-1.30); EST Glomerular Filtration Rate 71 mL/min (>60); Est Glom Filt Rate - Afr Amer 86 mL/min (>60); Globulin 3.6 g/dL (2.2-4.2); Glucose 100 mg/dL (74-106); Potassium 4.5 mmol/L (3.5-5.1); Protein, Total 7.4 g/dL (6.4-8.2); Sodium Level 140 mmol/L (136-145)
== END | disposition home or self-care (01) ==
LOC: MTLAB 08:23
PROVIDERS: PCP Internal Medicine; Referring Provider Internal Medicine Rheumatology; Visit Provider Internal Medicine Rheumatology
DX: L40.59 Other psoriatic arthropathy (principal); Z79.899 Other long term (current) drug therapy
CPT/HCPCS: 36415; 80053; 85025

== ENCOUNTER → 2024-08-27 | Outpatient (CLI) | payer BC, SELFPAY ==
[2024-08-27 10:47] LABS: Absolute Lymphocyte Count 1.28 X10^3/uL (0.83-4.51); Absolute Neutrophil Count 3.6 X10^3/uL (2.0-7.7); Basophil# 0.05 X10^3/uL; Basophil% 0.9 % (0-1); Eosinophil# 0.18 X10^3/uL; Eosinophils% 3.2 % (0-5); Hematocrit 44.6 % (40-54); Hemoglobin 14.6 g/dL (13.0-16.5); Lymphocyte # 1.28 X10^3/ul (0.83-4.51); Lymphocyte % 22.6 % (19-41); Mean Corp Hgb Conc 32.7 g/dL (32-36); Mean Corpuscular Hgb 31.3 pg (27.0-32.0); Mean Corpuscular Volume 95.5 fL (80-94); Mean Platelet Vol. 11.1 fl (6.2-12.0); Monocyte# 0.55 X10^3/uL; Monocyte% 9.7 % (0-10); NRBC Flagged by Analyzer 0 % (0-5); Neutrophil # 3.57 X10^3/uL (2.7-7.7); Neutrophil % 63.1 % (47-70); Platelet Count 251 K/mm3 (150-450); RBC Distribution Width CV 13.1 % (11.6-14.6); RBC Distribution Width SD 45.5 fl (35.1-43.9); Red Blood Count 4.67 M/mm3 (4.6-6.2); White Blood Count 5.7 K/mm3 (4.4-11.0)
[2024-08-27 11:28] LABS: ALB/GLOB Ratio 1.4 RATIO (0.9-2.4); AST(SGOT) 30 U/L (<=37); Alanine Aminotransfer ALT/SGPT 25 U/L (<=46); Albumin, Serum 4.2 g/dL (3.5-5.0); Alkaline Phosphatase 59 U/L (40-129); Anion Gap 11 (5-15); BUN 17 mg/dL (4-19); BUN/Creat Ratio 15.4 RATIO (10-20); Calcium,Total 9.6 mg/dL (7.6-11.0); Carbon Dioxide 25.4 mmol/L (21.0-32.0); Chloride 104 mmol/L (98-108); Creatinine, Serum 1.08 mg/dL (0.70-1.20); EST Glomerular Filtration Rate 84 (>60); Globulin 3.1 g/dL (2.2-4.2); Glucose 103 mg/dL (70-99); Potassium 4.1 mmol/L (3.3-5.1); Protein, Total 7.3 g/dL (5.9-8.4); Sodium Level 141 mmol/L (133-145); Total Bilirubin 0.49 mg/dL (0.00-1.30)
== END | disposition home or self-care (01) ==
LOC: MTLAB 07:55
PROVIDERS: PCP Internal Medicine; Referring Provider Internal Medicine Rheumatology; Visit Provider Internal Medicine Rheumatology
DX: L40.59 Other psoriatic arthropathy (principal); Z79.899 Other long term (current) drug therapy
CPT/HCPCS: 36415; 80053; 85025

== ENCOUNTER → 2024-11-18 | Outpatient (CLI) | payer BC, SELFPAY ==
--- OUTSIDE RECORDS SUMMARY | 2024-11-18 07:18 | XMS RPT_ITS | CCD ---
Author Organization [facility] Care Team Providers Care Veneer Splicer Name Role Phone Zaid hPilippe MD Primary Care Provider Derrell VALLES, Dr. Mar Primary Care Provider Cassie VALLES, Dr. Knight Attending Provider Cassie VALLES, Dr. Knight Referring Provider Antonia Matthews Attending Unavailable Derrell, Zaid Primary Care Unavailable Vellanki, Antonia Referring Unavailable Derrell, Zaid Primary Care Unavailable Vellanki, Antonia Referring Unavailable Vellanki, Antonia Attending Unavailable Derrell, Zaid Primary Care Unavailable Williamlanki, Antonia Referring Unavailable Williamlanbruno, Antonia Attending Unavailable Derrell, Zaid Primary Care Unavailable Williamlanki, Antonia Referring Unavailable Williamlanki, Antonia Attending Unavailable Derrell, Zaid Primary Care Unavailable Vellanki, Antonia Referring Unavailable Vellanki, Antonia Attending Unavailable Maximino Colin Attending Unavailable Derrell, Zaid Primary Care Unavailable Derrell, Zaid Primary Care Unavailable Vellanki, Antonia Referring Unavailable Williamlanbruno, Antonia Attending Unavailable Zaid Philippe MD Primary Care Provider Joceline KEEL PRESS OPERATOR.SIMULATION DEVELOPER, Leah M Unavailable CAROLYN BUCKLEY Attending Unavailable ZAID PHILIPPE Primary Care Unavailable ZAID PHILIPPE Attending Unavailable DERRELL, ZAID Herron Primary Care Unavailable ZAID PHILIPPE Attending Unavailable ZAID PHILIPPE Primary Care Unavailable DERRELL, ZAID Herron Primary Care Unavailable STEPHEN CABELLO Attending Unavailable ZAID PHILIPPE Primary Care Unavailable Allergies Allergy Classification Reported Allergen(s) Allergy Type Date of Onset Reaction(s) Facility (1 source) Seasonal allergy; Translations: [SEASONAL ALLERGIES] Propensity to adverse reactions (disorder) [facility] Repository Medications Current Medications Medication Drug Class(es) Dates Sig (Normalized) Sig (Original) chondroitin sulfates 400 mg / glucosamine hydrochloride 500 mg oral capsule (12 sources) Start: 05-13-2019 take 1 capsule by mouth once daily Glucosamine-Chondr oit-Vit C-Mn (GLUCOSAMINE CHONDROITIN MAXSTR) 500-400 mg cap Take 1 capsule by mouth once daily. 05/13/2019 Active Comment on above: Take 1 capsule by [facility] once daily. cycloSPORINE (RESTASIS) 0.05 % ophthalmic emulsion (11 sources) Start: 08-09-2022 cycloSPORINE (RESTASIS) 0.05 % ophthalmic emulsion 08/09/2022 Active Start: 08-09-2022 cycloSPORINE ( RESTASIS) 0.05 % ophthalmic emulsion doxycycline monohydrate 100 mg oral capsule (2 sources) Tetracycline-class Drug Start: 10-25-2024 End: 10-25-2024 take 2 capsules by mouth twice daily doxycycline monohydrate (MONODOX) 100 mg capsule Take 2 capsules by mouth two times a day for 1 day. 2 capsule 10/25/2024 10/25/2024 Discontinued Start: 10-25-2024 End: 10-25-2024 take 2 capsules by mouth once doxycycline monohydrate (MONODOX) 100 mg capsule Take 2 capsules by mouth one time only for 1 dose. 2 capsule 10/25/2024 10/25/2024 Active folic acid 1 mg oral tablet (11 sources) Start: 10-23-2022 folic acid 1 m g tablet 10/23/2022 Active 1 ml guselkumab 100 mg/ml auto-injector (5 sources) Interleukin-23 Antagonist Start: 10-28-2024 guselkumab (TREMFYA) 100 mg/mL auto-injector Inject 100 mg subcutaneously every 8 weeks. 10/28/2024 Active Start: 10-25-2024 End: 10-28-2024 guselkumab (TREMFYA) 100 mg/ mL auto-injector Inject 100 mg subcutaneously every 4 weeks. 10/25/2024 10/28/2024 Discontinued Herbal Drugs tab (8 sources) Start: 03-19-2023 End: 10-28-2024 Herbal Drugs tab Niaicin sup plement twice daily from dermatology 03/19/2023 10/28/2024 Discontinued Start: 03-19-2023 Herbal Drugs t ab Niaicin supplement twice daily from dermatology 03/19/2023 Active Start: 03-19-2023 Herbal Drugs t ab Niaicin supplement twice daily from dermatology 0 03/19/2023 Active hyoscyamine sulfate 0.125 mg sublingual tablet (7 sources) Start: 10-28-2023 End: 10-28-2024 take 1 tablet under the tongue four times daily as needed hyoscyamine sublingual (LEVSIN SL) 0.125 mg Indications: Irritable bowel syndrome with both constipation and diarrhea Dissolve 1-2 tablets under the tongue four times a day as needed (gastrointestinal symptoms.). 100 tablet 10/28/2023 10/28/2024 Discontinued ivermectin 10 mg/ml topical cream (12 sources) Antiparasitic, Pediculicide Start: 05-13-2019 SOOLANTRA 1 % crea Apply 1 application to affected area daily at bedtime. Per [facility]. 0 05/13/2019 Active Comment on above: Apply 1 application to affected area daily at bedtime. Per [facility]. leucovorin 15 mg oral tablet (11 sources) Folate Analog Start: 09-26-2022 take 1 tablet by mouth every week leucovorin (LEUCOVORIN) 15 mg tablet Take 15 mg by mouth one time a week. 09/26/2022 Active Comment on above: Take 15 mg by mouth one time a week. methotrexate 2.5 mg oral tablet (12 sources) Folate Analog Metabolic Inhibitor Start: 10-31-2024 take 8 tablets by mouth once methotrexate 2.5 mg tablet Take 8 tablets by mouth every Friday. 10/31/2024 Active Start: 10-31-2024 take 8 tablets by mouth once m ethotrexate 2.5 mg tablet Take 8 tablets by mouth every Friday. 10/31/2024 Active Start: 09-26-2022 End: 10-28-2024 methotrexate 2.5 mg tablet 2 0 mg. 09/26/2022 10/28/2024 Discontinued Start: 09-26-2022 take 6 tablets by mo ut every week methotrexate 2.5 mg tablet take 6 tablets by mouth every week 0 09/26/2022 Active Comment on above: take 6 tablets by mo uth every week multivitamin tablet (12 sources) Start: 05-13-2019 take 1 tablet by mouth once daily multivitamin tablet Take 1 tablet by mouth once daily. 05/13/2019 Active Start: 05-13-2019 take 1 tablet by bon th once daily multivitamin tablet Take 1 tablet by mouth once daily. 0 05/13/2019 Active Comment on above: Take 1 tablet by bon th once daily. naproxen 500 mg oral tablet (5 sources) Nonsteroidal Anti-inflammatory Drug Start: 03-08-20 take 1 tablet by mouth twice daily as needed Naproxen 500 MG tablet Active 500 mg PO TWICE DAILY NEEDED March 08, 2019 12:00am ruxolitinib (3 sources) Start: 10-25-19 24 ruxolitinib (OPZELURA) 1.5 % cream Apply to affected area. 10/25/2023 Active triamcinolone acetonide 1 mg/ml topical cream (3 sources) Corticosteroid Start: 10-14-19 24 triamcinolone acetonide (KENALOG) 0.1 % cream 10/14/2023 Active znvvxlm-zpxo-nsnjc-or eg-capryl 100 mg-150 mg- 50 mg-150 mg cap (9 sources) End: 10-29-19 25 odiwrsr-mqav-atefd-o reg-capryl 100 mg-150 mg- 50 mg-150 mg cap Take by mouth. 10/28/2024 Discontinued mppteyp-ndlw-aiw fg-emxg-uubngz 100 mg-150 mg- 50 mg-150 mg cap Take by mouth. Active dtmampl-ktyo-kdo ns-myoy-ifweel 100 mg-150 mg- 50 mg-150 mg cap Take by mouth. 0 Active Comment on above: Take by mouth. Problems Active Problems Problem Classification Problem Date Documented Da te Episodic/Chronic Other circulatory disease (1 source) H/O: cardiovascular disease; Translations: [Personal history of other diseases of the circulatory system] 06-06-2023 Episodic Other connective tissue disease (1 source) Pain of left hand; Translations: [Pain in left hand] 06-06-2023 Episodic Other gastrointestinal disorders (1 source) Irritable bowel syndrome; Translations: [Mixed irritable bowel syndrome] 10-28-2023 Chronic Other inflammatory condition of skin (15 sources) Psoriasis; Translations: [Psoriasis, unspecified] Onset: 06-20-2021 06-20-2021 Chronic Other inflammatory condition of skin (13 sources) Psoriatic arthritis; Translations: [Arthropathic psoriasis, unspecified] Onset: 09-30-2022 10-28-2023 Chronic Other inflammatory condition of skin (1 source) Other psoriatic arthropathy; Translations: [Other psoriatic arthropathy] Onset: 09-01-2024 Chronic Other inflammatory condition of skin (1 source) Arthropathic psoriasis, unspecified; Translations: [Psoriatic arthritis (HCC)] Onset: 10-28-2023 Chronic Other inflammatory condition of skin (1 source) Psoriasis, unspecified; Translations: [Psoriasis and similar disorders] Onset: 06-20-2021 Chronic Other screening for suspected conditions (not mental disorders or infectious disease) (2 sources) Encounter for screening for malignant neoplasm of colon; Translations: [Encounter for screening for lipoid disorders] Onset: 10-28-2024 Episodic Screening and history of mental health and substance abuse codes (2 sources) Encounter for screening for depression; Translations: [Encounter for screening examination for other mental health and behavioral disorders] Onset: 10-28-2024 Episodic Past or Other Problems Problem Classification Problem Date Documented Date Episodic/Chronic Immunizations and screening for infectious disease (16 sources) Patient encounter status; Translations: [Encounter for immunization] Onset: 11-26-2023 Episodic Spondylosis; intervertebral disc disorders; other back problems (12 sources) Degeneration of intervertebral disc; Translations: [DDD (degenerative disc disease)] Onset: 11-10-2009 Resolved: 10-28-2024 11-10-2009 Chronic Spondylosis; intervertebral disc disorders; other back problems (10 sources) Backache; Translations: [Dorsalgia, unspecified] Onset: 04-25-2009 Resolved: 11-10-2009 11-10-2009 Episodic Superficial injury; contusion (2 sources) Superficial foreign body of left middle finger, initial encounter; Translations: [Foreign body in skin of left middle finger] Onset: 01-19-2024 01-12-2024 Episodic Viral infection (12 sources) Postherpetic neuralgia; Translations: [Other postherpetic nervous system involvement] Onset: 03-22-2019 Resolved: 03-19-2023 03-22-2019 Episodic Results Test Name Value Interpretation Reference Range Facility [facility] 11-01-2024 CNOV Office Visit (INTMWS) FALGUNINAUN RUIZ ([id number]) 1975 M Date Time Provider Department 11/01/24 6:20 PM ZAID PHILIPPE INTMWS During your visit today, we recorded the following information about you: Barb Spears LPN 11/01/2024 6:24 PM Signed Patient given Pneumovax Patient tolerated injection well. Barb Spears LPN Allergies As of Date: 11/01/2024 Noted Allergy Reaction SEASONAL ALLERGIES 10/25/2022 16 - Unknown Date Reviewed: 10/28/2024 Reviewed by: Barb Spears LPN - Fully Assessed Primary Visit Diagnosis:Need for vaccination [Z23] Prescriptions as of 11/01/2024 - ruxolitinib (OPZELURA) 1.5 % cream Apply to affected area. - triamcinolone acetonide (KENALOG) 0.1 % cream - guselkumab (TREMFYA) 100 mg/mL auto-injector Inject 100 mg subcutaneously every 8 weeks. - methotrexate 2.5 mg tablet Take 8 tablets by mouth every Friday. - folic acid 1 mg tablet - cycloSPORINE (RESTASIS) 0.05 % ophthalmic emulsion - leucovorin (LEUCOVORIN) 15 mg tablet Take 15 mg by mouth one time a week. - SOOLANTRA 1 % crea Apply 1 application to affected area daily at bedtime. [facility] - Glucosamine-Chondroi t-Vit C-Mn (GLUCOSAMINE CHONDROITIN MAXSTR) 500-400 mg cap Take 1 capsule by mouth once daily. - multivitamin tablet Take 1 tablet by mouth once daily. Problem List As Of Date 11/01/2024 Noted Resolved Unspecified Backache [M54.9] 04/25/2009 11/10/2009 DDD (degenerative disc disease) [UTA1232] 11/10/2009 10/28/2024 Postherpetic neuralgia [B02.29] 03/22/2019 03/19/2023 Psoriasis and similar disorders [L40.9] 06/20/2021 Psoriatic arthritis (HCC) [L40.50] 09/30/2022 Encounter Status:Closed by BARB SPEARS on 11/01/24 [facility] CNOVon 10-28-2024 CNOV Office Visit (INTMWS) NAUN MONTES DE OCA ([id number]) 1975 M Date Time Provider Department 10/28/24 8:00 AM ZAID PHILIPPE INTMWS During your visit today, we recorded the following information about you: Pulse Respiration Blood pressure Weight 56/minute 16/minute 118/74 78.7 kg Height 1.88 m Barb Spears LPN 10/28/2024 8:53 AM Signed [facility] OPEN ACCESS QUESTIONNAIRE 1. Are you currently having any new or unusual stomach/gastrointest inal issues at this time such as constipation, diarrhea, abdominal pain, rectal bleeding etc?No 2. Do you have any difficulty swallowing? No 3. Do you have any implanted devices such as a defibrillator, pacemaker, cardiac stents or deep brain stimulator? No 4. Do you take any Blood thinners such as Coumadin, Plavix, Xarelto, Eliquis, Brilinta or any other blood thinner? No 5. Do you have any new or past cardiac (heart) or pulmonary (lung) issues? No 6. Do you currently use any oxygen? No 7. Have you been hospitalized in the past 6 weeks? No 8. Have you had difficulty with anesthesia previously re: Difficult intubation? No Other difficulty or allergic reaction to anesthesia other than post op N/V? No 9. Are you on dialysis? No 10. Do you have any bleeding disorders such as hemophilia or Factor 5? No 11. Are you an Insulin Dependent Diabetic? No IF ANY OF THE TOP ELEVEN QUESTIONS ARE ANSWERED YES PLEASE SCHEDULE THE PATIENT FOR A CONSULT. advised 12. Is the patient's BMI 40 or greater? No:Body mass index is 22.28 kg/m?.. 13. Do you take any narcotics or anti-Anxiety medications? No 14. Do you use any illegal or recreational drugs including marijuana? No 15. Any alcohol use: No. 16. Have you been diagnosed with chronic liver disease such as hepatitis or cirrhosis? No 17. Do you have a seizure disorder? No 18. Do you have ulcerative colitis or Crohn's disease? No 19. Are you or could you be ? No 20. Any other important health information we should be made aware of prior to your colonoscopy? Yes / Autoimmune disease To be completed by LIP: Did patient have MAC anesthesia with a previous endoscopy procedure? No Patient appropriate for Open Access Colonoscopy: Yes: appropriate for Open Access Procedure Checklist: Prior to closing the encounter: Complete questionnaire: Yes Confirm Prep order has been Ordered/Pended: Yes. Patient's procedure could be delayed if not given the script for the prep. Please ensure the prep is escripted to pharmacy or printed. Instructions for the prep will print upon filing or pending this smartset. Please send all open access questionnaires to [facility] Pool #[id number] Zaid Philippe MD 10/28/2024 8:53 AM Signed This note was created using Snacksquareriter. Subjective Patient presents with: Physical Naun Montes De Oca is a 48 year old male. He was doing reasonably well. He mainly dealt with chronic multiple joint pains and stiffness aggravated by overuse. He had no new concerns. He sees Dr. Avril Matthews for rheumatology; Dr. Jose Reyes for dermatology; and Dr. Strickland for optometry. Review of Systems Constitutional: Negative for fatigue, fever and unexpected weight change. HENT: Negative. Eyes: Negative. Respiratory: Negative. Cardiovascular: Negative. Gastrointestinal: Mild IBS. Genitourinary: Negative. Musculoskeletal: Positive for arthralgias. Negative for back pain and neck pain. Neurological: Negative for dizziness, numbness and headaches. Psychiatric/Behavior al: Negative. PAST MEDICAL HISTORY Diagnosis Date Allergic [...] Postherpetic neuralgia 03/22/2019 Psoriatic arthritis (HCC) 09/30/2022 Dr. Avril Matthews Shoulder dislocation, left, initial encounter 09/15/2017 Kayaking [...] Never Smokeless tobacco: Never Vaping Use Vaping status: Never Used Substance Use Topics Alcohol use: No Drug use: No ALLERGIES Allergen Reactions Seasonal Allergies Unknow (more content not included)... Normal [facility] Absolute neutrophil countOrd ered By: Antonia Matthews on 08-27-2024 Neutrophils (Bld) [#/Vol] 3.6 10*3/uL 2.0-7.7 [facility] Anion gap in Serum or Plasma Ordered By: Antonia Matthews on 08-27-2024 Anion gap [Moles/Vol] 11 mmol/L 5-15 [facility] BUN/creatinine ratioOrdered By: Antonia Matthews on 08-27-2024 Urea nitrogen/Creatinine [Mass ratio] 15.4 mg/mg 10-20 [facility] Basophil percentageOrdered B y: Antonia Matthews on 08-27-2024 Basophils/100 WBC (Bld) 0.9 % 0-1 [facility] Bilirubin, totalOrdered By: Antonia Matthews on 08-27-2024 Bilirubin [Mass/Vol] 0.49 mg/dL 0.00-1.30 [facility] CBC W/Diff, Automatedon Absolute Lymph 1.28 X10 3/uL Normal 0.83-4.51 [facility] Comment on above: Performed By: #### L [id number], L100.0100 #### [facility] [address] [place], [address] Absolute Neut 3.6 X10 3/uL Normal 2.0-7.7 [facility] Comment on above: Performed By: #### L [id number], L100.0100 #### [facility] [address] [place], [address] Basophils/100 WBC (Bld) 0.9 % Normal 0-1 [facility] Comment on above: Performed By: #### L [id number], L100.0100 #### [facility] [address] [place], [address] Eosinophils/100 WBC (Bld) 3.2 % Normal 0-5 [facility] Comment on above: Performed By: #### L [id number], L100.0100 #### [facility] [address] [place], [address] Erythrocyte distribution width (RBC) [Ratio] 13.1 % Normal 11.6-14.6 [facility] Comment on above: Performed By: #### L [id number], L100.0100 #### [facility] [address] [place], [address] Hematocrit (Bld) [Volume fraction] 44.6 % Normal 40-54 [facility] Comment on above: Performed By: #### L [id number], L100.0100 #### [facility] [address] [place], [address] Hemoglobin (Bld) [Mass/Vol] 14.6 g/dL Normal 13.0-16.5 [facility] Comment on above: Performed By: #### L 500.4050, L100.0100 #### [facility] [address] [place], [address] IG% 0.500 Normal 0.0-0.9 [facility] Comment on above: Result Comment: IG% - Immature Granulocytes (promyelocytes, myelocytes and metamyelocytes) > 1% indicates that a LEFT SHIFT is Present. Performed By: #### L 500.4050, L100.0100 #### [facility] [address] [place], [address] Lymphocytes/100 WBC (Bld) 22.6 % Normal 19-41 [facility] Comment on above: Performed By: #### L 500.4050, L100.0100 #### [facility] [address] [place], [address] MCH (RBC) [Entitic mass] 31.3 pg Normal 27.0-32.0 [facility] Comment on above: Performed By: #### L 500.4050, L100.0100 #### [facility] [address] [place], [address] MCHC (RBC) [Mass/Vol] 32.7 g/dL Normal 32-36 [facility] Comment on above: Performed By: #### L 500.4050, L100.0100 #### [facility] [address] [place], [address] MCV (RBC) [Entitic vol] 95.5 fL High 80-94 [facility] Comment on above: Performed By: #### L 500.4050, L100.0100 #### [facility] [address] [place], [address] Monocytes/100 WBC (Bld) 9.7 % Normal 0-10 [facility] Comment on above: Performed By: #### L [id number], L100.0100 #### [facility] [address] [place], [address] Neutrophils/100 WBC (Bld) 63.1 % Normal 47-70 [facility] Comment on above: Performed By: #### L [id number], L100.0100 #### [facility] [address] [place], [address] Nucleated RBC (Bld) [#/Vol] 0 10*3/uL Normal 0-5 [facility] Comment on above: Performed By: #### L 500.4050, L100.0100 #### [facility] [address] [place], [address] Platelet mean volume (Bld) [Entitic vol] 11.1 fL Normal 6.2-12.0 [facility] Comment on above: Performed By: #### L 500.4050, L100.0100 #### [facility] [address] [place], [address] Platelets (Bld) [#/Vol] 251 10*3/uL Normal 150-450 [facility] Comment on above: Performed By: #### L 500.4050, L100.0100 #### [facility] [address] [place], [address] RBC (Bld) [#/Vol] 4.67 10*6/uL Normal 4.6-6.2 [facility] Comment on above: Performed By: #### L 500.4050, L100.0100 #### [facility] [address] [place], [address] RDW SD 45.5 fl High 35.1-43.9 [facility] Comment on above: Performed By: #### L [id number], L100.0100 #### [facility] [address] [place], [address] WBC (Bld) [#/Vol] 5.7 10*3/uL Normal 4.4-11.0 [facility] Comment on above: Performed By: #### L 500.4050, L100.0100 #### [facility] [address] [place], [address] Carbon dioxide, total [Moles /volume] in Central venous bloodOrdered By: Antonia Matthews on 08-27-2024 CO2 [Moles/Vol] 25.4 mmol/L 21.0-32.0 [facility] Chloride assayOrdered By: Félix Matthews on 08-27-2024 Chloride [Moles/Vol] 104 mmol/L 98-108 [facility] Comprehensive Metabolic Prof ilon 08-27-2024 Albumin [Mass/Vol] 4.2 g/dL Normal 3.5-5.0 [facility] Comment on above: Performed By: #### L 500.4050, L100.0100 #### [facility] [address] [place], [address] Albumin/Globulin [Mass ratio] 1.4 {ratio} Normal 0.9-2.4 [facility] Comment on above: Performed By: #### L 500.4050, L100.0100 #### [facility] [address] [place], [address] ALK PHOS 59 U/L Normal 40-129 [facility] Comment on above: Performed By: #### L 500.4050, L100.0100 #### [facility] [address] [place], [address] ALT [Catalytic activity/Vol] 25 U/L Normal <=46 [facility] Comment on above: Performed By: #### L 500.4050, L100.0100 #### [facility] [address] [place], [address] AST [Catalytic activity/Vol] 30 U/L Normal <=37 [facility] Comment on above: Performed By: #### L 500.4050, L100.0100 #### [facility] [address] [place], [address] Bilirubin [Mass/Vol] 0.49 mg/dL Normal 0.00-1.30 [facility] Comment on above: Performed By: #### L [id number], L100.0100 #### [facility] [address] [place], [address] BUN/CRE 15.4 RATIO Normal 10-20 [facility] Comment on above: Performed By: #### L [id number], L100.0100 #### [facility] [address] [place], [address] Calcium [Mass/Vol] 9.6 mg/dL Normal 7.6-11.0 [facility] Comment on above: Performed By: #### L [id number], L100.0100 #### [facility] [address] [place], [address] Chloride [Moles/Vol] 104 mmol/L Normal 98-108 [facility] Comment on above: Performed By: #### L [id number], L100.0100 #### [facility] [address] [place], [address] CO2 [Moles/Vol] 25.4 mmol/L Normal 21.0-32.0 [facility] Comment on above: Performed By: #### L 500.4050, L100.0100 #### [facility] [address] [place], [address] Creatinine [Mass/Vol] 1.08 mg/dL Normal 0.70-1.20 [facility] Comment on above: Performed By: #### L 500.4050, L100.0100 #### [facility] [address] [place], [address] GAP 11 Normal 5-15 [facility] Comment on above: Performed By: #### L 500.4050, L100.0100 #### [facility] [address] [place], [address] GFR/1.73 sq M.predicted among non-blacks MDRD (S/P/Bld) [Vol rate/Area] 84 mL/min/{1.73_m2} Normal >60 [facility] Comment on above: Result Comment: mL/m in/1.73m2 CKD-EPI Creatinine Equation (2020) Performed By: #### L 500.4050, L100.0100 #### [facility] [address] [place], [address] Globulin (S) [Mass/Vol] 3.1 g/dL Normal 2.2-4.2 [facility] Comment on above: Performed By: #### L 500.4050, L100.0100 #### [facility] [address] [place], [address] Glucose [Mass/Vol] 103 mg/dL High 70-99 [facility] Comment on above: Performed By: #### L 500.4050, L100.0100 #### [facility] [address] [place], [address] Potassium [Moles/Vol] 4.1 mmol/L Normal 3.3-5.1 [facility] Comment on above: Performed By: #### L 500.4050, L100.0100 #### [facility] [address] [place], [address] Sodium [Moles/Vol] 141 mmol/L Normal 133-145 [facility] Comment on above: Performed By: #### L 500.4050, L100.0100 #### [facility] [address] [place], [address] T PROT 7.3 g/dL Normal 5.9-8.4 [facility] Comment on above: Performed By: #### L 500.4050, L100.0100 #### [facility] [facility] [address] [place], [place], [id number] Urea nitrogen [Mass/Vol] 17 mg/dL Normal 4-19 [facility] Comment on above: Performed By: #### L 500.4050, L100.0100 #### [facility] [address] [place], [address] Eosinophil percentageOrdered By: Antonia Matthews on 08-27-2024 Eosinophils/100 WBC (Bld) 3.2 % 0-5 [facility] Erythrocyte distribution wid th (RBC) [Ratio]Ordered By: Antonia Matthews on 08-27-2024 Erythrocyte distribution width (RBC) [Entitic vol] 45.5 fL High 35.1-43.9 [facility] Erythrocyte distribution wid th ratioOrdered By: Antonia Matthews on 08-27-2024 Erythrocyte distribution width (RBC) [Ratio] 13.1 % 11.6-14.6 [facility] GFR/1.73 sq M.predicted carlo g non-blacks MDRD (S/P/Bld) [Vol rate/Area]Ordered By: Antonia Matthews on 08-27-2024 Estimated GFR (MDRD) Non-Af Amer 84 >60 [facility] Comment on above: mL/min/1.73m2 CKD-EP I Creatinine Equation (2020) Hematocrit Auto (Bld) [Volum e fraction]Ordered By: Antonia Matthews on 08-27-2024 Hematocrit (Bld) [Volume fraction] 44.6 % 40-54 [facility] Hemoglobin measurementOrdere d By: Antonia Matthews on 08-27-2024 Hemoglobin (Bld) [Mass/Vol] 14.6 g/dL 13.0-16.5 [facility] Immature granulocytes/100 WB C Auto (Bld)Ordered By: Antonia Matthews on 08-27-2024 Immature granulocytes/100 WBC (Bld) 0.500 % 0.0-0.9 [facility] Comment on above: IG% - Immature Granu locytes (promyelocytes, myelocytes and metamyelocytes) > 1% indicates that a LEFT SHIFT is Present. Laboratory - Chemistry and C hemistry - challengeOrdered By: Antonia Matthews on 08-27-2024 AST [Catalytic activity/Vol] 30 U/L <38 [facility] Lymphocytes Auto (Unsp spec) [#/Vol]Ordered By: Antonia Matthews on 08-27-2024 Lymphocytes (Bld) [#/Vol] 1.28 10*3/uL 0.83-4.51 [facility] Lymphocytes/100 WBC Auto (Un sp spec)Ordered By: Antonia Matthews on 08-27-2024 Lymphocytes/100 WBC (Bld) 22.6 % 19-41 [facility] MCV (mean corpuscular volume ) determinationOrdered By: Antonia Matthews on 08-27-2024 MCV (RBC) [Entitic vol] 95.5 fL High 80-94 [facility] Mean corpuscular hemoglobin (MCH) determinationOrdered By: Antonia Matthews on 08-27-2024 MCH (RBC) [Entitic mass] 31.3 pg 27.0-32.0 [facility] Mean corpuscular hemoglobin concentration (MCHC) determinationOrdered By: Antonia Matthews on 08-27-2024 MCHC (RBC) [Mass/Vol] 32.7 g/dL 32-36 [facility] Mean platelet volume determi nationOrdered By: Antonia Matthews on 08-27-2024 Platelet mean volume (Bld) [Entitic vol] 11.1 fL 6.2-12.0 [facility] Monocyte percentageOrdered B y: Antonia Matthews on 08-27-2024 Monocytes/100 WBC (Bld) 9.7 % 0-10 [facility] Neutrophil percentageOrdered By: Antonia Matthews on 08-27-2024 Neutrophils/100 WBC (Bld) 63.1 % 47-70 [facility] Nucleated red blood cell per centageOrdered By: Antonia Matthews on 08-27-2024 Nucleated RBC/100 WBC (Bld) [Ratio] 0 % 0-5 [facility] Platelet countOrdered By: Félix Matthews on 08-27-2024 Platelets (Bld) [#/Vol] 251 10*3/uL 150-450 [facility] Potassium (Unsp spec) [Mass/ Vol]Ordered By: Antonia Matthews on 08-27-2024 Potassium [Moles/Vol] 4.1 mmol/L 3.3-5.1 [facility] RBC Auto (Bld) [#/Vol]Ordere d By: Antonia Matthews on 08-27-2024 RBC (Bld) [#/Vol] 4.67 10*6/uL 4.6-6.2 [facility] Serum creatinine measurement (mass/volume)Ordered By: Antonia Matthews on 08-27-2024 Creatinine [Mass/Vol] 1.08 mg/dL 0.70-1.20 [facility] Serum globulin measurementOr dered By: Antonia Matthews on 08-27-2024 Globulin (S) [Mass/Vol] 3.1 g/dL 2.2-4.2 [facility] Serum glucose measurement (m ass/volume)Ordered By: Antonia Matthews on 08-27-2024 Glucose [Mass/Vol] 103 mg/dL High 70-99 [facility] Serum or plasma alanine hadley otransferase (ALT) measurementOrdered By: Antonia Matthews on 08-27-2024 ALT [Catalytic activity/Vol] 25 U/L <47 [facility] Serum or plasma albumin freida urement (mass/volume)Ordered By: Antonia Matthews on 08-27-2024 Albumin [Mass/Vol] 4.2 g/dL 3.5-5.0 [facility] Serum or plasma albumin/glob ulin mass ratioOrdered By: Antonia Matthews on 08-27-2024 Albumin/Globulin [Mass ratio] 1.4 {ratio} 0.9-2.4 [facility] Serum or plasma alkaline wai sphatase measurementOrdered By: Antonia Matthews 08-27-2024 ALP [Catalytic activity/Vol] 59 U/L 40-129 [facility] Serum or plasma calcium freida urement (mass/volume)Ordered By: Antonia Matthews on 08-27-2024 Calcium [Mass/Vol] 9.6 mg/dL 7.6-11.0 [facility] Serum or plasma urea nitroge n measurement (mass/volume)Ordered By: Antonia Matthews on 08-27-2024 Urea nitrogen [Mass/Vol] 17 mg/dL 4-19 [facility] Sodium levelOrdered By: Noris Matthews on 08-27-2024 Sodium [Moles/Vol] 141 mmol/L 133-145 [facility] Total proteinOrdered By: Robbie Matthews on 08-27-2024 Protein [Mass/Vol] 7.3 g/dL 5.9-8.4 [facility] White blood cell (WBC) count Ordered By: Antonia Matthews on 08-27-2024 WBC (Bld) [#/Vol] 5.7 10*3/uL 4.4-11.0 [facility] Absolute neutrophil countOrd ered By: Antonia Matthews on 06-07-2024 Neutrophils (Bld) [#/Vol] 2.5 10*3/uL 2.0-7.7 [facility] Albumin to globulin ratioOrd ered By: Antonia Matthews on 06-07-2024 Albumin/Globulin [Mass ratio] 1.1 {ratio} 0.9-2.4 [facility] Basophil percentageOrdered B y: Antonia Matthews on 06-07-2024 Basophils/100 WBC (Bld) 0.6 % 0-1 [facility] Bilirubin, totalOrdered By: Antonia Matthews on 06-07-2024 Bilirubin [Mass/Vol] 0.40 mg/dL 0.20-1.00 [facility] Comment on above: For patients on eltr ombopag therapy, use of Dimension [place] TBIL is not recommended. Blood urea nitrogen (BUN)/cr eatinine ratioOrdered By: Antonia Matthews on 06-07-2024 Urea nitrogen/Creatinine [Mass ratio] 17.2 mg/mg 10-20 [facility] CBC W/Diff, Automatedon 05-26 Absolute Lymph 1.35 X10 3/uL Normal 0.83-4.51 [facility] Comment on above: Performed By: #### L 500.4050, L100.0100 #### [facility] [address] [place], [place] [address]kriss [place], [address] Absolute Neut 2.5 X10 3/uL Normal 2.0-7.7 [facility] Comment on above: Performed By: #### L 500.4050, L100.0100 #### [facility] [address] [place], [address] Basophils/100 WBC (Bld) 0.6 % Normal 0-1 [facility] Comment on above: Performed By: #### L 500.4050, L100.0100 #### [facility] [address] [place], [address] Eosinophils/100 WBC (Bld) 4.3 % Normal 0-5 [facility] Comment on above: Performed By: #### L 500.4050, L100.0100 #### [facility] [address] [place], [address] Erythrocyte distribution width (RBC) [Ratio] 13.1 % Normal 11.6-14.6 [facility] Comment on above: Performed By: #### L 500.4050, L100.0100 #### [facility] [address] [place], [address] Hematocrit (Bld) [Volume fraction] 43.7 % Normal 40-54 [facility] Comment on above: Performed By: #### L 500.4050, L100.0100 #### [facility] [address] [place], [address] Hemoglobin (Bld) [Mass/Vol] 14.3 g/dL Normal 13.0-16.5 [facility] Comment on above: Performed By: #### L 500.4050, L100.0100 #### [facility] [address] [place], [address] IG% 0.200 Normal 0.0-0.9 [facility] Comment on above: Result Comment: IG% - Immature Granulocytes (promyelocytes, myelocytes and metamyelocytes) > 1% indicates that a LEFT SHIFT is Present. Performed By: #### L 500.4050, L100.0100 #### [facility] [address] [place], [address] Lymphocytes/100 WBC (Bld) 28.9 % Normal 19-41 [facility] Comment on above: Performed By: #### L 500.4050, L100.0100 #### [facility] [address] [place], [address] MCH (RBC) [Entitic mass] 31.1 pg Normal 27.0-32.0 [facility] Comment on above: Performed By: #### L 500.4050, L100.0100 #### [facility] [address] [place], [address] MCHC (RBC) [Mass/Vol] 32.7 g/dL Normal 32-36 [facility] Comment on above: Performed By: #### L 500.4050, L100.0100 #### [facility] [address] [place], [address] MCV (RBC) [Entitic vol] 95.0 fL High 80-94 [facility] Comment on above: Performed By: #### L 500.4050, L100.0100 #### [facility] [address] [place], [address] Monocytes/100 WBC (Bld) 12.0 % High 0-10 [facility] Comment on above: Performed By: #### L 500.4050, L100.0100 #### [facility] [address] [place], [address] Neutrophils/100 WBC (Bld) 54.0 % Normal 47-70 [facility] Comment on above: Performed By: #### L 500.4050, L100.0100 #### [facility] [address] [place], [address] Nucleated RBC (Bld) [#/Vol] 0 10*3/uL Normal 0-5 [facility] Comment on above: Performed By: #### L 500.4050, L100.0100 #### [facility] [address] [place], [address] Platelet mean volume (Bld) [Entitic vol] 11.4 fL Normal 6.2-12.0 [facility] Comment on above: Performed By: #### L 500.4050, L100.0100 #### [facility] [address] [place], [address] Platelets (Bld) [#/Vol] 240 10*3/uL Normal 150-450 [facility] Comment on above: Performed By: #### L 500.4050, L100.0100 #### [facility] [address] [place], [address] RBC (Bld) [#/Vol] 4.60 10*6/uL Normal 4.6-6.2 [facility] Comment on above: Performed By: #### L 500.4050, L100.0100 #### [facility] [address] [place], [address] RDW SD 44.7 fl High 35.1-43.9 [facility] Comment on above: Performed By: #### L 500.4050, L100.0100 #### [facility] [address] [place], [address] WBC (Bld) [#/Vol] 4.7 10*3/uL Normal 4.4-11.0 [facility] Comment on above: Performed By: #### L 500.4050, L100.0100 #### [facility] [address] [place], [address] Carbon dioxide measurementOr dered By: Antonia Matthews on 06-07-2024 CO2 [Moles/Vol] 28.0 mmol/L 21.0-32.0 [facility] Chloride measurementOrdered By: Antonia Matthews on 06-07-2024 Chloride [Moles/Vol] 108 mmol/L High 98-107 [facility] Comprehensive Metabolic Prof ilon 06-07-2024 Albumin [Mass/Vol] 3.8 g/dL Normal 3.2-5.0 [facility] Comment on above: Performed By: #### L 500.4050, L100.0100 #### [facility] [address] [place], [address] Albumin/Globulin [Mass ratio] 1.1 {ratio} Normal 0.9-2.4 [facility] Comment on above: Performed By: #### L 500.4050, L100.0100 #### [facility] [address] [place], [address] ALK P 60 U/L Normal 45-117 [facility] Comment on above: Performed By: #### L 500.4050, L100.0100 #### [facility] [address] [place], [address] ALT [Catalytic activity/Vol] 29 U/L Normal 16-61 [facility] Comment on above: Performed By: #### L 500.4050, L100.0100 #### [facility] [address] [place], [address] AST [Catalytic activity/Vol] 26 U/L Normal 15-37 [facility] Comment on above: Performed By: #### L 500.4050, L100.0100 #### [facility] [address] [place], [address] Bilirubin [Mass/Vol] 0.40 mg/dL Normal 0.20-1.00 [facility] Comment on above: Result Comment: For patients on eltrombopag therapy, use of Dimension [place] TBIL is not recommended. Performed By: #### L 500.4050, L100.0100 #### [facility] [address] [place], [address] BUN/CRE 17.2 RATIO Normal 10-20 [facility] Comment on above: Performed By: #### L 500.4050, L100.0100 #### [facility] [address] [place], [address] CA,Total 9.4 mg/dL Normal 8.5-10.1 [facility] Comment on above: Performed By: #### L 500.4050, L100.0100 #### [facility] [address] [place], [address] Chloride [Moles/Vol] 108 mmol/L High 98-107 [facility] Comment on above: Performed By: #### L 500.4050, L100.0100 #### [facility] [address] [place], [address] CO2 [Moles/Vol] 28.0 mmol/L Normal 21.0-32.0 [facility] Comment on above: Performed By: #### L 500.4050, L100.0100 #### [facility] [address] [place], [address] Creatinine [Mass/Vol] 1.16 mg/dL Normal 0.70-1.30 [facility] Comment on above: Result Comment: The validity of the calculated GFR GFRAA in patients over 70 years has not been determined. Clinical correlation is essential. Performed By: #### L 500.4050, L100.0100 #### [facility] [address] [place], [address] EST GFR - AA 86 mL/min Normal >60 [facility] Comment on above: Result Comment: Afri can [place] GFR Calc Performed By: #### L 500.4050, L100.0100 #### [facility] [address] [place], [address] GAP 4 Low 5-15 [facility] Comment on above: Performed By: #### L 500.4050, L100.0100 #### [facility] [address] [place], [address] GFR/1.73 sq M.predicted among non-blacks MDRD (S/P/Bld) [Vol rate/Area] 71 mL/min/{1.73_m2} Normal >60 [facility] Comment on above: Result Comment: Non- GFR Calc Performed By: #### L 500.4050, L100.0100 #### [facility] [address] [place], [address] Globulin (S) [Mass/Vol] 3.6 g/dL Normal 2.2-4.2 [facility] Comment on above: Performed By: #### L 500.4050, L100.0100 #### [facility] [address] [place], [address] Glucose [Mass/Vol] 100 mg/dL Normal 74-106 [facility] Comment on above: Result Comment: Fast ing Glucose result from 100 to 125 mg/dL suggests IMPAIRED HOMEOSTASIS per A.D.A. criteria. Performed By: #### L 500.4050, L100.0100 #### [facility] [address] [place], [address] Potassium [Moles/Vol] 4.5 mmol/L Normal 3.5-5.1 [facility] Comment on above: Performed By: #### L 500.4050, L100.0100 #### [facility] [address] [place], [address] Sodium [Moles/Vol] 140 mmol/L Normal 136-145 [facility] Comment on above: Performed By: #### L 500.4050, L100.0100 #### [facility] [address] [place], [address] T PROT 7.4 g/dL Normal 6.4-8.2 [facility] Comment on above: Performed By: #### L 500.4050, L100.0100 #### [facility] [address] [place], [address] Urea nitrogen [Mass/Vol] 20 mg/dL High 7-18 [facility] Comment on above: Performed By: #### L 500.4050, L100.0100 #### [facility] [address] [place], [address] Eosinophil percentageOrdered By: Antonia Matthews on 06-07-2024 Eosinophils/100 WBC (Bld) 4.3 % 0-5 [facility] Erythrocyte distribution wid th (RBC) [Ratio]Ordered By: Antonia Matthews on 06-07-2024 Erythrocyte distribution width (RBC) [Entitic vol] 44.7 fL High 35.1-43.9 [facility] Erythrocyte distribution wid th ratioOrdered By: Antonia Matthews on 06-07-2024 Erythrocyte distribution width (RBC) [Ratio] 13.1 % 11.6-14.6 [facility] Estimated glomerular filtrat ion rate (GFR) AmericanOrdered By: Antonia Matthews on 06-07-2024 Estimated GFR (MDRD) Amer 86 mL/min >60 [facility] Comment on above: GFR Calc Glomerular filtration rate ( GFR) estimationOrdered By: Antonia Matthews on 06-07-2024 Estimated GFR (MDRD) Non-Af Amer 71 mL/min >60 [facility] Comment on above: Non- GFR Calc Glucose measurementOrdered B y: Antonia Matthews on 06-07-2024 Glucose [Mass/Vol] 100 mg/dL 74-106 [facility] Comment on above: Fasting Glucose resu lt from 100 to 125 mg/dL suggests IMPAIRED HOMEOSTASIS per A.D.A. criteria. Hematocrit Auto (Bld) [Volum e fraction]Ordered By: Antonia Matthews on 06-07-2024 Hematocrit (Bld) [Volume fraction] 43.7 % 40-54 [facility] Hemoglobin measurementOrdere d By: Antonia Matthews on 06-07-2024 Hemoglobin (Bld) [Mass/Vol] 14.3 g/dL 13.0-16.5 [facility] Immature granulocytes/100 WB C Auto (Bld)Ordered By: Antonia Matthews on 06-07-2024 Immature granulocytes/100 WBC (Bld) 0.200 % 0.0-0.9 [facility] Comment on above: IG% - Immature Granu locytes (promyelocytes, myelocytes and metamyelocytes) > 1% indicates that a LEFT SHIFT is Present. Laboratory - Chemistry and C hemistry - challengeOrdered By: Antonia Matthews on 06-07-2024 AST [Catalytic activity/Vol] 26 U/L 15-37 [facility] Lymphocytes Auto (Unsp spec) [#/Vol]Ordered By: Antonia Matthews on 06-07-2024 Lymphocytes (Bld) [#/Vol] 1.35 10*3/uL 0.83-4.51 [facility] Lymphocytes/100 WBC Auto (Un sp spec)Ordered By: Antonia Matthews on 06-07-2024 Lymphocytes/100 WBC (Bld) 28.9 % 19-41 [facility] MCV (mean corpuscular volume ) determinationOrdered By: Antonia Matthews on 06-07-2024 MCV (RBC) [Entitic vol] 95.0 fL High 80-94 [facility] Mean corpuscular hemoglobin (MCH) determinationOrdered By: Antonia Matthews on 06-07-2024 MCH (RBC) [Entitic mass] 31.1 pg 27.0-32.0 [facility] Mean corpuscular hemoglobin concentration (MCHC) determinationOrdered By: Antonia Matthews on 06-07-2024 MCHC (RBC) [Mass/Vol] 32.7 g/dL 32-36 [facility] Mean platelet volume determi nationOrdered By: Antonia Matthews on 06-07-2024 Platelet mean volume (Bld) [Entitic vol] 11.4 fL 6.2-12.0 [facility] Monocyte percentageOrdered B y: Antonia Matthews on 06-07-2024 Monocytes/100 WBC (Bld) 12.0 % High 0-10 [facility] Neutrophil percentageOrdered By: Antonia Matthews on 06-07-2024 Neutrophils/100 WBC (Bld) 54.0 % 47-70 [facility] Nucleated red blood cell per centageOrdered By: Antonia Matthews on 06-07-2024 Nucleated RBC/100 WBC (Bld) [Ratio] 0 % 0-5 [facility] Platelet countOrdered By: Félix Matthews on 06-07-2024 Platelets (Bld) [#/Vol] 240 10*3/uL 150-450 [facility] Potassium measurementOrdered By: Antonia Matthews on 06-07-2024 Potassium [Moles/Vol] 4.5 mmol/L 3.5-5.1 [facility] RBC Auto (Bld) [#/Vol]Ordere d By: Antonia Matthews on 06-07-2024 RBC (Bld) [#/Vol] 4.60 10*6/uL 4.6-6.2 [facility] Serum anion gap measurementO rdered By: Antonia Matthews on 06-07-2024 Anion gap [Moles/Vol] 4 mmol/L Low 5-15 [facility] Serum globulin measurementOr dered By: Antonia Matthews on 06-07-2024 Globulin (S) [Mass/Vol] 3.6 g/dL 2.2-4.2 [facility] Serum or plasma alanine hadley otransferase (ALT) measurementOrdered By: Antonia Matthews on 06-07-2024 ALT [Catalytic activity/Vol] 29 U/L 16-61 [facility] Serum or plasma albumin freida urement (mass/volume)Ordered By: Antonia Matthews on 06-07-2024 Albumin [Mass/Vol] 3.8 g/dL 3.2-5.0 [facility] Serum or plasma alkaline wai sphatase measurementOrdered By: Antonia Matthews on 06-07-2024 ALP [Catalytic activity/Vol] 60 U/L 45-117 [facility] Serum or plasma calcium freida urement (mass/volume)Ordered By: Antonia Matthews on 06-07-2024 Calcium [Mass/Vol] 9.4 mg/dL 8.5-10.1 [facility] Serum or plasma creatinine m easurement (mass/volume)Ordered By: Antonia Matthews on 06-07-2024 Creatinine [Mass/Vol] 1.16 mg/dL 0.70-1.30 [facility] Comment on above: The validity of the calculated GFR & GFRAA in patients over 70 years has not been determined. Clinical correlation is essential. Serum or plasma urea nitroge n measurement (mass/volume)Ordered By: Antonia Matthews on 06-07-2024 Urea nitrogen [Mass/Vol] 20 mg/dL High 7-18 [facility] Sodium levelOrdered By: Noris Matthews on 06-07-2024 Sodium [Moles/Vol] 140 mmol/L 136-145 [facility] Total proteinOrdered By: Robbie Matthews on 06-07-2024 Protein [Mass/Vol] 7.4 g/dL 6.4-8.2 [facility] White blood cell (WBC) count Ordered By: Antonia Mathtews on 06-07-2024 WBC (Bld) [#/Vol] 4.7 10*3/uL 4.4-11.0 [facility] CNNURSEon 03-29-2024 [facility] Nurse Visit (FAMPWS) NAUN MONTES DE OCA ([id number]) 1975 M Date Time Provider Department 03/29/24 9:15 AM [place] NURSE FAMPWS During your visit today, we recorded the following information about you: Simi Winkler LPN 03/29/2024 8:46 AM Signed Patient presents for Hepatitis B vaccine. Denies any problems at this time. Tolerated injection well. Simi Winkler LPN Allergies As of Date: 03/29/2024 Noted Allergy Reaction SEASONAL ALLERGIES 10/25/2022 16 - Unknown Date Reviewed: 10/28/2023 Reviewed by: Barb Spears LPN - Fully Assessed Reason for Visit: Imm/Inj [58] Primary Visit Diagnosis:Encounter for immunization [Z23] Prescriptions as of 03/29/2024 - hyoscyamine sublingual (LEVSIN SL) 0.125 mg Dissolve 1-2 tablets under the tongue four times a day as needed (gastrointestinal symptoms.). - Herbal Drugs tab Niaicin supplement twice daily from dermatology - methotrexate 2.5 mg tablet 20 mg. - folic acid 1 mg tablet - cycloSPORINE (RESTASIS) 0.05 % ophthalmic emulsion - omxwuaa-qkxj-mvyeu-o reg-capryl 100 mg-150 mg- 50 mg-150 mg cap Take by mouth. - leucovorin (LEUCOVORIN) 15 mg tablet Take 15 mg by mouth one time a week. - SOOLANTRA 1 % crea Apply 1 application to affected area daily at bedtime. Per [facility]. - Glucosamine-Chondroi t-Vit C-Mn (GLUCOSAMINE CHONDROITIN MAXSTR) 500-400 mg cap Take 1 capsule by mouth once daily. - multivitamin tablet Take 1 tablet by mouth once daily. Problem List As Of Date 03/29/2024 Noted Resolved Unspecified Backache [M54.9] 04/25/2009 11/10/2009 DDD (Degenerative Disc Disease) [TWX4831] 11/10/2009 Postherpetic neuralgia [B02.29] 03/22/2019 03/19/2023 Psoriasis and similar disorders [L40.9] 06/20/2021 Psoriatic arthritis (HCC) [L40.50] 09/30/2022 Encounter Status:Closed by SIMI WINKLER on 03/29/24 Normal [facility] Quantiferon TB-Gold+on 03-23 QFT MITOGEN VIKTORIA > 10.00 Normal . [facility] Comment on above: Performed By: #### L 9388.8000 #### [facility] [address] [place], [address] QFT NIL VALUE 0 IU/mL Normal . [facility] Comment on above: Performed By: #### L 3400.8000 #### [facility] [address] [place], [address] QFT TB GOLD+ Comment Normal . [facility] Comment on above: Result Comment: Abraham tiFERON-TB Gold Plus is a qualitative indirect test for M tuberculosis infection (including disease) and is intended for use in conjunction with risk assessment, radiography, and other medical and diagnostic evaluations. The QuantiFERON-TB Gold Plus result is determined by subtracting the Nil value from either TB antigen (Ag) value. The Mitogen tube serves as a control for the test. Performed By: #### L 3400.8000 #### [facility] [address] [place], [place], [id number] ([phone]) QFT TB POS CRIT Negative Normal Negative [facility] Comment on above: Result Comment: No r esponse to M tuberculosis antigens detected. Infection with M tuberculosis is unlikely, but high risk individuals should be considered for additional testing (ATS/IDSA/CDC Clinical Practice Guidelines, 2017). The reference range is an Antigen minus Nil result of <0.35 IU/mL. The specimen received for QuantiFERON testing was incubated by the ordering institution. Specific procedures outlined in our Directory of Services and in the package insert for the QuantiFERON Gold (In Tube) test must be followed to enable for proper stimulation of cells for the production of interferon gamma. Chemiluminescence immunoassay methodology Performed at: [address] [id number] Parent Partner: Marcelo Vee PhD, Phone: [phone] Performed By: #### L 3400.8000 #### [facility] [address] [place], [address] QFT TB1+ AG VIKTORIA 0.01 IU/mL Normal . [facility] Comment on above: Performed By: #### L 3400.8000 #### [facility] [address] [place], [address] QFT TB2+ AG VIKTORIA 0 IU/mL Normal . [facility] Comment on above: Performed By: #### L 3400.8000 #### [facility] [address] [place], [address] CBC W/Diff, Automatedon 10-2 -2023 Absolute Lymph 1.46 X10 3/uL Normal 0.83-4.51 [facility] Comment on above: Performed By: #### L 100.0100, L500.4050 #### [facility] [address] [place], [address] Absolute Neut 2.5 X10 3/uL Normal 2.0-7.7 [facility] Comment on above: Performed By: #### L 100.0100, L500.4050 #### [facility] [address] [place], [address] Basophils/100 WBC (Bld) 1.1 % High 0-1 [facility] Comment on above: Performed By: #### L 100.0100, L500.4050 #### [facility] [address] [place], [address] Eosinophils/100 WBC (Bld) 3.6 % Normal 0-5 [facility] Comment on above: Performed By: #### L 100.0100, L500.4050 #### [facility] [address] [place], [address] Erythrocyte distribution width (RBC) [Ratio] 12.6 % Normal 11.6-14.6 [facility] Comment on above: Performed By: #### L 100.0100, L500.4050 #### [facility] [address] [place], [address] Hematocrit (Bld) [Volume fraction] 44.2 % Normal 40-54 [facility] Comment on above: Performed By: #### L 100.0100, L500.4050 #### [facility] [address] [place], [address] Hemoglobin (Bld) [Mass/Vol] 14.5 g/dL Normal 13.0-16.5 [facility] Comment on above: Performed By: #### L 100.0100, L500.4050 #### [facility] [address] [place], [address] IG% 0.200 Normal 0.0-0.9 [facility] Comment on above: Result Comment: IG% - Immature Granulocytes (promyelocytes, myelocytes and metamyelocytes) > 1% indicates that a LEFT SHIFT is Present. Performed By: #### L 100.0100, L500.4050 #### [facility] [address] [place], [address] Lymphocytes/100 WBC (Bld) 30.9 % Normal 19-41 [facility] Comment on above: Performed By: #### L 100.0100, L500.4050 #### [facility] [address] [place], [address] MCH (RBC) [Entitic mass] 30.7 pg Normal 27.0-32.0 [facility] Comment on above: Performed By: #### L 100.0100, L500.4050 #### [facility] [address] [place], [address] MCHC (RBC) [Mass/Vol] 32.8 g/dL Normal 32-36 [facility] Comment on above: Performed By: #### L 100.0100, L500.4050 #### [facility] [address] [place], [address] MCV (RBC) [Entitic vol] 93.6 fL Normal 80-94 [facility] Comment on above: Performed By: #### L 100.0100, L500.4050 #### [facility] [address] [place], [address] Monocytes/100 WBC (Bld) 10.4 % High 0-10 [facility] Comment on above: Performed By: #### L 100.0100, L500.4050 #### [facility] [address] [place], [address] Neutrophils/100 WBC (Bld) 53.8 % Normal 47-70 [facility] Comment on above: Performed By: #### L 100.0100, L500.4050 #### [facility] [address] [place], [address] Nucleated RBC (Bld) [#/Vol] 0 10*3/uL Normal 0-5 [facility] Comment on above: Performed By: #### L 100.0100, L500.4050 #### [facility] [address] [place], [address] Platelet mean volume (Bld) [Entitic vol] 11.6 fL Normal 6.2-12.0 [facility] Comment on above: Performed By: #### L 100.0100, L500.4050 #### [facility] [address] [place], [address] Platelets (Bld) [#/Vol] 253 10*3/uL Normal 150-450 [facility] Comment on above: Performed By: #### L 100.0100, L500.4050 #### [facility] [address] [place], [address] RBC (Bld) [#/Vol] 4.72 10*6/uL Normal 4.6-6.2 [facility] Comment on above: Performed By: #### L 100.0100, L500.4050 #### [facility] [address] [place], [address] RDW SD 43.4 fl Normal 35.1-43.9 [facility] Comment on above: Performed By: #### L 100.0100, L500.4050 #### [facility] [address] [place], [address] WBC (Bld) [#/Vol] 4.7 10*3/uL Normal 4.4-11.0 [facility] Comment on above: Performed By: #### L 100.0100, L500.4050 #### [facility] [address] [place], [address] Comprehensive Metabolic Prof ilon 03-17-2024 Albumin [Mass/Vol] 3.6 g/dL Normal 3.2-5.0 [facility] Comment on above: Performed By: #### L 100.0100, L500.4050 #### [facility] [address] [place], [address] Albumin/Globulin [Mass ratio] 1.0 {ratio} Normal 0.9-2.4 [facility] Comment on above: Performed By: #### L 100.0100, L500.4050 #### [facility] [address] [place], [address] ALK P 55 U/L Normal 45-117 [facility] Comment on above: Performed By: #### L 100.0100, L500.4050 #### [facility] [address] [place], [address] ALT [Catalytic activity/Vol] 28 U/L Normal 16-61 [facility] Comment on above: Performed By: #### L 100.0100, L500.4050 #### [facility] [address] [place], [address] AST [Catalytic activity/Vol] 21 U/L Normal 15-37 [facility] Comment on above: Performed By: #### L 100.0100, L500.4050 #### [facility] [address] [place], [address] Bilirubin [Mass/Vol] 0.40 mg/dL Normal 0.20-1.00 [facility] Comment on above: Result Comment: For patients on eltrombopag therapy, use of Dimension [place] TBIL is not recommended. Performed By: #### L 100.0100, L500.4050 #### [facility] [address] [place], [address] BUN/CRE 16.0 RATIO Normal 10-20 [facility] Comment on above: Performed By: #### L 100.0100, L500.4050 #### [facility] [address] [place], [address] CA,Total 9.1 mg/dL Normal 8.5-10.1 [facility] Comment on above: Performed By: #### L 100.0100, L500.4050 #### [facility] [address] [place], [address] Chloride [Moles/Vol] 108 mmol/L High 98-107 [facility] Comment on above: Performed By: #### L 100.0100, L500.4050 #### [facility] [address] [place], [address] CO2 [Moles/Vol] 27.0 mmol/L Normal 21.0-32.0 [facility] Comment on above: Performed By: #### L 100.0100, L500.4050 #### [facility] [address] [place], [address] Creatinine [Mass/Vol] 1.00 mg/dL Normal 0.70-1.30 [facility] Comment on above: Result Comment: The validity of the calculated GFR GFRAA in patients over 70 years has not been determined. Clinical correlation is essential. Performed By: #### L 100.0100, L500.4050 #### [facility] [address] [place], [address] EST GFR - AA 102 mL/min Normal >60 [facility] Comment on above: Result Comment: Afri can [place] GFR Calc Performed By: #### L 100.0100, L500.4050 #### [facility] [address] [place], [address] GAP 3 Low 5-15 [facility] Comment on above: Performed By: #### L 100.0100, L500.4050 #### [facility] [address] [place], [address] GFR/1.73 sq M.predicted among non-blacks MDRD (S/P/Bld) [Vol rate/Area] 84 mL/min/{1.73_m2} Normal >60 [facility] Comment on above: Result Comment: Non- GFR Calc Performed By: #### L 100.0100, L500.4050 #### [facility] [address] [place], [address] Globulin (S) [Mass/Vol] 3.6 g/dL Normal 2.2-4.2 [facility] Comment on above: Performed By: #### L 100.0100, L500.4050 #### [facility] [address] [place], [address] Glucose [Mass/Vol] 88 mg/dL Normal 74-106 [facility] Comment on above: Performed By: #### L 100.0100, L500.4050 #### [facility] [address] [place], [address] Potassium [Moles/Vol] 4.4 mmol/L Normal 3.5-5.1 [facility] Comment on above: Performed By: #### L 100.0100, L500.4050 #### [facility] [address] [place], [address] Sodium [Moles/Vol] 138 mmol/L Normal 136-145 [facility] Comment on above: Performed By: #### L 100.0100, L500.4050 #### [facility] [address] [place], [address] T PROT 7.2 g/dL Normal 6.4-8.2 [facility] Comment on above: Performed By: #### L 100.0100, L500.4050 #### [facility] [address] [place], [address] Urea nitrogen [Mass/Vol] 16 mg/dL Normal 7-18 [facility] Comment on above: Performed By: #### L 100.0100, L500.4050 #### [facility] [address] [place], [address] Emergency Department Summary on 01-04-2024 Emergency Department Summary [facility] Medical Records Department [address] [place] [address] Emergency Department Summary 01/04/24 MR#: [id number] Acct: [id number] Name: NAUN MONTES DE OCA Rep #: [id number] : 1975 48 From: Maximino Colin DO PCP: Dr. Zaid Philippe MD Status:DEP ER Location: ED HPI History of Present Illness HPI Narrative: The patient presents with foreign body to his left middle finger that occurred this morning. Patient states he was cleaning out his car and there was a fish lure that was stuck on the floor of the trunk. Patient states that he did not realize that there was a fistula were in the trunk and when he pulled it became embedded into his left middle finger. Patient denies any paresthesias or weakness. Patient is unsure of his last tetanus. Patient describes the pain as sharp. Patient states nothing makes it better and nothing makes it worse. Chief Complaint: Foreign Body Informant: patient Occured/Mechanism Mechanism/Context: Yes puncture wound Onset/Context/Timing Onset: Today Context: Sudden Onset Timing: Continuous Quality of Pain: Sharp Location: Left middle finger Worsened by: Nothing Relieved by: Nothing Associated Symptoms Associated Symptoms: Negative for Parasthesia, Weakness or Loss of Funtion Narrative Tetanus Immunization: Unknown [facility] Medical History (Updated 01/04/24 @ 10:[address] Maximino Schwiger, DO) Psoriatic arthritis Home Medications ???Medication ???Instructions ???Recorded ???Last Taken ???Type naproxen 500 mg tablet 500 mg PO BID PRN #20 tabs 03/08/19 Unknown Rx Allergy/AdvReac Type Severity Reaction Status Date / Time No Known Allergies Allergy Verified 01/04/24 08:46 Surgical History no surgical history no surgical history Social History Smoking Status: Never smoker ROS ROS ED Constitutional Constitutional ED: Denies chills or fever(s) Eyes Eyes: Denies blurry vision or change in vision ENT ENT ED: Denies rhinorrhea or sore throat Cardiovascular Cardiovascular: Denies chest pain or palpitations Respiratory/Chest Respiratory/Chest: Denies cough or dyspnea Gastrointestinal Gastrointestinal: Denies nausea or vomiting Genitourinary Genitourinary ED: Denies dysuria or hematuria Musculoskeletal Musculoskeletal: Denies back pain or neck pain Integumentary Denies abscess or rash Neurologic Neurologic: Denies headache(s) or weakness Allergic/Immunologic Allergic/Immunologic ED: Denies mouth swelling or urticaria EXAM Physical Exam Const Vital Signs: 01/04/24 08:46 01/04/24 08:52 Temperature 96.5 F L Temperature Source Temporal Pulse Rate 64 Respiratory Rate 16 Respiratory Effort Normal Respiratory Pattern Normal Blood Pressure 132/89 H Blood Pressure Mean 103 Pulse Ox 100 Oxygen Delivery Method Room Air Positive well nourished and well developed General Appearance ED: well developed and NAD HEENT Reports moist mucous membranes Neck full ROM and supple Extremity Extremity Narrative: There is a fishhook embedded into the radial aspect of the middle phalanx of the left middle finger. There is no surrounding erythema or warmth. There is no discharge or drainage noted. There is minimal bleeding noted. There is minimal tenderness. Sensation was intact to light touch in all digits. Capillary refill was less than 2 seconds in all digits. Strength is 5/5 in flexion and extension of the MP, PIP, and DIP joints of the left middle finger. Neuro oriented x3, CN's II-XII intact bilaterally, moves all extremities, no focal motor deficits and no sensory deficits noted Sensorium / Orientation: alert Motor Exam: strength 5/5 throughout Psych mental status grossly normal MDM MDM MDM Narrative Medical decision making narrative: The puncture wound area was cleaned with chlorhexidine and anesthetized with 1% lidocaine locally. The fishhook was pushed through the skin and the jalyn of the fishhook was cut off. The fishhook was then removed. Patient was given a tetanus booster. Patient was instructed to keep the wound clean and dry. Bacitracin dressing was applied. Patient was instructed to follow-up with his primary care physician in 5 to 7 days. Patient understood and was agreeable with the plan. All questions were answered. Discharge Plan Triage Chief Complaint: Foreign Body ED Provider: Maximino Colin Dx/Rx/DC Orders Clinical Impression: Foreign body in skin of left middle finger, Psoriatic arthritis Instructions: ED Foreign Body, Soft Tissue (Removed) Prescriptions: No Action naproxen 500 MG tablet 500 mg PO BID PRN Qty: 20 0RF Primary Care Provider: Zaid Philippe Referrals: Zaid Philippe MD [Primary Care Provider] - 5-7 Day (more content not included)... Normal [facility] CBC W/Diff, Automatedon 08-0 Absolute Lymph 1.77 X10 3/uL Normal 0.83-4.51 [facility] Comment on above: Performed By: #### L 100.0100, L500.4050 #### [facility] [address] [place], [address] Absolute Neut 2.3 X10 3/uL Normal 2.0-7.7 [facility] Comment on above: Performed By: #### L 100.0100, L500.4050 #### [facility] [address] [place], [address] Basophils/100 WBC (Bld) 0.4 % Normal 0-1 [facility] Comment on above: Performed By: #### L 100.0100, L500.4050 #### [facility] [address] [place], [address] Eosinophils/100 WBC (Bld) 3.8 % Normal 0-5 [facility] Comment on above: Performed By: #### L 100.0100, L500.4050 #### [facility] [address] [place], [address] Erythrocyte distribution width (RBC) [Ratio] 12.9 % Normal 11.6-14.6 [facility] Comment on above: Performed By: #### L 100.0100, L500.4050 #### [facility] [address] [place], [address] Hematocrit (Bld) [Volume fraction] 42.5 % Normal 40-54 [facility] Comment on above: Performed By: #### L 100.0100, L500.4050 #### [facility] [address] [place], [address] Hemoglobin (Bld) [Mass/Vol] 14.1 g/dL Normal 13.0-16.5 [facility] Comment on above: Performed By: #### L 100.0100, L500.4050 #### [facility] [address] [place], [address] IG% 0.400 Normal 0.0-0.9 [facility] Comment on above: Result Comment: IG% - Immature Granulocytes (promyelocytes, myelocytes and metamyelocytes) > 1% indicates that a LEFT SHIFT is Present. Performed By: #### L 100.0100, L500.4050 #### [facility] [address] [place], [address] Lymphocytes/100 WBC (Bld) 37.3 % Normal 19-41 [facility] Comment on above: Performed By: #### L 100.0100, L500.4050 #### [facility] [address] [place], [address] MCH (RBC) [Entitic mass] 31.0 pg Normal 27.0-32.0 [facility] Comment on above: Performed By: #### L 100.0100, L500.4050 #### [facility] [address] [place], [address] MCHC (RBC) [Mass/Vol] 33.2 g/dL Normal 32-36 [facility] Comment on above: Performed By: #### L 100.0100, L500.4050 #### [facility] [address] [place], [address] MCV (RBC) [Entitic vol] 93.4 fL Normal 80-94 [facility] Comment on above: Performed By: #### L 100.0100, L500.4050 #### [facility] [address] [place], [address] Monocytes/100 WBC (Bld) 8.6 % Normal 0-10 [facility] Comment on above: Performed By: #### L 100.0100, L500.4050 #### [facility] [address] [place], [address] Neutrophils/100 WBC (Bld) 49.5 % Normal 47-70 [facility] Comment on above: Performed By: #### L 100.0100, L500.4050 #### [facility] [address] [place], [address] Nucleated RBC (Bld) [#/Vol] 0 10*3/uL Normal 0-5 [facility] Comment on above: Performed By: #### L 100.0100, L500.4050 #### [facility] [address] [place], [address] Platelet mean volume (Bld) [Entitic vol] 11.4 fL Normal 6.2-12.0 [facility] Comment on above: Performed By: #### L 100.0100, L500.4050 #### [facility] [address] [place], [address] Platelets (Bld) [#/Vol] 249 10*3/uL Normal 150-450 [facility] Comment on above: Performed By: #### L 100.0100, L500.4050 #### [facility] [address] [place], [address] RBC (Bld) [#/Vol] 4.55 10*6/uL Low 4.6-6.2 [facility] Comment on above: Performed By: #### L 100.0100, L500.4050 #### [facility] [address] [place], [address] RDW SD 43.9 fl Normal 35.1-43.9 [facility] Comment on above: Performed By: #### L 100.0100, L500.4050 #### [facility] [address] [place], [address] WBC (Bld) [#/Vol] 4.7 10*3/uL Normal 4.4-11.0 [facility] Comment on above: Performed By: #### L 100.0100, L500.4050 #### [facility] [address] [place], [address] Comprehensive Metabolic Prof [facility] 12-30-2023 Albumin [Mass/Vol] 3.4 g/dL Normal 3.2-5.0 [facility] Comment on above: Performed By: #### L 100.0100, L500.4050 #### [facility] [address] [place], [address] Albumin/Globulin [Mass ratio] 0.9 {ratio} Normal 0.9-2.4 [facility] Comment on above: Performed By: #### L 100.0100, L500.4050 #### [facility] [address] [place], [address] ALK P 56 U/L Normal 45-117 [facility] Comment on above: Performed By: #### L 100.0100, L500.4050 #### [facility] [address] [place], [address] ALT [Catalytic activity/Vol] 27 U/L Normal 16-61 [facility] Comment on above: Performed By: #### L 100.0100, L500.4050 #### [facility] [address] [place], [address] AST [Catalytic activity/Vol] 24 U/L Normal 15-37 [facility] Comment on above: Performed By: #### L 100.0100, L500.4050 #### [facility] [address] [place], [address] Bilirubin [Mass/Vol] 0.40 mg/dL Normal 0.20-1.00 [facility] Comment on above: Result Comment: For patients on eltrombopag therapy, use of Dimension [place] TBIL is not recommended. Performed By: #### L 100.0100, L500.4050 #### [facility] [address] [place], [address] BUN/CRE 13.2 RATIO Normal 10-20 [facility] Comment on above: Performed By: #### L 100.0100, L500.4050 #### [facility] [address] [place], [address] CA,Total 9.0 mg/dL Normal 8.5-10.1 [facility] Comment on above: Performed By: #### L 100.0100, L500.4050 #### [facility] [address] [place], [address] Chloride [Moles/Vol] 109 mmol/L High 98-107 [facility] Comment on above: Performed By: #### L 100.0100, L500.4050 #### [facility] [address] [place], [address] CO2 [Moles/Vol] 24.0 mmol/L Normal 21.0-32.0 [facility] Comment on above: Performed By: #### L 100.0100, L500.4050 #### [facility] [address] [place], [address] Creatinine [Mass/Vol] 1.14 mg/dL Normal 0.70-1.30 [facility] Comment on above: Result Comment: The validity of the calculated GFR GFRAA in patients over 70 years has not been determined. Clinical correlation is essential. Performed By: #### L 100.0100, L500.4050 #### [facility] [address] [place], [address] EST GFR - AA 88 mL/min Normal >60 [facility] Comment on above: Result Comment: Afri can [place] GFR Calc Performed By: #### L 100.0100, L500.4050 #### [facility] [address] [place], [address] GAP 6 Normal 5-15 [facility] Comment on above: Performed By: #### L 100.0100, L500.4050 #### [facility] [address] [place], [address] GFR/1.73 sq M.predicted among non-blacks MDRD (S/P/Bld) [Vol rate/Area] 73 mL/min/{1.73_m2} Normal >60 [facility] Comment on above: Result Comment: Non- GFR Calc Performed By: #### L 100.0100, L500.4050 #### [facility] [address] [place], [address] Globulin (S) [Mass/Vol] 3.9 g/dL Normal 2.2-4.2 [facility] Comment on above: Performed By: #### L 100.0100, L500.4050 #### [facility] [address] [place], [address] Glucose [Mass/Vol] 111 mg/dL High 74-106 [facility] Comment on above: Result Comment: Fast ing Glucose result from 100 to 125 mg/dL suggests IMPAIRED HOMEOSTASIS per A.D.A. criteria. Performed By: #### L 100.0100, L500.4050 #### [facility] [address] [place], [address] Potassium [Moles/Vol] 4.0 mmol/L Normal 3.5-5.1 [facility] Comment on above: Performed By: #### L 100.0100, L500.4050 #### [facility] [address] [place], [address] Sodium [Moles/Vol] 139 mmol/L Normal 136-145 [facility] Comment on above: Performed By: #### L 100.0100, L500.4050 #### [facility] [address] [place], [address] T PROT 7.3 g/dL Normal 6.4-8.2 [facility] Comment on above: Performed By: #### L 100.0100, L500.4050 #### [facility] [address] [place], [address] Urea nitrogen [Mass/Vol] 15 mg/dL Normal 7-18 [facility] Comment on above: Performed By: #### L 100.0100, L500.4050 #### [facility] [address] [place], [address] CNOVon 11-26-2023 CNOV Office Visit (INTMWS) NAUN MONTES DE OCA ([id number]) 1975 M Date Time Provider Department 11/26/23 7:20 AM CAROLYN BUCKLEY During your visit today, we recorded the following information about you: Mignon Huff LPN 11/26/2023 7:52 AM Signed Patient [...] 3-DOSE, AGE 20+ YR (ENGERIX-B, RECOMBIVAX HB) [[id number]] Order #: [id number] FUTURE Prescriptions as of 11/26/2023 - hyoscyamine sublingual (LEVSIN SL) 0.125 mg Dissolve 1-2 tablets under the tongue four times a day as needed (gastrointestinal symptoms.). - Herbal Drugs tab Niaicin supplement twice daily from dermatology - methotrexate 2.5 mg tablet 20 mg. - folic acid 1 mg tablet - cycloSPORINE (RESTASIS) 0.05 % ophthalmic emulsion - ytjebeq-myeh-wtpzi-o reg-capryl 100 mg-150 mg- 50 mg-150 mg cap Take by mouth. - leucovorin (LEUCOVORIN) 15 mg tablet Take 15 mg by mouth one time a week. - SOOLANTRA 1 % crea Apply 1 application to affected area daily at bedtime. Per [facility]. - Glucosamine-Chondroi t-Vit C-Mn (GLUCOSAMINE CHONDROITIN MAXSTR) 500-400 mg cap Take 1 capsule by mouth once daily. - multivitamin tablet Take 1 tablet by mouth once daily. Problem List As Of Date 11/26/2023 Noted Resolved Unspecified Backache [M54.9] 04/25/2009 11/10/2009 DDD (Degenerative Disc Disease) [SRF9460] 11/10/2009 Postherpetic neuralgia [B02.29] 03/22/2019 03/19/2023 Psoriasis and similar disorders [L40.9] 06/20/2021 Psoriatic arthritis (HCC) [L40.50] 09/30/2022 Encounter Status:Closed by CAROLYN BUCKLEY on 11/26/23 Normal [facility] CBC W/Diff, Automatedon 05-1 0-2023 Absolute Lymph 1.24 X10 3/uL Normal 0.83-4.51 [facility] Comment on above: Performed By: #### L 500.4050, L100.0100 #### [facility] [address] [place], [address] Absolute Neut 2.8 X10 3/uL Normal 2.0-7.7 [facility] Comment on above: Performed By: #### L 500.4050, L100.0100 #### [facility] [address] [place], [address] Basophils/100 WBC (Bld) 0.6 % Normal 0-1 [facility] Comment on above: Performed By: #### L 500.4050, L100.0100 #### [facility] [address] [place], [address] Eosinophils/100 WBC (Bld) 3.6 % Normal 0-5 [facility] Comment on above: Performed By: #### L [id number], L100.0100 #### [facility] [address] [place], [address] Erythrocyte distribution width (RBC) [Ratio] 12.9 % Normal 11.6-14.6 [facility] Comment on above: Performed By: #### L 500.4050, L100.0100 #### [facility] [address] [place], [address] Hematocrit (Bld) [Volume fraction] 46.3 % Normal 40-54 [facility] Comment on above: Performed By: #### L 500.4050, L100.0100 #### [facility] [address] [place], [address] Hemoglobin (Bld) [Mass/Vol] 15.1 g/dL Normal 13.0-16.5 [facility] Comment on above: Performed By: #### L 500.4050, L100.0100 #### [facility] [address] [place], [address] IG% 0.200 Normal 0.0-0.9 [facility] Comment on above: Result Comment: IG% - Immature Granulocytes (promyelocytes, myelocytes and metamyelocytes) > 1% indicates that a LEFT SHIFT is Present. Performed By: #### L 500.4050, L100.0100 #### [facility] [address] [place], [address] Lymphocytes/100 WBC (Bld) 26.4 % Normal 19-41 [facility] Comment on above: Performed By: #### L 500.4050, L100.0100 #### [facility] [address] [place], [address] MCH (RBC) [Entitic mass] 31.3 pg Normal 27.0-32.0 [facility] Comment on above: Performed By: #### L [id number], L100.0100 #### [facility] [address] [place], [address] MCHC (RBC) [Mass/Vol] 32.6 g/dL Normal 32-36 [facility] Comment on above: Performed By: #### L [id number], L100.0100 #### [facility] [address] [place], [address] MCV (RBC) [Entitic vol] 95.9 fL High 80-94 [facility] Comment on above: Performed By: #### L [id number], L100.0100 #### [facility] [address] [place], [address] Monocytes/100 WBC (Bld) 9.6 % Normal 0-10 [facility] Comment on above: Performed By: #### L 500.4050, L100.0100 #### [facility] [address] [place], [address] Neutrophils/100 WBC (Bld) 59.6 % Normal 47-70 [facility] Comment on above: Performed By: #### L 500.4050, L100.0100 #### [facility] [address] [place], [address] Nucleated RBC (Bld) [#/Vol] 0 10*3/uL Normal 0-5 [facility] Comment on above: Performed By: #### L [id number], L100.0100 #### [facility] [address] [place], [address] Platelet mean volume (Bld) [Entitic vol] 11.1 fL Normal 6.2-12.0 [facility] Comment on above: Performed By: #### L 500.4050, L100.0100 #### [facility] [address] [place], [address] Platelets (Bld) [#/Vol] 268 10*3/uL Normal 150-450 [facility] Comment on above: Performed By: #### L [id number], L100.0100 #### [facility] [address] [place], [address] RBC (Bld) [#/Vol] 4.83 10*6/uL Normal 4.6-6.2 [facility] Comment on above: Performed By: #### L 500.4050, L100.0100 #### [facility] [address] [place], [address] RDW SD 45.1 fl High 35.1-43.9 [facility] Comment on above: Performed By: #### L 500.4050, L100.0100 #### [facility] [address] [place], [address] WBC (Bld) [#/Vol] 4.7 10*3/uL Normal 4.4-11.0 [facility] Comment on above: Performed By: #### L 500.4050, L100.0100 #### [facility] [address] [place], [address] Comprehensive Metabolic Prof ilon 10-03-2023 Albumin [Mass/Vol] 3.6 g/dL Normal 3.2-5.0 [facility] Comment on above: Performed By: #### L 500.4050, L100.0100 #### [facility] [address] [place], [address] Albumin/Globulin [Mass ratio] 0.9 {ratio} Normal 0.9-2.4 [facility] Comment on above: Performed By: #### L 500.4050, L100.0100 #### [facility] [address] [place], [address] ALK P 54 U/L Normal 45-117 [facility] Comment on above: Performed By: #### L 500.4050, L100.0100 #### [facility] [address] [place], [address] ALT [Catalytic activity/Vol] 22 U/L Normal 16-61 [facility] Comment on above: Performed By: #### L [id number], L100.0100 #### [facility] [address] [place], [address] AST [Catalytic activity/Vol] 21 U/L Normal 15-37 [facility] Comment on above: Performed By: #### L 500.4050, L100.0100 #### [facility] [address] [place], [address] Bilirubin [Mass/Vol] 0.50 mg/dL Normal 0.20-1.00 [facility] Comment on above: Result Comment: For patients on eltrombopag therapy, use of Dim[place] TBIL is not recommended. Performed By: #### L 500.4050, L100.0100 #### [facility] [address] [place], [address] BUN/CRE 14.4 RATIO Normal 10-20 [facility] Comment on above: Performed By: #### L 500.4050, L100.0100 #### [facility] [address] [place], [address] CA,Total 9.1 mg/dL Normal 8.5-10.1 [facility] Comment on above: Performed By: #### L 500.4050, L100.0100 #### [facility] [address] [place], [address] Chloride [Moles/Vol] 107 mmol/L Normal 98-107 [facility] Comment on above: Performed By: #### L 500.4050, L100.0100 #### [facility] [address] [place], [address] CO2 [Moles/Vol] 29.0 mmol/L Normal 21.0-32.0 [facility] Comment on above: Performed By: #### L 500.4050, L100.0100 #### [facility] [address] [place], [address] Creatinine [Mass/Vol] 1.04 mg/dL Normal 0.70-1.30 [facility] Comment on above: Result Comment: The validity of the calculated GFR GFRAA in patients over 70 years has not been determined. Clinical correlation is essential. Performed By: #### L 500.4050, L100.0100 #### [facility] [address] [place], [address] EST GFR - AA 98 mL/min Normal >60 [facility] Comment on above: Result Comment: Afri can [place] GFR Calc Performed By: #### L 500.4050, L100.0100 #### [facility] [address] [place], [address] GAP 4 Low 5-15 [facility] Comment on above: Performed By: #### L 500.4050, L100.0100 #### [facility] [address] [place], [address] GFR/1.73 sq M.predicted among non-blacks MDRD (S/P/Bld) [Vol rate/Area] 81 mL/min/{1.73_m2} Normal >60 [facility] Comment on above: Result Comment: Non- GFR Calc Performed By: #### L 500.4050, L100.0100 #### [facility] [address] [place], [address] Globulin (S) [Mass/Vol] 3.8 g/dL Normal 2.2-4.2 [facility] Comment on above: Performed By: #### L 500.4050, L100.0100 #### [facility] [address] [place], [address] Glucose [Mass/Vol] 100 mg/dL Normal 74-106 [facility] Comment on above: Result Comment: Fast ing Glucose result from 100 to 125 mg/dL suggests IMPAIRED HOMEOSTASIS per A.D.A. criteria. Performed By: #### L 500.4050, L100.0100 #### [facility] [address] [place], [address] Potassium [Moles/Vol] 3.7 mmol/L Normal 3.5-5.1 [facility] Comment on above: Performed By: #### L 500.4050, L100.0100 #### [facility] [address] [place], [address] Sodium [Moles/Vol] 140 mmol/L Normal 136-145 [facility] Comment on above: Performed By: #### L 500.4050, L100.0100 #### [facility] [address] [place], [address] T PROT 7.4 g/dL Normal 6.4-8.2 [facility] Comment on above: Performed By: #### L 500.4050, L100.0100 #### [facility] [address] [place], [address] Urea nitrogen [Mass/Vol] 15 mg/dL Normal 7-18 [facility] Comment on above: Performed By: #### L 500.4050, L100.0100 #### [facility] [address] [place], [address] Absolute lymphocyte countOrd ered By: Antonia Matthews on 07-15-2023 Lymphocytes Auto (Unsp spec) [#/Vol] 1.34 10*3/uL 0.83-4.51 [facility] Automated lymphocyte count a s percentage of total leukocytesOrdered By: Antonia Matthews on 07-15-2023 Lymphocytes/100 WBC Auto (Unsp spec) 29.0 % 19-41 [facility] Basophil percentageOrdered B y: Antonia Matthews on 07-15-2023 Basophils/100 WBC (Bld) 0.9 % 0-1 [facility] Bilirubin [Mass/Vol] 0.50 mg/dL 0.20-1.00 [facility] Comment on above: For patients on eltr ombopag therapy, use of [place] TBIL is not recommended. Chloride [Moles/Vol] 109 mmol/L 98-107 [facility] Eosinophils/100 WBC (Bld) 4.1 % 0-5 [facility] Glucose [Mass/Vol] 123 mg/dL 74-106 [facility] Comment on above: Fasting Glucose resu lt from 100 to 125 mg/dL suggests IMPAIRED HOMEOSTASIS per A.D.A. criteria. Hemoglobin (Bld) [Mass/Vol] 14.7 g/dL 13.0-16.5 [facility] Monocytes/100 WBC (Bld) 8.9 % 0-10 [facility] Neutrophils (Bld) [#/Vol] 2.6 10*3/uL 2.0-7.7 [facility] Neutrophils/100 WBC (Bld) 56.9 % 47-70 [facility] Potassium [Moles/Vol] 3.9 mmol/L 3.5-5.1 [facility] Protein [Mass/Vol] 7.4 g/dL 6.4-8.2 [facility] Sodium [Moles/Vol] 139 mmol/L 136-145 [facility] WBC (Bld) [#/Vol] 4.6 10*3/uL 4.4-11.0 [facility] Determination of erythrocyte mean corpuscular volume (MCV)Ordered By: Antonia Matthews on 07-15-2023 MCV (RBC) [Entitic vol] 94.5 fL 80-94 [facility] Erythrocyte distribution wid th ratioOrdered By: Antonia Matthews on 07-15-2023 Erythrocyte distribution width (RBC) [Ratio] 13.0 % 11.6-14.6 [facility] Erythrocyte distribution wid th standard deviationOrdered By: Antonia Matthews on 07-15-2023 Erythrocyte distribution width (RBC) [Entitic vol] 44.3 fL 35.1-43.9 [facility] Hematocrit Auto (Bld) [Volum e fraction]Ordered By: Antonia Matthews on 07-15-2023 Hematocrit (Bld) [Volume fraction] 44.3 % 40-54 [facility] Immature granulocytes/100 WB C Auto (Bld)Ordered By: Antonia Matthews on 07-15-2023 Immature granulocytes/100 WBC (Bld) 0.200 % 0.0-0.9 [facility] Comment on above: IG% - Immature Granu locytes (promyelocytes, myelocytes and metamyelocytes) > 1% indicates that a LEFT SHIFT is Present. Laboratory - Chemistry and C hemistry - challengeOrdered By: Antonia Matthews on 07-15-2023 Albumin/Globulin [Mass ratio] 1.0 {ratio} 0.9-2.4 [facility] ALP [Catalytic activity/Vol] 52 U/L 45-117 [facility] ALT [Catalytic activity/Vol] 29 U/L 16-61 [facility] CO2 [Moles/Vol] 27.0 mmol/L 21.0-32.0 [facility] Globulin (S) [Mass/Vol] 3.7 g/dL 2.2-4.2 [facility] Urea nitrogen/Creatinine [Mass ratio] 14.5 mg/mg 10-20 [facility] - Hematology and Cell countsOrdered By: Antonia Matthews on 07-15-2023 MCH (RBC) [Entitic mass] 31.3 pg 27.0-32.0 [facility] MCHC (RBC) [Mass/Vol] 33.2 g/dL 32-36 [facility] Nucleated RBC/100 WBC (Bld) [Ratio] 0 % 0-5 [facility] Platelet mean volume (Bld) [Entitic vol] 11.0 fL 6.2-12.0 [facility] Platelets (Bld) [#/Vol] 242 10*3/uL 150-450 [facility] No Panel InformationOrdered By: Antonia Matthews on 07-15-2023 Estimated GFR (MDRD) Amer 92 mL/min >60 [facility] Comment on above: GFR Calc Estimated GFR (MDRD) Non-Af Amer 76 mL/min >60 [facility] Comment on above: Non- GFR Calc RBC Auto (Bld) [#/Vol]Ordere d By: Antonia Matthews on 07-15-2023 RBC (Bld) [#/Vol] 4.69 10*6/uL 4.6-6.2 [facility] Serum or plasma calcium freida urement (mass/volume)Ordered By: Antonia Matthews on 07-15-2023 Calcium [Mass/Vol] 9.1 mg/dL 8.5-10.1 [facility] Serum or plasma creatinine m easurement (mass/volume)Ordered By: Antonia Matthews on 07-15-2023 Creatinine [Mass/Vol] 1.10 mg/dL 0.70-1.30 [facility] Comment on above: The validity of the calculated GFR & GFRAA in patients over 70 years has not been determined. Clinical correlation is essential. Serum or plasma urea nitroge n measurement (mass/volume)Ordered By: Antonia Matthews on 07-15-2023 Urea nitrogen [Mass/Vol] 16 mg/dL 7-18 [facility] Thin prep Papanicolaou smear with manual screeningOrdered By: Antonia Matthews on 07-15-2023 Thin prep Papanicolaou smear with manual screening 3.7 g/dL 3.2-5.0 [facility] Thin prep Papanicolaou smear with manual screening 22 U/L 15-37 [facility] Thin prep Papanicolaou smear with manual screening 3 5-15 [facility] XR Hand - left PA and Latera l and Obliqueon 06-09-2023 IMPRESSION: Negative 3 views of the left hand. Stamping Die Maker: INDER Transcribe Date/Time: Jun 09 2023 5:03P Dictated by : JONA PIZANO MD This examination was interpreted and the report reviewed and electronically signed by: JONA PIZANO MD on Jun 09 2023 5:05PM [facility] DIVISION OF RADIOLOGY * * *Final [...] soft tissue swelling. DIVISION OF RADIOLOGY Provider, [facility] - 06/09/2023 * * *Final Report* * [...] Negative 3 views of the left hand. Stamping Die Maker: PSCB Transcribe Date/Time: Jun 09 2023 5:03P Dictated by : JONA PIZANO MD This examination was interpreted and the report reviewed and electronically signed by: JONA PIZANO MD on Jun 09 2023 5:05PM EST [facility] XR Hand - left PA and Latera l and ObliqueOrdered By: [facility] Provider on 06-09-2023 [facility] XR Hand - left PA and Latera l and Obliqueon 06-06-2023 Radiology Study observation (narrative) [facility] Absolute lymphocyte countOrd ered By: Antonia Matthews on 04-11-2023 Lymphocytes Auto (Unsp spec) [#/Vol] 1.35 10*3/uL 0.83-4.51 [facility] Basophil percentageOrdered B y: Antonia Matthews on 04-11-2023 Basophils/100 WBC (Bld) 1.0 % 0-1 [facility] Bilirubin [Mass/Vol] 0.40 mg/dL 0.20-1.00 [facility] Comment on above: For patients on eltr ombopag therapy, use of [place] TBIL is not recommended. Chloride [Moles/Vol] 108 mmol/L 98-107 [facility] Eosinophils/100 WBC (Bld) 4.6 % 0-5 [facility] Glucose [Mass/Vol] 109 mg/dL 74-106 [facility] Comment on above: Fasting Glucose resu lt from 100 to 125 mg/dL suggests IMPAIRED HOMEOSTASIS per A.D.A. criteria. Neutrophils (Bld) [#/Vol] 2.0 10*3/uL 2.0-7.7 [facility] Neutrophils/100 WBC (Bld) 49.3 % 47-70 [facility] Potassium [Moles/Vol] 4.1 mmol/L 3.5-5.1 [facility] Protein [Mass/Vol] 7.1 g/dL 6.4-8.2 [facility] Sodium [Moles/Vol] 140 mmol/L 136-145 [facility] WBC (Bld) [#/Vol] 4.1 10*3/uL 4.4-11.0 [facility] Blood erythrocytes count (nu mber/volume)Ordered By: Antonia Matthews on 04-11-2023 RBC (Bld) [#/Vol] 4.67 10*6/uL 4.6-6.2 [facility] Blood hemoglobin measurement (mass/volume)Ordered By: Antonia Matthews on 04-11-2023 Hemoglobin (Bld) [Mass/Vol] 14.4 g/dL 13.0-16.5 [facility] Blood lymphocytes/100 leukoc ytesOrdered By: Antonia Matthews on 04-11-2023 Lymphocytes/100 WBC (Bld) 32.9 % 19-41 [facility] Blood monocytes/100 leukocyt esOrdered By: Antonia Matthews on 04-11-2023 Monocytes/100 WBC (Bld) 12.0 % 0-10 [facility] Blood platelet mean volumeOr dered By: Antonia Matthews on 04-11-2023 Platelet mean volume (Bld) [Entitic vol] 10.8 fL 6.2-12.0 [facility] Determination of erythrocyte mean corpuscular volume (MCV)Ordered By: Antonia Matthews on 04-11-2023 MCV (RBC) [Entitic vol] 94.2 fL 80-94 [facility] Hematocrit Auto (Bld) [Volum e fraction]Ordered By: Antonia Matthews on 04-11-2023 Hematocrit (Bld) [Volume fraction] 44.0 % 40-54 [facility] - Chemistry and C hemistry - challengeOrdered By: Antonia Matthews on 04-11-2023 ALP [Catalytic activity/Vol] 53 U/L 45-117 [facility] ALT [Catalytic activity/Vol] 28 U/L 16-61 [facility] CO2 [Moles/Vol] 27.0 mmol/L 21.0-32.0 [facility] Globulin (S) [Mass/Vol] 3.6 g/dL 2.2-4.2 [facility] Urea nitrogen/Creatinine [Mass ratio] 15.9 mg/mg 10-20 [facility] - Hematology and Cell countsOrdered By: Antonia Matthews on 04-11-2023 Erythrocyte distribution width (RBC) [Entitic vol] 43.8 fL 35.1-43.9 [facility] Erythrocyte distribution width (RBC) [Ratio] 12.8 % 11.6-14.6 [facility] Immature granulocytes/100 WBC (Bld) 0.200 % 0.0-0.9 [facility] Comment on above: IG% - Immature Granu locytes (promyelocytes, myelocytes and metamyelocytes) > 1% indicates that a LEFT SHIFT is Present. MCH (RBC) [Entitic mass] 30.8 pg 27.0-32.0 [facility] Nucleated RBC/100 WBC (Bld) [Ratio] 0 % 0-5 [facility] MCHC Auto (RBC) [Mass/Vol]Or dered By: Antonia Matthews on 04-11-2023 MCHC (RBC) [Mass/Vol] 32.7 g/dL 32-36 [facility] No Panel InformationOrdered By: Antonia Matthews on 04-11-2023 Estimated GFR (MDRD) Amer 89 mL/min >60 [facility] Comment on above: GFR Calc Estimated GFR (MDRD) Non-Af Amer 74 mL/min >60 [facility] Comment on above: Non- GFR Calc Platelets bldOrdered By: Robbie Matthews on 04-11-2023 Platelets (Bld) [#/Vol] 236 10*3/uL 150-450 [facility] Serum or plasma albumin freida urement (mass/volume)Ordered By: Antonia Matthews on 04-11-2023 Albumin [Mass/Vol] 3.5 g/dL 3.2-5.0 [facility] Serum or plasma albumin/glob ulin mass ratioOrdered By: Antonia Matthews on 04-11-2023 Albumin/Globulin [Mass ratio] 1.0 {ratio} 0.9-2.4 [facility] Serum or plasma calcium freida urement (mass/volume)Ordered By: Antonia Matthews on 04-11-2023 Calcium [Mass/Vol] 8.9 mg/dL 8.5-10.1 [facility] Serum or plasma creatinine m easurement (mass/volume)Ordered By: Antonia Matthews on 04-11-2023 Creatinine [Mass/Vol] 1.13 mg/dL 0.70-1.30 [facility] Comment on above: The validity of the calculated GFR & GFRAA in patients over 70 years has not been determined. Clinical correlation is essential. Serum or plasma urea nitroge n measurement (mass/volume)Ordered By: Antonia Matthews on 04-11-2023 Urea nitrogen [Mass/Vol] 18 mg/dL 7-18 [facility] Thin prep Papanicolaou smear with manual screeningOrdered By: Antonia Matthews on 04-11-2023 Thin prep Papanicolaou smear with manual screening 24 U/L 15-37 [facility] Thin prep Papanicolaou smear with manual screening 5 5-15 [facility] Absolute lymphocyte countOrd ered By: Antonia Matthews on 01-17-2023 Lymphocytes Auto (Unsp spec) [#/Vol] 1.02 10*3/uL 0.83-4.51 [facility] Basophil percentageOrdered B y: Antonia Matthews on 01-17-2023 Basophils/100 WBC (Bld) 0.8 % 0-1 [facility] Bilirubin [Mass/Vol] 0.30 mg/dL 0.20-1.00 [facility] Comment on above: For patients on eltr ombopag therapy, use of [place] TBIL is not recommended. Chloride [Moles/Vol] 106 mmol/L 98-107 [facility] Eosinophils/100 WBC (Bld) 6.1 % 0-5 [facility] Glucose [Mass/Vol] 114 mg/dL 74-106 [facility] Comment on above: Fasting Glucose resu lt from 100 to 125 mg/dL suggests IMPAIRED HOMEOSTASIS per A.D.A. criteria. Neutrophils (Bld) [#/Vol] 2.2 10*3/uL 2.0-7.7 [facility] Neutrophils/100 WBC (Bld) 54.8 % 47-70 [facility] Potassium [Moles/Vol] 4.1 mmol/L 3.5-5.1 [facility] Protein [Mass/Vol] 7.3 g/dL 6.4-8.2 [facility] Sodium [Moles/Vol] 141 mmol/L 136-145 [facility] WBC (Bld) [#/Vol] 3.9 10*3/uL 4.4-11.0 [facility] Blood erythrocytes count (nu mber/volume)Ordered By: Antonia Matthews on 01-17-2023 RBC (Bld) [#/Vol] 4.64 10*6/uL 4.6-6.2 [facility] Blood hemoglobin measurement (mass/volume)Ordered By: Antonia Matthews on 01-17-2023 Hemoglobin (Bld) [Mass/Vol] 14.4 g/dL 13.0-16.5 [facility] Blood lymphocytes/100 leukoc ytesOrdered By: Antonia Matthews on 01-17-2023 Lymphocytes/100 WBC (Bld) 26.0 % 19-41 [facility] Blood monocytes/100 leukocyt esOrdered By: Antonia Matthews on 01-17-2023 Monocytes/100 WBC (Bld) 12.0 % 0-10 [facility] Blood platelet mean volumeOr dered By: Antonia Matthews on 01-17-2023 Platelet mean volume (Bld) [Entitic vol] 10.8 fL 6.2-12.0 [facility] Determination of erythrocyte mean corpuscular volume (MCV)Ordered By: Antonia Matthews on 01-17-2023 MCV (RBC) [Entitic vol] 96.8 fL 80-94 [facility] Hematocrit Auto (Bld) [Volum e fraction]Ordered By: Antonia Matthews on 01-17-2023 Hematocrit (Bld) [Volume fraction] 44.9 % 40-54 [facility] - Chemistry and C hemistry - challengeOrdered By: Antonia Matthews on 01-17-2023 ALP [Catalytic activity/Vol] 45 U/L 45-117 [facility] ALT [Catalytic activity/Vol] 23 U/L 16-61 [facility] CO2 [Moles/Vol] 30.0 mmol/L 21.0-32.0 [facility] Globulin (S) [Mass/Vol] 3.6 g/dL 2.2-4.2 [facility] Urea nitrogen/Creatinine [Mass ratio] 11.4 mg/mg 10-20 [facility] - Hematology and Cell countsOrdered By: Antonia Matthews on 01-17-2023 Erythrocyte distribution width (RBC) [Entitic vol] 45.4 fL 35.1-43.9 [facility] Erythrocyte distribution width (RBC) [Ratio] 12.9 % 11.6-14.6 [facility] Immature granulocytes/100 WBC (Bld) 0.300 % 0.0-0.9 [facility] Comment on above: IG% - Immature Granu locytes (promyelocytes, myelocytes and metamyelocytes) > 1% indicates that a LEFT SHIFT is Present. MCH (RBC) [Entitic mass] 31.0 pg 27.0-32.0 [facility] Nucleated RBC/100 WBC (Bld) [Ratio] 0 % 0-5 [facility] MCHC Auto (RBC) [Mass/Vol]Or dered By: Antonia Matthews on 01-17-2023 MCHC (RBC) [Mass/Vol] 32.1 g/dL 32-36 [facility] No Panel InformationOrdered By: Antonia Matthews on 01-17-2023 Estimated GFR (MDRD) Amer 97 mL/min >60 [facility] Comment on above: GFR Calc Estimated GFR (MDRD) Non-Af Amer 80 mL/min >60 [facility] Comment on above: Non- GFR Calc Platelets bldOrdered By: Robbie Matthews on 01-17-2023 Platelets (Bld) [#/Vol] 233 10*3/uL 150-450 [facility] Serum or plasma albumin freida urement (mass/volume)Ordered By: Antonia Matthews on 01-17-2023 Albumin [Mass/Vol] 3.7 g/dL 3.2-5.0 [facility] Serum or plasma albumin/glob ulin mass ratioOrdered By: Antonia Matthews on 01-17-2023 Albumin/Globulin [Mass ratio] 1.0 {ratio} 0.9-2.4 [facility] Serum or plasma calcium freida urement (mass/volume)Ordered By: Antonia Matthews on 01-17-2023 Calcium [Mass/Vol] 9.2 mg/dL 8.5-10.1 [facility] Serum or plasma creatinine m easurement (mass/volume)Ordered By: Antonia Matthews on 01-17-2023 Creatinine [Mass/Vol] 1.05 mg/dL 0.70-1.30 [facility] Comment on above: The validity of the calculated GFR & GFRAA in patients over 70 years has not been determined. Clinical correlation is essential. Serum or plasma urea nitroge n measurement (mass/volume)Ordered By: Antonia Matthews on 01-17-2023 Urea nitrogen [Mass/Vol] 12 mg/dL 7-18 [facility] Thin prep Papanicolaou smear with manual screeningOrdered By: Antonia Matthews on 01-17-2023 Thin prep Papanicolaou smear with manual screening 21 U/L 15-37 [facility] Thin prep Papanicolaou smear with manual screening 5 5-15 [facility] Absolute lymphocyte countOrd ered By: Dr. Matthews on 11-08-2022 Lymphocytes Auto (Unsp spec) [#/Vol] 1.61 10*3/uL 0.83-4.51 [facility] Basophil percentageOrdered B y: Dr. Matthews on 11-08-2022 Basophils/100 WBC (Bld) 0.7 % 0-1 [facility] Bilirubin [Mass/Vol] 0.60 mg/dL 0.20-1.00 [facility] Comment on above: For patients on eltr ombopag therapy, use of Dim[place] TBIL is not recommended. Chloride [Moles/Vol] 108 mmol/L 98-107 [facility] Eosinophils/100 WBC (Bld) 5.3 % 0-5 [facility] Glucose [Mass/Vol] 88 mg/dL 74-106 [facility] Neutrophils (Bld) [#/Vol] 3.1 10*3/uL 2.0-7.7 [facility] Neutrophils/100 WBC (Bld) 55.9 % 47-70 [facility] Potassium [Moles/Vol] 4.1 mmol/L 3.5-5.1 [facility] Protein [Mass/Vol] 7.3 g/dL 6.4-8.2 [facility] Sodium [Moles/Vol] 142 mmol/L 136-145 [facility] WBC (Bld) [#/Vol] 5.5 10*3/uL 4.4-11.0 [facility] Blood erythrocytes count (nu mber/volume)Ordered By: Dr. Matthews on 11-08-2022 RBC (Bld) [#/Vol] 4.74 10*6/uL 4.6-6.2 [facility] Blood hemoglobin measurement (mass/volume)Ordered By: Dr. Matthews on 11-08-2022 Hemoglobin (Bld) [Mass/Vol] 14.6 g/dL 13.0-16.5 [facility] Blood lymphocytes/100 leukoc ytesOrdered By: Dr. Matthews on 11-08-2022 Lymphocytes/100 WBC (Bld) 29.3 % 19-41 [facility] Blood monocytes/100 leukocyt esOrdered By: Dr. Matthews on 11-08-2022 Monocytes/100 WBC (Bld) 8.6 % 0-10 [facility] Blood platelet mean volumeOr dered By: Dr. Matthews on 11-08-2022 Platelet mean volume (Bld) [Entitic vol] 10.2 fL 6.2-12.0 [facility] Determination of erythrocyte mean corpuscular volume (MCV)Ordered By: Dr. Matthews on 11-08-2022 MCV (RBC) [Entitic vol] 92.8 fL 80-94 [facility] Hematocrit Auto (Bld) [Volum e fraction]Ordered By: Dr. Matthews on 11-08-2022 Hematocrit (Bld) [Volume fraction] 44.0 % 40-54 [facility] - Chemistry and C hemistry - challengeOrdered By: Dr. Matthews on 11-08-2022 ALP [Catalytic activity/Vol] 48 U/L 45-117 [facility] ALT [Catalytic activity/Vol] 23 U/L 16-61 [facility] CO2 [Moles/Vol] 25.0 mmol/L 21.0-32.0 [facility] Globulin (S) [Mass/Vol] 3.5 g/dL 2.2-4.2 [facility] Urea nitrogen/Creatinine [Mass ratio] 18.6 mg/mg 10-20 [facility] - Hematology and Cell countsOrdered By: Dr. Matthews on 11-08-2022 Erythrocyte distribution width (RBC) [Entitic vol] 44.6 fL 35.1-43.9 [facility] Erythrocyte distribution width (RBC) [Ratio] 13.3 % 11.6-14.6 [facility] Immature granulocytes/100 WBC (Bld) 0.200 % 0.0-0.9 [facility] Comment on above: IG% - Immature Granu locytes (promyelocytes, myelocytes and metamyelocytes) > 1% indicates that a LEFT SHIFT is Present. MCH (RBC) [Entitic mass] 30.8 pg 27.0-32.0 [facility] Nucleated RBC/100 WBC (Bld) [Ratio] 0 % 0-5 [facility] MCHC Auto (RBC) [Mass/Vol]Or dered By: Dr. Matthews on 11-08-2022 MCHC (RBC) [Mass/Vol] 33.2 g/dL 32-36 [facility] No Panel InformationOrdered By: Dr. Matthews on 11-08-2022 Estimated GFR (MDRD) Amer 100 mL/min >60 [facility] Comment on above: GFR Calc Estimated GFR (MDRD) Non-Af Amer 83 mL/min >60 [facility] Comment on above: Non- GFR Calc Platelets bldOrdered By: Dr. Matthews on 11-08-2022 Platelets (Bld) [#/Vol] 280 10*3/uL 150-450 [facility] Serum or plasma albumin freida urement (mass/volume)Ordered By: Dr. Matthews on 11-08-2022 Albumin [Mass/Vol] 3.8 g/dL 3.2-5.0 [facility] Serum or plasma albumin/glob ulin mass ratioOrdered By: Dr. Matthews on 11-08-2022 Albumin/Globulin [Mass ratio] 1.1 {ratio} 0.9-2.4 [facility] Serum or plasma calcium freida urement (mass/volume)Ordered By: Dr. Matthews on 11-08-2022 Calcium [Mass/Vol] 8.9 mg/dL 8.5-10.1 [facility] Serum or plasma creatinine m easurement (mass/volume)Ordered By: Dr. Matthews on 11-08-2022 Creatinine [Mass/Vol] 1.02 mg/dL 0.70-1.30 [facility] Comment on above: The validity of the calculated GFR & GFRAA in patients over 70 years has not been determined. Clinical correlation is essential. Serum or plasma urea nitroge n measurement (mass/volume)Ordered By: Dr. Matthews on 11-08-2022 Urea nitrogen [Mass/Vol] 19 mg/dL 7-18 [facility] Thin prep Papanicolaou smear with manual screeningOrdered By: Dr. Matthews on 11-08-2022 Thin prep Papanicolaou smear with manual screening 23 U/L 15-37 [facility] Thin prep Papanicolaou smear with manual screening 9 5-15 [facility] Absolute lymphocyte countOrd ered By: Dr. Matthews on 09-24-2022 Lymphocytes Auto (Unsp spec) [#/Vol] 1.27 10*3/uL 0.83-4.51 [facility] Basophil percentageOrdered B y: Dr. Matthews on 09-24-2022 Basophils/100 WBC (Bld) 0.7 % 0-1 [facility] Bilirubin [Mass/Vol] 0.40 mg/dL 0.20-1.00 [facility] Comment on above: For patients on eltr ombopag therapy, use of [place] TBIL is not recommended. Chloride [Moles/Vol] 107 mmol/L 98-107 [facility] Eosinophils/100 WBC (Bld) 6.6 % 0-5 [facility] Glucose [Mass/Vol] 92 mg/dL 74-106 [facility] Neutrophils (Bld) [#/Vol] 2.5 10*3/uL 2.0-7.7 [facility] Neutrophils/100 WBC (Bld) 55.4 % 47-70 [facility] Potassium [Moles/Vol] 4.6 mmol/L 3.5-5.1 [facility] Protein [Mass/Vol] 7.7 g/dL 6.4-8.2 [facility] Sodium [Moles/Vol] 136 mmol/L 136-145 [facility] WBC (Bld) [#/Vol] 4.4 10*3/uL 4.4-11.0 [facility] Blood erythrocytes count (nu mber/volume)Ordered By: Dr. Matthews on 09-24-2022 RBC (Bld) [#/Vol] 4.98 10*6/uL 4.6-6.2 [facility] Blood hemoglobin measurement (mass/volume)Ordered By: Dr. Matthews on 09-24-2022 Hemoglobin (Bld) [Mass/Vol] 15.1 g/dL 13.0-16.5 [facility] Blood lymphocytes/100 leukoc ytesOrdered By: Dr. Matthews on 09-24-2022 Lymphocytes/100 WBC (Bld) 28.7 % 19-41 [facility] Blood monocytes/100 leukocyt esOrdered By: Dr. Matthews on 09-24-2022 Monocytes/100 WBC (Bld) 8.4 % 0-10 [facility] Blood platelet mean volumeOr dered By: Dr. Matthews on 09-24-2022 Platelet mean volume (Bld) [Entitic vol] 10.5 fL 6.2-12.0 [facility] Determination of erythrocyte mean corpuscular volume (MCV)Ordered By: Dr. Matthews on 09-24-2022 MCV (RBC) [Entitic vol] 92.6 fL 80-94 [facility] Hematocrit Auto (Bld) [Volum e fraction]Ordered By: Dr. Matthews on 09-24-2022 Hematocrit (Bld) [Volume fraction] 46.1 % 40-54 [facility] - Chemistry and C hemistry - challengeOrdered By: Dr. Matthews on 09-24-2022 ALP [Catalytic activity/Vol] 50 U/L 45-117 [facility] ALT [Catalytic activity/Vol] 32 U/L 16-61 [facility] CO2 [Moles/Vol] 28.0 mmol/L 21.0-32.0 [facility] Globulin (S) [Mass/Vol] 3.9 g/dL 2.2-4.2 [facility] Urea nitrogen/Creatinine [Mass ratio] 10.1 mg/mg 10-20 [facility] - Hematology and Cell countsOrdered By: Dr. Matthews on 09-24-2022 Erythrocyte distribution width (RBC) [Entitic vol] 43.5 fL 35.1-43.9 [facility] Erythrocyte distribution width (RBC) [Ratio] 12.9 % 11.6-14.6 [facility] Immature granulocytes/100 WBC (Bld) 0.200 % 0.0-0.9 [facility] Comment on above: IG% - Immature Granu locytes (promyelocytes, myelocytes and metamyelocytes) > 1% indicates that a LEFT SHIFT is Present. MCH (RBC) [Entitic mass] 30.3 pg 27.0-32.0 [facility] Nucleated RBC/100 WBC (Bld) [Ratio] 0 % 0-5 [facility] MCHC Auto (RBC) [Mass/Vol]Or dered By: Dr. Matthews on 09-24-2022 MCHC (RBC) [Mass/Vol] 32.8 g/dL 32-36 [facility] No Panel InformationOrdered By: Dr. Matthews on 09-24-2022 Estimated GFR (MDRD) Amer 93 mL/min >60 [facility] Comment on above: GFR Calc Estimated GFR (MDRD) Non-Af Amer 77 mL/min >60 [facility] Comment on above: Non- GFR Calc Platelets bldOrdered By: Dr. Mathtews on 09-24-2022 Platelets (Bld) [#/Vol] 238 10*3/uL 150-450 [facility] Serum or plasma albumin freida urement (mass/volume)Ordered By: Dr. Matthews on 09-24-2022 Albumin [Mass/Vol] 3.8 g/dL 3.2-5.0 [facility] Serum or plasma albumin/glob ulin mass ratioOrdered By: Dr. Matthews on 09-24-2022 Albumin/Globulin [Mass ratio] 1.0 {ratio} 0.9-2.4 [facility] Serum or plasma calcium freida urement (mass/volume)Ordered By: Dr. Matthews on 09-24-2022 Calcium [Mass/Vol] 9.3 mg/dL 8.5-10.1 [facility] Serum or plasma creatinine m easurement (mass/volume)Ordered By: Dr. Matthews on 09-24-2022 Creatinine [Mass/Vol] 1.09 mg/dL 0.70-1.30 [facility] Comment on above: The validity of the calculated GFR & GFRAA in patients over 70 years has not been determined. Clinical correlation is essential. Serum or plasma urea nitroge n measurement (mass/volume)Ordered By: Dr. Matthews on 09-24-2022 Urea nitrogen [Mass/Vol] 11 mg/dL 7-18 [facility] Thin prep Papanicolaou smear with manual screeningOrdered By: Dr. Matthews on 09-24-2022 Thin prep Papanicolaou smear with manual screening 25 U/L 15-37 [facility] Thin prep Papanicolaou smear with manual screening 1 5-15 [facility] Absolute lymphocyte countOrd ered By: Dr. Matthews on 07-08-2022 Lymphocytes Auto (Unsp spec) [#/Vol] 1.34 10*3/uL 0.83-4.51 [facility] Basophil percentageOrdered B y: Dr. Matthews on 07-08-2022 Basophils/100 WBC (Bld) 0.9 % 0-1 [facility] Bilirubin [Mass/Vol] 0.20 mg/dL 0.20-1.00 [facility] Comment on above: For patients on eltr ombopag therapy, use of [place] TBIL is not recommended. Chloride [Moles/Vol] 111 mmol/L 98-107 [facility] Eosinophils/100 WBC (Bld) 4.3 % 0-5 [facility] Glucose [Mass/Vol] 103 mg/dL 74-106 [facility] Comment on above: Fasting Glucose resu lt from 100 to 125 mg/dL suggests IMPAIRED HOMEOSTASIS per A.D.A. criteria. Neutrophils (Bld) [#/Vol] 2.7 10*3/uL 2.0-7.7 [facility] Neutrophils/100 WBC (Bld) 56.8 % 47-70 [facility] Potassium [Moles/Vol] 3.8 mmol/L 3.5-5.1 [facility] Protein [Mass/Vol] 7.7 g/dL 6.4-8.2 [facility] Sodium [Moles/Vol] 141 mmol/L 136-145 [facility] WBC (Bld) [#/Vol] 4.7 10*3/uL 4.4-11.0 [facility] Blood erythrocytes count (nu mber/volume)Ordered By: Dr. Matthews on 07-08-2022 RBC (Bld) [#/Vol] 4.84 10*6/uL 4.6-6.2 [facility] Blood hemoglobin measurement (mass/volume)Ordered By: Dr. Matthews on 07-08-2022 Hemoglobin (Bld) [Mass/Vol] 14.7 g/dL 13.0-16.5 [facility] Blood lymphocytes/100 leukoc ytesOrdered By: Dr. Matthews on 07-08-2022 Lymphocytes/100 WBC (Bld) 28.6 % 19-41 [facility] Blood monocytes/100 leukocyt esOrdered By: Dr. Matthews on 07-08-2022 Monocytes/100 WBC (Bld) 9.2 % 0-10 [facility] Blood platelet mean volumeOr dered By: Dr. Matthews on 07-08-2022 Platelet mean volume (Bld) [Entitic vol] 11.1 fL 6.2-12.0 [facility] Determination of erythrocyte mean corpuscular volume (MCV)Ordered By: Dr. Matthews on 07-08-2022 MCV (RBC) [Entitic vol] 92.8 fL 80-94 [facility] Erythrocyte sedimentation ra teOrdered By: Dr. Matthews on 07-08-2022 ESR (Bld) [Velocity] 3 mm/h 0-20 [facility] Hematocrit Auto (Bld) [Volum e fraction]Ordered By: Dr. Matthews on 07-08-2022 Hematocrit (Bld) [Volume fraction] 44.9 % 40-54 [facility] - Chemistry and C hemistry - challengeOrdered By: Dr. Matthews on 07-08-2022 ALP [Catalytic activity/Vol] 48 U/L 45-117 [facility] ALT [Catalytic activity/Vol] 24 U/L 16-61 [facility] CO2 [Moles/Vol] 27.0 mmol/L 21.0-32.0 [facility] Globulin (S) [Mass/Vol] 3.9 g/dL 2.2-4.2 [facility] Urea nitrogen/Creatinine [Mass ratio] 19.8 mg/mg 10-20 [facility] - Hematology and Cell countsOrdered By: Dr. Matthews on 07-08-2022 Erythrocyte distribution width (RBC) [Entitic vol] 41.9 fL 35.1-43.9 [facility] Erythrocyte distribution width (RBC) [Ratio] 12.2 % 11.6-14.6 [facility] Immature granulocytes/100 WBC (Bld) 0.200 % 0.0-0.9 [facility] Comment on above: IG% - Immature Granu locytes (promyelocytes, myelocytes and metamyelocytes) > 1% indicates that a LEFT SHIFT is Present. MCH (RBC) [Entitic mass] 30.4 pg 27.0-32.0 [facility] Nucleated RBC/100 WBC (Bld) [Ratio] 0 % 0-5 [facility] MCHC Auto (RBC) [Mass/Vol]Or dered By: Dr. Matthews on 07-08-2022 MCHC (RBC) [Mass/Vol] 32.7 g/dL 32-36 [facility] No Panel InformationOrdered By: Dr. Matthews on 07-08-2022 Anti-Nuclear Antibody Screen Negative Negative [facility] Comment on above: Performed at: Charge [facility] [place] [id number] Director: Marcelo Vee PhD, Phone: [phone] Estimated GFR (MDRD) Amer 107 mL/min >60 [facility] Comment on above: GFR Calc Estimated GFR (MDRD) Non-Af Amer 89 mL/min >60 [facility] Comment on above: Non- GFR Calc Hepatitis B Surface Antigen Non-Reactive Nonreactive [facility] Hepatitis C Antibody Non-Reactive Nonreactive [facility] Comment on above: Non Reactive: < 0.8 Equivocal: >/= 0.8 to < 1.0 Reactive: >/= 1.0The CDC recommends that a reactive/equivocal HCV antibody result be followed up by the HCV Nucleic Acid Amplificationtest (140142) Platelets bldOrdered By: Dr. Matthews on 07-08-2022 Platelets (Bld) [#/Vol] 227 10*3/uL 150-450 [facility] Serum cyclic citrullinated p eptide IgG antibody assay (units/volume)Ordered By: Dr. Matthews on 07-08-2022 Cyclic citrullinated peptide IgG Qn 0 units 0-19 [facility] Comment on above: Negative <20 Weak po sitive 20 - 39 Moderate positive 40 - 59 Strong positive >59Performed at: [facility] [id number] Director: Marcelo Vee PhD, Phone: [phone] Serum hepatitis B virus surf donnell antibody IgG detectionOrdered By: Dr. Matthews on 07-08-2022 HBV surface IgG Ql (S) Non-Reactive [facility] Comment on above: Non Reactive: Incons istent with immunity less than <10 mIU/mL Reactive: Consistent with immunity greater than or equal to 10 mIU/mL Serum or plasma C reactive p rotein measurement (mass/volume)Ordered By: Dr. Matthews on 07-08-2022 CRP [Mass/Vol] mg/L 0.0-3.0 [facility] Comment on above: C-Reactive Protein ( CRP) provides useful information for thediagnosis, therapy and monitoring of inflammatory processesand associated diseases. For the evaluation of Relative Riskfor Cardiovascular Disease, a High Sensitivity CRP (HSCRP)should be ordered. Serum or plasma albumin freida urement (mass/volume)Ordered By: Dr. Matthews on 07-08-2022 Albumin [Mass/Vol] 3.8 g/dL 3.2-5.0 [facility] Serum or plasma albumin/glob ulin mass ratioOrdered By: Dr. Matthews on 07-08-2022 Albumin/Globulin [Mass ratio] 1.0 {ratio} 0.9-2.4 [facility] Serum or plasma calcium freida urement (mass/volume)Ordered By: Dr. Matthews on 07-08-2022 Calcium [Mass/Vol] 9.1 mg/dL 8.5-10.1 [facility] Serum or plasma creatinine m easurement (mass/volume)Ordered By: Dr. Matthews on 07-08-2022 Creatinine [Mass/Vol] 0.96 mg/dL 0.70-1.30 [facility] Comment on above: The validity of the calculated GFR & GFRAA in patients over 70 years has not been determined. Clinical correlation is essential. Serum or plasma urea nitroge n measurement (mass/volume)Ordered By: Dr. Matthews on 07-08-2022 Urea nitrogen [Mass/Vol] 19 mg/dL 7-18 [facility] Serum rheumatoid factor dete ctionOrdered By: Dr. Matthews on 07-08-2022 Rheumatoid factor Ql (S) < 10.0 IU/mL <15 [facility] Thin prep Papanicolaou smear with manual screeningOrdered By: Dr. Matthews on 07-08-2022 Thin prep Papanicolaou smear with manual screening 19 U/L 15-37 [facility] Thin prep Papanicolaou smear with manual screening 3 5-15 [facility] Vital Signs Date Time Vital Sign Value Performing Clinician Laine paulson 10-28-2024 08:01-0400 Body height 188 cm Zaid Philippe MD Work Phone: [facility] 10-28-2024 08:01-0400 Body mass index (BMI) [Ratio] 22.28 kg/m2 Zaid Philippe MD Work Phone: [facility] 10-28-2024 08:01-0400 Body weight 78.7 kg Zaid Philippe MD Work Phone: [facility] 10-28-2024 08:01-0400 Diastolic blood pressure 74 mm[Hg] Zaid Philippe MD Work Phone: [facility] 10-28-2024 08:01-0400 Heart rate 56 /min Zaid Philippe MD Work Phone: [facility] 10-28-2024 08:01-0400 Respiratory rate 16 /min Zaid Philippe MD Work Phone: [facility] 10-28-2024 08:01-0400 Systolic blood pressure 118 mm[Hg] Zaid Philippe MD Work Phone: [facility] 10-28-2023 08:00-0400 Body height 188.6 cm Zaid Philippe MD Work Phone: [facility] 10-28-2023 08:00-0400 Body mass index (BMI) [Ratio] 22.83 kg/m2 Zaid Philippe MD Work Phone: [facility] 10-28-2023 08:00-0400 Body weight 81.19 kg Zaid Philippe MD Work Phone: [facility] 10-28-2023 08:00-0400 Diastolic blood pressure 72 mm[Hg] Zaid Philippe MD Work Phone: [facility] 10-28-2023 08:00-0400 Heart rate 60 /min Zaid Philippe MD Work Phone: [facility] 10-28-2023 08:00-0400 Respiratory rate 16 /min Zaid Philippe MD Work Phone: [facility] 10-28-2023 08:00-0400 Systolic blood pressure 116 mm[Hg] Zaid Philippe MD Work Phone: [facility] 10-25-2022 07:57-0400 Body height 188.6 cm Inge Zarco KEEL PRESS OPERATOR.WASTE PICKER Work Phone: [facility] 10-25-2022 07:57-0400 Body weight 75.75 kg Inge Zarco KEEL PRESS OPERATOR.WASTE PICKER Work Phone: [facility] 10-25-2022 07:57-0400 Diastolic blood pressure 72 mm[Hg] Inge Zarco KEEL PRESS OPERATOR.WASTE PICKER Work Phone: [facility] 10-25-2022 07:57-0400 Heart rate 72 /min Inge Zacro KEEL PRESS OPERATOR.WASTE PICKER Work Phone: [facility] 10-25-2022 07:57-0400 Respiratory rate 16 /min Inge Zarco KEEL PRESS OPERATOR.WASTE PICKER Work Phone: [facility] 10-25-2022 07:57-0400 Systolic blood pressure 110 mm[Hg] Inge Zarco KEEL PRESS OPERATOR.WASTE PICKER Work Phone: [facility] Encounters Encounter Date Encounter Type Care Provider Facility Start: 11-13-2024 End: 11-13-2024 Follow-up encounter Zaid Philippe MD Work Phone: [facility] [place] Start: 11-01-2024 End: 11-01-2024 Patient encounter procedure Zaid Philippe MD Work Phone: [facility] [place] Comment on above: Need for vaccination (Primary Dx) Start: 11-01-2024 End: 11-01-2024 ambulatory ZAID PHILIPPE Facility:[facility] Start: 10-28-2024 End: 10-28-2024 Patient encounter procedure Zaid Philippe MD Work Phone: [facility] [place] Comment on above: Wellness examination (Primary Dx); Screening for depression; Encounter for screening examination for other mental health and behavioral disorders; Special screening for malignant neoplasms, colon; Need for vaccination; Psoriatic arthritis (HCC); Psoriasis and similar disorders; Screening for lipid disorders Start: 10-28-2024 End: 10-28-2024 Patient encounter status Zaid Philippe MD Work Phone: [facility] Start: 10-28-2024 End: 10-28-2024 ambulatory ZAID PHILIPPE Facility:[facility] Start: 10-28-2024 Encounter for genera l adult medical examination without abnormal findings ZAID PHILIPPE [facility] Start: 10-25-2024 End: 10-25-2024 ambulatory ZAID PHILIPPE Facility:[facility] Start: 10-25-2024 End: 10-25-2024 Telemedicine consultation with patient Stephen Destiney [place]YL[place] Work Phone: Telemedicine Comment on above: Encounter for prophy lactic measures, unspecified Start: 09-06-2024 End: 10-07-2024 Admission to same day surgery center Zaid Philippe MD Work Phone: Ambulatory Surgery Comment on above: Outpatient [place] py (Patient is overdue for colorectal cancer screening since 07/02/2024. Please schedule open access colonoscopy. ) Start: 09-06-2024 End: 10-07-2024 ambulatory Zaid Philippe MD Work Phone: Ambulatory Surgery Start: 08-27-2024 End: 08-27-[address] Zaid Philippe MD Work Phone: [facility] Work Phone: Start: 08-27-2024 End: 08-27-[address] Antonia Matthews MD -Laboratory, [place] Work Phone: Start: 08-27-2024 End: 08-27-2024 ambulatory Zaid Philippe Facility:[facility] Start: 06-07-2024 End: 06-07-[address] Antonia Matthews MD -Laboratory, [place] Work Phone: Start: 06-07-2024 End: 06-07-2024 ambulatory Zaid Philippe Facility:[facility] Start: 03-29-2024 End: 03-29-2024 Nursing evaluation of patient and report Mi Nurse Work Phone: [facility] [place] Comment on above: Encounter for immuni zation (Primary Dx) Start: 03-29-2024 End: 03-29-2024 ambulatory ZAID PHILIPPE Facility:[facility] Start: 03-19-2024 End: 03-19-2024 ambulatory Zaid Philippe Facility:[facility] Start: 03-17-2024 End: 03-17-20[facility] Start: 01-04-2024 End: 01-04-2024 Emergency department patient visit Maximino Colin Facility:[facility] Start: 12-30-2023 End: 12-30-2023 ambulatory [facility] Facility:[facility] Start: 11-26-2023 End: 11-26-2023 ambulatory CAROLYN BUCKLEY Facility:[facility] Start: 11-26-2023 End: 11-26-2023 Patient encounter procedure Carolyn Buckley KEEL PRESS OPERATOR.SIMULATION DEVELOPER Work Phone: Internal [facility] Comment on above: Need for vaccination (Primary Dx) Start: 11-13-2023 ambulatory Zaid huynh MD Work Phone: [facility] [place] Start: 11-13-2023 Patient encounter procedure Zaid Philippe MD Work Phone: Internal [facility] Comment on above: Consult Appointment Start: 10-28-2023 End: 10-28-2023 Patient encounter procedure Zaid Philippe MD Work Phone: Internal [facility] Comment on above: Routine medical exam (Primary Dx); Irritable bowel syndrome with both constipation and diarrhea; Psoriatic arthritis (HCC); Need for vaccination Start: 10-28-2023 End: 10-28-2023 Patient encounter status Zaid Philippe MD Work Phone: [facility] Work Phone: Start: 10-03-2023 End: 10-03-2023 ambulatory Antonia Matthews Facility:[facility] Start: 07-15-2023 End: 07-15-2023 ambulatory [facility] Work Phone: Start: 07-15-2023 End: 07-15-2023 Patient encounter procedure [facility] Work Phone: Start: 06-06-2023 End: 06-06-2023 Subsequent hospital visit by physician [facility] Work Phone: Radiology Comment on above: Left hand pain [M79. 642] Start: 04-11-2023 End: 04-11-2023 Patient encounter procedure [facility] Work Phone: Start: 01-17-2023 End: 01-17-2023 ambulatory [facility] Work Phone: Start: 01-17-2023 End: 01-17-2023 Patient encounter procedure [facility] Work Phone: Start: 11-08-2022 End: 11-08-2022 ambulatory [facility] Work Phone: Start: 11-08-2022 End: 11-08-2022 Patient encounter procedure [facility] Start: 10-25-2022 End: 10-25-2022 Patient encounter procedure Inge Zarco APRN.WASTE PICKER Work Phone: [facility] [place] Comment on above: Routine medical exam (Primary Dx); Encounter for immunization; Special screening examination for viral disease; Screening for HIV (human immunodeficiency virus); Screening for diabetes mellitus (DM); Psoriasis and similar disorders Start: 10-25-2022 End: 10-25-2022 Patient encounter status Inge Zarco APRN.WASTE PICKER Work Phone: [facility] [place] Start: 09-24-2022 End: 09-24-2022 Patient encounter procedure [facility] Start: 08-23-2022 Telephone encounter Zaid avila MD Work Phone: [facility] [place] Comment on above: + covid home test Start: 07-08-2022 End: 07-08-2022 [facility]ulatory [facility] [facility] Work Phone: Start: 07-08-2022 End: 07-08-2022 Patient encounter procedure [facility] Procedures Date Procedure Procedure Detail Performing Clinician Start: 10-28-2024 Adult depression screening assessment Zaid Philippe MD Work Phone: Start: 10-28-2023 Adult depression screening assessment [facility] Work Phone: Start: 06-06-2023 Radex hand minimum 3 views Inge Zarco APRN.WASTE PICKER Work Phone: Start: 07-08-2022 Pelvis X-ray Start: 05-14-2019 Lipid 1996 panel - S iliana or Plasma Zaid Philippe MD Work Phone: Plan of Treatment Date Care Activity Detail Author Start: 01-03-2034 Urine microalbumin profile DTaP,Tdap,Td Vaccine (4 - Td or Tdap) [facility] Start: 05-13-2029 Urine microalbumin profile [facility] Start: 11-10-2027 Screening for malign ant neoplasm of colon [facility] Start: 11-01-2025 End: 11-01-2025 Patient encounter procedure 11/01/2025 8:00 AM EDT Office Visit [facility] [address] [facility], [place] [id number] Zaid Philippe MD [address] [facility] [place], [place] [address] Yearly [facility] Comment on above: Yearly Start: 10-28-2025 Anxiety Screening Anxiety Screening [facility] Start: 10-28-2025 Depression Screening Depression Scre ening [facility] Start: 09-25-2025 DIABETES SCREEN DIABETES SCREEN [facility] Start: 09-25-2025 Diabetes Screening Diabetes Screenin g [facility] Start: 11-02-2024 Pneumococcal vaccination PNEUMOCOCCAL VACCINE, 20 VALENT (PREVNAR 20) Immunization/Injection Routine Need for vaccination Expected: 11/02/2024 [facility] Work Phone: Comment on above: Expected: 11/02/2024 Start: 11-01-2024 End: 11-01-2024 Patient encounter procedure 11/01/2024 6:20 PM EDT Office Visit [facility] [address] [facility], [place] [id number] Zaid Philippe MD [address] [place] [address] Pneumovax 20 [facility] Comment on above: Pneumovax 20 Start: 11-01-2024 End: 01-31-2025 Lipid 1996 panel - Serum or Plasma LIPID PANEL, FASTING Lab Routine Screening for lipid disorders Expected: 11/01/2024, Expires: 01/31/2025 [facility] Comment on above: Expected: 11/01/2024 , Expires: 01/31/2025 Start: 10-28-2024 End: 10-28-2024 Patient encounter procedure [facility] Comment on above: Annual Annual / due for col onoscopy Start: 10-27-2024 Anxiety Screening Anxiety Screening [facility] Start: 10-27-2024 Depression Screening Depression Scre ening [facility] Start: 09-01-2024 Covid-19 Vaccine (7 - Moderna risk ) Covid-19 Vaccine (7 - Moderna risk ) [facility] Start: 07-02-2024 COLOGUARD (FIT-DNA) COLOGUARD (FIT-D NA) [facility] Start: 07-02-2024 COLORECTAL CANCER SCREENING COLORECTAL CANCER SCREENING [facility] Start: 07-02-2024 Screening for malign ant neoplasm of colon [facility] Start: 05-14-2024 Lipid panel Lipid Screening [facility] Start: 05-14-2024 LIPID SCREEN LIPID SCREEN [facility] Start: 04-28-2024 Covid-19 Vaccine () Covid-19 Vaccine () [facility] Start: 04-28-2024 Hepatitis B Vaccine (3 of 3 - 19+ 3-dose series) Hepatitis B Vaccine (3 of 3 - 19+ 3-dose series) [facility] Start: 04-25-2024 Hepb vaccine adult 3 dose schedule for im use HEP B VACCINE, 3-DOSE, AGE 20+ YR (ENGERIX-B, RECOMBIVAX HB) Immunization/Injection Routine Need for vaccination Expected: 04/25/2024 (Approximate) [facility] Comment on above: Expected: 04/25/2024 (Approximate) Start: 03-29-2024 End: 03-29-2024 Nursing evaluation of patient and report 03/29/2024 9:15 AM EST Nurse Visit [facility] [address] [place] [address] Nurse, [place] [address] [place] [address] Hep B - 3rd [facility] Comment on above: Hep B - 3rd Start: 01-25-2024 Covid-19 Vaccine () Covid-19 Vaccine () [facility] Start: 01-25-2024 Influenza vaccination Influenza Vacc ine (#1) [facility] Start: 11-27-2023 Hepb vaccine adult 3 dose schedule for im use HEP B VACCINE, 3-DOSE, AGE 20+ YR (ENGERIX-B, RECOMBIVAX HB) Immunization/Injection Routine Need for vaccination Expected: 11/27/2023 (Approximate) [facility] Work Phone: Comment on above: Expected: 11/27/2023 (Approximate) Start: 11-27-2023 Orders Only 11/27/2023 Ord ers Only [facility] [address] [place], [place] [phone] Zaid Philippe MD [address] [place], [place] [phone] Need for vaccination [facility] Comment on above: Need for vaccination Start: 11-26-2023 End: 11-26-2023 Patient encounter procedure 11/26/2023 7:20 AM EDT Office Visit [facility] [address] [place], [place] [phone] Carolyn Buckley APRN.SIMULATION DEVELOPER [address] [place], [place] [id number] Shot 2 of Hepatitis B vax [facility] Comment on above: Shot 2 of Hepatitis B vax Start: 11-25-2023 Hepatitis B Vaccine (2 of 3 - 19+ 3-dose series) Hepatitis B Vaccine (2 of 3 - 19+ 3-dose series) [facility] Start: 04-23-2023 Hepb vaccine adult 3 dose schedule for im use HEP B VACCINE, 3-DOSE, AGE 20+ YR (ENGERIX-B, RECOMBIVAX HB) Immunization/Injection Routine Encounter for immunization Expected: 04/23/2023 [facility] Work Phone: Comment on above: Expected: 04/23/2023 Start: 04-22-2023 Covid-19 Vaccine ( season) Covid-19 Vaccine ( season) [facility] Start: 01-24-2023 Influenza vaccination INFLUENZA (Sea son Ended) [facility] Start: 11-24-2022 Hepb vaccine adult 3 dose schedule for im use HEP B VACCINE, 3-DOSE, AGE 20+ YR (ENGERIX-B, RECOMBIVAX HB) Immunization/Injection Routine Encounter for immunization Expected: 11/24/2022 [facility] Work Phone: Comment on above: Expected: 11/24/2022 Start: 10-25-2022 End: 12-25-2022 Hepatitis C virus Ab [Presence] in Serum HEP C AB IA W/CONF SCRN Lab Routine Special screening examination for viral disease Expected: 10/25/2022, Expires: 12/25/2022 [facility] Work Phone: Comment on above: Expected: 10/25/2022 , Expires: 12/25/2022 Start: 10-25-2022 End: 12-25-2022 HIV 1+2 Ab [Presence] in Serum or Plasma by Immunoassay HIV 1 2 COMBO(AG/AB),WITH REFLEX TO DIFFERENTIATION Lab Routine Screening for HIV (human immunodeficiency virus) Expected: 10/25/2022, Expires: 12/25/2022 [facility] Work Phone: Comment on above: Expected: 10/25/2022 , Expires: 12/25/2022 Start: 05-26-2022 DEPRESSION ASSESSMENT DEPRESSION ASS ESSMENT [facility] Start: 05-14-2022 DIABETES SCREEN DIABETES SCREEN [facility] Start: 05-20-2021 COVID-19 VACCINE (4 - Booster for Moderna series) COVID-19 VACCINE (4 - Booster for Moderna series) [facility] Start: 11-30-2019 Colonoscopy COLONOSCOPY [facility] Start: 11-30-[address] COLONOGRAPHY [facility] Start: 11-30-2019 FECAL OCCULT BLOOD FECAL OCCULT BLOO D [facility] Start: 11-30-2019 Screening for malign ant neoplasm of colon [facility] Start: 11-30-2019 SIGMOIDOSCOPY SIGMOIDOSCOPY [facility] Start: 1993 Pneumococcal vaccination Pneumococcal Vaccine (1 of 2 - PCV) [facility] Start: 1993 SHINGRIX VACCINE (1 of 2) SHINGRIX VACCINE (1 of 2) [facility] Start: 1992 HEPATITIS C SCREENING HEPATITIS C CARMELINA BHATIA [facility] Start: 1992 HIV SCREENING HIV SCREENING [facility] Start: 1980 PNEUMOCOCCAL (1 - PCV) PNEUMOCOCCAL (1 - PCV) [facility] Start: 1980 Pneumococcal vaccination Pneumococcal Vaccine (1 of 2 - PCV) [facility] Start: 1974 HEPATITIS B (1 of 3 - 3-dose series) HEPATITIS B (1 of 3 - 3-dose series) [facility] COLOGUARD COLOGUARD Lab Ro utine Special screening for malignant neoplasms, colon Ordered: 10/28/2024 [facility] Comment on above: Ordered: 10/28/2024 Hepb vaccine adult 3 dose schedule for im use HEP B VACCINE, 3-DOSE, AGE 20+ YR (ENGERIX-B, RECOMBIVAX HB) Immunization/Injection Routine Encounter for immunization 1 Occurrences starting 10/25/2022 [facility] Work Phone: Comment on above: 1 Occurrences starti ng 10/25/2022 Hzv zoster vacc recombinant adjuvanted im njx ZOSTER VACCINE, RECOMBINANT (SHINGRIX) Immunization/Injection Routine Encounter for immunization 1 Occurrences starting 10/25/2022 [facility] Work Phone: Comment on above: 1 Occurrences starti ng 10/25/2022 Pneumococcal vaccination PNEUMOCOCCAL VACCINE (PREVNAR 20) Immunization/Injection Routine Encounter for immunization 1 Occurrences starting 10/25/2022 [facility] Work Phone: Comment on above: 1 Occurrences starti ng [facility] Immun[facility] Immunization Date Immunization Notes Care Provider Fa cility 11-01-2024 pneumococcal conjuga te (PCV20) vaccine, 20 valent (PREVNAR 20) Zaid Philippe MD Work Phone: [facility] 03-29-2024 hepatitis B vaccine, adult dosage [place] Nurse Work Phone: [facility] 03-03-2024 influenza, injectabl e, madin roque canine kidney, preservative free Zaid Philippe MD Work Phone: [facility] 01-04-2024 tetanus toxoid, redu iris diphtheria toxoid, and acellular pertussis vaccine, adsorbed Dr. Zaid Philippe MD Work Phone: [facility] 11-26-2023 hepatitis B vaccine, adult dosage Carolyn Buckley APRN.SIMULATION DEVELOPER Work Phone: [facility] 10-28-2023 hepatitis B vaccine, adult dosage Zaid Philippe MD Work Phone: [facility] 04-07-2023 influenza, injectabl e, quadrivalent, preservative free Zaid Philippe MD Work Phone: [facility] 04-07-2023 influenza virus vacc ine, unspecified formulation Carolyn Buckley KEEL PRESS OPERATOR.SIMULATION DEVELOPER Work Phone: [facility] 02-08-2022 influenza, injectabl e, quadrivalent, preservative free Zaid Philippe MD Work Phone: [facility] 03-25-2021 COVID-19 original vaccine, full dose, monovalent (MODERNA) Zaid Philippe MD Work Phone: [facility] Work Phone: 03-25-2021 influenza, injectabl e, quadrivalent, preservative free Zaid Philippe MD Work Phone: [facility] Work Phone: 05-16-2020 measles, mumps and rubella virus vaccine Zaid Philippe MD Work Phone: [facility] Work Phone: 03-01-2020 Seasonal, quadrivale nt, recombinant, injectable influenza vaccine, preservative free Zaid Philippe MD Work Phone: [facility] Work Phone: 05-13-2019 influenza, injectabl e, quadrivalent, contains preservative Zaid Philippe MD Work Phone: [facility] 05-13-2019 tetanus toxoid, redu iris diphtheria toxoid, and acellular pertussis vaccine, adsorbed Zaid Philippe MD Work Phone: [facility] 02-24-2013 influenza virus vacc ine, unspecified formulation Zaid Philippe MD Work Phone: [facility] 03-29-2009 novel Influenza-H1N1 -09, live virus for nasal administration Zaid Philippe MD Work Phone: [facility] Work Phone: 06-22-2008 tetanus toxoid, redu iris diphtheria toxoid, and acellular pertussis vaccine, adsorbed Zaid Philippe MD Work Phone: [facility] Payers Date Payer Category Payer Self-pay [id number] 2021 [employer] BLUE ACCE SS PPO [id number] 2021 Unknown ANSLEY REILLY ACCE PPO [id number] 2021-Present [phone] [place] [id number] [id number] 2021 Unknown [id number] Private Health Insurance [facility] [id number] Unknown AL Simon *DO NOT USE* [id number] Unknown [id number] Unknown [id number] Unknown [id number] Unknown [id number] Unknown [id number] Unknown [id number] Unknown [id number] Social History Date Type Detail Facility Start: 03-08-2019 End: 03-08-2019 Tobacco smoking status WAIS Unknown if ever smoked [facility] Start: 1975 Sex Assigned At Male [facility] Start: 09-27-2011 End: 01-04-2024 Tobacco smoking status WAIS Never smoked tobacco [facility] Start: 09-27-2011 Tobacco use and exposure Smokeless tobacco non-user [facility] Start: 06-25-2021 End: 10-28-2024 Alcohol intake Current non-drinker of alcohol (finding) [facility] Start: 06-11-2021 History SDOH Alcohol Frequency 3 [facility] Start: 06-11-2021 End: 06-16-2021 History SDOH Alcohol Std Drinks 1 [facility] Start: 06-11-2021 End: 06-16-2021 History SDOH Social Connections Phone 2 [facility] Start: 06-11-2021 History SDOH Financial 5 [facility] Start: 03-07-2020 Education 20 [facility] Start: 03-17-2023 End: 10-25-2024 History of Social function [facility] Start: 03-17-2023 End: 10-25-2024 [facility] Utilities [facility] Has the [employer], oil, or water company threatened to shut off services in your home in past 12Mo No [facility] Frequency of Social Gatherings with Friends and Family Not on file [facility] Are you now , , , , never or living with a partner? [facility] How often to you hav e a drink containing alcohol? Monthly or less [facility] How many standard drinks containing alcohol do you have on a typical day? 1 or 2 [facility] How often do you hav e 6 or more drinks on 1 occasion? Never [facility] Do you feel stress - tense, restless, nervous, or anxious, or unable to sleep at night because your mind is troubled all the time - these days [OSQ] Only a little [facility] (I/We) worried elaina er (my/our) food would run out before (I/we) got money to buy more. Never true [facility] Start: 04-18-2020 Gender identity Identifies as male gender (finding) [facility] Start: 04-18-2020 Sexual orientation Heterosexual (fin ding) [facility] Start: 09-01-2024 Sex Male (finding) [facility] Do you feel stress - tense, restless, nervous, or anxious, or unable to sleep at night because your mind is troubled all the time - these days [OSQ] Not at all [facility] Functional Status Date Assessment Result Facility 10-25-2024 Total score [AUDIT-C] 1 10/26/19 25 3:48 PM EDT User, Aurelia [facility] 10-25-2024 How often to you hav e a drink containing alcohol? Monthly or less 10/25/2024 3:48 PM EDT User, Hernant Monthly or less [facility] 10-25-[address] inks containing alcohol do you have on a typical day? 1 or 2 10/25/2024 3:48 PM EDT User, Mycernstt 1 or 2 [facility] 10-25-2024 How often do you hav e 6 or more drinks on 1 occasion? Never 10/25/2024 3:48 PM EDT User, Aurelia Never [facility] 03-08-2014 Are you deaf, or do you have serious difficulty hearing No 03/08/2014 8:35 AM EDT Allyson Story Ma No [facility] Work Phone: 03-08-2014 Are you blind, or do you have serious difficulty seeing, even when wearing glasses No 03/08/2014 8:35 AM EDT Allyson Story Ma No [facility] 03-08-2014 Do you have serious difficulty walking or climbing stairs No 03/08/2014 8:35 AM EDT Jez Porter Allyson Kirkpatrick No [facility] 03-08-2014 Do you have difficul ty dressing or bathing No 03/08/2014 8:35 AM EDT Jez PorterAllyson No [facility] 03-08-2014 Because of a physica l, mental, or emotional condition, do you have difficulty doing errands alone such as visiting a physician's office or shopping No 03/08/2014 8:35 AM EDT Jez PorterAllyson No [facility] Mental Status Date Assessment Result Facility 03-08-2014 Because of a physica l, mental, or emotional condition, do you have serious difficulty concentrating, remembering, or making decisions No 03/08/2014 8:35 AM EDT Jez Porter Allyson Kirkpatrick No [facility] Clinical Notes 04-25-2009 to 11-13-2024 Result Encounter Note - Zaid Philippe MD - 11/13/2024 3:13 PM EDTResult Encounter Note - Zaid Philippe MD - 11/13/2024 3:13 PM Barb Robertson LPN - 11/01/2024 6:23 PM EDT Note Date & Type Note Facility 11-13-2024 Progress note Formatting of t his note might be different from the original. Test results are okay. [facility] 11-13-2024 Miscellaneous Notes Test results are okay. documented in this encounter [facility] 11-01-2024 Note HNO ID: [id number] Author: BARB SPEARS LPN Service: ? Author Type: LICENSED NURSE Type: Progress Notes Filed: 11/01/2024 18:24 Note Text: Patient given Pneumovax Patient tolerated injection well. Barb Spears LPN [facility] 06-09-2025 History of Presen t illness Narrative Patient given Pneumovax Patient tolerated injection well. Barb Spears LPN documented in this encounter [facility] 10-28-2024 Note HNO ID: [id number] Author: ZAID PHILIPPE MD Service: ? Author Type: Physician Type: Progress Notes Filed: 10/28/2024 08:53 Note Text: This note was created using Snacksquareriter. Subjective Patient presents with: Physical Naun Montes De Oca is a 48 year old male. He was doing reasonably well. He mainly dealt with chronic multiple joint pains and stiffness aggravated by overuse. He had no new concerns. He sees Dr. Avril Matthews for rheumatology; Dr. Jose Reyes for dermatology; and Dr. Strickland for optometry. Review of Systems Constitutional: Negative for fatigue, fever and unexpected weight change. HENT: Negative. Eyes: Negative. Respiratory: Negative. Cardiovascular: Negative. Gastrointestinal: Mild IBS. Genitourinary: Negative. Musculoskeletal: Positive for arthralgias. Negative for back pain and neck pain. Neurological: Negative for dizziness, numbness and headaches. [...] Postherpetic neuralgia 03/22/2019 Psoriatic arthritis (HCC) 09/30/2022 Dr. Avril Matthews Shoulder dislocation, left, initial encounter 09/15/2017 Kayaking [...] Never Smokeless tobacco: Never Vaping Use Vaping status: Never Used Substance Use Topics Alcohol use: No Drug use: No ALLERGIES Allergen Reactions Seasonal Allergies Unknown Current Outpatient Medications Medication Sig ruxolitinib (OPZELURA) 1.5 % cream Apply to affected area. triamcinolone acetonide (KENALOG) 0.1 % cream folic acid 1 mg tablet cycloSPORINE (RESTASIS) 0.05 % ophthalmic emulsion leucovorin (LEUCOVORIN) 15 mg tablet Take 15 mg by mouth one time a week. SOOLANTRA 1 % crea Apply 1 application to affected area daily at bedtime. Per [facility]. Ejbhzdptioo-Acbdzxjmm-Mdf C-Mn (GLUCOSAMINE CHONDROITIN MAXSTR) 500-400 mg cap Take 1 capsule by mouth once daily. multivitamin tablet Take 1 tablet by mouth once daily. guselkumab (TREMFYA) 100 mg/mL auto-injector Inject 100 mg subcutaneously every 8 weeks. [START ON 10/31/2024] methotrexate 2.5 mg tablet Take 8 tablets by mouth every Friday. No current facility-administered medications for this visit. Objective BP 118/74 Pulse (!) 56 Resp 16 Ht 188 cm (6' 2) Wt 78.7 kg (173 lb 8 oz) BMI 22.28 kg/m? Physical Exam Constitutional: Appearance: Normal appearance. HENT: Head: Normocephalic. Eyes: General: No scleral icterus. Extraocular Movements: Extraocular movements intact. Conjunctiva/sclera: Conjunctivae normal. Cardiovascular: Heart sounds: Normal heart sounds. Pulmonary: Breath sounds: Normal breath sounds. Abdominal: Palpations: Abdomen is soft. Musculoskeletal: General: No swelling or tenderness. Right lower leg: No edema. Left lower leg: No edema. Neurological: Mental Status: He is alert. Gait: Gait normal. Psychiatric: Mood and Affect: Mood normal. Assessment and Plan 1. Wellness examination - ICD9: V70.0, ICD10: Z00.00 (primary diagnosis) - Counseled on healthy diet and regular exercise - Colorectal cancer screening - ordered Cologuard 2. Screening for depression - ICD9: V79.0, ICD10: Z13.31 - DEPRESSION SCREENING 3. Encounter for screening examination for other mental health and behavioral disorders - ICD9: V79.8, ICD10: Z13.39 - ANXIETY SCREENING 4. Special screening for malignant neoplasms, colon - ICD9: V76.51, ICD10: Z12.11 - COLONOSCOPY SCREENING - COLOGUARD 5. Need for vaccination - ICD9: V05.9, ICD10: Z23 - PNEUMOCOCCAL VACCINE, 20 VALENT (PREVNAR 20) 6. Psoriatic arthritis (HCC) - ICD9: 696.0, ICD10: L40.50 - Stable. Managed by rheumatology. He takes prednisone as needed. NSAID relatively contraindicated due to methotrexate. 7. Psoriasis and similar disorders - ICD9: 696.1, ICD10: L40.9 - Stable. Managed by dermatology. 8. Screening for lipid disorders - ICD9: V77.91, ICD10: Z13.220 Fasting labs with next rheumatology draw. - LIPID PANEL, FASTING Victo (more content not included)... [facility] 10-28-2024 History of Presen t illness Narrative This note was created using Snacksquareriter. Subjective Patient presents with: Physical Naun Montes De Oca is a 48 year old male. He was doing reasonably well. He mainly dealt with chronic multiple joint pains and stiffness aggravated by overuse. He had no new concerns. He sees Dr. Avril Matthews for rheumatology; Dr. Jose Reyes for dermatology; and Dr. Strickland for optometry. Review of Systems Constitutional: Negative for fatigue, fever and unexpected weight change. HENT: Negative. Eyes: Negative. Respiratory: Negative. Cardiovascular: Negative. Gastrointestinal: Mild IBS. Genitourinary: Negative. Musculoskeletal: Positive for arthralgias. Negative for back pain and neck pain. Neurological: Negative for dizziness, numbness and headaches. [...] Postherpetic neuralgia 03/22/2019 Psoriatic arthritis (HCC) 09/30/2022 Dr. Avril Matthews Shoulder dislocation, left, initial encounter 09/15/2017 Kayaking [...] Never Smokeless tobacco: Never Vaping Use Vaping status: Never Used Substance Use Topics Alcohol use: No Drug use: No ALLERGIES Allergen Reactions Seasonal Allergies Unknown Current Outpatient Medications Medication Sig ruxolitinib (OPZELURA) 1.5 % cream Apply to affected area. triamcinolone acetonide (KENALOG) 0.1 % cream folic acid 1 mg tablet cycloSPORINE (RESTASIS) 0.05 % ophthalmic emulsion leucovorin (LEUCOVORIN) 15 mg tablet Take 15 mg by mouth one time a week. SOOLANTRA 1 % crea Apply 1 application to affected area daily at bedtime. Per [facility]. Jftbmwtxqoz-Teicniqqc-Vjo C-Mn (GLUCOSAMINE CHONDROITIN MAXSTR) 500-400 mg cap Take 1 capsule by mouth once daily. multivitamin tablet Take 1 tablet by mouth once daily. guselkumab (TREMFYA) 100 mg/mL auto-injector Inject 100 mg subcutaneously every 8 weeks. [START ON 10/31/2024] methotrexate 2.5 mg tablet Take 8 tablets by mouth every Friday. No current facility-administered medications for this visit. Objective BP 118/74 Pulse (!) 56 Resp 16 Ht 188 cm (6' 2) Wt 78.7 kg (173 lb 8 oz) BMI 22.28 kg/m Physical Exam Constitutional: Appearance: Normal appearance. HENT: Head: Normocephalic. Eyes: General: No scleral icterus. Extraocular Movements: Extraocular movements intact. Conjunctiva/sclera: Conjunctivae normal. Cardiovascular: Heart sounds: Normal heart sounds. Pulmonary: Breath sounds: Normal breath sounds. Abdominal: Palpations: Abdomen is soft. Musculoskeletal: General: No swelling or tenderness. Right lower leg: No edema. Left lower leg: No edema. Neurological: Mental Status: He is alert. Gait: Gait normal. Psychiatric: Mood and Affect: Mood normal. Assessment and Plan 1. Wellness examination - ICD9: V70.0, ICD10: Z00.00 (primary diagnosis) - Counseled on healthy diet and regular exercise - Colorectal cancer screening - ordered Cologuard 2. Screening for depression - ICD9: V79.0, ICD10: Z13.31 - DEPRESSION SCREENING 3. Encounter for screening examination for other mental health and behavioral disorders - ICD9: V79.8, ICD10: Z13.39 - ANXIETY SCREENING 4. Special screening for malignant neoplasms, colon - ICD9: V76.51, ICD10: Z12.11 - COLONOSCOPY SCREENING - COLOGUARD 5. Need for vaccination - ICD9: V05.9, ICD10: Z23 - PNEUMOCOCCAL VACCINE, 20 VALENT (PREVNAR 20) 6. Psoriatic arthritis (HCC) - ICD9: 696.0, ICD10: L40.50 - Stable. Managed by rheumatology. He takes prednisone as needed. NSAID relatively contraindicated due to methotrexate. 7. Psoriasis and similar disorders - ICD9: 696.1, ICD10: L40.9 - Stable. Managed by dermatology. 8. Screening for lipid disorders - ICD9: V77.91, ICD10: Z13.220 Fasting labs with next rheumatology draw. - LIPID PANEL, FASTING Zaid Philippe MD [facility] OPEN ACCESS QUESTIONNAIRE 1. Are you currently having any new or unusual stomach/gastrointestinal issues at this time such as constipation, diarrhea, abdominal pain, rectal bleeding etc?No 2. Do you have any difficulty swallowing? No 3. Do you have any implanted devices such as a defibrillator, pacemaker, cardiac stents or deep brain stimulator? No 4. Do you take any Blood thinners such as Coumadin, Plavix, Xarelto, Eliquis, Brilinta or any other blood thinner? No 5. Do you have any new or past cardiac (heart) or pulmonary (lung) issues? No 6. Do you currently use any oxygen? No 7. Have you been hospitalized in the past 6 weeks? No 8. Have you had difficulty with anesthesia previously re: Difficult intubation? No Other difficulty or allergic reaction to anesthesia other than post op N/V? No 9. Are you on dialysis? No 10. Do you have any bleeding disorders such as hemophilia or Factor 5? No 11. Are you an Insulin Dependent Diabetic? No IF ANY OF THE TOP ELEVEN QUESTIONS ARE ANSWERED YES PLEASE SCHEDULE THE PATIENT FOR A CONSULT. advised 12. Is the patient's BMI 40 or greater? No:Body mass index is 22.28 kg/m .. 13. Do you take any narcotics or anti-Anxiety medications? No 14. Do you use any illegal or recreational drugs including marijuana? No 15. Any alcohol use: No. 16. Have you been diagnosed with chronic liver disease such as hepatitis or cirrhosis? No 17. Do you have a seizure disorder? No 18. Do you have ulcerative colitis or Crohn's disease? No 19. Are you or could you be ? No 20. Any other important health information we should be made aware of prior to your colonoscopy? Yes / Autoimmune disease To be completed by LIP: Did patient have MAC anesthesia with a previous endoscopy procedure? No Patient appropriate for Open Access Colonoscopy: Yes: appropriate for Open Access Procedure Checklist: Prior to closing the encounter: Complete questionnaire: Yes Confirm Prep order has been Ordered/Pended: Yes. Patient's procedure could be delayed if not given the script for the prep. Please ensure the prep is escripted to pharmacy or printed. Instructions for the prep will print upon filing or pending this smartset. Please send all open access questionnaires to [facility] Pool #[id number] documented in this encounter [facility] 10-28-2024 Note HNO ID: [id number] Author: BARB SPEARS LPN Service: ? Author Type: LICENSED NURSE Type: Progress Notes Filed: 10/28/2024 08:53 Note Text: [facility] OPEN ACCESS QUESTIONNAIRE 1. Are you currently having any new or unusual stomach/gastrointestinal issues at this time such as constipation, diarrhea, abdominal pain, rectal bleeding etc?No 2. Do you have any difficulty swallowing? No 3. Do you have any implanted devices such as a defibrillator, pacemaker, cardiac stents or deep brain stimulator? No 4. Do you take any Blood thinners such as Coumadin, Plavix, Xarelto, Eliquis, Brilinta or any other blood thinner? No 5. Do you have any new or past cardiac (heart) or pulmonary (lung) issues? No 6. Do you currently use any oxygen? No 7. Have you been hospitalized in the past 6 weeks? No 8. Have you had difficulty with anesthesia previously re: Difficult intubation? No Other difficulty or allergic reaction to anesthesia other than post op N/V? No 9. Are you on dialysis? No 10. Do you have any bleeding disorders such as hemophilia or Factor 5? No 11. Are you an Insulin Dependent Diabetic? No IF ANY OF THE TOP ELEVEN QUESTIONS ARE ANSWERED YES PLEASE SCHEDULE THE PATIENT FOR A CONSULT. advised 12. Is the patient's BMI 40 or greater? No:Body mass index is 22.28 kg/m?.. 13. Do you take any narcotics or anti-Anxiety medications? No 14. Do you use any illegal or recreational drugs including marijuana? No 15. Any alcohol use: No. 16. Have you been diagnosed with chronic liver disease such as hepatitis or cirrhosis? No 17. Do you have a seizure disorder? No 18. Do you have ulcerative colitis or Crohn's disease? No 19. Are you or could you be ? No 20. Any other important health information we should be made aware of prior to your colonoscopy? Yes / Autoimmune disease To be completed by LIP: Did patient have MAC anesthesia with a previous endoscopy procedure? No Patient appropriate for Open Access Colonoscopy: Yes: appropriate for Open Access Procedure Checklist: Prior to closing the encounter: Complete questionnaire: Yes Confirm Prep order has been Ordered/Pended: Yes. Patient's procedure could be delayed if not given the script for the prep. Please ensure the prep is escripted to pharmacy or printed. Instructions for the prep will print upon filing or pending this smartset. Please send all open access questionnaires to [facility] Pool #[id number] [facility] 10-25-2024 Note Addended by: STEPHEN DAVID on: 10/25/2024 04:22 PM Modules accepted: Orders [facility] 10-25-2024 Miscellaneous Notes Addended by: STEPHEN CABELLO on: 10/25/2024 04:22 PM Modules accepted: Orders documented in this encounter [facility] 10-25-2024 Note HNO ID: [id number] Author: STEPHEN CABELLO PA-C Service: ? Author Type: Physician Strategic Account Director Type: Progress Notes Filed: 10/25/2024 15:53 Note Text: Telemedicine Visit - Distance Health Virtual Visit Note Patient seen on VIOlife Video Visit platform. Location of patient: [place] Zaid Philippe MD I have communicated my name and active licensure. The patient's identity and physical location were verified at the time of this visit. Either the patient or their legal new accounts representative has been informed of the risks and benefits of -- and alternatives to -- treatment through a remote evaluation and consents to proceed with the evaluation remotely. Subjective The patient is a 48-year-old male presenting for evaluation following multiple tick bites. Tick Bites: - Recent hiking trip with multiple tick bites on legs. - One tick was attached for approximately 36 hours before removal this morning around 0900. - No current rash, but a bump is present at the site of the tick that was attached the longest. - Denies fevers, chills, nausea, or emesis. - Did not keep the ticks for testing. Psoriasis: - Taking Tremfya 100 mg/mL every 8 weeks. Rheumatoid Arthritis: - Taking methotrexate, leucovorin, and folic acid. Constitutional: (-) fever, (-) chills Gastrointestinal: (-) nausea, (-) vomiting Skin: (+) skin bump at leg bite site, (-) rash Objective There were no vitals taken for this visit. General: Alert AND oriented, no acute distress, appears well Skin: Tick bite on lower extremity, no cellulitis noted Assessment AND Plan 1. Encounter for prophylactic measures, unspecified (Z29.9) - Recent tick bites with one tick attached for approximately 36 hours. No signs of erythema migrans or systemic symptoms such as fever, chills, nausea, or vomiting. No evidence of cellulitis on visual inspection of the bite sites. Initiated prophylactic treatment with doxycycline 200 mg orally as a single dose. Prescription sent to [facility] in [place]. Monitor for any signs of rash or systemic symptoms and seek medical attention if they occur. Recording using ambient CleanFish software for draft documentation of the visit was discussed with the patient/authorized new accounts representative; all questions welcomed and answered. Patient/authorized new accounts representative agreed to proceed IF YOUR SYMPTOMS PERSIST OR WORSENING IN THE NEXT 3-5 DAYS THEN PLEASE FOLLOW UP WITH YOUR PCP - Red flags discussed for need for in person care - All questions answered Stephen Cabello PA-C History and Record Review External record(s) reviewed: prior outpatient record. Differential Diagnoses - tick bite is more likely for the following reason(s): suggested by HANDP - cellulitis is less likely for the following reason(s): HANDP not suggestive CODING: [facility] 10-25-2024 History of Presen t illness Narrative Telemedicine Visit - Distance Health Virtual Visit Note Patient seen on VIOlife Video Visit platform. Location of patient: [place] Zaid Philippe MD I have communicated my name and active licensure. The patient's identity and physical location were verified at the time of this visit. Either the patient or their legal new accounts representative has been informed of the risks and benefits of -- and alternatives to -- treatment through a remote evaluation and consents to proceed with the evaluation remotely. Subjective The patient is a 48-year-old male presenting for evaluation following multiple tick bites. Tick Bites: - Recent hiking trip with multiple tick bites on legs. - One tick was attached for approximately 36 hours before removal this morning around 0900. - No current rash, but a bump is present at the site of the tick that was attached the longest. - Denies fevers, chills, nausea, or emesis. - Did not keep the ticks for testing. Psoriasis: - Taking Tremfya 100 mg/mL every 8 weeks. Rheumatoid Arthritis: - Taking methotrexate, leucovorin, and folic acid. Constitutional: (-) fever, (-) chills Gastrointestinal: (-) nausea, (-) vomiting Skin: (+) skin bump at leg bite site, (-) rash Objective There were no vitals taken for this visit. General: Alert & oriented, no acute distress, appears well Skin: Tick bite on lower extremity, no cellulitis noted Assessment & Plan 1. Encounter for prophylactic measures, unspecified (Z29.9) - Recent tick bites with one tick attached for approximately 36 hours. No signs of erythema migrans or systemic symptoms such as fever, chills, nausea, or vomiting. No evidence of cellulitis on visual inspection of the bite sites. Initiated prophylactic treatment with doxycycline 200 mg orally as a single dose. Prescription sent to [facility] in [place]. Monitor for any signs of rash or systemic symptoms and seek medical attention if they occur. Recording using Catchoom software for draft documentation of the visit was discussed with the patient/authorized new accounts representative; all questions welcomed and answered. Patient/authorized new accounts representative agreed to proceed IF YOUR SYMPTOMS PERSIST OR WORSENING IN THE NEXT 3-5 DAYS THEN PLEASE FOLLOW UP WITH YOUR PCP - Red flags discussed for need for in person care - All questions answered Stephen Cabello PA-C History and Record Review External record(s) reviewed: prior outpatient record. Differential Diagnoses - tick bite is more likely for the following reason(s): suggested by H&P - cellulitis is less likely for the following reason(s): H&P not suggestive CODING: documented in this encounter [facility] 09-23-2024 Note HNO ID: [id number] Author: ?, ?, ? Service: ? Author Type: ? Type: Progress Notes Filed: 10/07/2024 03:03 Note Text: Patient is scheduled for his est well visit 10-28-2024 [facility] 09-23-2024 History of Presen t illness Narrative Patient is scheduled for his est well visit 10-28-2024 1st attempt LVM to schedule colonoscopy documented in this encounter [facility] 09-07-2024 Note HNO ID: [id number] Author: ?, ?, ? Service: ? Author Type: ? Type: Progress Notes Filed: 09/07/2024 10:38 Note Text: 1st attempt LVM to schedule colonoscopy [facility] 09-06-2024 Instructions Christina Arcos RN - 09/06/2024 12:14 PM EDT COLONOSCOPY BOWEL PREPARATION INSTRUCTIONS MiraLAX Your doctor has scheduled you for a colonoscopy. To have a successful colonoscopy, you must have a clean colon, that is empty. A clean colon allows your doctor to see the entire colon & diagnose issues like polyps or cancer. For doctors, a clean colon is like driving on a shelby day; a dirty colon like driving in a storm. It is very important that you follow these instructions exactly, or your colonoscopy may not be as effective, could be canceled, and you may need to do the bowel prep and colonoscopy again. TRANSPORTATION REQUIREMENTS You are receiving IV sedation. For your safety, a responsible adult escort must accompany you to and from your procedure: Your adult escort MUST be present with you at check-in for your colonoscopy. Your adult escort MUST remain in the endoscopy area until you are discharged. Your adult escort MUST transport you home once you are discharged. You are NOT allowed to operate any form of transportation (i.e. drive a car, bicycle, etc) or leave the Endoscopy Center ALONE. It is not safe to do so. If you cannot meet these requirements, your procedure will be canceled. MEDICATION REQUIREMENTS For your safety, certain medications will need to be stopped or adjusted before you can have your procedure: BLOOD THINNERS: If you take blood thinners, such as Coumadin (warfarin), Plavix (clopidogrel), Ticlid (ticlopidine hydrochloride), Agrylin (anagrelide), Xarelto (Rivaroxaban), Pradaxa (Dabigatran), Eliquis (Apixaban), or Effient (Prasugrel), contact the physician who is prescribing these medications at least 2 weeks prior to your procedure to discuss any necessary adjustments. DIABETES: If you take medications for diabetes, your dosage may need to be adjusted. If you are being treated for diabetes with insulin, diabetic pills, or other injectable medications do not take your REGULAR dose after midnight on the day of your procedure. If you are taking any other types of insulin such as Lantus, Humalog, NPH (long-acting insulin), or 70/30 insulin, take half your normal dose the day before your procedure. DIABETES/WEIGHT MANAGEMENT: If you take medications for weight-loss, your dosage may need to be adjusted Contact the doctor who prescribes this medication for further instructions. If you take medications for weight-loss like semaglutide (Ozempic, Wegovy, Rybelsus), dulaglutide (Trulicity), liraglutide (Victoza, Saxenda), exenatide (Byetta, Bydureon), or lixisenatide (Adylyxin), stop your medication 1 week prior to your procedure. If you take medications like canagliflozin (Invokana), dapagliflozin (Farxiga, Forxiga), empagliflozin (Jardiance), stop your medication 3 days prior to your procedure. If you take ertugliflozin (Steglatro) stop your medication 4 days prior to your procedure. IRON: If you take iron pills, STOP them 1 week BEFORE your procedure, may resume after. OTHER MEDS: May take all other medications (including aspirin, antibiotics, water pills / diuretics like Lasix or Metolozone, blood pressure meds, etc.) at their usual scheduled time with water. DIET REQUIREMENTS The day before your colonoscopy, you may have a clear liquid diet (see below). The day of your colonoscopy, you may continue a clear liquid diet until 3 hours before your colonoscopy. Within 3 hours of your colonoscopy, take only any medications (as above) with a sip of water. Clear Liquid Diet Broth (chicken, beef or vegetable broth or bullion. Just the broth, no solids). Water Coffee or Tea (NO milk or creamer), but sugar and sugar substitutes are allowed. Clear liquids including clear, yellow, green, blue (NO red, NO orange, NO purple) Sodas / soft drinks; Gatorade or other sports drinks Fruit juice (strained; no-pulp); Dimitry-Aid or flavored drinks Plain Jell-O or other gelatins Popsicles or hard candy Bowel prep can work differently from person to person. Some people's bowels move slowly and they may need different instructions. Please see your doctor in office or virtually for personalized bowel prep instructions if you have: BOWEL PREPARATION (MIRALAX/GATORADE) Split Dosing Bowel Prep: This means drinking your bowel prep in two doses. Split dosing helps clean your colon better and makes it less likely that your procedure will be canceled. You will need to purchase the following (no prescriptions are needed): 64 ounces Gatorade, Propel, Crystal Lite or other noncarbonated clear liquid sports drink (NOT red, orange, or purple). Diabetic patients buy sugar-free, e.g. Gatorade G2 4 Dulcolax laxative tablets containing 5mg bisacodyl each (do not buy the stool softener) 8.3 oz MiraLAX (238g) powder or generic polyethylene glycol 3350 (find in laxative aisle) The day before your colonoscopy mix 64 oz of the sports drink with 8.3 oz MiraLAX (238 g) in a pitcher. Stir or shake until MiraLAX completely dissolved. Chill if desired. On the evening before your colonoscopy: 5 PM take 4 Dulcolax laxative tablets with water by mouth. 6 PM drink the first half of the Gatorade/MiraLAX solution Drink one 8-ounce glass every 15 minutes. Six hours before your colonoscopy, drink the second half of the solution. Drink one 8-ounce glass every 15 minutes. You may continue a clear liquid diet until 3 hours before your colonoscopy. Bowel prep can work differently from person to person. Some people's bowels move slowly and they may need different instructions. Please see your doctor in office or virtually for personalized bowel prep instructions if you have: Medical condition that needs special accommodations Had a poor bowel prep results or failed bowel prep attempts in the past. Had difficulty with anesthesia during the procedure. FREQUENTLY ASKED QUESTIONS Q: What if I suffer from constipation? A: Recommend taking extra laxatives to resolve your constipation days prior to entering the bowel prep day. Q: What if have had prior poor preps results in past? A: Contact your physician as you will likely need additional bowel prep instructions. Q: What if I have motility issues like Parkinson's, MS (multiple sclerosis), wheelchair dependent, etc.? or on medications that slow colonic transit times (narcotics, gabapentin, anticholinergic medications etc.) A: Contact your physician as you will likely need extra time and additional laxatives to complete your bowel prep. Q: What if I cannot drink large volume of liquid? A: Start your prep 2-3 hours earlier to allow yourself more time to complete the entire prep. Q: What if I had bariatric surgery? Do I still have to complete the entire prep? A: Yes, gastric bypass surgery involves the stomach & small bowel. You may need to drink smaller amounts, slower (may need more time to complete your bowel prep). Gastric bypass does not alter the length of your colon so you will need to complete the entire bowel prep, it may just take longer time to complete it. Q: What if I am on dialysis? A: Please consult your customer greeter prior to scheduling to get instructions pertinent to you. In general, dialysis patients take the Skweezytely bowel prep and have the procedure same day of their dialysis (colonoscopy in AM, dialysis in PM). Q: How do I know if something is considered as clear liquid diet? A: If you can pour it in a glass and you can see through it, it is considered clear liquid Q: Can I eat nuts, seeds, beans, popcorn, dried fruits, vegetables & fruits that have skin peel? A: No, you will need to not eat these items starting 3 days prior to procedure. Q: Can I take Uber/Lyft/taxi/bus home? A: An adult MUST be present with you at check-in for your colonoscopy and remain in the endoscopy area until you are discharged. You can take Uber home only if this adult escort is with you at check in, remain in the endoscopy area until you are discharged, and takes the Uber with you to home. Q: Can I sleep it off here and drive myself home? A: No, you must have an adult with you at time of procedure check in, remain in the endoscopy center during your procedure, and drive you home. You cannot drive a vehicle after your procedure the rest of the day. Q: What if I can't finish my bowel prep? A: If you cannot complete your entire bowel prep, there is high likelihood that your colonoscopy will need to be rescheduled due to inadequate prep quality. documented in this encounter [facility] 09-06-2024 Note Patient Outreach ( [facility]) NAUN MONTES DE OCA ([id number]) 1975 M Date Time Provider Department 09/06/24 ZAID PHILIPPE [facility] During your visit today, we recorded the following information about you: Christina Arcos RN 09/06/2024 12:14 PM Signed COLONOSCOPY BOWEL PREPARATION INSTRUCTIONS MiraLAX? Your doctor has scheduled you for a colonoscopy. To have a successful colonoscopy, you must have a clean colon, that is empty. A clean colon allows your doctor to see the entire colon AND diagnose issues like polyps or cancer. For doctors, a clean colon is like driving on a shelby day; a dirty colon like driving in a storm. It is very important that you follow these instructions exactly, or your colonoscopy may not be as effective, could be canceled, and you may need to do the bowel prep and colonoscopy again. TRANSPORTATION REQUIREMENTS You are receiving IV sedation. For your safety, a responsible adult escort must accompany you to and from your procedure: Your adult escort MUST be present with you at check-in for your colonoscopy. Your adult escort MUST remain in the endoscopy area until you are discharged. Your adult escort MUST transport you home once you are discharged. You are NOT allowed to operate any form of transportation (i.e. drive a car, bicycle, etc) or leave the Endoscopy Center ALONE. It is not safe to do so. If you cannot meet these requirements, your procedure will be canceled. MEDICATION REQUIREMENTS For your safety, certain medications will need to be stopped or adjusted before you can have your procedure: BLOOD THINNERS: If you take blood thinners, such as Coumadin (warfarin), Plavix (clopidogrel), Ticlid (ticlopidine hydrochloride), Agrylin (anagrelide), Xarelto (Rivaroxaban), Pradaxa (Dabigatran), Eliquis (Apixaban), or Effient (Prasugrel), contact the physician who is prescribing these medications at least 2 weeks prior to your procedure to discuss any necessary adjustments. DIABETES: If you take medications for diabetes, your dosage may need to be adjusted. If you are being treated for diabetes with insulin, diabetic pills, or other injectable medications do not take your REGULAR dose after midnight on the day of your procedure. If you are taking any other types of insulin such as Lantus, Humalog, NPH (long-acting insulin), or 70/30 insulin, take half your normal dose the day before your procedure. DIABETES/WEIGHT MANAGEMENT: If you take medications for weight-loss, your dosage may need to be adjusted Contact the doctor who prescribes this medication for further instructions. If you take medications for weight-loss like semaglutide (Ozempic, Wegovy, Rybelsus), dulaglutide (Trulicity), liraglutide (Victoza, Saxenda), exenatide (Byetta, Bydureon), or lixisenatide (Adylyxin), stop your medication 1 week prior to your procedure. If you take medications like canagliflozin (Invokana), dapagliflozin (Farxiga, Forxiga), empagliflozin (Jardiance), stop your medication 3 days prior to your procedure. If you take ertugliflozin (Steglatro) stop your medication 4 days prior to your procedure. IRON: If you take iron pills, STOP them 1 week BEFORE your procedure, may resume after. OTHER MEDS: May take all other medications (including aspirin, antibiotics, water pills / diuretics like Lasix or Metolozone, blood pressure meds, etc.) at their usual scheduled time with water. DIET REQUIREMENTS The day before your colonoscopy, you may have a clear liquid diet (see below). The day of your colonoscopy, you may continue a clear liquid diet until 3 hours before your colonoscopy. Within 3 hours of your colonoscopy, take only any medications (as above) with a sip of water. Clear Liquid Diet Broth (chicken, beef or vegetable broth or bullion. Just the broth, no solids). Water Coffee or Tea (NO milk or creamer), but sugar and sugar substitutes are allowed. Clear liquids including clear, yellow, green, blue (NO red, NO orange, NO purple) Sodas / soft drinks; Gatorade or other sports drinks Fruit juice (strained; no-pulp); Dimitry-Aid or flavored drinks Plain Jell-O or other gelatins Popsicles or hard candy Bowel prep can work differently from person to person. ? Some people's bowels move slowly and they may need different instructions. Please see your doctor in office or virtually for personalized bowel prep instructions if you have: BOWEL PREPARATION (MIRALAX/GATORADE) Split Dosing Bowel Prep: This means drinking your bowel prep in two doses. Split dosing helps clean your colon better and makes it less likely that your procedure will be canceled. You will need to purchase the following (no prescriptions are needed): 64 ounces Gatorade, Propel, Crystal Lite or other noncarbonated clear liquid sports drink (NOT red, orange, or purple). Diabetic patients buy sugar-free, (more content not included)... [facility] 03-29-2024 Note HNO ID: [id number] Author: SIMI WINKLER LPN Service: ? Author Type: LICENSED NURSE Type: Progress Notes Filed: 03/29/2024 08:46 Note Text: Patient presents for Hepatitis B vaccine. Denies any problems at this time. Tolerated injection well. Simi Winkler LPN [facility] 03-29-2024 History of Presen t illness Narrative Patient presents for Hepatitis B vaccine. Denies any problems at this time. Tolerated injection well. Simi Winkler LPN documented in this encounter [facility] 11-26-2023 Note HNO ID: [id number] Author: MIGNON HUFF LPN Service: ? Author Type: LICENSED NURSE Type: Progress Notes Filed: 11/26/2023 07:52 Note Text: Patient here for his 2nd Hepatitis B injection. Vaccine given and Naun tolerated injection well. [facility] 11-26-2023 History of Presen t illness Narrative Patient here for his 2nd Hepatitis B injection. Vaccine given and Naun tolerated injection well. documented in this encounter [facility] 11-17-2023 Telephone encounter Note Message left to pts father to either call in for appt for daughter or have daughter call in. [facility] 11-17-2023 Miscellaneous Notes Message left to pts father to either call in for appt for daughter or have daughter call in. Schedule daughter to establish. documented in this encounter [facility] 11-15-2023 Telephone encounter Note Schedule daughter to establish. [facility] 10-28-2023 Instructions Zaid Philippe MD - 10/28/2023 8:45 AM EDT Hepatitis B 3 shot series. Consider FODMAP diet for irritable bowel syndrome. documented in this encounter [facility] 10-28-2023 History of Presen t illness Narrative This note was created using Snacksquareriter. Subjective Patient presents with: Physical Naun Montes [...] tablet cycloSPORINE (RESTASIS) 0.05 % ophthalmic emulsion jkfbwmp-pjkx-lmzya-oreg-capryl 100 mg-150 mg- 50 mg-150 mg cap Take by mouth. leucovorin (LEUCOVORIN) 15 mg tablet Take 15 mg by mouth one time a week. SOOLANTRA 1 % crea Apply 1 application to affected area daily at bedtime. Per [facility]. Gtijzyodrro-Cqqkmxoss-Czr C-Mn (GLUCOSAMINE CHONDROITIN MAXSTR) 500-400 mg cap [...] 60 Resp 16 Ht 188.6 cm (6' 2.25) Wt 81.2 kg (179 lb) BMI 22.83 [...] and regular exercise - Patient was counseled [id number] by myself (the billing provider) for the [...] Zaid Philippe MD documented in this encounter [facility] 06-06-2023 History of Presen t [...] 2023 1:42 PM documented in this encounter [facility] 06-06-2023 Miscellaneous Notes No concerning findings on x-ray of hand. documented in this encounter [facility] 06-06-2023 Progress note Formatting of t his note might be different from the original. No concerning findings on x-ray of hand. [facility] 10-25-2022 Instructions Inge Zarco APRN.CNS - 10/25/2022 8:48 AM EDT Check with your hog worker regarding vaccines: Pneumococcal, shingles, hepatitis B Check with your insurance for what location to get vaccines may be best covered at your local pharmacy where you get prescriptions filled or at the clinic documented in this encounter [facility] 10-25-2022 History of Presen t [...] increased gluten intake. Labs completed 09/2022 at [facility] per Dr Matthews. See scanned documents. All WNL. Followed by Dr Matthews hog worker for psoriatic arthropathy. Taking methotrexate and leucovorin. He notes having Covid19 about three months ago. Did recover back to baseline. Notes did have shingles in the past. Has not yet had vaccine. Review of Systems Musculoskeletal: Positive for arthralgias. Skin: Positive for rash. Objective BP 110/72 Pulse 72 Resp 16 Ht 188.6 cm (6' 2.25) Wt 75.8 kg (167 lb) BMI 21.30 [...] tablet cycloSPORINE (RESTASIS) 0.05 % ophthalmic emulsion hkkwrwv-sgui-leggl-oreg-capryl 100 mg-150 mg- 50 mg-150 mg cap Take by mouth. leucovorin (LEUCOVORIN) 15 mg tablet Take 15 mg by mouth one time a week. SOOLANTRA 1 % crea Apply 1 application to affected area daily at bedtime. Per [facility]. Dymesktsvxr-Vsrzijjba-Zbh C-Mn (GLUCOSAMINE CHONDROITIN MAXSTR) 500-400 mg cap [...] V03.89, ICD10: Z23 He will check with print designer and regarding insurance coverage for vaccines. - [...] ICD10: Z13.1 Glucose within normal limits at [facility] 09/2022 6. Psoriasis and similar disorders - ICD9: 696.1, ICD10: L40.[address] hog worker [address] Matthews Currently controlled with methotrexate Physical form completed and returned 1 yr follow up MD Inge Robert APRN.WASTE PICKER documented in this encounter [facility] 08-25-2022 Miscellaneous Notes Patient contacted [...] treated with Paxlovid. documented in this encounter [facility] 04-25-2009 History of Past i llness Narrative Problem Noted Date Resolved Date Backache, unspecified 04/25/2009 11/10/2009 documented as of this encounter (statuses as of 08/25/2022) [facility]12[facility] History of Past illness Narrative* Problem Noted Date Resolved Date Backache, unspecified 04/25/2009 11/10/2009 documented as of this encounter (statuses as of 10/25/2022) [facility] noteNo assessment information availableWBethesda [facility] Work Phone: Evaluation note* Diagnosis Routine medical exam- Primary Routine [...] disorders Other psoriasis [facility] Diagnosis Routine medical exam- Primary Routine general medical examination at a health care facility Irritable bowel syndrome with both constipation and diarrhea Psoriatic arthritis (HCC) Psoriatic arthropathy Need for vaccination Need for prophylactic vaccination and inoculation against unspecified single disease [facility] Diagnosis Need for vaccination- Primary Need for prophylactic vaccination and inoculation against unspecified single disease Need for vaccination Need for prophylactic vaccination and inoculation against unspecified single disease [facility]* Diagnosis Left hand pain Pain in limb History of Raynaud's syndrome Personal history of other diseases of circulatory system Psoriasis and similar disorders Other psoriasis [facility]* Diagnosis Encounter for immunization- Primary Need for other specified prophylactic vaccination against single bacterial disease documented in this encounter [facility] note* Diagnosis Screening for colorectal cancer- Primary Special screening for malignant neoplasms, colon documented in this encounter [facility] note* Diagnosis Encounter for prophylactic measures, unspecified documented in this encounter [facility] note* Diagnosis Wellness examination- Primary Screening for depression Encounter for screening examination for other mental health and behavioral disorders Special screening for malignant neoplasms, colon Need for vaccination Need for prophylactic vaccination and inoculation against unspecified single disease Psoriatic arthritis (HCC) Psoriatic arthropathy Psoriasis and similar disorders Other psoriasis Screening for lipid disorders [facility]* Diagnosis Need for vaccination- Primary Need for prophylactic vaccination and inoculation against unspecified single disease documented in this encounter [facility] for referral (narrative)* Diagnostic Procedure Only (Routine) - Closed Specialty Diagnoses / Procedures Referred By Saskia westbrook Referred To Contact XR IMAGING Diagnoses Left hand pain History of Raynaud's syndrome Psoriasis and similar disorders Procedures XR HAND GENERAL 3V PA/LAT/OBL LEFT RADEX HAND MINIMUM 3 VIEWS Inge Zarco APRN.CNS [address] [place] [address] [place] [address] Referral ID Status Reason Start Date Expiration Date V isits Requested Visits Authorized [id number] Closed Auto-Generate d Referral 06/06/2023 07/05/[address] [facility]No reason for referral information availableWBethesda North Hospital Work Phone: Reason for visit Narrative* Diagnostic Procedure Only (Routine) - Closed Specialty Diagnoses / Procedures Referred By Saskia westbrook Referred To Contact XR IMAGING Diagnoses Left hand pain History of Raynaud's syndrome Psoriasis and similar disorders Procedures XR HAND GENERAL 3V PA/LAT/OBL LEFT RADEX HAND MINIMUM 3 VIEWS Inge Zarco, KEEL PRESS OPERATOR.WASTE PICKER [address] [place] [address] [place] [address] Referral ID Status Reason Start Date Expiration Date V isits Requested Visits Authorized [id number] Closed Auto-Generate d Referral 06/06/2023 07/05/2024 1 1 [facility] Advance Directives Advance Directive Response Recorded Date/ Time Living Will No March 08 9:51am Power of Retail Assistant Manager No March 08, 2019 9:51am Advance Directive Response Recorded Date/ Time Living Will No March 08 10:51am Power of Retail Assistant Manager No March 08, 2019 10:51am Chief Complaint and Reason for Visit Chief Complaint PAIN- COPY PCP PAIN- COPY PCP Chief Complaint PAIN- COPY PCP PAIN- COPY PCP PAIN- COPY PCP Chief Complaint Admit Date PAIN- COPY PCP June 07, 2024 8 :23am PAIN- COPY PCP August 27, 2024 7:55 am Summary Purpose Family History No Family History Records FoundNo Family History Records Found Additional Source Comments Care Teams (unrecognized sec tion and content) Team Status: Active Member Role Status Dates No Primary Care Physician Family Provider Active Dr. Zaid Philippe MD Primary Care Provider Active Team Status: Inactive Member Role Status Dates Dr. Zaid Philippe MD Primary Care Provider Active Dr. Antonia Matthews MD Attending Provider Active Veneer Splicer Relationship Specialty Start Date End Date Zaid Philippe MD [address] [place], [place] [id number] PCP - General Internal Medicine 09/30/19 Veneer Splicer Relationship Specialty Start Date End Date Zaid Philippe MD [address], [place] [id number] PCP - General Internal Medicine 09/30/19 Team Status: Inactive Member Role Status Dates Dr. Zaid Philippe MD Primary Care Provider Active Dr. Antonia Matthews MD Attending Provider, Referring Provider Active Veneer Splicer Relationship Specialty Start Date End Date Zaid Philippe MD [address] [place] [address] PCP - General Internal Medicine 09/30/19 Veneer Splicer Relationship Specialty Start Date End Date Zaid Philippe MD [address] [place] [address] PCP - General Internal Medicine 09/30/19 Veneer Splicer Relationship Specialty Start Date End Date Zaid Philippe MD [address] [place] [address] PCP - General Internal Medicine 09/30/19 Veneer Splicer Relationship Specialty Start Date End Date Zaid Philippe MD [address] [place] [address] PCP - General Internal Medicine 09/30/19 Veneer Splicer Relationship Specialty Start Date End Date Zaid Philippe MD [address] [place] [address] PCP - General Internal Medicine 09/30/19 Team Status: Inactive Member Role Status Dates Dr. Zaid Philippe MD Primary Care Provider Active Start: June 07, 2024 End: June 07, 2024 Dr. Antonia Matthews MD Attending Provider Active Start: June 07, 2024 End: June 07, 2024 Dr. Antonia Matthews MD Referring Provider Active Start: June 07, 2024 End: June 07, 2024 Team Status: Inactive Member Role Status Dates Dr. Zaid Philippe MD Primary Care Provider Active Start: August 27, 2024 End: August 27, 2024 Dr. Antonia Matthews MD Attending Provider Active Start: August 27, 2024 End: August 27, 2024 Dr. Antonia Matthews MD Referring Provider Active Start: August 27, 2024 End: August 27, 2024 Veneer Splicer Relationship Specialty Start Date End Date Zaid Philippe MD [address] [place], [place] [id number] PCP - General Internal Medicine 09/30/19 Leah Car, KEEL PRESS OPERATOR.SIMULATION DEVELOPER [address] [place] [address] Recharger Internal Medicine 05/03/24 Veneer Splicer Relationship Specialty Start Date End Date Zaid Philippe MD [address] [place] [address] PCP - General Internal Medicine 09/30/19 Leah Car, KEEL PRESS OPERATOR.SIMULATION DEVELOPER [address] [place] [address] Recharger Internal Medicine 05/03/24 Veneer Splicer Relationship Specialty Start Date End Date Zaid Philippe MD [address] [place] [address] PCP - General Internal Medicine 09/30/19 Leah Car, KEEL PRESS OPERATOR.SIMULATION DEVELOPER [address] [place], [place] [id number] Recharger Internal Medicine 05/03/24 Veneer Splicer Relationship Specialty Start Date End Date Zaid Philippe MD [address] [place], [place] [address] PCP - General Internal Medicine 09/30/19 Leah Car APRN.SIMULATION DEVELOPER [address] [place], [place] [address] Recharger Internal Medicine 05/03/24 Veneer Splicer Relationship Specialty Start Date End Date Zaid Philippe MD [address] [place], [place] [address] PCP - General Internal Medicine 09/30/19 Leah Car APRN.SIMULATION DEVELOPER [address] [place], [place] [id number] Recharger Internal Medicine 05/03/24 Goals (unrecognized section and content) Goals may be documented in a n alternate sectionGoals may be documented in an alternate sectionGoals may be documented in an alternate sectionGoals may be documented in an alternate sectionGoals may be documented in an alternate section Source Comments (unrecognize d section and content) In the event this informatio n is protected by the Federal Confidentiality of Alcohol and Drug Abuse Patient Records regulations: The Federal rules restrict any use of the information to criminally investigate or prosecute any alcohol or drug abuse patient.[facility] the event this information is protected by the Federal Confidentiality of Alcohol and Drug Abuse Patient Records regulations: The Federal rules restrict any use of the information to criminally investigate or prosecute any alcohol or drug abuse patient.[facility] CenterIn the event this information is protected by the Federal Confidentiality of Alcohol and Drug Abuse Patient Records regulations: The Federal rules restrict any use of the information to criminally investigate or prosecute any alcohol or drug abuse patient.[facility] CenterIn the event this information is protected by the Federal Confidentiality of Alcohol and Drug Abuse Patient Records regulations: The Federal rules restrict any use of the information to criminally investigate or prosecute any alcohol or drug abuse patient.[facility] CenterIn the event this information is protected by the Federal Confidentiality of Alcohol and Drug Abuse Patient Records regulations: The Federal rules restrict any use of the information to criminally investigate or prosecute any alcohol or drug abuse patient.[facility] CenterIn the event this information is protected by the Federal Confidentiality of Alcohol and Drug Abuse Patient Records regulations: The Federal rules restrict any use of the information to criminally investigate or prosecute any alcohol or drug abuse patient.[facility] CenterIn the event this information is protected by the Federal Confidentiality of Alcohol and Drug Abuse Patient Records regulations: The Federal rules restrict any use of the information to criminally investigate or prosecute any alcohol or drug abuse patient.[facility] CenterIn the event this information is protected by the Federal Confidentiality of Alcohol and Drug Abuse Patient Records regulations: The Federal rules restrict any use of the information to criminally investigate or prosecute any alcohol or drug abuse patient.[facility] CenterIn the event this information is protected by the Federal Confidentiality of Alcohol and Drug Abuse Patient Records regulations: The Federal rules restrict any use of the information to criminally investigate or prosecute any alcohol or drug abuse patient.[facility] CenterIn the event this information is protected by the Federal Confidentiality of Alcohol and Drug Abuse Patient Records regulations: The Federal rules restrict any use of the information to criminally investigate or prosecute any alcohol or drug abuse patient.[facility] CenterIn the event this information is protected by the Federal Confidentiality of Alcohol and Drug Abuse Patient Records regulations: The Federal rules restrict any use of the information to criminally investigate or prosecute any alcohol or drug abuse patient.[facility] CenterIn the event this information is protected by the Federal Confidentiality of Alcohol and Drug Abuse Patient Records regulations: The Federal rules restrict any use of the information to criminally investigate or prosecute any alcohol or drug abuse patient.[facility] Reason for Visit (unrecogniz ed section and content) Reason Comments + covid home test Reason Comments Camp Physical Reason Comments Physical Reason Comments Imm/Inj Reason Onset Date Comments Outpatient Colonoscopy 09/06/2024 Patient i s overdue for colorectal cancer screening since 07/02/2024. Please schedule open access colonoscopy. Reason Comments tick bite (unrecognized sect ion and content) No Status Records FoundNo Status Records Found INFORMATION SOURCE (unrecogn ized section and content) DATE CREATED AUTHOR 09/02/2024 [facility] DATE CREATED AUTHOR AUTHOR'S VALERIE ATION 11/02/2024 [facility] FOR RECORDS PERTAINING TO PATIENTS WHO [...] BE BASED ON THE PRIMARY CLINICAL RECORDS. [employer] provides no warranty or guarantee of the accuracy or completeness of information in this document.
[2024-11-18 10:37] LABS: Absolute Lymphocyte Count 1.54 X10^3/uL (0.83-4.51); Absolute Neutrophil Count 2.3 X10^3/uL (2.0-7.7); Basophil# 0.05 X10^3/uL; Basophil% 1.1 % (0-1); Eosinophil# 0.26 X10^3/uL; Eosinophils% 5.6 % (0-5); Hematocrit 43.6 % (40-54); Hemoglobin 14.6 g/dL (13.0-16.5); Lymphocyte # 1.54 X10^3/ul (0.83-4.51); Lymphocyte % 33.3 % (19-41); Mean Corp Hgb Conc 33.5 g/dL (32-36); Mean Corpuscular Hgb 31.3 pg (27.0-32.0); Mean Corpuscular Volume 93.4 fL (80-94); Mean Platelet Vol. 11.7 fl (6.2-12.0); Monocyte# 0.49 X10^3/uL; Monocyte% 10.6 % (0-10); NRBC Flagged by Analyzer 0 % (0-5); Neutrophil # 2.28 X10^3/uL (2.7-7.7); Neutrophil % 49.2 % (47-70); Platelet Count 239 K/mm3 (150-450); RBC Distribution Width CV 12.8 % (11.6-14.6); RBC Distribution Width SD 43.8 fl (35.1-43.9); Red Blood Count 4.67 M/mm3 (4.6-6.2); White Blood Count 4.6 K/mm3 (4.4-11.0)
[2024-11-18 11:21] LABS: ALB/GLOB Ratio 1.4 RATIO (0.9-2.4); AST(SGOT) 31 U/L (<=37); Alanine Aminotransfer ALT/SGPT 20 U/L (<=46); Albumin, Serum 4.2 g/dL (3.5-5.0); Alkaline Phosphatase 59 U/L (40-129); Anion Gap 12 (5-15); BUN 15 mg/dL (4-19); BUN/Creat Ratio 14.9 RATIO (10-20); Calcium,Total 9.3 mg/dL (7.6-11.0); Carbon Dioxide 23.3 mmol/L (21.0-32.0); Chloride 105 mmol/L (98-108); Cholesterol 190 mg/dL (<=200); Creatinine, Serum 1.03 mg/dL (0.70-1.20); EST Glomerular Filtration Rate 89 (>60); Globulin 3.1 g/dL (2.2-4.2); Glucose 86 mg/dL (70-99); High Density Lipoprotein 52 mg/dL; Low Density Lipoprotein Calc. 125 mg/dL; Protein, Total 7.3 g/dL (5.9-8.4); Sodium Level 140 mmol/L (133-145); Total Bilirubin 0.68 mg/dL (0.00-1.30); Triglycerides 65 mg/dL; Very Low Density Lipoprotein 13 mg/dL (5-40); cholesterol:hdl ratio screen 3.65
== END | disposition home or self-care (01) ==
LOC: MTLAB 07:15
PROVIDERS: PCP Internal Medicine; Referring Provider Internal Medicine; Visit Provider Internal Medicine
DX: L40.59 Other psoriatic arthropathy (principal); Z79.899 Other long term (current) drug therapy; Z13.220 Encounter for screening for lipoid disorders
CPT/HCPCS: 36415; 80053; 80061; 85025

== ENCOUNTER → 2025-02-10 | Outpatient (CLI) | payer BC, SELFPAY ==
--- OUTSIDE RECORDS SUMMARY | 2025-02-10 07:27 | XMS RPT_ITS | CCD ---
Author Organization [facility] [place] [facility] Care Team Providers Care Lacer And Tier Name Role Phone Derrell VALLES, Zaid Herron Primary Care Provider Derrell VALLES, Dr. Mar Primary Care Provider Cassie VALLES, Dr. Knight Attending Provider Cassie VALLES, Dr. Knight Referring Provider Derrell VALLES, Zaid Herron Primary Care Provider [facility].LEATHER SEASONER, Leah M Unavailable Derrell VALLES, Dr. Mar Primary Care Provider Cassie VALLES, Dr. Knight Attending Provider Cassie VALLES, Dr. Knight Referring Provider Derrell VALLES, Dr. Mar Attending Provider Derrell VALLES, Dr. Mar Referring Provider Cassie VALLES, Dr. Knight Other Provider Antonia Matthews Attending Unavailable Zaid Philippe Primary Care Unavailable Vellanki, Antonia Referring Unavailable Zaid Philippe Primary Care Unavailable Vellanki, Antonia Attending Unavailable Vellanki, Antonia Referring Unavailable Vellanki, Antonia Referring Unavailable Vellanki, Antonia Attending Unavailable Zaid Philippe Primary Care Unavailable Vellanki, Antonia Referring Unavailable Vellanki, Antonia Attending Unavailable Zaid Philippe Primary Care Unavailable Zaid Philippe Primary Care Unavailable Vellanki, Antonia Referring Unavailable Vellanki, Antonia Attending Unavailable Derrell, Zaid Primary Care Unavailable Maximino Colin Attending Unavailable Zaid Philippe Attending Unavailable Zaid Philippe Referring Unavailable Zaid Philippe Primary Care Unavailable Antonia Matthews Consulting Unavailable ZAID PHILIPPE Attending Unavailable ZAID PHILIPPE Primary Care Unavailable ZAID PHILIPPE Attending Unavailable ZAID PHILIPPE Primary Care Unavailable ZAID PHILIPPE Primary Care Unavailable STEPHEN CABELLO Attending Unavailable ZAID PHILIPPE Primary Care Unavailable Allergies Allergy Classification Reported Allergen(s) Allergy Type Date of Onset Reaction(s) Facility (1 source) Seasonal allergy; Translations: [SEASONAL ALLERGIES] Propensity to adverse reactions (disorder) 3 [facility] Repository Medications Current Medications Medication Drug Class(es) Dates Sig (Normalized) Sig (Original) chondroitin sulfates 400 mg / glucosamine hydrochloride 500 mg oral capsule (13 sources) Start: 05-13-2019 take 1 capsule by mouth once daily Glucosamine-Chondr oit-Vit C-Mn (GLUCOSAMINE CHONDROITIN MAXSTR) 500-400 mg cap Take 1 capsule by mouth once daily. 05/13/2019 Active Comment on above: Take 1 capsule by mo [facility] once daily. cycloSPORINE (RESTASIS) 0.05 % ophthalmic emulsion (12 sources) Start: 08-09-2022 cycloSPORINE (RESTASIS) 0.05 % [...] Active folic acid 1 mg oral tablet (12 sources) Start: 10-23-2022 folic acid 1 m g tablet 10/23/2022 Active 1 ml guselkumab 100 mg/ml auto-injector (6 sources) Interleukin-23 Antagonist Start: 10-28-2024 guselkumab (TREMFYA) [...] 10/28/2024 Discontinued ivermectin 10 mg/ml topical cream (13 sources) Antiparasitic, Pediculicide Start: 05-13-2019 SOOLANTRA 1 % crea Apply 1 application to affected area daily at bedtime. Per [facility]. 0 05/13/2019 Active Comment on above: Apply 1 application to affected area daily at bedtime. Per [facility]. leucovorin 15 mg oral tablet (12 sources) Folate Analog Start: 09-26-2022 take 1 tablet by mouth every week leucovorin (LEUCOVORIN) 15 mg tablet Take 15 mg by mouth one time a week. 09/26/2022 Active Comment on above: Take 15 mg by mouth one time a week. methotrexate 2.5 mg oral tablet (13 sources) Folate Analog Metabolic Inhibitor Start: 10-31-2024 [...] Start: 09-26-2022 take 6 tablets by mo uth every week methotrexate 2.5 mg tablet take 6 tablets by mouth every week 0 09/26/2022 Active Comment on above: take 6 tablets by mo uth every week multivitamin tablet (13 sources) Start: 05-13-2019 take 1 tablet by mouth once daily multivitamin tablet Take 1 tablet by mouth once daily. 05/13/2019 Active Start: 05-13-2019 take 1 tablet by bon th once daily multivitamin tablet Take 1 tablet by mouth once daily. 0 05/13/2019 Active Comment on above: Take 1 tablet by bon th once daily. naproxen 500 mg oral tablet (6 sources) Nonsteroidal Anti-inflammatory Drug Start: 03-08-20 take 1 tablet by mouth twice daily as needed Naproxen 500 MG tablet Active 500 mg PO TWICE DAILY NEEDED March 08, 2019 12:00am ruxolitinib (4 sources) Start: 10-25-19 24 ruxolitinib (OPZELURA) 1.5 % cream Apply to affected area. 10/25/2023 Active triamcinolone acetonide 1 mg/ml topical cream (4 sources) Corticosteroid Start: 10-14-19 24 triamcinolone acetonide (KENALOG) 0.1 % cream 10/14/2023 Active dzkdgjd-knjg-fffpv-or eg-capryl 100 mg-150 mg- 50 mg-150 mg cap (9 sources) End: 10-29-19 25 xlswnja-klck-tbfoq-o reg-capryl 100 mg-150 mg- 50 mg-150 mg cap Take by mouth. 10/28/2024 Discontinued iiktcip-qdac-hmn gp-brqd-tmeowj 100 mg-150 mg- 50 mg-150 mg cap Take by mouth. Active yetiblv-feyf-hbr qe-vyns-kjdqsb 100 mg-150 mg- 50 mg-150 mg cap Take by mouth. 0 Active Comment on above: Take by mouth. Problems Active Problems Problem Classification Problem Date Documented Da te Episodic/Chronic Immunizations and screening for infectious disease (16 sources) Patient encounter status; Translations: [Encounter for immunization] Onset: 11-01-2024 Episodic Other circulatory disease (1 source) H/O: cardiovascular disease; Translations: [Personal history of other diseases of the circulatory system] 06-06-2023 Episodic Other connective tissue disease (1 source) Pain of left hand; Translations: [Pain in left hand] 06-06-2023 Episodic Other gastrointestinal disorders (1 source) Irritable bowel syndrome; Translations: [Mixed irritable bowel syndrome] 10-28-2023 Chronic Other inflammatory condition of skin (16 sources) Psoriasis; Translations: [Psoriasis, unspecified] Onset: 06-20-2021 06-20-2021 Chronic Other inflammatory condition of skin (15 sources) Psoriatic arthritis; Translations: [Arthropathic psoriasis, unspecified] Onset: 09-30-2022 10-28-2023 Chronic Other inflammatory condition of skin (1 source) Other psoriatic arthropathy; Translations: [Other psoriatic arthropathy] Onset: 11-23-2024 Chronic Other inflammatory condition of skin (1 [...] Problem Classification Problem Date Documented Date Episodic/Chronic Spondylosis; intervertebral disc disorders; other back problems (13 sources) Degeneration of intervertebral disc; Translations: [DDD (degenerative disc disease)] Onset: 11-10-2009 Resolved: 10-28-2024 11-10-2009 Chronic Spondylosis; intervertebral disc disorders; other back problems (11 sources) Backache; Translations: [Dorsalgia, unspecified] Onset: 04-25-2009 Resolved: 11-10-2009 11-10-2009 Episodic Superficial injury; contusion (3 sources) Superficial foreign body of left middle finger, initial encounter; Translations: [Foreign body in skin of left middle finger] Onset: 01-19-2024 01-12-2024 Episodic Viral infection (13 sources) Postherpetic neuralgia; Translations: [Other postherpetic nervous system involvement] Onset: 03-22-2019 Resolved: 03-19-2023 03-22-2019 Episodic Results Test Name Value Interpretation Reference Range Facility Absolute lymphocyte countOrd ered By: Zaid Philippe on 11-18-2024 Lymphocytes Auto (Unsp spec) [#/Vol] 1.54 10*3/uL 0.83-4.51 [facility] Absolute neutrophil countOrd ered By: Zaid Philippe on 11-18-2024 Neutrophils (Bld) [#/Vol] 2.3 10*3/uL 2.0-7.7 [facility] Anion gap in Serum or Plasma Ordered By: Zaid Philippe on 11-18-2024 Anion gap [Moles/Vol] 12 mmol/L 5-15 [facility] Automated lymphocyte count a s percentage of total leukocytesOrdered By: Zaid Philippe on 11-18-2024 Lymphocytes/100 WBC Auto (Unsp spec) 33.3 % - [facility] BUN/creatinine ratioOrdered By: Zaid Philippe on 11-18-2024 Urea nitrogen/Creatinine [Mass ratio] 14.9 mg/mg 10- [facility] Basophil percentageOrdered B y: Zaid Philippe on 11-18-2024 Basophils/100 WBC (Bld) 1.1 % High 0-1 [facility] Bilirubin, totalOrdered By: Zaid Philippe on 11-18-2024 Bilirubin [Mass/Vol] 0.68 mg/dL 0.00-1.30 [facility] CBC W/Diff, Automatedon 10-25 Absolute Lymph 1.54 X10 3/uL Normal 0.83-4.51 [facility] Comment on above: Performed By: #### L 100.0100, L500.4100, L500.4050 #### [facility] [address] [place], [address] Absolute Neut 2.3 X10 3/uL Normal 2.0-7.7 [facility] Comment on above: Performed By: #### L 100.0100, L500.4100, L500.4050 #### [facility] [address] [place], [address] Basophils/100 WBC (Bld) 1.1 % High 0-1 [place] Comment on above: Performed By: #### L 100.0100, L500.4100, L500.4050 #### [facility] [address] [place], [address] Eosinophils/100 WBC (Bld) 5.6 % High 0-5 [facility] Comment on above: Performed By: #### L 100.0100, L500.4100, L500.4050 #### [facility] [address] [place], [address] Erythrocyte distribution width (RBC) [Ratio] 12.8 % Normal 11.6-14.6 [facility] Comment on above: Performed By: #### L 100.0100, L500.4100, L500.4050 #### [facility] [address] [place], [address] Hematocrit (Bld) [Volume fraction] 43.6 % Normal 40-54 [facility] Comment on above: Performed By: #### L 100.0100, L500.4100, L500.4050 #### [facility] [address] [place], [address] Hemoglobin (Bld) [Mass/Vol] 14.6 g/dL Normal 13.0-16.5 [facility] Comment on above: Performed By: #### L 100.0100, L500.4100, L500.4050 #### [facility] [address] [place], [address] IG% 0.200 Normal 0.0-0.9 [facility] Comment on above: Result Comment: IG% - Immature Granulocytes (promyelocytes, myelocytes and metamyelocytes) > 1% indicates that a LEFT SHIFT is Present. Performed By: #### L 100.0100, L500.4100, L500.4050 #### [facility] [address] [place], [address] Lymphocytes/100 WBC (Bld) 33.3 % Normal 19-41 [facility] Comment on above: Performed By: #### L 100.0100, L500.4100, L500.4050 #### [facility] [address] [place], [address] MCH (RBC) [Entitic mass] 31.3 pg Normal 27.0-32.0 [facility] Comment on above: Performed By: #### L 100.0100, L500.4100, L500.4050 #### [facility] [address] [place], [address] MCHC (RBC) [Mass/Vol] 33.5 g/dL Normal 32-36 [facility] Comment on above: Performed By: #### L 100.0100, L500.4100, L500.4050 #### [facility] [address] [place], [address] MCV (RBC) [Entitic vol] 93.4 fL Normal 80-94 [facility] Comment on above: Performed By: #### L 100.0100, L500.4100, L500.4050 #### [facility] [address] [place], [address] Monocytes/100 WBC (Bld) 10.6 % High 0-10 [facility] Comment on above: Performed By: #### L 100.0100, L500.4100, L500.4050 #### [facility] [address] [place], [address] Neutrophils/100 WBC (Bld) 49.2 % Normal 47-70 [facility] Comment on above: Performed By: #### L 100.0100, L500.4100, L500.4050 #### [facility] [address] [place], [address] Nucleated RBC (Bld) [#/Vol] 0 10*3/uL Normal 0-5 [facility] Comment on above: Performed By: #### L 100.0100, L500.4100, L500.4050 #### [facility] [address] [place], [address] Platelet mean volume (Bld) [Entitic vol] 11.7 fL Normal 6.2-12.0 [facility] Comment on above: Performed By: #### L 100.0100, L500.4100, L500.4050 #### [facility] [address] [place], [address] Platelets (Bld) [#/Vol] 239 10*3/uL Normal 150-450 [facility] Comment on above: Performed By: #### L 100.0100, L500.4100, L500.4050 #### [facility] [address] [place], [address] RBC (Bld) [#/Vol] 4.67 10*6/uL Normal 4.6-6.2 [facility] Comment on above: Performed By: #### L 100.0100, L500.4100, L500.4050 #### [facility] [address] [place], [address] RDW SD 43.8 fl Normal 35.1-43.9 [facility] Comment on above: Performed By: #### L 100.0100, L500.4100, L500.4050 #### [facility] [address] [place], [address] WBC (Bld) [#/Vol] 4.6 10*3/uL Normal 4.4-11.0 [facility] Comment on above: Performed By: #### L 100.0100, L500.4100, L500.4050 #### [facility] [address] [place], [address] [facility] Telephone (INTMWS) NAUN MONTES DE OCA ([id number]) 1975 M Date Time Provider Department 11/18/24 ZAID PHILIPPE INTWS During your visit today, we recorded the following information about you: Elizabeth Muniz LPN 11/23/2024 8:56 AM Signed View External Labs - CMP,lipids [ID [id number]] Labs completed at [facility] [place]. Please review. Zaid Philippe MD 11/23/2024 5:28 PM Signed Lipid panel stable, and near optimal. Continue heart healthy choices like Mediterranean diet. Elizabeth Muniz LPN 11/24/2024 8:48 AM Signed My chart message to pt with pcp response and sent the lab results from [facility] [place]. Allergies As of Date: 11/18/2024 Noted Allergy Reaction SEASONAL ALLERGIES 10/25/2022 16 - Unknown Date Reviewed: 10/28/2024 Reviewed by: Barb Spears LPN - Fully Assessed Reason for Visit: Results [95] Prescriptions as of 11/24/2024 - ruxolitinib (OPZELURA) 1.5 % cream Apply [...] to affected area daily at bedtime. Per [facility]. - Glucosamine-Chondroi t-Vit C-Mn (GLUCOSAMINE CHONDROITIN MAXSTR) 500-400 mg cap Take 1 capsule by mouth once daily. - multivitamin tablet Take 1 tablet by mouth once daily. Problem List As Of Date 11/18/2024 Noted Resolved Unspecified Backache [M54.9] 04/25/2009 11/10/2009 DDD (degenerative disc disease) [SKJ6691] 11/10/2009 10/28/2024 Postherpetic neuralgia [B02.29] 03/22/2019 03/19/2023 Psoriasis and similar disorders [L40.9] 06/20/2021 Psoriatic arthritis (HCC) [L40.50] 09/30/2022 Encounter Status:Closed by ELIZABETH MUNIZ on 11/24/24 Normal [facility] Calculated very low density lipoprotein (VLDL) cholesterol measurementOrdered By: Zaid Philippe on 11-18-2024 Calculated very low density lipoprotein (VLDL) cholesterol measurement 13 mg/dL 5-40 [facility] Carbon dioxide, total [Moles /volume] in Central venous bloodOrdered By: Zaid Philippe on 11-18-2024 CO2 [Moles/Vol] 23.3 mmol/L 21.0-32.0 [facility] Chloride assayOrdered By: Chelsey Philippe on 11-18-2024 Chloride [Moles/Vol] 105 mmol/L 98-108 [facility] Comprehensive Metabolic Prof ilon 11-18-2024 Albumin [Mass/Vol] 4.2 g/dL Normal 3.5-5.0 [facility] Comment on above: Order Comment: DR. Celio ZHANG GETS RESULTS FOR CMP AND CBCD DR. PHILIPPE GETS RESULTS FOR LIPID Performed By: #### L 100.0100, L500.4100, L500.4050 #### [facility] [address] [place], [address] Albumin/Globulin [Mass ratio] 1.4 {ratio} Normal 0.9-2.4 [facility] Comment on above: Order Comment: DR. Celio ZHANG GETS RESULTS FOR CMP AND CBCD DR. PHILIPPE GETS RESULTS FOR LIPID Performed By: #### L 100.0100, L500.4100, L500.4050 #### [facility] [address] [place], [address] ALK PHOS 59 U/L Normal 40-129 [facility] Comment on above: Order Comment: DR. Celio ZHANG GETS RESULTS FOR CMP AND CBCD DR. PHILIPPE GETS RESULTS FOR LIPID Performed By: #### L 100.0100, L500.4100, L500.4050 #### [facility] [address] [place], [address] ALT [Catalytic activity/Vol] 20 U/L Normal <=46 [facility] Comment on above: Order Comment: DR. Celio ZHANG GETS RESULTS FOR CMP AND CBCD DR. PHILIPPE GETS RESULTS FOR LIPID Performed By: #### L 100.0100, L500.4100, L500.4050 #### [facility] [address] [place], [address] AST [Catalytic activity/Vol] 31 U/L Normal <=37 [facility] Comment on above: Order Comment: DR. Celio ZHANG GETS RESULTS FOR CMP AND CBCD DR. PHILIPPE GETS RESULTS FOR LIPID Performed By: #### L 100.0100, L500.4100, L500.4050 #### [facility] [address] [place], [address] Bilirubin [Mass/Vol] 0.68 mg/dL Normal 0.00-1.30 [facility] Comment on above: Order Comment: DR. Celio ZHANG GETS RESULTS FOR CMP AND CBCD DR. PHILIPPE GETS RESULTS FOR LIPID Performed By: #### L 100.0100, L500.4100, L500.4050 #### [facility] [address] [place], [address] BUN/CRE 14.9 RATIO Normal 10-20 [facility] Comment on above: Order Comment: DR. Celio ZHANG GETS RESULTS FOR CMP AND CBCD DR. PHILIPPE GETS RESULTS FOR LIPID Performed By: #### L 100.0100, L500.4100, L500.4050 #### [facility] [address] [place], [address] Calcium [Mass/Vol] 9.3 mg/dL Normal 7.6-11.0 [facility] Comment on above: Order Comment: DR. Celio ZHANG GETS RESULTS FOR CMP AND CBCD DR. PHILIPPE GETS RESULTS FOR LIPID Performed By: #### L 100.0100, L500.4100, L500.4050 #### [facility] [address] [place], [address] Chloride [Moles/Vol] 105 mmol/L Normal 98-108 [facility] Comment on above: Order Comment: DR. Celio ZHANG GETS RESULTS FOR CMP AND CBCD DR. PHILIPPE GETS RESULTS FOR LIPID Performed By: #### L 100.0100, L500.4100, L500.4050 #### [facility] [address] [place], [address] CO2 [Moles/Vol] 23.3 mmol/L Normal 21.0-32.0 [facility] Comment on above: Order Comment: DR. Celio ZHANG GETS RESULTS FOR CMP AND CBCD DR. PHILIPPE GETS RESULTS FOR LIPID Performed By: #### L 100.0100, L500.4100, L500.4050 #### [facility] [address] [place], [address] Creatinine [Mass/Vol] 1.03 mg/dL Normal 0.70-1.20 [facility] Comment on above: Order Comment: DR. Celio ZHANG GETS RESULTS FOR CMP AND CBCD DR. PHILIPPE GETS RESULTS FOR LIPID Performed By: #### L 100.0100, L500.4100, L500.4050 #### [facility] [address] [place], [address] GAP 12 Normal 5-15 [facility] Comment on above: Order Comment: DR. Celio ZHANG GETS RESULTS FOR CMP AND CBCD DR. PHILIPPE GETS RESULTS FOR LIPID Performed By: #### L 100.0100, L500.4100, L500.4050 #### [facility] [address] [place], [address] GFR/1.73 sq M.predicted among non-blacks MDRD (S/P/Bld) [Vol rate/Area] 89 mL/min/{1.73_m2} Normal >60 [facility] Comment on above: Order Comment: DR. Celio ZHANG GETS RESULTS FOR CMP AND CBCD DR. PHILIPPE GETS RESULTS FOR LIPID Result Comment: mL/m in/1.73m2 CKD-EPI Creatinine Equation (2020) Performed By: #### L 100.0100, L500.4100, L500.4050 #### [facility] [address] [place], [address] Globulin (S) [Mass/Vol] 3.1 g/dL Normal 2.2-4.2 [place] Comment on above: Order Comment: DR. Celio ZHANG GETS RESULTS FOR CMP AND CBCD DR. PHILIPPE GETS RESULTS FOR LIPID Performed By: #### L 100.0100, L500.4100, L500.4050 #### [facility] [address] [place], [address] Glucose [Mass/Vol] 86 mg/dL Normal 70-99 [facility] Comment on above: Order Comment: DR. Celio ZHANG GETS RESULTS FOR CMP AND CBCD DR. PHILIPPE GETS RESULTS FOR LIPID Performed By: #### L 100.0100, L500.4100, L500.4050 #### [facility] [address] [place], [address] Potassium [Moles/Vol] 4.0 mmol/L Normal 3.3-5.1 [facility] Comment on above: Order Comment: DR. Celio ZHANG GETS RESULTS FOR CMP AND CBCD DR. PHILIPPE GETS RESULTS FOR LIPID Performed By: #### L 100.0100, L500.4100, L500.4050 #### [facility] [address] [place], [address] Sodium [Moles/Vol] 140 mmol/L Normal 133-145 [facility] Comment on above: Order Comment: DR. Celio ZHANG GETS RESULTS FOR CMP AND CBCD DR. PHILIPPE GETS RESULTS FOR LIPID Performed By: #### L 100.0100, L500.4100, L500.4050 #### [facility] [address] [place], [address] T PROT 7.3 g/dL Normal 5.9-8.4 [facility] Comment on above: Order Comment: DR. Celio ZHANG GETS RESULTS FOR CMP AND CBCD DR. PHILIPPE GETS RESULTS FOR LIPID Performed By: #### L 100.0100, L500.4100, L500.4050 #### [facility] [address] [place], [address] Urea nitrogen [Mass/Vol] 15 mg/dL Normal 4-19 [facility] Comment on above: Order Comment: DR. Celio ZHANG GETS RESULTS FOR CMP AND CBCD DR. PHILIPPE GETS RESULTS FOR LIPID Performed By: #### L 100.0100, L500.4100, L500.4050 #### [facility] [address] [place], [address] Eosinophil percentageOrdered By: Zaid Philippe on 11-18-2024 Eosinophils/100 WBC (Bld) 5.6 % High 0-5 [facility] Erythrocyte distribution wid th ratioOrdered By: Zaid Philippe on 11-18-2024 Erythrocyte distribution width (RBC) [Ratio] 12.8 % 11.6-14.6 [facility] Erythrocyte distribution wid th standard deviationOrdered By: Zaid Philippe on 11-18-2024 Erythrocyte distribution width (RBC) [Ratio] 43.8 fl 35.1-43.9 [facility] Glomerular filtration rate ( GFR) estimation/1.73 sq m using serum, plasma, or whole bOrdered By: Zaid Philippe on 11-18-2024 GFR/1.73 sq M.predicted among non-blacks MDRD (S/P/Bld) [Vol rate/Area] 89 mL/min/{1.73_m2} >60 [facility] Comment on above: mL/min/1.73m2 CKD-EP I Creatinine Equation (2020) Hematocrit Auto (Bld) [Volum e fraction]Ordered By: Zaid Philippe on 11-18-2024 Hematocrit (Bld) [Volume fraction] 43.6 % 40-54 [facility] Hemoglobin measurementOrdere d By: Zaid Philippe on 11-18-2024 Hemoglobin (Bld) [Mass/Vol] 14.6 g/dL 13.0-16.5 [facility] Immature granulocytes/100 WB C Auto (Bld)Ordered By: Zaid Philippe on 11-18-2024 Immature granulocytes/100 WBC (Bld) 0.200 % 0.0-0.9 [facility] Comment on above: IG% - Immature Granu locytes (promyelocytes, myelocytes and metamyelocytes) > 1% indicates that a LEFT SHIFT is Present. LDL calc ser/plasOrdered By: Zaid Philippe on 11-18-2024 Cholesterol in LDL [Mass/Vol] 125 mg/dL [facility] Comment on above: Anchcosfkv=[phone] m g/dL & Higher Umbw=103 mg/dL or greater Laboratory - Chemistry and C hemistry - challengeOrdered By: Zaid Philippe on 11-18-2024 AST [Catalytic activity/Vol] 31 U/L <38 [facility] Lipid Profileon 11-18-2024 CHOL:HDL 3.65 Normal [facility] Comment on above: Order Comment: DR. Celio ZHANG GETS RESULTS FOR CMP AND CBCD DR. PHILIPPE GETS RESULTS FOR LIPID Performed By: #### L 100.0100, L500.4100, L500.4050 #### [facility] [address] [place], [address] Cholesterol [Mass/Vol] 190 mg/dL Normal <=200 [facility] Comment on above: Order Comment: DR. Celio ZHANG GETS RESULTS FOR CMP AND CBCD DR. PHILIPPE GETS RESULTS FOR LIPID Result Comment: Chol esterol level, Desirable <200 mg/dL Borderline high cholesterol 200-239 mg/dL High cholesterol >=240 mg/dL Recommendations of the NCEP Adult Treatment Panel for the following risk-cutoff thresholds for the [place] population. Performed By: #### L 100.0100, L500.4100, L500.4050 #### [facility] [address] [place], [address] Cholesterol in HDL [Mass/Vol] 52 mg/dL Normal [facility] Comment on above: Order Comment: DR. Celio ZHANG GETS RESULTS FOR CMP AND CBCD DR. PHILIPPE GETS RESULTS FOR LIPID Result Comment: Lana onal Cholesterol Education Program (NCEP) guidelines: <40 mg/dL: Low HDL-cholesterol (major risk factor for CHD) >= 60 mg/dL: High HDL-cholesterol (negative risk factor for CHD) HDL-cholesterol is affected by a number of factors, e.g. smoking, exercise, hormones, sex and age. Performed By: #### L 100.0100, L500.4100, L500.4050 #### [facility] [address] [place], [address] Cholesterol in LDL [Mass/Vol] 125 mg/dL Normal [facility] Comment on above: Order Comment: DR. Celio ZHANG GETS RESULTS FOR CMP AND CBCD DR. PHILIPPE GETS RESULTS FOR LIPID Result Comment: Bord aizhia=778-826 mg/dL Higher Vluz=030 mg/dL or greater Performed By: #### L 100.0100, L500.4100, L500.4050 #### [facility] [address] [place], [address] Cholesterol in VLDL [Mass/Vol] 13 mg/dL Normal 5-40 [facility] Comment on above: Order Comment: DR. Celio ZHANG GETS RESULTS FOR CMP AND CBCD DR. PHILIPPE GETS RESULTS FOR LIPID Performed By: #### L 100.0100, L500.4100, L500.4050 #### [facility] [address] [place], [address] Triglyceride [Mass/Vol] 65 mg/dL Normal [place] Comment on above: Order Comment: DR. Celio ZHANG GETS RESULTS FOR CMP AND CBCD DR. PHILIPPE GETS RESULTS FOR LIPID Result Comment: The drugs N-Acetylcysteine and Metamizole may falsely depress this assay. Normal range: <150 mg/dL Borderline High: 150-199 mg/dL High: 200-499 mg/dL Very High: >500 mg/dL Performed By: #### L 100.0100, L500.4100, L500.4050 #### [facility] [address] [place], [address] MCV (mean corpuscular volume ) determinationOrdered By: Zaid Philippe on 11-18-2024 MCV (RBC) [Entitic vol] 93.4 fL 80-94 [place] Mean corpuscular hemoglobin (MCH) determinationOrdered By: Zaid Philippe on 11-18-2024 MCH (RBC) [Entitic mass] 31.3 pg 27.0-32.0 [facility] Mean corpuscular hemoglobin concentration (MCHC) determinationOrdered By: Zaid Philippe on 11-18-2024 MCHC (RBC) [Mass/Vol] 33.5 g/dL 32-36 [facility] Mean platelet volume determi nationOrdered By: Zaid Phiilppe on 11-18-2024 Platelet mean volume (Bld) [Entitic vol] 11.7 fL 6.2-12.0 [facility] Monocyte percentageOrdered B y: Zaid Philippe on 11-18-2024 Monocytes/100 WBC (Bld) 10.6 % High 0-10 [facility] Neutrophil percentageOrdered By: Zaid Philippe on 11-18-2024 Neutrophils/100 WBC (Bld) 49.2 % 47-70 [facility] Nucleated red blood cell per centageOrdered By: Zaid Philippe on 11-18-2024 Nucleated RBC/100 WBC (Bld) [Ratio] 0 % 0-5 [facility] Platelet countOrdered By: Chelsey Philippe on 11-18-2024 Platelets (Bld) [#/Vol] 239 10*3/uL 150-450 [facility] Potassium measurement (mass/ volume)Ordered By: Zaid Philippe on 11-18-2024 Potassium (Unsp spec) [Mass/Vol] 4.0 mmol/L 3.3-5.1 [facility] RBC Auto (Bld) [#/Vol]Ordere d By: Zaid Philippe on 11-18-2024 RBC (Bld) [#/Vol] 4.67 10*6/uL 4.6-6.2 [facility] Screening total cholesterol/ high density lipoprotein (HDL) cholesterol ratioOrdered By: Zaid Philippe on 11-18-2024 Cholesterol.total/Choles terol in HDL [Mass ratio] 3.65 {ratio} [facility] Serum creatinine measurement (mass/volume)Ordered By: Zaid Philippe on 11-18-2024 Creatinine [Mass/Vol] 1.03 mg/dL 0.70-1.20 [facility] Serum globulin measurementOr dered By: Zaid Philippe on 11-18-2024 Globulin (S) [Mass/Vol] 3.1 g/dL 2.2-4.2 [place] Serum glucose measurement (m ass/volume)Ordered By: Zaid Philippe on 11-18-2024 Glucose [Mass/Vol] 86 mg/dL 70-99 [facility] Serum or plasma alanine hadley otransferase (ALT) measurementOrdered By: Zaid Philippe on 11-18-2024 ALT [Catalytic activity/Vol] 20 U/L <47 [facility] Serum or plasma albumin freida urement (mass/volume)Ordered By: Zaid Philippe on 11-18-2024 Albumin [Mass/Vol] 4.2 g/dL 3.5-5.0 [facility] Serum or plasma albumin/glob ulin mass ratioOrdered By: Zaid Philippe on 11-18-2024 Albumin/Globulin [Mass ratio] 1.4 {ratio} 0.9-2.4 [facility] Serum or plasma alkaline wai sphatase measurementOrdered By: Zaid Philippe on 11-18-2024 ALP [Catalytic activity/Vol] 59 U/L 40-129 [facility] Serum or plasma calcium freida urement (mass/volume)Ordered By: Zaid Philippe on 11-18-2024 Calcium [Mass/Vol] 9.3 mg/dL 7.6-11.0 [facility] Serum or plasma cholesterol in HDL measurement (mass/volume)Ordered By: Zaid Philippe on 11-18-2024 Cholesterol in HDL [Mass/Vol] 52 mg/dL >40 [facility] Comment on above: National Cholesterol Education Program (NCEP) guidelines:<40 mg/dL: Low HDL-cholesterol (major risk factor for CHD)>= 60 mg/dL: High HDL-cholesterol (negative risk factor for CHD)HDL-cholesterol is affected by a number of factors, e.g. smoking, exercise, hormones, sex and age. Serum or plasma cholesterol measurement (mass/volume)Ordered By: Zaid Philippe on 11-18-2024 Cholesterol [Mass/Vol] 190 mg/dL <201 [facility] Comment on above: Cholesterol level, D esirable <200 mg/dLBorderline high cholesterol 200-239 mg/dLHigh cholesterol >=240 mg/dLRecommendations of the NCEP Adult Treatment Panel for the following risk-cutoff thresholds for the [place] population. Serum or plasma urea nitroge n measurement (mass/volume)Ordered By: Zaid Philippe on 11-18-2024 Urea nitrogen [Mass/Vol] 15 mg/dL 4-19 [facility] Sodium levelOrdered By: Unique Philippe on 11-18-2024 Sodium [Moles/Vol] 140 mmol/L 133-145 [facility] Total proteinOrdered By: Walker Philippe on 11-18-2024 Protein [Mass/Vol] 7.3 g/dL 5.9-8.4 [facility] Triglycerides measurementOrd ered By: Zaid Philippe on 11-18-2024 Triglyceride [Mass/Vol] 65 mg/dL <199 [place] Comment on above: The drugs N-Acetylcy steine and Metamizole may falsely depress this assay. Normal range: <150 mg/dLBorderline High: 150-199 mg/dLHigh: 200-499 mg/dLVery High: >500 mg/dL White blood cell (WBC) count Ordered By: Zaid Philippe on 11-18-2024 WBC (Bld) [#/Vol] 4.6 10*3/uL 4.4-11.0 [facility] CNOVon 11-01-2024 CNOV Office Visit (INTMWS) NAUN MONTES DE OCA ([id number]) 1975 M Date Time Provider Department 11/01/24 [...] to affected area daily at bedtime. Per [facility]. - Glucosamine-Chondroi t-Vit C-Mn (GLUCOSAMINE CHONDROITIN MAXSTR) 500-400 mg cap Take 1 capsule by mouth once daily. - multivitamin tablet Take 1 tablet by mouth once daily. Problem List As Of Date 11/01/2024 Noted Resolved Unspecified Backache [M54.9] 04/25/2009 11/10/2009 DDD (degenerative disc disease) [YUG1800] 11/10/2009 10/28/2024 Postherpetic neuralgia [B02.29] 03/22/2019 03/19/2023 Psoriasis and similar disorders [L40.9] 06/20/2021 Psoriatic arthritis (HCC) [L40.50] 09/30/2022 Encounter Status:Closed by BARB SPEARS on 11/01/24 [facility] CNOVrodolfo 10-28-2024 CNOV Office Visit (INTMWS) NAUN MONTES DEO CA ([id number]) 1975 M Date Time Provider Department 10/28/24 8:00 AM ZAID PHILIPPE INTMWS During your visit today, we recorded the following information about you: Pulse Respiration Blood pressure Weight 56/minute 16/minute 118/74 78.7 kg Height 1.88 m Barb Spears LPN 10/28/2024 8:53 AM Signed [facility] OPEN ACCESS QUESTIONNAIRE 1. Are you [...] Please send all open access questionnaires to [facility] Pool #[id number] Zaid Philippe MD 10/28/2024 8:53 AM Signed This note was created using Semantriariter. Subjective Patient presents with: Physical Naun Montes [...] Allergies Unknow (more content not included)... Normal [facility] Absolute lymphocyte countOrd ered By: Antonia Matthews on 08-27-2024 Lymphocytes Auto (Unsp spec) [#/Vol] 1.28 10*3/uL 0.83-4.51 [facility] Absolute neutrophil countOrd ered By: Antonia Matthews on 08-27-2024 Neutrophils (Bld) [#/Vol] 3.6 10*3/uL 2.0-7.7 [facility] Anion gap in Serum or Plasma Ordered By: Antonia Matthews on 08-27-2024 Anion gap [Moles/Vol] 11 mmol/L 5-15 [facility] Automated lymphocyte count a s percentage of total leukocytesOrdered By: Antonia Matthews on 08-27-2024 Lymphocytes/100 WBC Auto (Unsp spec) 22.6 % 19- [facility] BUN/creatinine ratioOrdered By: [facility] Cassie on 08-27-2024 Urea nitrogen/Creatinine [Mass ratio] 15.4 mg/mg 10- [facility] Basophil percentageOrdered B y: Antonia Matthews on 08-27-2024 Basophils/100 WBC (Bld) 0.9 % 0-1 [facility] Bilirubin, totalOrdered By: Antonia Matthews on 08-27-2024 Bilirubin [Mass/Vol] 0.49 mg/dL 0.00-1.30 [facility] CBC W/Diff, Automatedon Absolute Lymph 1.28 X10 3/uL Normal 0.83-4.51 [facility] Comment on above: Performed By: #### L 500.4050, L100.0100 #### [facility] [address] [place], [address] Absolute Neut 3.6 X10 3/uL Normal 2.0-7.7 [facility] Comment on above: Performed By: #### L 500.4050, L100.0100 #### [facility] [address] [place], [address] Basophils/100 WBC (Bld) 0.9 % Normal 0-1 [facility] Comment on above: Performed By: #### L 500.4050, L100.0100 #### [facility] [address] [place], [address] Eosinophils/100 WBC (Bld) 3.2 % Normal 0-5 [facility] Comment on above: Performed By: #### L 500.4050, L100.0100 #### [facility] [address] [place], [address] Erythrocyte distribution width (RBC) [Ratio] 13.1 % Normal 11.6-14.6 [facility] Comment on above: Performed By: #### L 500.4050, L100.0100 #### [facility] [address] [place], [address] Hematocrit (Bld) [Volume fraction] 44.6 % Normal 40-54 [facility] Comment on above: Performed By: #### L 500.4050, L100.0100 #### [facility] [address] [place], [address] Hemoglobin (Bld) [Mass/Vol] 14.6 g/dL Normal 13.0-16.5 [facility] Comment on above: Performed By: #### L 500.4050, L100.0100 #### [facility] [address] [place], [address] IG% 0.500 Normal 0.0-0.9 [facility] Comment on above: Result Comment: IG% - Immature Granulocytes (promyelocytes, myelocytes and metamyelocytes) > 1% indicates that a LEFT SHIFT is Present. Performed By: #### L 500.4050, L100.0100 #### [facility] [address] [place], [address] Lymphocytes/100 WBC (Bld) 22.6 % Normal 19-41 [facility] Comment on above: Performed By: #### L 500.4050, L100.0100 #### [facility] [address] [place], [address] MCH (RBC) [Entitic mass] 31.3 pg Normal 27.0-32.0 [facility] Comment on above: Performed By: #### L 500.4050, L100.0100 #### [facility] [address] [place], [address] MCHC (RBC) [Mass/Vol] 32.7 g/dL Normal 32-36 [facility] Comment on above: Performed By: #### L 500.4050, L100.0100 #### [facility] [address] [place], [address] MCV (RBC) [Entitic vol] 95.5 fL High 80-94 [place] Comment on above: Performed By: #### L 500.4050, L100.0100 #### [facility] [address] [place], [address] Monocytes/100 WBC (Bld) 9.7 % Normal 0-10 [place] Comment on above: Performed By: #### L 500.4050, L100.0100 #### [facility] [address] [place], [address] Neutrophils/100 WBC (Bld) 63.1 % Normal 47-70 [facility] Comment on above: Performed By: #### L 500.4050, L100.0100 #### [facility] [address] [place], [address] Nucleated RBC (Bld) [#/Vol] 0 10*3/uL Normal 0-5 [facility] Comment on above: Performed By: #### L 500.4050, L100.0100 #### [facility] [address] [place], [address] Platelet mean volume (Bld) [Entitic vol] 11.1 fL Normal 6.2-12.0 [facility] Comment on above: Performed By: #### L 500.4050, L100.0100 #### [facility] [address] [place], [address] Platelets (Bld) [#/Vol] 251 10*3/uL Normal 150-450 [facility] Comment on above: Performed By: #### L 500.4050, L100.0100 #### [facility] [address] [place], [address] RBC (Bld) [#/Vol] 4.67 10*6/uL Normal 4.6-6.2 [facility] Comment on above: Performed By: #### L 500.4050, L100.0100 #### [facility] [address] [place], [address] RDW SD 45.5 fl High 35.1-43.9 [facility] Comment on above: Performed By: #### L 500.4050, L100.0100 #### [facility] [address] [place], [address] WBC (Bld) [#/Vol] 5.7 10*3/uL Normal 4.4-11.0 [facility] Comment on above: Performed By: #### L 500.4050, L100.0100 #### [facility] [address] [place], [address] Carbon dioxide, total [Moles /volume] in Central venous bloodOrdered By: Antonia Matthews on 08-27-2024 CO2 [Moles/Vol] 25.4 mmol/L 21.0-32.0 [facility] Chloride assayOrdered By: Félix Matthews on 08-27-2024 Chloride [Moles/Vol] 104 mmol/L 98-108 [facility] Comprehensive Metabolic Prof ilon 08-27-2024 Albumin [Mass/Vol] 4.2 g/dL Normal 3.5-5.0 [facility] Comment on above: Performed By: #### L 500.4050, L100.0100 #### [facility] [address] [place], [address] Albumin/Globulin [Mass ratio] 1.4 {ratio} Normal 0.9-2.4 [facility] Comment on above: Performed By: #### L 500.4050, L100.0100 #### [facility] [address] [place], [address] ALK PHOS 59 U/L Normal 40-129 [facility] Comment on above: Performed By: #### L 500.4050, L100.0100 #### [facility] [address] [place], [address] ALT [Catalytic activity/Vol] 25 U/L Normal <=46 [facility] Comment on above: Performed By: #### L 500.4050, L100.0100 #### [facility] [address] [place], [address] AST [Catalytic activity/Vol] 30 U/L Normal <=37 [facility] Comment on above: Performed By: #### L 500.4050, L100.0100 #### [facility] [address] [place], [address] Bilirubin [Mass/Vol] 0.49 mg/dL Normal 0.00-1.30 [facility] Comment on above: Performed By: #### L 500.4050, L100.0100 #### [facility] [address] [place], [address] BUN/CRE 15.4 RATIO Normal 10-20 [facility] Comment on above: Performed By: #### L 500.4050, L100.0100 #### [facility] [address] [place], [address] Calcium [Mass/Vol] 9.6 mg/dL Normal 7.6-11.0 [facility] Comment on above: Performed By: #### L 500.4050, L100.0100 #### [facility] [address] [place], [address] Chloride [Moles/Vol] 104 mmol/L Normal 98-108 [facility] Comment on above: Performed By: #### L 500.4050, L100.0100 #### [facility] [address] [place], [address] CO2 [Moles/Vol] 25.4 mmol/L Normal 21.0-32.0 [facility] Comment on above: Performed By: #### L 500.4050, L100.0100 #### [facility] [address] [place], [address] Creatinine [Mass/Vol] 1.08 mg/dL Normal 0.70-1.20 [facility] Comment on above: Performed By: #### L 500.4050, L100.0100 #### [facility] [address] [place], [address] GAP 11 Normal 5-15 [facility] Comment on above: Performed By: #### L 500.4050, L100.0100 #### [facility] [address] [place], [address] GFR/1.73 sq M.predicted among non-blacks MDRD (S/P/Bld) [Vol rate/Area] 84 mL/min/{1.73_m2} Normal >60 [facility] Comment on above: Result Comment: mL/m in/1.73m2 CKD-EPI Creatinine Equation (2020) Performed By: #### L 500.4050, L100.0100 #### [facility] [address] [place], [address] Globulin (S) [Mass/Vol] 3.1 g/dL Normal 2.2-4.2 [place] Comment on above: Performed By: #### L 500.4050, L100.0100 #### [facility] [address] [place], [address] Glucose [Mass/Vol] 103 mg/dL High 70-99 [facility] Comment on above: Performed By: #### L 500.4050, L100.0100 #### [facility] [address] [place], [address] Potassium [Moles/Vol] 4.1 mmol/L Normal 3.3-5.1 [facility] Comment on above: Performed By: #### L 500.4050, L100.0100 #### [facility] [address] [place], [address] Sodium [Moles/Vol] 141 mmol/L Normal 133-145 [facility] Comment on above: Performed By: #### L 500.4050, L100.0100 #### [facility] [address] [place], [address] T PROT 7.3 g/dL Normal 5.9-8.4 [facility] Comment on above: Performed By: #### L 500.4050, L100.0100 #### [facility] [address] [place], [address] Urea nitrogen [Mass/Vol] 17 mg/dL Normal 4-19 [facility] Comment on above: Performed By: #### L 500.4050, L100.0100 #### [facility] [address] [place], [address] Eosinophil percentageOrdered By: Antonia Matthews on 08-27-2024 Eosinophils/100 WBC (Bld) 3.2 % 0-5 [facility] Erythrocyte distribution wid th (RBC) [Ratio]Ordered By: Antonia Matthews on 08-27-2024 Erythrocyte distribution width (RBC) [Entitic vol] 45.5 fL High 35.1-43.9 [facility] Erythrocyte distribution wid th ratioOrdered By: Antonia Matthews on 08-27-2024 Erythrocyte distribution width (RBC) [Ratio] 13.1 % 11.6-14.6 [facility] Erythrocyte distribution wid th standard deviationOrdered By: Antonia Matthews on 08-27-2024 Erythrocyte distribution width (RBC) [Ratio] 45.5 fl High 35.1-43.9 [facility] GFR/1.73 sq M.predicted carlo g non-blacks MDRD (S/P/Bld) [Vol rate/Area]Ordered By: Antonia Matthews on 08-27-2024 Estimated GFR (MDRD) Non-Af Amer 84 >60 [facility] Comment on above: mL/min/1.73m2 CKD-EP I Creatinine Equation (2020) Glomerular filtration rate ( GFR) estimation/1.73 sq m using serum, plasma, or whole bOrdered By: Antonia Matthews on 08-27-2024 GFR/1.73 sq M.predicted among non-blacks MDRD (S/P/Bld) [Vol rate/Area] 84 mL/min/{1.73_m2} >60 [facility] Comment on above: mL/min/1.73m2 CKD-EP I Creatinine Equation (2020) Hematocrit Auto (Bld) [Volum e fraction]Ordered By: Antonia Matthews 08-27-2024 Hematocrit (Bld) [Volume fraction] 44.6 % 40-54 [facility] Hemoglobin measurementOrdere d By: Antonia Matthews 08-27-2024 Hemoglobin (Bld) [Mass/Vol] 14.6 g/dL 13.0-16.5 [facility] Immature granulocytes/100 WB C Auto (Bld)Ordered By: Antonia Matthews 08-27-2024 Immature granulocytes/100 WBC (Bld) 0.500 % 0.0-0.9 [facility] Comment on above: IG% - Immature Granu locytes (promyelocytes, myelocytes and metamyelocytes) > 1% indicates that a LEFT SHIFT is Present. Laboratory - Chemistry and C hemistry - challengeOrdered By: Antonia Matthews 08-27-2024 AST [Catalytic activity/Vol] 30 U/L <38 [facility] Lymphocytes Auto (Unsp spec) [#/Vol]Ordered By: Antonia Matthews on 08-27-2024 Lymphocytes (Bld) [#/Vol] 1.28 10*3/uL 0.83-4.51 [facility] Lymphocytes/100 WBC Auto (Un sp spec)Ordered By: Antonia Matthews on 08-27-2024 Lymphocytes/100 WBC (Bld) 22.6 % 19-41 [facility] MCV (mean corpuscular volume ) determinationOrdered By: Antonia Matthews on 08-27-2024 MCV (RBC) [Entitic vol] 95.5 fL High 80-94 [facility] Mean corpuscular hemoglobin (MCH) determinationOrdered By: Antonia Matthews on 08-27-2024 MCH (RBC) [Entitic mass] 31.3 pg 27.0-32.0 [facility] Mean corpuscular hemoglobin concentration (MCHC) determinationOrdered By: Antonia Matthews on 08-27-2024 MCHC (RBC) [Mass/Vol] 32.7 g/dL 32-36 [facility] Mean platelet volume determi nationOrdered By: Antonia Matthews on 08-27-2024 Platelet mean volume (Bld) [Entitic vol] 11.1 fL 6.2-12.0 [facility] Monocyte percentageOrdered B y: Antonia Matthews on 08-27-2024 Monocytes/100 WBC (Bld) 9.7 % 0-10 [facility] Neutrophil percentageOrdered By: Antonia Matthews on 08-27-2024 Neutrophils/100 WBC (Bld) 63.1 % 47-70 [facility] Nucleated red blood cell per centageOrdered By: Antonia Matthews on 08-27-2024 Nucleated RBC/100 WBC (Bld) [Ratio] 0 % 0-5 [facility] Platelet countOrdered By: Félix Matthews on 08-27-2024 Platelets (Bld) [#/Vol] 251 10*3/uL 150-450 [facility] [facility] Potassium (Unsp spec) [Mass/ Vol]Ordered By: Antonia Matthews on 08-27-2024 Potassium [Moles/Vol] 4.1 mmol/L 3.3-5.1 [facility] Potassium measurement (mass/ volume)Ordered By: Antonia Matthews on 08-27-2024 Potassium (Unsp spec) [Mass/Vol] 4.1 mmol/L 3.3-5.1 [facility] RBC Auto (Bld) [#/Vol]Ordere d By: Antonia Matthews on 08-27-2024 RBC (Bld) [#/Vol] 4.67 10*6/uL 4.6-6.2 [facility] Serum creatinine measurement (mass/volume)Ordered By: Antonia Matthews on 08-27-2024 Creatinine [Mass/Vol] 1.08 mg/dL 0.70-1.20 [facility] Serum globulin measurementOr dered By: Antonia Matthews on 08-27-2024 Globulin (S) [Mass/Vol] 3.1 g/dL 2.2-4.2 [facility] Serum glucose measurement (m ass/volume)Ordered By: Antonia Matthews on 08-27-2024 Glucose [Mass/Vol] 103 mg/dL High 70-99 [facility] Serum or plasma alanine hadley otransferase (ALT) measurementOrdered By: Antonia Matthews 08-27-2024 ALT [Catalytic activity/Vol] 25 U/L <47 [facility] Serum or plasma albumin freida urement (mass/volume)Ordered By: Antonia Matthews on 08-27-2024 Albumin [Mass/Vol] 4.2 g/dL 3.5-5.0 [facility] Serum or plasma albumin/glob ulin mass ratioOrdered By: Antonia Matthews on 08-27-2024 Albumin/Globulin [Mass ratio] 1.4 {ratio} 0.9-2.4 [facility] Serum or plasma alkaline wai sphatase measurementOrdered By: Antonia Matthews 08-27-2024 ALP [Catalytic activity/Vol] 59 U/L 40-129 [facility] Serum or plasma calcium freida urement (mass/volume)Ordered By: Antonia Matthews on 08-27-2024 Calcium [Mass/Vol] 9.6 mg/dL 7.6-11.0 [facility] Serum or plasma urea nitroge n measurement (mass/volume)Ordered By: Antonia Matthews on 08-27-2024 Urea nitrogen [Mass/Vol] 17 mg/dL 4-19 [facility] Sodium levelOrdered By: Noris Matthews on 08-27-2024 Sodium [Moles/Vol] 141 mmol/L 133-145 [facility] Total proteinOrdered By: Robbie Matthews on 08-27-2024 Protein [Mass/Vol] 7.3 g/dL 5.9-8.4 [facility] White blood cell (WBC) count Ordered By: Antonia Matthews on 08-27-2024 WBC (Bld) [#/Vol] 5.7 10*3/uL 4.4-11.0 [facility] Absolute neutrophil countOrd ered By: Antonia Matthews on 06-07-2024 Neutrophils (Bld) [#/Vol] 2.5 10*3/uL 2.0-7.7 [facility] Albumin to globulin ratioOrd ered By: Antonia Matthews on 06-07-2024 Albumin/Globulin [Mass ratio] 1.1 {ratio} 0.9-2.4 [facility] Basophil percentageOrdered B y: Antonia Matthews on 06-07-2024 Basophils/100 WBC (Bld) 0.6 % 0-1 [facility] Bilirubin, totalOrdered By: Antonia Matthews on 06-07-2024 Bilirubin [Mass/Vol] 0.40 mg/dL 0.20-1.00 [facility] Comment on above: For patients on eltr ombopag therapy, use of Dimension [place] TBIL is not recommended. Blood urea nitrogen (BUN)/cr eatinine ratioOrdered By: Antonia Matthews on 06-07-2024 Urea nitrogen/Creatinine [Mass ratio] 17.2 mg/mg 10-20 [facility] CBC W/Diff, Automatedon 05-26 Absolute Lymph 1.35 X10 3/uL Normal 0.83-4.51 [facility] Comment on above: Performed By: #### L 500.4050, L100.0100 #### [facility] Laboratory [facility] [place], [address] Absolute Neut 2.5 X10 3/uL Normal 2.0-7.7 [facility] Comment on above: Performed By: #### L 500.4050, L100.0100 #### [facility] [address] [place], [address] Basophils/100 WBC (Bld) 0.6 % Normal 0-1 [facility] Comment on above: Performed By: #### L 500.4050, L100.0100 #### [facility] [address] [place], [address] Eosinophils/100 WBC (Bld) 4.3 % Normal 0-5 [facility] Comment on above: Performed By: #### L 500.4050, L100.0100 #### [facility] [address] [place], [address] Erythrocyte distribution width (RBC) [Ratio] 13.1 % Normal 11.6-14.6 [facility] Comment on above: Performed By: #### L 500.4050, L100.0100 #### [facility] [address] [place], [address] Hematocrit (Bld) [Volume fraction] 43.7 % Normal 40-54 [facility] Comment on above: Performed By: #### L 500.4050, L100.0100 #### [facility] [address] [place], [address] Hemoglobin (Bld) [Mass/Vol] 14.3 g/dL Normal 13.0-16.5 [facility] Comment on above: Performed By: #### L 500.4050, L100.0100 #### [facility] [address] [place], [address] IG% 0.200 Normal 0.0-0.9 [facility] Comment on above: Result Comment: IG% - Immature Granulocytes (promyelocytes, myelocytes and metamyelocytes) > 1% indicates that a LEFT SHIFT is Present. Performed By: #### L 500.4050, L100.0100 #### [facility] [address] [place], [address] Lymphocytes/100 WBC (Bld) 28.9 % Normal 19-41 [facility] Comment on above: Performed By: #### L 500.4050, L100.0100 #### [facility] [address] [place], [address] MCH (RBC) [Entitic mass] 31.1 pg Normal 27.0-32.0 [facility] Comment on above: Performed By: #### L 500.4050, L100.0100 #### [facility] [address] [place], [address] MCHC (RBC) [Mass/Vol] 32.7 g/dL Normal 32-36 [facility] Comment on above: Performed By: #### L 500.4050, L100.0100 #### [facility] [address] [place], [address] MCV (RBC) [Entitic vol] 95.0 fL High 80-94 [facility] Comment on above: Performed By: #### L 500.4050, L100.0100 #### [facility] [address] [place], [address] Monocytes/100 WBC (Bld) 12.0 % High 0-10 [facility] Comment on above: Performed By: #### L 500.4050, L100.0100 #### [facility] [address] [place], [address] Neutrophils/100 WBC (Bld) 54.0 % Normal 47-70 [facility] Comment on above: Performed By: #### L 500.4050, L100.0100 #### [facility] [address] [place], [address] Nucleated RBC (Bld) [#/Vol] 0 10*3/uL Normal 0-5 [facility] Comment on above: Performed By: #### L 500.4050, L100.0100 #### [facility] [address] [place], [address] Platelet mean volume (Bld) [Entitic vol] 11.4 fL Normal 6.2-12.0 [facility] Comment on above: Performed By: #### L 500.4050, L100.0100 #### [facility] [address] [place], [address] Platelets (Bld) [#/Vol] 240 10*3/uL Normal 150-450 [facility] Comment on above: Performed By: #### L 500.4050, L100.0100 #### [facility] [address] [place], [address] RBC (Bld) [#/Vol] 4.60 10*6/uL Normal 4.6-6.2 [facility] Comment on above: Performed By: #### L 500.4050, L100.0100 #### [facility] [address] [place], [address] RDW SD 44.7 fl High 35.1-43.9 [facility] Comment on above: Performed By: #### L 500.4050, L100.0100 #### [facility] [address] [place], [address] WBC (Bld) [#/Vol] 4.7 10*3/uL Normal 4.4-11.0 [facility] Comment on above: Performed By: #### L 500.4050, L100.0100 #### [facility] [address] [place], [address] Carbon dioxide measurementOr dered By: Antonia Matthews on 06-07-2024 CO2 [Moles/Vol] 28.0 mmol/L 21.0-32.0 [facility] Chloride measurementOrdered By: Antonia Matthews on 06-07-2024 Chloride [Moles/Vol] 108 mmol/L High 98-107 [facility] Comprehensive Metabolic Prof ilon 06-07-2024 Albumin [Mass/Vol] 3.8 g/dL Normal 3.2-5.0 [facility] Comment on above: Performed By: #### L 500.4050, L100.0100 #### [facility] [address] [place], [address] Albumin/Globulin [Mass ratio] 1.1 {ratio} Normal 0.9-2.4 [facility] Comment on above: Performed By: #### L 500.4050, L100.0100 #### [facility] [address] [place], [address] ALK P 60 U/L Normal 45-117 [facility] Comment on above: Performed By: #### L 500.4050, L100.0100 #### [facility] [address] [place], [address] ALT [Catalytic activity/Vol] 29 U/L Normal 16-61 [facility] Comment on above: Performed By: #### L 500.4050, L100.0100 #### [facility] [address] [place], [address] AST [Catalytic activity/Vol] 26 U/L Normal 15-37 [facility] Comment on above: Performed By: #### L 500.4050, L100.0100 #### [facility] [address] [place], [address] Bilirubin [Mass/Vol] 0.40 mg/dL Normal 0.20-1.00 [facility] Comment on above: Result Comment: For patients on eltrombopag therapy, use of [place] TBIL is not recommended. Performed By: #### L 500.4050, L100.0100 #### [facility] [address] [place], [address] BUN/CRE 17.2 RATIO Normal 10-20 [facility] Comment on above: Performed By: #### L 500.4050, L100.0100 #### [facility] [address] [place], [address] CA,Total 9.4 mg/dL Normal 8.5-10.1 [facility] Comment on above: Performed By: #### L 500.4050, L100.0100 #### [facility] [address] [place], [address] Chloride [Moles/Vol] 108 mmol/L High 98-107 [facility] Comment on above: Performed By: #### L 500.4050, L100.0100 #### [facility] [address] [place], [address] CO2 [Moles/Vol] 28.0 mmol/L Normal 21.0-32.0 [facility] Comment on above: Performed By: #### L 500.4050, L100.0100 #### [facility] [address] [place], [address] Creatinine [Mass/Vol] 1.16 mg/dL Normal 0.70-1.30 [facility] Comment on above: Result Comment: The validity of the calculated GFR GFRAA in patients over 70 years has not been determined. Clinical correlation is essential. Performed By: #### L 500.4050, L100.0100 #### [facility] [address] [place], [address] EST GFR - AA 86 mL/min Normal >60 [facility] Comment on above: Result Comment: Afri can Vincentian GFR Calc Performed By: #### L 500.4050, L100.0100 #### [facility] [address] [place], [address] GAP 4 Low 5-15 [facility] Comment on above: Performed By: #### L 500.4050, L100.0100 #### [facility] [address] [place], [address] GFR/1.73 sq M.predicted among non-blacks MDRD (S/P/Bld) [Vol rate/Area] 71 mL/min/{1.73_m2} Normal >60 [facility] Comment on above: Result Comment: Non- GFR Calc Performed By: #### L 500.4050, L100.0100 #### [facility] [address] [place], [address] Globulin (S) [Mass/Vol] 3.6 g/dL Normal 2.2-4.2 [place] Comment on above: Performed By: #### L 500.4050, L100.0100 #### [facility] [address] [place], [address] Glucose [Mass/Vol] 100 mg/dL Normal 74-106 [facility] Comment on above: Result Comment: Fast ing Glucose result from 100 to 125 mg/dL suggests IMPAIRED HOMEOSTASIS per A.D.A. criteria. Performed By: #### L 500.4050, L100.0100 #### [facility] [address] [place], [address] Potassium [Moles/Vol] 4.5 mmol/L Normal 3.5-5.1 [facility] Comment on above: Performed By: #### L 500.4050, L100.0100 #### [facility] [address] [place], [address] Sodium [Moles/Vol] 140 mmol/L Normal 136-145 [facility] Comment on above: Performed By: #### L 500.4050, L100.0100 #### [facility] [address] [place], [address] T PROT 7.4 g/dL Normal 6.4-8.2 [facility] Comment on above: Performed By: #### L 500.4050, L100.0100 #### [facility] [address] [place], [address] Urea nitrogen [Mass/Vol] 20 mg/dL High 7-18 [facility] Comment on above: Performed By: #### L 500.4050, L100.0100 #### [facility] [address] [place], [address] Eosinophil percentageOrdered By: Antonia Matthews on 06-07-2024 Eosinophils/100 WBC (Bld) 4.3 % 0-5 [facility] Erythrocyte distribution wid th (RBC) [Ratio]Ordered By: Antonia Matthews on 06-07-2024 Erythrocyte distribution width (RBC) [Entitic vol] 44.7 fL High 35.1-43.9 [facility] Erythrocyte distribution wid th ratioOrdered By: Antonia Matthews on 06-07-2024 Erythrocyte distribution width (RBC) [Ratio] 13.1 % 11.6-14.6 [facility] Estimated glomerular filtrat ion rate (GFR) AmericanOrdered By: Antonia Matthews on 06-07-2024 Estimated GFR (MDRD) Amer 86 mL/min >60 [facility] Comment on above: GFR Calc Glomerular filtration rate ( GFR) estimationOrdered By: Antonia Matthews on 06-07-2024 Estimated GFR (MDRD) Non-Af Amer 71 mL/min >60 [facility] Comment on above: Non- GFR Calc Glucose measurementOrdered B y: Antonia Matthews on 06-07-2024 Glucose [Mass/Vol] 100 mg/dL 74-106 [facility] Comment on above: Fasting Glucose resu lt from 100 to 125 mg/dL suggests IMPAIRED HOMEOSTASIS per A.D.A. criteria. Hematocrit Auto (Bld) [Volum e fraction]Ordered By: Antonia Matthews on 06-07-2024 Hematocrit (Bld) [Volume fraction] 43.7 % 40-54 [facility] Hemoglobin measurementOrdere d By: Antonia Matthews on 06-07-2024 Hemoglobin (Bld) [Mass/Vol] 14.3 g/dL 13.0-16.5 [facility] Immature granulocytes/100 WB C Auto (Bld)Ordered By: Antonia Matthews on 06-07-2024 Immature granulocytes/100 WBC (Bld) 0.200 % 0.0-0.9 [facility] Comment on above: IG% - Immature Granu locytes (promyelocytes, myelocytes and metamyelocytes) > 1% indicates that a LEFT SHIFT is Present. Laboratory - Chemistry and C hemistry - challengeOrdered By: Antonia Matthews on 06-07-2024 AST [Catalytic activity/Vol] 26 U/L 15-37 [facility] Lymphocytes Auto (Unsp spec) [#/Vol]Ordered By: Antonia Matthews on 06-07-2024 Lymphocytes (Bld) [#/Vol] 1.35 10*3/uL 0.83-4.51 [facility] Lymphocytes/100 WBC Auto (Un sp spec)Ordered By: Antonia Matthews on 06-07-2024 Lymphocytes/100 WBC (Bld) 28.9 % 19-41 [facility] MCV (mean corpuscular volume ) determinationOrdered By: Antonia Matthews on 06-07-2024 MCV (RBC) [Entitic vol] 95.0 fL High 80-94 [facility] Mean corpuscular hemoglobin (MCH) determinationOrdered By: Antonia Matthews on 06-07-2024 MCH (RBC) [Entitic mass] 31.1 pg 27.0-32.0 [facility] Mean corpuscular hemoglobin concentration (MCHC) determinationOrdered By: Antonia Matthews on 06-07-2024 MCHC (RBC) [Mass/Vol] 32.7 g/dL 32-36 [facility] Mean platelet volume determi nationOrdered By: Antonia Matthews on 06-07-2024 Platelet mean volume (Bld) [Entitic vol] 11.4 fL 6.2-12.0 [facility] Monocyte percentageOrdered B y: Antonia Matthews on 06-07-2024 Monocytes/100 WBC (Bld) 12.0 % High 0-10 [facility] Neutrophil percentageOrdered By: Antonia Matthews on 06-07-2024 Neutrophils/100 WBC (Bld) 54.0 % 47-70 [facility] Nucleated red blood cell per centageOrdered By: Antonia Matthews on 06-07-2024 Nucleated RBC/100 WBC (Bld) [Ratio] 0 % 0-5 [facility] Platelet countOrdered By: Félix Matthews on 06-07-2024 Platelets (Bld) [#/Vol] 240 10*3/uL 150-450 [facility] Potassium measurementOrdered By: Antonia Matthews on 06-07-2024 Potassium [Moles/Vol] 4.5 mmol/L 3.5-5.1 [facility] RBC Auto (Bld) [#/Vol]Ordere d By: Antonia Matthews on 06-07-2024 RBC (Bld) [#/Vol] 4.60 10*6/uL 4.6-6.2 [facility] Serum anion gap measurementO rdered By: Antonia Matthews on 06-07-2024 Anion gap [Moles/Vol] 4 mmol/L Low 5-15 [facility] Serum globulin measurementOr dered By: Antonia Matthews on 06-07-2024 Globulin (S) [Mass/Vol] 3.6 g/dL 2.2-4.2 [place] Serum or plasma alanine hadley otransferase (ALT) measurementOrdered By: Antonia Matthews on 06-07-2024 ALT [Catalytic activity/Vol] 29 U/L 16-61 [facility] Serum or plasma albumin freida urement (mass/volume)Ordered By: Antonia Matthews on 06-07-2024 Albumin [Mass/Vol] 3.8 g/dL 3.2-5.0 [facility] Serum or plasma alkaline wai sphatase measurementOrdered By: Antonia Matthews on 06-07-2024 ALP [Catalytic activity/Vol] 60 U/L 45-117 [facility] Serum or plasma calcium freida urement (mass/volume)Ordered By: Antonia Matthews on 06-07-2024 Calcium [Mass/Vol] 9.4 mg/dL 8.5-10.1 [facility] Serum or plasma creatinine m easurement (mass/volume)Ordered By: Antonia Matthews on 06-07-2024 Creatinine [Mass/Vol] 1.16 mg/dL 0.70-1.30 [facility] Comment on above: The validity of the calculated GFR & GFRAA in patients over 70 years has not been determined. Clinical correlation is essential. Serum or plasma urea nitroge n measurement (mass/volume)Ordered By: Antonia Matthews on 06-07-2024 Urea nitrogen [Mass/Vol] 20 mg/dL High 7-18 [facility] Sodium levelOrdered By: Noris Matthews on 06-07-2024 Sodium [Moles/Vol] 140 mmol/L 136-145 [facility] Total proteinOrdered By: Robbie Matthews on 06-07-2024 Protein [Mass/Vol] 7.4 g/dL 6.4-8.2 [facility] White blood cell (WBC) count Ordered By: Antonia Matthews on 06-07-2024 WBC (Bld) [#/Vol] 4.7 10*3/uL 4.4-11.0 [facility] CNNURSEon 03-29-2024 [facility] Nurse Visit (FAMPWS) NAUN MONTES DE OCA ([id number]) 1975 M Date Time Provider Department 03/29/24 9:15 AM [place] NURSE FAMPWS During your visit today, we recorded the following information about you: Simi Winkler LPN 03/29/2024 8:46 AM Signed Patient presents for Hepatitis B vaccine. Denies any problems at this time. Tolerated injection well. Smii Winkler LPN Allergies As of Date: 03/29/2024 [...] cycloSPORINE (RESTASIS) 0.05 % ophthalmic emulsion - ipmbtfe-iqvu-ohbia-o reg-capryl 100 mg-150 mg- 50 mg-150 mg cap Take by mouth. - leucovorin (LEUCOVORIN) 15 mg tablet Take 15 mg by mouth one time a week. - SOOLANTRA 1 % crea Apply 1 application to affected area daily at bedtime. Per [facility]. - Glucosamine-Chondroi t-Vit C-Mn (GLUCOSAMINE CHONDROITIN MAXSTR) 500-400 mg cap Take 1 capsule by mouth once daily. - multivitamin tablet Take 1 tablet by mouth once daily. Problem List As Of Date 03/29/2024 Noted Resolved Unspecified Backache [M54.9] 04/25/2009 11/10/2009 DDD (Degenerative Disc Disease) [ZSH1237] 11/10/2009 Postherpetic neuralgia [B02.29] 03/22/2019 03/19/2023 Psoriasis and similar disorders [L40.9] 06/20/2021 Psoriatic arthritis (HCC) [L40.50] 09/30/2022 Encounter Status:Closed by SIMI WINKLER on 03/29/24 Normal [facility] Quantiferon TB-Gold+on 03-23 QFT MITOGEN VIKTORIA > 10.00 Normal . [facility] Comment on above: Performed By: #### L 3400.8000 #### [facility] Laboratory [facility] [place], [address] QFT NIL VALUE 0 IU/mL Normal . [facility] Comment on above: Performed By: #### L 3400.8000 #### [facility] [address] [place], [place], [id number] ([phone] QFT TB GOLD+ Comment Normal . [facility] Comment on above: Result Comment: Abraham tiFERON-TB [...] test. Performed By: #### L 3400.8000 #### [facility] [address] [place], [place], [id number] (118) QFT TB POS CRIT Negative Normal Negative [facility] Comment on above: Result Comment: No r [...] interferon gamma. Chemiluminescence immunoassay methodology Performed at: [address] [id number] Business Process Coordinator: Marcelo Vee PhD, Phone: [phone] Performed By: #### L 3400.8000 #### [facility] [address] [place], [address] QFT TB1+ AG VIKTORIA 0.01 IU/mL Normal . [facility] Comment on above: Performed By: #### L 3400.8000 #### [facility] [address] [place], [address] QFT TB2+ AG VIKTORIA 0 IU/mL Normal . [facility] Comment on above: Performed By: #### L 3400.8000 #### [facility] [address] [place], [address] CBC W/Diff, Automatedon 10-2 -2023 Absolute Lymph 1.46 X10 3/uL Normal 0.83-4.51 [facility] Comment on above: Performed By: #### L 100.0100, L500.4050 #### [facility] [address] [place], [address] Absolute Neut 2.5 X10 3/uL Normal 2.0-7.7 [facility] Comment on above: Performed By: #### L 100.0100, L500.4050 #### [facility] [address] [place], [address] Basophils/100 WBC (Bld) 1.1 % High 0-1 [facility] Comment on above: Performed By: #### L 100.0100, L500.4050 #### [facility] [address] [place], [address] Eosinophils/100 WBC (Bld) 3.6 % Normal 0-5 [facility] Comment on above: Performed By: #### L 100.0100, L500.4050 #### [facility] [address] [place], [address] Erythrocyte distribution width (RBC) [Ratio] 12.6 % Normal 11.6-14.6 [facility] Comment on above: Performed By: #### L 100.0100, L500.4050 #### [facility] [address] [place], [address] Hematocrit (Bld) [Volume fraction] 44.2 % Normal 40-54 [facility] Comment on above: Performed By: #### L 100.0100, L500.4050 #### [facility] [address] [place], [address] Hemoglobin (Bld) [Mass/Vol] 14.5 g/dL Normal 13.0-16.5 [facility] Comment on above: Performed By: #### L 100.0100, L500.4050 #### [facility] [address] [place], [address] IG% 0.200 Normal 0.0-0.9 [facility] Comment on above: Result Comment: IG% - Immature Granulocytes (promyelocytes, myelocytes and metamyelocytes) > 1% indicates that a LEFT SHIFT is Present. Performed By: #### L 100.0100, L500.4050 #### [facility] [address] [place], [address] Lymphocytes/100 WBC (Bld) 30.9 % Normal 19-41 [facility] Comment on above: Performed By: #### L 100.0100, L500.4050 #### [facility] [address] [place], [address] MCH (RBC) [Entitic mass] 30.7 pg Normal 27.0-32.0 [facility] Comment on above: Performed By: #### L 100.0100, L500.4050 #### [facility] [address] [place], [address] MCHC (RBC) [Mass/Vol] 32.8 g/dL Normal 32-36 [facility] Comment on above: Performed By: #### L 100.0100, L500.4050 #### [facility] [address] [place], [address] MCV (RBC) [Entitic vol] 93.6 fL Normal 80-94 [place] Comment on above: Performed By: #### L 100.0100, L500.4050 #### [facility] [address] [place], [address] Monocytes/100 WBC (Bld) 10.4 % High 0-10 [facility] Comment on above: Performed By: #### L 100.0100, L500.4050 #### [facility] [address] [place], [address] Neutrophils/100 WBC (Bld) 53.8 % Normal 47-70 [facility] Comment on above: Performed By: #### L 100.0100, L500.4050 #### [facility] [address] [place], [address] Nucleated RBC (Bld) [#/Vol] 0 10*3/uL Normal 0-5 [facility] Comment on above: Performed By: #### L 100.0100, L500.4050 #### [facility] [address] [place], [address] Platelet mean volume (Bld) [Entitic vol] 11.6 fL Normal 6.2-12.0 [facility] Comment on above: Performed By: #### L 100.0100, L500.4050 #### [facility] [address] [place], [address] Platelets (Bld) [#/Vol] 253 10*3/uL Normal 150-450 [facility] Comment on above: Performed By: #### L 100.0100, L500.4050 #### [facility] [address] [place], [address] RBC (Bld) [#/Vol] 4.72 10*6/uL Normal 4.6-6.2 [facility] Comment on above: Performed By: #### L 100.0100, L500.4050 #### [facility] [address] [place], [address] RDW SD 43.4 fl Normal 35.1-43.9 [facility] Comment on above: Performed By: #### L 100.0100, L500.4050 #### [facility] [address] [place], [address] WBC (Bld) [#/Vol] 4.7 10*3/uL Normal 4.4-11.0 [facility] Comment on above: Performed By: #### L 100.0100, L500.4050 #### [facility] [address] [place], [address] Comprehensive Metabolic Prof ilon 03-17-2024 Albumin [Mass/Vol] 3.6 g/dL Normal 3.2-5.0 [facility] Comment on above: Performed By: #### L 500.4050, L100.0100 #### [facility] [address] [place], [address] Albumin/Globulin [Mass ratio] 1.0 {ratio} Normal 0.9-2.4 [facility] Comment on above: Performed By: #### L 500.4050, L100.0100 #### [facility] [address] [place], [address] ALK P 55 U/L Normal 45-117 [facility] Comment on above: Performed By: #### L 500.4050, L100.0100 #### [facility] [address] [place], [address] ALT [Catalytic activity/Vol] 28 U/L Normal 16-61 [facility] Comment on above: Performed By: #### L 500.4050, L100.0100 #### [facility] [address] [place], [address] AST [Catalytic activity/Vol] 21 U/L Normal 15-37 [facility] Comment on above: Performed By: #### L 500.4050, L100.0100 #### [facility] [address] [place], [address] Bilirubin [Mass/Vol] 0.40 mg/dL Normal 0.20-1.00 [facility] Comment on above: Result Comment: For patients on eltrombopag therapy, use of [place] TBIL is not recommended. Performed By: #### L 500.4050, L100.0100 #### [facility] [address] [place], [address] BUN/CRE 16.0 RATIO Normal 10-20 [facility] Comment on above: Performed By: #### L 500.4050, L100.0100 #### [facility] [address] [place], [address] CA,Total 9.1 mg/dL Normal 8.5-10.1 [facility] Comment on above: Performed By: #### L 500.4050, L100.0100 #### [facility] [address] [place], [address] Chloride [Moles/Vol] 108 mmol/L High 98-107 [facility] Comment on above: Performed By: #### L 500.4050, L100.0100 #### [facility] [address] [place], [address] CO2 [Moles/Vol] 27.0 mmol/L Normal 21.0-32.0 [facility] Comment on above: Performed By: #### L 500.4050, L100.0100 #### [facility] [address] [place], [address] Creatinine [Mass/Vol] 1.00 mg/dL Normal 0.70-1.30 [facility] Comment on above: Result Comment: The validity of the calculated GFR GFRAA in patients over 70 years has not been determined. Clinical correlation is essential. Performed By: #### L 500.4050, L100.0100 #### [facility] [address] [place], [address] EST GFR - AA 102 mL/min Normal >60 [facility] Comment on above: Result Comment: Afri can Vincentian GFR Calc Performed By: #### L 500.4050, L100.0100 #### [facility] [address] [place], [address] GAP 3 Low 5-15 [facility] Comment on above: Performed By: #### L 500.4050, L100.0100 #### [facility] [address] [place], [address] GFR/1.73 sq M.predicted among non-blacks MDRD (S/P/Bld) [Vol rate/Area] 84 mL/min/{1.73_m2} Normal >60 [facility] Comment on above: Result Comment: Non- GFR Calc Performed By: #### L 500.4050, L100.0100 #### [facility] [address] [place], [address] Globulin (S) [Mass/Vol] 3.6 g/dL Normal 2.2-4.2 [place] Comment on above: Performed By: #### L 500.4050, L100.0100 #### [facility] [address] [place], [address] Glucose [Mass/Vol] 88 mg/dL Normal 74-106 [facility] Comment on above: Performed By: #### L 500.4050, L100.0100 #### [facility] [address] [place], [address] Potassium [Moles/Vol] 4.4 mmol/L Normal 3.5-5.1 [facility] Comment on above: Performed By: #### L 500.4050, L100.0100 #### [facility] [address] [place], [address] Sodium [Moles/Vol] 138 mmol/L Normal 136-145 [facility] Comment on above: Performed By: #### L 500.4050, L100.0100 #### [facility] [address] [place], [address] T PROT 7.2 g/dL Normal 6.4-8.2 [facility] Comment on above: Performed By: #### L 500.4050, L100.0100 #### [facility] [address] [place], [address] Urea nitrogen [Mass/Vol] 16 mg/dL Normal 7-18 [facility] Comment on above: Performed By: #### L 500.4050, L100.0100 #### [facility] [address] [place], [address] Emergency Department Summary on 01-04-2024 Emergency Department Summary [facility] Medical Records Department [address] [place] [address] Emergency Department Summary 01/04/24 MR#: [id number] Acct: [id number] Name: NAUN MONTES ED [facility] Rep #: [id number] : 1975 48 From: Maximino Colin DO [...] Loss of Funtion Narrative Tetanus Immunization: Unknown [facility] Medical History (Updated 01/04/24 @ 10:[address] Maximino Colin, DO) Psoriatic arthritis Home Medications ???Medication ???Instructions [...] 5-7 Day (more content not included)... Normal [facility] CBC W/Diff, Automatedon 08-0 6-2023 Absolute Lymph 1.77 X10 3/uL Normal 0.83-4.51 [facility] Comment on above: Performed By: #### L 100.0100, L500.4050 #### [facility] [address] [place], [address] Absolute Neut 2.3 X10 3/uL Normal 2.0-7.7 [facility] Comment on above: Performed By: #### L 100.0100, L500.4050 #### [facility] [address] [place], [address] Basophils/100 WBC (Bld) 0.4 % Normal 0-1 [facility] Comment on above: Performed By: #### L 100.0100, L500.4050 #### [facility] [address] [place], [address] Eosinophils/100 WBC (Bld) 3.8 % Normal 0-5 [facility] Comment on above: Performed By: #### L 100.0100, L500.4050 #### [facility] [address] [place], [address] Erythrocyte distribution width (RBC) [Ratio] 12.9 % Normal 11.6-14.6 [facility] Comment on above: Performed By: #### L 100.0100, L500.4050 #### [facility] [address] [place], [address] Hematocrit (Bld) [Volume fraction] 42.5 % Normal 40-54 [facility] Comment on above: Performed By: #### L 100.0100, L500.4050 #### [facility] [address] [place], [address] Hemoglobin (Bld) [Mass/Vol] 14.1 g/dL Normal 13.0-16.5 [facility] Comment on above: Performed By: #### L 100.0100, L500.4050 #### [facility] [address] [place], [address] IG% 0.400 Normal 0.0-0.9 [facility] Comment on above: Result Comment: IG% - Immature Granulocytes (promyelocytes, myelocytes and metamyelocytes) > 1% indicates that a LEFT SHIFT is Present. Performed By: #### L 100.0100, L500.4050 #### [facility] [address] [place], [address] Lymphocytes/100 WBC (Bld) 37.3 % Normal 19-41 [facility] Comment on above: Performed By: #### L 100.0100, L500.4050 #### [facility] [address] [place], [address] MCH (RBC) [Entitic mass] 31.0 pg Normal 27.0-32.0 [facility] Comment on above: Performed By: #### L 100.0100, L500.4050 #### [facility] [address] [place], [address] MCHC (RBC) [Mass/Vol] 33.2 g/dL Normal 32-36 [facility] Comment on above: Performed By: #### L 100.0100, L500.4050 #### [facility] [address] [place], [address] MCV (RBC) [Entitic vol] 93.4 fL Normal 80-94 [place] Comment on above: Performed By: #### L 100.0100, L500.4050 #### [facility] [address] [place], [address] Monocytes/100 WBC (Bld) 8.6 % Normal 0-10 [place] Comment on above: Performed By: #### L 100.0100, L500.4050 #### [facility] [address] [place], [address] Neutrophils/100 WBC (Bld) 49.5 % Normal 47-70 [facility] Comment on above: Performed By: #### L 100.0100, L500.4050 #### [facility] [address] [place], [address] Nucleated RBC (Bld) [#/Vol] 0 10*3/uL Normal 0-5 [facility] Comment on above: Performed By: #### L 100.0100, L500.4050 #### [facility] [address] [place], [address] Platelet mean volume (Bld) [Entitic vol] 11.4 fL Normal 6.2-12.0 [facility] Comment on above: Performed By: #### L 100.0100, L500.4050 #### [facility] [address] [place], [address] Platelets (Bld) [#/Vol] 249 10*3/uL Normal 150-450 [facility] Comment on above: Performed By: #### L 100.0100, L500.4050 #### [facility] [address] [place], [address] RBC (Bld) [#/Vol] 4.55 10*6/uL Low 4.6-6.2 [facility] Comment on above: Performed By: #### L 100.0100, L500.4050 #### [facility] [address] [place], [address] RDW SD 43.9 fl Normal 35.1-43.9 [facility] Comment on above: Performed By: #### L 100.0100, L500.4050 #### [facility] [address] [place], [address] WBC (Bld) [#/Vol] 4.7 10*3/uL Normal 4.4-11.0 [facility] Comment on above: Performed By: #### L 100.0100, L500.4050 #### [facility] [address] [place], [address] Comprehensive Metabolic Prof [facility] 12-30-2023 Albumin [Mass/Vol] 3.4 g/dL Normal 3.2-5.0 [facility] Comment on above: Performed By: #### L 100.0100, L500.4050 #### [facility] [address] [place], [address] Albumin/Globulin [Mass ratio] 0.9 {ratio} Normal 0.9-2.4 [facility] Comment on above: Performed By: #### L 100.0100, L500.4050 #### [facility] [address] [place], [address] ALK P 56 U/L Normal 45-117 [facility] Comment on above: Performed By: #### L 100.0100, L500.4050 #### [facility] [address] [place], [address] ALT [Catalytic activity/Vol] 27 U/L Normal 16-61 [facility] Comment on above: Performed By: #### L 100.0100, L500.4050 #### [facility] [address] [place], [address] AST [Catalytic activity/Vol] 24 U/L Normal 15-37 [facility] Comment on above: Performed By: #### L 100.0100, L500.4050 #### [facility] [address] [place], [address] Bilirubin [Mass/Vol] 0.40 mg/dL Normal 0.20-1.00 [facility] Comment on above: Result Comment: For patients on eltrombopag therapy, use of [place] TBIL is not recommended. Performed By: #### L 100.0100, L500.4050 #### [facility] [address] [place], [address] BUN/CRE 13.2 RATIO Normal 10-20 [facility] Comment on above: Performed By: #### L 100.0100, L500.4050 #### [facility] [address] [place], [address] CA,Total 9.0 mg/dL Normal 8.5-10.1 [facility] Comment on above: Performed By: #### L 100.0100, L500.4050 #### [facility] [address] [place], [address] Chloride [Moles/Vol] 109 mmol/L High 98-107 [facility] Comment on above: Performed By: #### L 100.0100, L500.4050 #### [facility] [address] [place], [address] CO2 [Moles/Vol] 24.0 mmol/L Normal 21.0-32.0 [facility] Comment on above: Performed By: #### L 100.0100, L500.4050 #### [facility] [address] [place], [address] Creatinine [Mass/Vol] 1.14 mg/dL Normal 0.70-1.30 [facility] Comment on above: Result Comment: The validity of the calculated GFR GFRAA in patients over 70 years has not been determined. Clinical correlation is essential. Performed By: #### L 100.0100, L500.4050 #### [facility] [address] [place], [address] EST GFR - AA 88 mL/min Normal >60 [facility] Comment on above: Result Comment: Afri can Vincentian GFR Calc Performed By: #### L 100.0100, L500.4050 #### [facility] [address] [place], [address] GAP 6 Normal 5-15 [facility] Comment on above: Performed By: #### L 100.0100, L500.4050 #### [facility] [address] [place], [address] GFR/1.73 sq M.predicted among non-blacks MDRD (S/P/Bld) [Vol rate/Area] 73 mL/min/{1.73_m2} Normal >60 [facility] Comment on above: Result Comment: Non- GFR Calc Performed By: #### L 100.0100, L500.4050 #### [facility] [address] [place], [address] Globulin (S) [Mass/Vol] 3.9 g/dL Normal 2.2-4.2 [place] Comment on above: Performed By: #### L 100.0100, L500.4050 #### [facility] [address] [place], [address] Glucose [Mass/Vol] 111 mg/dL High 74-106 [facility] Comment on above: Result Comment: Fast ing Glucose result from 100 to 125 mg/dL suggests IMPAIRED HOMEOSTASIS per A.D.A. criteria. Performed By: #### L 100.0100, L500.4050 #### [facility] [address] [place], [address] Potassium [Moles/Vol] 4.0 mmol/L Normal 3.5-5.1 [facility] Comment on above: Performed By: #### L 100.0100, L500.4050 #### [facility] [address] [place], [address] Sodium [Moles/Vol] 139 mmol/L Normal 136-145 [facility] Comment on above: Performed By: #### L 100.0100, L500.4050 #### [facility] [address] [place], [address] T PROT 7.3 g/dL Normal 6.4-8.2 [facility] Comment on above: Performed By: #### L 100.0100, L500.4050 #### [facility] [address] [place], [address] Urea nitrogen [Mass/Vol] 15 mg/dL Normal 7-18 [facility] Comment on above: Performed By: #### L 100.0100, L500.4050 #### [facility] [address] [place], [address] Absolute lymphocyte countOrd ered By: Antonia Matthews on 07-15-2023 Lymphocytes Auto (Unsp spec) [#/Vol] 1.34 10*3/uL 0.83-4.51 [facility] Automated lymphocyte count a s percentage of total leukocytesOrdered By: Antonia Matthews on 07-15-2023 Lymphocytes/100 WBC Auto (Unsp spec) 29.0 % 19-41 [facility] Basophil percentageOrdered B y: Antonia Matthews on 07-15-2023 Basophils/100 WBC (Bld) 0.9 % 0-1 [facility] Bilirubin [Mass/Vol] 0.50 mg/dL 0.20-1.00 [facility] Comment on above: For patients on eltr ombopag therapy, use of [place] TBIL is not recommended. Chloride [Moles/Vol] 109 mmol/L 98-107 [facility] Eosinophils/100 WBC (Bld) 4.1 % 0-5 [facility] Glucose [Mass/Vol] 123 mg/dL 74-106 [facility] Comment on above: Fasting Glucose resu lt from 100 to 125 mg/dL suggests IMPAIRED HOMEOSTASIS per A.D.A. criteria. Hemoglobin (Bld) [Mass/Vol] 14.7 g/dL 13.0-16.5 [facility] Monocytes/100 WBC (Bld) 8.9 % 0-10 [facility] Neutrophils (Bld) [#/Vol] 2.6 10*3/uL 2.0-7.7 [facility] Neutrophils/100 WBC (Bld) 56.9 % 47-70 [facility] Potassium [Moles/Vol] 3.9 mmol/L 3.5-5.1 [facility] Protein [Mass/Vol] 7.4 g/dL 6.4-8.2 [facility] Sodium [Moles/Vol] 139 mmol/L 136-145 [facility] WBC (Bld) [#/Vol] 4.6 10*3/uL 4.4-11.0 [facility] Determination of erythrocyte mean corpuscular volume (MCV)Ordered By: Antonia Matthews on 07-15-2023 MCV (RBC) [Entitic vol] 94.5 fL 80-94 [facility] Erythrocyte distribution wid th ratioOrdered By: Antonia Matthews on 07-15-2023 Erythrocyte distribution width (RBC) [Ratio] 13.0 % 11.6-14.6 [facility] Erythrocyte distribution wid th standard deviationOrdered By: Antonia Matthews on 07-15-2023 Erythrocyte distribution width (RBC) [Entitic vol] 44.3 fL 35.1-43.9 [facility] Hematocrit Auto (Bld) [Volum e fraction]Ordered By: Antonia Matthews on 07-15-2023 Hematocrit (Bld) [Volume fraction] 44.3 % 40-54 [facility] Immature granulocytes/100 WB C Auto (Bld)Ordered By: Antonia Matthews on 07-15-2023 Immature granulocytes/100 WBC (Bld) 0.200 % 0.0-0.9 [facility] Comment on above: IG% - Immature Granu locytes (promyelocytes, myelocytes and metamyelocytes) > 1% indicates that a LEFT SHIFT is Present. Laboratory - Chemistry and C hemistry - challengeOrdered By: Antonia Matthews on 07-15-2023 Albumin/Globulin [Mass ratio] 1.0 {ratio} 0.9-2.4 [facility] ALP [Catalytic activity/Vol] 52 U/L 45-117 [facility] ALT [Catalytic activity/Vol] 29 U/L 16-61 [facility] CO2 [Moles/Vol] 27.0 mmol/L 21.0-32.0 [facility] Globulin (S) [Mass/Vol] 3.7 g/dL 2.2-4.2 [facility] Urea nitrogen/Creatinine [Mass ratio] 14.5 mg/mg 10-20 [facility] Laboratory - Hematology and Cell countsOrdered By: Antonia Matthews on 07-15-2023 MCH (RBC) [Entitic mass] 31.3 pg 27.0-32.0 [facility] MCHC (RBC) [Mass/Vol] 33.2 g/dL 32-36 [facility] Nucleated RBC/100 WBC (Bld) [Ratio] 0 % 0-5 [facility] Platelet mean volume (Bld) [Entitic vol] 11.0 fL 6.2-12.0 [facility] Platelets (Bld) [#/Vol] 242 10*3/uL 150-450 [facility] No Panel InformationOrdered By: Antonia Matthews on 07-15-2023 Estimated GFR (MDRD) Amer 92 mL/min >60 [facility] Comment on above: GFR Calc Estimated GFR (MDRD) Non-Af Amer 76 mL/min >60 [facility] Comment on above: Non- GFR Calc RBC Auto (Bld) [#/Vol]Ordere d By: Antonia Matthews on 07-15-2023 RBC (Bld) [#/Vol] 4.69 10*6/uL 4.6-6.2 [facility] Serum or plasma calcium freida urement (mass/volume)Ordered By: Antonia Matthews on 07-15-2023 Calcium [Mass/Vol] 9.1 mg/dL 8.5-10.1 [facility] Serum or plasma creatinine m easurement (mass/volume)Ordered By: Antonia Matthews on 07-15-2023 Creatinine [Mass/Vol] 1.10 mg/dL 0.70-1.30 [facility] Comment on above: The validity of the calculated GFR & GFRAA in patients over 70 years has not been determined. Clinical correlation is essential. Serum or plasma urea nitroge n measurement (mass/volume)Ordered By: Antonia Matthews on 07-15-2023 Urea nitrogen [Mass/Vol] 16 mg/dL 7-18 [facility] Thin prep Papanicolaou smear with manual screeningOrdered By: Antonia Matthews on 07-15-2023 Thin prep Papanicolaou smear with manual screening 3.7 g/dL 3.2-5.0 [facility] Thin prep Papanicolaou smear with manual screening 22 U/L 15-37 [facility] Thin prep Papanicolaou smear with manual screening 3 5-15 [facility] XR Hand - left PA and Latera l and Obliqueon 06-09-2023 IMPRESSION: Negative 3 views of the left hand. Dry Drug Worker: INDER Transcribe Date/Time: Jun 09 2023 5:03P Dictated by : JONA PIZANO MD This examination was interpreted and the report reviewed and electronically signed by: JONA PIZANO MD on Jun 09 2023 5:05PM [facility] DIVISION OF RADIOLOGY * * *Final [...] soft tissue swelling. DIVISION OF RADIOLOGY Provider, [facility] [place] - 06/09/2023 * * *Final Report* * [...] Negative 3 views of the left hand. Dry Drug Worker: PSCB Transcribe Date/Time: Jun 09 2023 5:03P Dictated by : JONA PIZANO MD This examination was interpreted and the report reviewed and electronically signed by: JONA PIZANO MD on Jun 09 2023 5:05PM EST [facility] XR Hand - left PA and Latera l and ObliqueOrdered By: [facility] Provider on 06-09-2023 [facility] XR Hand - left PA and Latera l and Obliqueon 06-06-2023 Radiology Study observation (narrative) [facility] Absolute lymphocyte countOrd ered By: Antonia Matthews on 04-11-2023 Lymphocytes Auto (Unsp spec) [#/Vol] 1.35 10*3/uL 0.83-4.51 [facility] Basophil percentageOrdered B y: Antonia Matthwes on 04-11-2023 Basophils/100 WBC (Bld) 1.0 % 0-1 [facility] Bilirubin [Mass/Vol] 0.40 mg/dL 0.20-1.00 [facility] Comment on above: For patients on eltr ombopag therapy, use of [place] TBIL is not recommended. Chloride [Moles/Vol] 108 mmol/L 98-107 [facility] Eosinophils/100 WBC (Bld) 4.6 % 0-5 [facility] Glucose [Mass/Vol] 109 mg/dL 74-106 [facility] Comment on above: Fasting Glucose resu lt from 100 to 125 mg/dL suggests IMPAIRED HOMEOSTASIS per A.D.A. criteria. Neutrophils (Bld) [#/Vol] 2.0 10*3/uL 2.0-7.7 [facility] Neutrophils/100 WBC (Bld) 49.3 % 47-70 [facility] Potassium [Moles/Vol] 4.1 mmol/L 3.5-5.1 [facility] Protein [Mass/Vol] 7.1 g/dL 6.4-8.2 [facility] Sodium [Moles/Vol] 140 mmol/L 136-145 [facility] WBC (Bld) [#/Vol] 4.1 10*3/uL 4.4-11.0 [facility] Blood erythrocytes count (nu mber/volume)Ordered By: Antonia Matthews on 04-11-2023 RBC (Bld) [#/Vol] 4.67 10*6/uL 4.6-6.2 [facility] Blood hemoglobin measurement (mass/volume)Ordered By: Antonia Matthews on 04-11-2023 Hemoglobin (Bld) [Mass/Vol] 14.4 g/dL 13.0-16.5 [facility] Blood lymphocytes/100 leukoc ytesOrdered By: Antonia Matthews on 04-11-2023 Lymphocytes/100 WBC (Bld) 32.9 % 19-41 [facility] Blood monocytes/100 leukocyt esOrdered By: Antonia Matthews on 04-11-2023 Monocytes/100 WBC (Bld) 12.0 % 0-10 [facility] Blood platelet mean volumeOr dered By: Antonia Matthews on 04-11-2023 Platelet mean volume (Bld) [Entitic vol] 10.8 fL 6.2-12.0 [facility] Determination of erythrocyte mean corpuscular volume (MCV)Ordered By: Antonia Matthews on 04-11-2023 MCV (RBC) [Entitic vol] 94.2 fL 80-94 [facility] Hematocrit Auto (Bld) [Volum e fraction]Ordered By: Antonia Matthews on 04-11-2023 Hematocrit (Bld) [Volume fraction] 44.0 % 40-54 [facility] Laboratory - Chemistry and C hemistry - challengeOrdered By: Antoniastanislav Matthews on 04-11-2023 ALP [Catalytic activity/Vol] 53 U/L 45-117 [facility] ALT [Catalytic activity/Vol] 28 U/L 16-61 [facility] CO2 [Moles/Vol] 27.0 mmol/L 21.0-32.0 [facility] Globulin (S) [Mass/Vol] 3.6 g/dL 2.2-4.2 [facility] Urea nitrogen/Creatinine [Mass ratio] 15.9 mg/mg 10-20 [facility] Laboratory - Hematology and Cell countsOrdered By: [facility] Cassie on 04-11-2023 Erythrocyte distribution width (RBC) [Entitic vol] 43.8 fL 35.1-43.9 [facility] Erythrocyte distribution width (RBC) [Ratio] 12.8 % 11.6-14.6 [facility] Immature granulocytes/100 WBC (Bld) 0.200 % 0.0-0.9 [facility] Comment on above: IG% - Immature Granu locytes (promyelocytes, myelocytes and metamyelocytes) > 1% indicates that a LEFT SHIFT is Present. MCH (RBC) [Entitic mass] 30.8 pg 27.0-32.0 [facility] Nucleated RBC/100 WBC (Bld) [Ratio] 0 % 0-5 [facility] MCHC Auto (RBC) [Mass/Vol]Or dered By: Antoniastanislav Matthews on 04-11-2023 MCHC (RBC) [Mass/Vol] 32.7 g/dL 32-36 [facility] No Panel InformationOrdered By: Antoniastanislav Matthews on 04-11-2023 Estimated GFR (MDRD) Amer 89 mL/min >60 [facility] Comment on above: GFR Calc Estimated GFR (MDRD) Non-Af Amer 74 mL/min >60 [facility] Comment on above: Non- GFR Calc Platelets bldOrdered By: Robbie Matthews on 04-11-2023 Platelets (Bld) [#/Vol] 236 10*3/uL 150-450 [facility] Serum or plasma albumin freida urement (mass/volume)Ordered By: Antonia Matthews on 04-11-2023 Albumin [Mass/Vol] 3.5 g/dL 3.2-5.0 [facility] Serum or plasma albumin/glob ulin mass ratioOrdered By: Antonia Matthews on 04-11-2023 Albumin/Globulin [Mass ratio] 1.0 {ratio} 0.9-2.4 [facility] Serum or plasma calcium freida urement (mass/volume)Ordered By: Antonia Matthews on 04-11-2023 Calcium [Mass/Vol] 8.9 mg/dL 8.5-10.1 [facility] Serum or plasma creatinine m easurement (mass/volume)Ordered By: Antonia Matthews on 04-11-2023 Creatinine [Mass/Vol] 1.13 mg/dL 0.70-1.30 [facility] Comment on above: The validity of the calculated GFR & GFRAA in patients over 70 years has not been determined. Clinical correlation is essential. Serum or plasma urea nitroge n measurement (mass/volume)Ordered By: Antonia Matthews on 04-11-2023 Urea nitrogen [Mass/Vol] 18 mg/dL 7-18 [facility] Thin prep Papanicolaou smear with manual screeningOrdered By: Antonia Matthews on 04-11-2023 Thin prep Papanicolaou smear with manual screening 24 U/L 15-37 [facility] Thin prep Papanicolaou smear with manual screening 5 5-15 [facility] Absolute lymphocyte countOrd ered By: Antonia Matthews on 01-17-2023 Lymphocytes Auto (Unsp spec) [#/Vol] 1.02 10*3/uL 0.83-4.51 [facility] Basophil percentageOrdered B y: Antonia Matthews on 01-17-2023 Basophils/100 WBC (Bld) 0.8 % 0-1 [facility] Bilirubin [Mass/Vol] 0.30 mg/dL 0.20-1.00 [facility] Comment on above: For patients on eltr ombopag therapy, use of [place] TBIL is not recommended. Chloride [Moles/Vol] 106 mmol/L 98-107 [facility] Eosinophils/100 WBC (Bld) 6.1 % 0-5 [facility] Glucose [Mass/Vol] 114 mg/dL 74-106 [facility] Comment on above: Fasting Glucose resu lt from 100 to 125 mg/dL suggests IMPAIRED HOMEOSTASIS per A.D.A. criteria. Neutrophils (Bld) [#/Vol] 2.2 10*3/uL 2.0-7.7 [facility] Neutrophils/100 WBC (Bld) 54.8 % 47-70 [facility] Potassium [Moles/Vol] 4.1 mmol/L 3.5-5.1 [facility] Protein [Mass/Vol] 7.3 g/dL 6.4-8.2 [facility] Sodium [Moles/Vol] 141 mmol/L 136-145 [facility] WBC (Bld) [#/Vol] 3.9 10*3/uL 4.4-11.0 [facility] Blood erythrocytes count (nu mber/volume)Ordered By: Antonia Matthews on 01-17-2023 RBC (Bld) [#/Vol] 4.64 10*6/uL 4.6-6.2 [facility] Blood hemoglobin measurement (mass/volume)Ordered By: Antonia Matthews on 01-17-2023 Hemoglobin (Bld) [Mass/Vol] 14.4 g/dL 13.0-16.5 [facility] Blood lymphocytes/100 leukoc ytesOrdered By: Antonia Matthews on 01-17-2023 Lymphocytes/100 WBC (Bld) 26.0 % 19-41 [facility] Blood monocytes/100 leukocyt esOrdered By: Antonia Matthews on 01-17-2023 Monocytes/100 WBC (Bld) 12.0 % 0-10 [place] Blood platelet mean volumeOr dered By: Antonia Matthews on 01-17-2023 Platelet mean volume (Bld) [Entitic vol] 10.8 fL 6.2-12.0 [facility] Determination of erythrocyte mean corpuscular volume (MCV)Ordered By: Antonia Matthews on 01-17-2023 MCV (RBC) [Entitic vol] 96.8 fL 80-94 [facility] Hematocrit Auto (Bld) [Volum e fraction]Ordered By: Antonia Matthews on 01-17-2023 Hematocrit (Bld) [Volume fraction] 44.9 % 40-54 [facility] Laboratory - Chemistry and C hemistry - challengeOrdered By: Antoniastanislav Matthews on 01-17-2023 ALP [Catalytic activity/Vol] 45 U/L 45-117 [facility] ALT [Catalytic activity/Vol] 23 U/L 16-61 [facility] CO2 [Moles/Vol] 30.0 mmol/L 21.0-32.0 [facility] Globulin (S) [Mass/Vol] 3.6 g/dL 2.2-4.2 [facility] Urea nitrogen/Creatinine [Mass ratio] 11.4 mg/mg 10-20 [facility] Laboratory - Hematology and Cell countsOrdered By: Antoniastanislav Matthews on 01-17-2023 Erythrocyte distribution width (RBC) [Entitic vol] 45.4 fL 35.1-43.9 [facility] Erythrocyte distribution width (RBC) [Ratio] 12.9 % 11.6-14.6 [facility] Immature granulocytes/100 WBC (Bld) 0.300 % 0.0-0.9 [facility] Comment on above: IG% - Immature Granu locytes (promyelocytes, myelocytes and metamyelocytes) > 1% indicates that a LEFT SHIFT is Present. MCH (RBC) [Entitic mass] 31.0 pg 27.0-32.0 [facility] Nucleated RBC/100 WBC (Bld) [Ratio] 0 % 0-5 [facility] MCHC Auto (RBC) [Mass/Vol]Or dered By: Antonia Matthews on 01-17-2023 MCHC (RBC) [Mass/Vol] 32.1 g/dL 32-36 [facility] No Panel InformationOrdered By: Antoniastanislav Matthews on 01-17-2023 Estimated GFR (MDRD) Amer 97 mL/min >60 [facility] Comment on above: GFR Calc Estimated GFR (MDRD) Non-Af Amer 80 mL/min >60 [facility] Comment on above: Non- GFR Calc Platelets bldOrdered By: Robbie Matthews on 01-17-2023 Platelets (Bld) [#/Vol] 233 10*3/uL 150-450 [facility] Serum or plasma albumin freida urement (mass/volume)Ordered By: Antonia Matthews on 01-17-2023 Albumin [Mass/Vol] 3.7 g/dL 3.2-5.0 [facility] Serum or plasma albumin/glob ulin mass ratioOrdered By: Antonia Matthews on 01-17-2023 Albumin/Globulin [Mass ratio] 1.0 {ratio} 0.9-2.4 [facility] Serum or plasma calcium freida urement (mass/volume)Ordered By: Antonia Matthews on 01-17-2023 Calcium [Mass/Vol] 9.2 mg/dL 8.5-10.1 [facility] Serum or plasma creatinine m easurement (mass/volume)Ordered By: Antonia Matthews on 01-17-2023 Creatinine [Mass/Vol] 1.05 mg/dL 0.70-1.30 [facility] Comment on above: The validity of the calculated GFR & GFRAA in patients over 70 years has not been determined. Clinical correlation is essential. Serum or plasma urea nitroge n measurement (mass/volume)Ordered By: Antonia Matthews on 01-17-2023 Urea nitrogen [Mass/Vol] 12 mg/dL 7-18 [facility] Thin prep Papanicolaou smear with manual screeningOrdered By: Antonia Matthews on 01-17-2023 Thin prep Papanicolaou smear with manual screening 21 U/L 15-37 [facility] Thin prep Papanicolaou smear with manual screening 5 5-15 [facility] Absolute lymphocyte countOrd ered By: Dr. Matthews on 11-08-2022 Lymphocytes Auto (Unsp spec) [#/Vol] 1.61 10*3/uL 0.83-4.51 [facility] Basophil percentageOrdered B y: Dr. Matthews on 11-08-2022 Basophils/100 WBC (Bld) 0.7 % 0-1 [facility] Bilirubin [Mass/Vol] 0.60 mg/dL 0.20-1.00 [facility] Comment on above: For patients on eltr ombopag therapy, use of [place] TBIL is not recommended. Chloride [Moles/Vol] 108 mmol/L 98-107 [facility] Eosinophils/100 WBC (Bld) 5.3 % 0-5 [facility] Glucose [Mass/Vol] 88 mg/dL 74-106 [facility] Neutrophils (Bld) [#/Vol] 3.1 10*3/uL 2.0-7.7 [facility] Neutrophils/100 WBC (Bld) 55.9 % 47-70 [facility] Potassium [Moles/Vol] 4.1 mmol/L 3.5-5.1 [facility] Protein [Mass/Vol] 7.3 g/dL 6.4-8.2 [facility] Sodium [Moles/Vol] 142 mmol/L 136-145 [facility] WBC (Bld) [#/Vol] 5.5 10*3/uL 4.4-11.0 [facility] Blood erythrocytes count (nu mber/volume)Ordered By: Dr. Matthews on 11-08-2022 RBC (Bld) [#/Vol] 4.74 10*6/uL 4.6-6.2 [facility] Blood hemoglobin measurement (mass/volume)Ordered By: Dr. Matthews on 11-08-2022 Hemoglobin (Bld) [Mass/Vol] 14.6 g/dL 13.0-16.5 [facility] Blood lymphocytes/100 leukoc ytesOrdered By: Dr. Matthews on 11-08-2022 Lymphocytes/100 WBC (Bld) 29.3 % 19-41 [facility] Blood monocytes/100 leukocyt esOrdered By: Dr. Matthews on 11-08-2022 Monocytes/100 WBC (Bld) 8.6 % 0-10 [facility] Blood platelet mean volumeOr dered By: Dr. Matthews on 11-08-2022 Platelet mean volume (Bld) [Entitic vol] 10.2 fL 6.2-12.0 [facility] Determination of erythrocyte mean corpuscular volume (MCV)Ordered By: Dr. Matthews on 11-08-2022 MCV (RBC) [Entitic vol] 92.8 fL 80-94 [facility] Hematocrit Auto (Bld) [Volum e fraction]Ordered By: Dr. Matthews on 11-08-2022 Hematocrit (Bld) [Volume fraction] 44.0 % 40-54 [facility] Laboratory - Chemistry and C hemistry - challengeOrdered By: Dr. Matthews on 11-08-2022 ALP [Catalytic activity/Vol] 48 U/L 45-117 [facility] ALT [Catalytic activity/Vol] 23 U/L 16-61 [facility] CO2 [Moles/Vol] 25.0 mmol/L 21.0-32.0 [facility] Globulin (S) [Mass/Vol] 3.5 g/dL 2.2-4.2 [facility] Urea nitrogen/Creatinine [Mass ratio] 18.6 mg/mg 10-20 [facility] Laboratory - Hematology and Cell countsOrdered By: Dr. Matthews on 11-08-2022 Erythrocyte distribution width (RBC) [Entitic vol] 44.6 fL 35.1-43.9 [facility] Erythrocyte distribution width (RBC) [Ratio] 13.3 % 11.6-14.6 [facility] Immature granulocytes/100 WBC (Bld) 0.200 % 0.0-0.9 [facility] Comment on above: IG% - Immature Granu locytes (promyelocytes, myelocytes and metamyelocytes) > 1% indicates that a LEFT SHIFT is Present. MCH (RBC) [Entitic mass] 30.8 pg 27.0-32.0 [facility] Nucleated RBC/100 WBC (Bld) [Ratio] 0 % 0-5 [facility] MCHC Auto (RBC) [Mass/Vol]Or dered By: Dr. Matthews on 11-08-2022 MCHC (RBC) [Mass/Vol] 33.2 g/dL 32-36 [facility] No Panel InformationOrdered By: Dr. Matthews on 11-08-2022 Estimated GFR (MDRD) Amer 100 mL/min >60 [facility] Comment on above: GFR Calc Estimated GFR (MDRD) Non-Af Amer 83 mL/min >60 [facility] Comment on above: Non- GFR Calc Platelets bldOrdered By: Dr. Mtathews on 11-08-2022 Platelets (Bld) [#/Vol] 280 10*3/uL 150-450 [facility] Serum or plasma albumin freida urement (mass/volume)Ordered By: Dr. Matthews on 11-08-2022 Albumin [Mass/Vol] 3.8 g/dL 3.2-5.0 [facility] Serum or plasma albumin/glob ulin mass ratioOrdered By: Dr. Matthews on 11-08-2022 Albumin/Globulin [Mass ratio] 1.1 {ratio} 0.9-2.4 [facility] Serum or plasma calcium freida urement (mass/volume)Ordered By: Dr. Matthews on 11-08-2022 Calcium [Mass/Vol] 8.9 mg/dL 8.5-10.1 [facility] Serum or plasma creatinine m easurement (mass/volume)Ordered By: Dr. Matthews on 11-08-2022 Creatinine [Mass/Vol] 1.02 mg/dL 0.70-1.30 [facility] Comment on above: The validity of the calculated GFR & GFRAA in patients over 70 years has not been determined. Clinical correlation is essential. Serum or plasma urea nitroge n measurement (mass/volume)Ordered By: Dr. Matthews on 11-08-2022 Urea nitrogen [Mass/Vol] 19 mg/dL 7-18 [facility] Thin prep Papanicolaou smear with manual screeningOrdered By: Dr. Matthews on 11-08-2022 Thin prep Papanicolaou smear with manual screening 23 U/L 15-37 [facility] Thin prep Papanicolaou smear with manual screening 9 5-15 [facility] Absolute lymphocyte countOrd ered By: Dr. Matthews on 09-24-2022 Lymphocytes Auto (Unsp spec) [#/Vol] 1.27 10*3/uL 0.83-4.51 [facility] Basophil percentageOrdered B y: Dr. Matthews on 09-24-2022 Basophils/100 WBC (Bld) 0.7 % 0-1 [facility] Bilirubin [Mass/Vol] 0.40 mg/dL 0.20-1.00 [facility] Comment on above: For patients on eltr ombopag therapy, use of [place] TBIL is not recommended. Chloride [Moles/Vol] 107 mmol/L 98-107 [facility] Eosinophils/100 WBC (Bld) 6.6 % 0-5 [facility] Glucose [Mass/Vol] 92 mg/dL 74-106 [facility] Neutrophils (Bld) [#/Vol] 2.5 10*3/uL 2.0-7.7 [facility] Neutrophils/100 WBC (Bld) 55.4 % 47-70 [facility] Potassium [Moles/Vol] 4.6 mmol/L 3.5-5.1 [facility] Protein [Mass/Vol] 7.7 g/dL 6.4-8.2 [facility] Sodium [Moles/Vol] 136 mmol/L 136-145 [facility] WBC (Bld) [#/Vol] 4.4 10*3/uL 4.4-11.0 [facility] Blood erythrocytes count (nu mber/volume)Ordered By: Dr. Matthews on 09-24-2022 RBC (Bld) [#/Vol] 4.98 10*6/uL 4.6-6.2 [facility] Blood hemoglobin measurement (mass/volume)Ordered By: Dr. Matthews on 09-24-2022 Hemoglobin (Bld) [Mass/Vol] 15.1 g/dL 13.0-16.5 [facility] Blood lymphocytes/100 leukoc ytesOrdered By: Dr. Matthews on 09-24-2022 Lymphocytes/100 WBC (Bld) 28.7 % 19-41 [facility] Blood monocytes/100 leukocyt esOrdered By: Dr. Matthews on 09-24-2022 Monocytes/100 WBC (Bld) 8.4 % 0-10 [facility] Blood platelet mean volumeOr dered By: Dr. Matthews on 09-24-2022 Platelet mean volume (Bld) [Entitic vol] 10.5 fL 6.2-12.0 [facility] Determination of erythrocyte mean corpuscular volume (MCV)Ordered By: Dr. Matthews on 09-24-2022 MCV (RBC) [Entitic vol] 92.6 fL 80-94 [facility] Hematocrit Auto (Bld) [Volum e fraction]Ordered By: Dr. Matthews on 09-24-2022 Hematocrit (Bld) [Volume fraction] 46.1 % 40-54 [facility] Laboratory - Chemistry and C hemistry - challengeOrdered By: Dr. Matthews on 09-24-2022 ALP [Catalytic activity/Vol] 50 U/L 45-117 [facility] ALT [Catalytic activity/Vol] 32 U/L 16-61 [facility] CO2 [Moles/Vol] 28.0 mmol/L 21.0-32.0 [facility] Globulin (S) [Mass/Vol] 3.9 g/dL 2.2-4.2 [facility] Urea nitrogen/Creatinine [Mass ratio] 10.1 mg/mg 10-20 [facility] Laboratory - Hematology and Cell countsOrdered By: Dr. Matthews on 09-24-2022 Erythrocyte distribution width (RBC) [Entitic vol] 43.5 fL 35.1-43.9 [facility] Erythrocyte distribution width (RBC) [Ratio] 12.9 % 11.6-14.6 [facility] Immature granulocytes/100 WBC (Bld) 0.200 % 0.0-0.9 [facility] Comment on above: IG% - Immature Granu locytes (promyelocytes, myelocytes and metamyelocytes) > 1% indicates that a LEFT SHIFT is Present. MCH (RBC) [Entitic mass] 30.3 pg 27.0-32.0 [facility] Nucleated RBC/100 WBC (Bld) [Ratio] 0 % 0-5 [facility] MCHC Auto (RBC) [Mass/Vol]Or dered By: Dr. Matthews on 09-24-2022 MCHC (RBC) [Mass/Vol] 32.8 g/dL 32-36 [facility] No Panel InformationOrdered By: Dr. Matthews on 09-24-2022 Estimated GFR (MDRD) Amer 93 mL/min >60 [facility] Comment on above: GFR Calc Estimated GFR (MDRD) Non-Af Amer 77 mL/min >60 [facility] Comment on above: Non- GFR Calc Platelets bldOrdered By: Dr. Matthews on 09-24-2022 Platelets (Bld) [#/Vol] 238 10*3/uL 150-450 [facility] Serum or plasma albumin freida urement (mass/volume)Ordered By: Dr. Matthews on 09-24-2022 Albumin [Mass/Vol] 3.8 g/dL 3.2-5.0 [facility] Serum or plasma albumin/glob ulin mass ratioOrdered By: Dr. Matthews on 09-24-2022 Albumin/Globulin [Mass ratio] 1.0 {ratio} 0.9-2.4 [facility] Serum or plasma calcium freida urement (mass/volume)Ordered By: Dr. Matthews on 09-24-2022 Calcium [Mass/Vol] 9.3 mg/dL 8.5-10.1 [facility] Serum or plasma creatinine m easurement (mass/volume)Ordered By: Dr. Matthews on 09-24-2022 Creatinine [Mass/Vol] 1.09 mg/dL 0.70-1.30 [facility] Comment on above: The validity of the calculated GFR & GFRAA in patients over 70 years has not been determined. Clinical correlation is essential. Serum or plasma urea nitroge n measurement (mass/volume)Ordered By: Dr. Matthews on 09-24-2022 Urea nitrogen [Mass/Vol] 11 mg/dL 7-18 [facility] Thin prep Papanicolaou smear with manual screeningOrdered By: Dr. Matthews on 09-24-2022 Thin prep Papanicolaou smear with manual screening 25 U/L 15-37 [facility] Thin prep Papanicolaou smear with manual screening 1 5-15 [facility] Absolute lymphocyte countOrd ered By: Dr. Matthews on 07-08-2022 Lymphocytes Auto (Unsp spec) [#/Vol] 1.34 10*3/uL 0.83-4.51 [facility] Basophil percentageOrdered B y: Dr. Matthews on 07-08-2022 Basophils/100 WBC (Bld) 0.9 % 0-1 [facility] Bilirubin [Mass/Vol] 0.20 mg/dL 0.20-1.00 [facility] Comment on above: For patients on eltr ombopag therapy, use of [place] TBIL is not recommended. Chloride [Moles/Vol] 111 mmol/L 98-107 [facility] Eosinophils/100 WBC (Bld) 4.3 % 0-5 [facility] Glucose [Mass/Vol] 103 mg/dL 74-106 [facility] Comment on above: Fasting Glucose resu lt from 100 to 125 mg/dL suggests IMPAIRED HOMEOSTASIS per A.D.A. criteria. Neutrophils (Bld) [#/Vol] 2.7 10*3/uL 2.0-7.7 [facility] Neutrophils/100 WBC (Bld) 56.8 % 47-70 [facility] Potassium [Moles/Vol] 3.8 mmol/L 3.5-5.1 [facility] Protein [Mass/Vol] 7.7 g/dL 6.4-8.2 [facility] Sodium [Moles/Vol] 141 mmol/L 136-145 [facility] WBC (Bld) [#/Vol] 4.7 10*3/uL 4.4-11.0 [facility] Blood erythrocytes count (nu mber/volume)Ordered By: Dr. Matthews on 07-08-2022 RBC (Bld) [#/Vol] 4.84 10*6/uL 4.6-6.2 [facility] Blood hemoglobin measurement (mass/volume)Ordered By: Dr. Matthews on 07-08-2022 Hemoglobin (Bld) [Mass/Vol] 14.7 g/dL 13.0-16.5 [facility] Blood lymphocytes/100 leukoc ytesOrdered By: Dr. Matthews on 07-08-2022 Lymphocytes/100 WBC (Bld) 28.6 % 19-41 [facility] Blood monocytes/100 leukocyt esOrdered By: Dr. Matthews on 07-08-2022 Monocytes/100 WBC (Bld) 9.2 % 0-10 [facility] Blood platelet mean volumeOr dered By: Dr. Matthews on 07-08-2022 Platelet mean volume (Bld) [Entitic vol] 11.1 fL 6.2-12.0 [facility] Determination of erythrocyte mean corpuscular volume (MCV)Ordered By: Dr. Matthews on 07-08-2022 MCV (RBC) [Entitic vol] 92.8 fL 80-94 [facility] Erythrocyte sedimentation ra teOrdered By: Dr. Matthews on 07-08-2022 ESR (Bld) [Velocity] 3 mm/h 0-20 [facility] Hematocrit Auto (Bld) [Volum e fraction]Ordered By: Dr. Matthews on 07-08-2022 Hematocrit (Bld) [Volume fraction] 44.9 % 40-54 [facility] Laboratory - Chemistry and C hemistry - challengeOrdered By: Dr. Matthews on 07-08-2022 ALP [Catalytic activity/Vol] 48 U/L 45-117 [facility] ALT [Catalytic activity/Vol] 24 U/L 16-61 [facility] CO2 [Moles/Vol] 27.0 mmol/L 21.0-32.0 [facility] Globulin (S) [Mass/Vol] 3.9 g/dL 2.2-4.2 [facility] Urea nitrogen/Creatinine [Mass ratio] 19.8 mg/mg 10-20 [facility] Laboratory - Hematology and Cell countsOrdered By: Dr. Matthews on 07-08-2022 Erythrocyte distribution width (RBC) [Entitic vol] 41.9 fL 35.1-43.9 [facility] Erythrocyte distribution width (RBC) [Ratio] 12.2 % 11.6-14.6 [facility] Immature granulocytes/100 WBC (Bld) 0.200 % 0.0-0.9 [facility] Comment on above: IG% - Immature Granu locytes (promyelocytes, myelocytes and metamyelocytes) > 1% indicates that a LEFT SHIFT is Present. MCH (RBC) [Entitic mass] 30.4 pg 27.0-32.0 [facility] Nucleated RBC/100 WBC (Bld) [Ratio] 0 % 0-5 [facility] MCHC Auto (RBC) [Mass/Vol]Or dered By: Dr. Matthews on 07-08-2022 MCHC (RBC) [Mass/Vol] 32.7 g/dL 32-36 [facility] No Panel InformationOrdered By: Dr. Matthews on 07-08-2022 Anti-Nuclear Antibody Screen Negative Negative [facility] Comment on above: Performed at: [employer] [facility] [address] [id number] Director: Marcelo Vee PhD, Phone: [phone] Estimated GFR (MDRD) Amer 107 mL/min >60 [facility] Comment on above: GFR Calc Estimated GFR (MDRD) Non-Af Amer 89 mL/min >60 [facility] Comment on above: Non- GFR Calc Hepatitis B Surface Antigen Non-Reactive Nonreactive [facility] Hepatitis C Antibody Non-Reactive Nonreactive [place] Comment on above: Non Reactive: < 0.8 Equivocal: >/= 0.8 to < 1.0 Reactive: >/= 1.0The CDC recommends that a reactive/equivocal HCV antibody result be followed up by the HCV Nucleic Acid Amplificationtest ([id number]) Platelets bldOrdered By: Dr. Matthews on 07-08-2022 Platelets (Bld) [#/Vol] 227 10*3/uL 150-450 [facility] Serum cyclic citrullinated p eptide IgG antibody assay (units/volume)Ordered By: Dr. Matthews on 07-08-2022 Cyclic citrullinated peptide IgG Qn 0 units 0-19 [facility] Comment on above: Negative <20 Weak po sitive 20 - 39 Moderate positive 40 - 59 Strong positive >59Performed at: [employer] [facility] [address] [id number] Director: Marcelo Vee PhD, Phone: [phone] Serum hepatitis B virus surf donnell antibody IgG detectionOrdered By: Dr. Matthews on 07-08-2022 HBV surface IgG Ql (S) Non-Reactive [facility] Comment on above: Non Reactive: Incons istent with immunity less than <10 mIU/mL Reactive: Consistent with immunity greater than or equal to 10 mIU/mL Serum or plasma C reactive p rotein measurement (mass/volume)Ordered By: Dr. Matthews on 07-08-2022 CRP [Mass/Vol] mg/L 0.0-3.0 [facility] Comment on above: C-Reactive Protein ( CRP) provides useful information for thediagnosis, therapy and monitoring of inflammatory processesand associated diseases. For the evaluation of Relative Riskfor Cardiovascular Disease, a High Sensitivity CRP (HSCRP)should be ordered. Serum or plasma albumin freida urement (mass/volume)Ordered By: Dr. Matthews on 07-08-2022 Albumin [Mass/Vol] 3.8 g/dL 3.2-5.0 [facility] Serum or plasma albumin/glob ulin mass ratioOrdered By: Dr. Matthews on 07-08-2022 Albumin/Globulin [Mass ratio] 1.0 {ratio} 0.9-2.4 [facility] Serum or plasma calcium freida urement (mass/volume)Ordered By: Dr. Matthews on 07-08-2022 Calcium [Mass/Vol] 9.1 mg/dL 8.5-10.1 [facility] Serum or plasma creatinine m easurement (mass/volume)Ordered By: Dr. Matthews on 07-08-2022 Creatinine [Mass/Vol] 0.96 mg/dL 0.70-1.30 [facility] Comment on above: The validity of the calculated GFR & GFRAA in patients over 70 years has not been determined. Clinical correlation is essential. Serum or plasma urea nitroge n measurement (mass/volume)Ordered By: Dr. Matthews on 07-08-2022 Urea nitrogen [Mass/Vol] 19 mg/dL 7-18 [facility] Serum rheumatoid factor dete ctionOrdered By: Dr. Matthews on 07-08-2022 Rheumatoid factor Ql (S) < 10.0 IU/mL <15 [facility] Thin prep Papanicolaou smear with manual screeningOrdered By: Dr. Matthews on 07-08-2022 Thin prep Papanicolaou smear with manual screening 19 U/L 15-37 [facility] Thin prep Papanicolaou smear with manual screening 3 5-15 [facility] Vital Signs Date Time Vital Sign Value Performing Clinician Faci lity 10-28-2024 08:01-0400 Body height 188 cm Zaid Philippe MD Work Phone: [facility] 10-28-2024 08:01-0400 Body mass index (BMI) [Ratio] 22.28 kg/m2 Zaid Philippe MD Work Phone: [facility] 10-28-2024 08:01-0400 Body weight 78.7 kg Zaid Philippe MD Work Phone: [facility] 10-28-2024 08:01-0400 Diastolic blood pressure 74 mm[Hg] Zaid Philippe MD Work Phone: [facility] 10-28-2024 08:01-0400 Heart rate 56 /min Zaid Philippe MD Work Phone: [facility] 10-28-2024 08:01-0400 Respiratory rate 16 /min Zaid Philippe MD Work Phone: [facility] 10-28-2024 08:01-0400 Systolic blood pressure 118 mm[Hg] Zaid Philippe MD Work Phone: [facility] 10-28-2023 08:00-0400 Body height 188.6 cm Zaid Philippe MD Work Phone: [facility] 10-28-2023 08:00-0400 Body mass index (BMI) [Ratio] 22.83 kg/m2 Zaid Philippe MD Work Phone: [facility] 10-28-2023 08:00-0400 Body weight 81.19 kg Zaid Philippe MD Work Phone: [facility] 10-28-2023 08:00-0400 Diastolic blood pressure 72 mm[Hg] Zaid Philippe MD Work Phone: [facility] 10-28-2023 08:00-0400 Heart rate 60 /min Zaid Philippe MD Work Phone: [facility] 10-28-2023 08:00-0400 Respiratory rate 16 /min Zaid Philippe MD Work Phone: [facility] 10-28-2023 08:00-0400 Systolic blood pressure 116 mm[Hg] Zaid Philippe MD Work Phone: [facility] 10-25-2022 07:57-0400 Body height 188.6 cm Inge Zarco BURLAPPER.TOOL CRIB CLERK Work Phone: [facility] 10-25-2022 07:57-0400 Body weight 75.75 kg Inge Zarco BURLAPPER.TOOL CRIB CLERK Work Phone: [facility] 10-25-2022 07:57-0400 Diastolic blood pressure 72 mm[Hg] Inge Zarco BURLAPPER.TOOL CRIB CLERK Work Phone: [facility] 10-25-2022 07:57-0400 Heart rate 72 /min Inge Zarco BURLAPPER.TOOL CRIB CLERK Work Phone: [facility] 10-25-2022 07:57-0400 Respiratory rate 16 /min Inge Zarco BURLAPPER.TOOL CRIB CLERK Work Phone: [facility] 10-25-2022 07:57-0400 Systolic blood pressure 110 mm[Hg] Inge Zarco BURLAPPER.TOOL CRIB CLERK Work Phone: [facility] Encounters Encounter Date Encounter Type Care Provider Facility Start: 11-18-2024 End: 11-24-2024 Telephone encounter Zaid Philippe MD Work Phone: [facility] Comment on above: Results Start: 11-18-2024 End: 11-18-[address] Zaid Phiilppe MD Work Phone: -[facility] Start: 11-18-2024 End: 11-18-[address] Zaid Philippe MD -[facility] [place] Work Phone: Start: 11-18-2024 End: 11-18-2024 ambulatory Zaid Philippe Facility:[facility] Start: 11-13-2024 End: 11-13-2024 Follow-up encounter Zaid Philippe MD Work Phone: [facility] Start: 11-01-2024 End: 11-01-2024 Patient encounter procedure Zaid Philippe MD Work Phone: [facility] Comment on above: Need for vaccination (Primary Dx) Start: 11-01-2024 End: 11-01-2024 ambulatory ZAID PHILIPPE Facility:[facility] Start: 10-28-2024 End: 10-28-2024 Patient encounter procedure Zaid Philippe MD Work Phone: [facility] Comment on above: Wellness examination (Primary Dx); Screening for depression; Encounter for screening examination for other mental health and behavioral disorders; Special screening for malignant neoplasms, colon; Need for vaccination; Psoriatic arthritis (HCC); Psoriasis and similar disorders; Screening for lipid disorders Start: 10-28-2024 End: 10-28-2024 Patient encounter status Zaid Philippe MD Work Phone: [facility] Start: 10-28-2024 End: 10-28-2024 ambulatory ZAID PHILIPPE Facility:[facility] Start: 10-28-2024 Encounter for genera l adult medical examination without abnormal findings ZAID PHILIPPE [facility] Start: 10-25-2024 End: 10-25-2024 ambulatory ZAID PHILIPPE Facility:[facility] Start: 10-25-2024 End: 10-25-2024 Telemedicine consultation with patient Stephen Cabello WARNER Work Phone: Telemedicine Comment on above: Encounter [...] ambulatory Dr. Zaid Philippe MD Work Phone: [facility] Work Phone: Start: 08-27-2024 End: 08-27-[address] Antonia Matthews MD -Laboratory, [place] Work Phone: Start: 08-27-2024 End: 08-27-2024 ambulatory Zaid Philippe Facility:[facility] Start: 06-07-2024 End: 06-07-[address] Antonia Matthews MD -Laboratory, [place] Work Phone: Start: 06-07-2024 End: 06-07-2024 ambulatory [facility] Facility:[facility] Start: 03-29-2024 End: 03-29-2024 Nursing evaluation of patient and report Mi Nurse Work Phone: [facility] Comment on above: Encounter for immuni zation (Primary Dx) Start: 03-29-2024 End: 03-29-2024 ambulatory ZAID PHILIPPE Facility:[facility] Start: 03-19-2024 End: 03-19-2024 ambulatory [facility] Facility:[facility] Start: 03-17-2024 End: 03-17-2024 [facility] Start: 01-04-2024 End: 01-04-2024 Emergency department patient visit Zaid Philippe Facility:[facility] Start: 12-30-2023 End: 12-30-2023 ambulatory [facility] Facility:[facility] Start: 11-26-2023 End: 11-26-2023 Patient encounter procedure Marylin Buckley APRN.CNP Work Phone: [facility] Comment on above: Need for vaccination (Primary Dx) Start: 11-13-2023 ambulatory Zaid huynh MD Work Phone: [facility] Start: 11-13-2023 Patient encounter procedure Zaid Philippe MD Work Phone: [facility] Comment on above: Consult Appointment Start: 10-28-2023 End: 10-28-2023 Patient encounter procedure Zaid Philippe MD Work Phone: [facility] Comment on above: Routine medical exam (Primary Dx); Irritable bowel syndrome with both constipation and diarrhea; Psoriatic arthritis (HCC); Need for vaccination Start: 10-28-2023 End: 10-28-2023 Patient encounter status Zaid Philippe MD Work Phone: [facility] Work Phone: Start: 07-15-2023 End: 07-15-2023 ambulatory [facility] Work Phone: Start: 07-15-2023 End: 07-15-2023 Patient encounter procedure [facility] Work Phone: Start: 06-06-2023 End: 06-06-2023 Subsequent hospital visit by physician [facility] Work Phone: Radiology Comment on above: Left hand pain [M79. 642] Start: 04-11-2023 End: 04-11-2023 Patient encounter procedure [facility] Work Phone: Start: 01-17-2023 End: 01-17-2023 ambulatory [facility] Work Phone: Start: 01-17-2023 End: 01-17-2023 Patient encounter procedure [facility] Work Phone: Start: 11-08-2022 End: 11-08-2022 ambulatory [facility] Work Phone: Start: 11-08-2022 End: 11-08-2022 Patient encounter procedure [facility] Start: 10-25-2022 End: 10-25-2022 [facility] Work [facility]: [facility] Comment on above: Routine medical exam (Primary Dx); Encounter for immunization; Special screening examination for viral disease; Screening for HIV (human immunodeficiency virus); Screening for diabetes mellitus (DM); Psoriasis and similar disorders Start: 10-25-2022 End: 10-25-2022 Patient encounter status Inge Zarco APRN.TOOL CRIB CLERK Work Phone: [facility] Start: 09-24-2022 End: 09-24-2022 Patient encounter procedure [facility] Start: 08-23-2022 Telephone encounter Zaid avila MD Work Phone: [facility] Comment on above: + covid home test Start: 07-08-2022 End: 07-08-2022 ambulatory [facility] Work Phone: Start: 07-08-2022 End: 07-08-2022 Patient encounter procedure [facility] Procedures Date Procedure Procedure Detail Performing Clinician Start: 10-28-2024 Adult depression screening assessment Zaid Philippe MD Work Phone: Start: 10-28-2023 Adult depression screening assessment Xr [facility] Work Phone: Start: 06-06-2023 Radex hand minimum 3 views Inge Zarco APRN.TOOL CRIB CLERK Work Phone: Start: 07-08-2022 Pelvis X-ray Start: 05-14-2019 Lipid 1996 panel - S iliana or Plasma Zaid Philippe MD Work Phone: Plan of Treatment Date Care Activity Detail Author Start: 01-03-2034 Urine microalbumin profile DTaP,Tdap,Td Vaccine (4 - Td or Tdap) [facility] Start: 05-13-2029 Urine microalbumin profile [facility] Start: 11-10-2027 Screening for malign ant neoplasm of colon [facility] Start: 11-01-2025 End: 11-01-2025 Patient encounter procedure 11/01/2025 8:00 AM EDT Office Visit [facility] [address] [place] [address] Zaid Philippe MD [address] [place], [place] [id number] Yearly [facility] Comment on above: Yearly Start: 10-28-2025 Anxiety Screening Anxiety Screening [facility] Start: 10-28-2025 Depression Screening Depression Scre ing [facility] Start: 09-25-2025 [facility]AB[facility] Start: 09-25-2025 Diabetes Screening Diabetes Screenin g [facility] Start: 01-24-2025 Influenza vaccination Influenza Vacc ine (#1) [facility] Start: 11-02-2024 Pneumococcal vaccination PNEUMOCOCCAL VACCINE, 20 VALENT (PREVNAR 20) Immunization/Injection Routine Need for vaccination Expected: 11/02/2024 [facility] Work Phone: Comment on above: Expected: 11/02/2024 Start: 11-01-2024 End: 11-01-2024 Patient encounter procedure 11/01/2024 6:20 PM EDT Office Visit [facility] [address] [facility] [place], [place] [id number] Zaid Philippe MD [address] [place], [place] [id number] Pneumovax 20 [facility] Comment on above: Pneumovax 20 Start: 11-01-2024 End: 01-31-2025 Lipid 1996 panel - Serum or Plasma LIPID PANEL, FASTING Lab Routine Screening for lipid disorders Expected: 11/01/2024, Expires: 01/31/2025 [facility] Comment on above: Expected: 11/01/2024 , Expires: 01/31/2025 Start: 10-28-2024 End: 10-28-2024 Patient encounter procedure [facility] Comment on above: Annual Annual / due for col onoscopy Start: 10-27-2024 Anxiety Screening Anxiety Screening [facility] Start: 10-27-2024 Depression Screening Depression Scre [facility] Start: 09-01-2024 Covid-19 Vaccine (7 - Moderna risk season) Covid-19 Vaccine (7 - Moderna risk ) [facility] Start: 07-02-2024 COLOGUARD (FIT-DNA) COLOGUARD (FIT-D NA) [facility] Start: 07-02-2024 COLORECTAL CANCER SCREENING COLORECTAL CANCER SCREENING [facility] Start: 07-02-2024 Screening for malign ant neoplasm of colon [facility] Start: 05-14-2024 Lipid panel Lipid Screening [facility] Start: 05-14-2024 LIPID SCREEN LIPID SCREEN [facility] Start: 04-28-2024 Covid-19 Vaccine ( season) Covid-19 Vaccine ( season) [facility] Start: 04-28-2024 Hepatitis B Vaccine (3 of 3 - 19+ 3-dose series) Hepatitis B Vaccine (3 of 3 - 19+ 3-dose series) [facility] Start: 04-25-2024 Hepb vaccine adult 3 dose schedule for im use HEP B VACCINE, 3-DOSE, AGE 20+ YR (ENGERIX-B, RECOMBIVAX HB) Immunization/Injection Routine Need for vaccination Expected: 04/25/2024 (Approximate) [facility] Comment on above: Expected: 04/25/2024 (Approximate) Start: 03-29-2024 End: 03-29-2024 Nursing evaluation of patient and report 03/29/2024 9:15 AM EST Nurse Visit [facility] [address] [place] [address] Nurse, [place] [address] [place], [place] [id number] Hep B - 3rd [facility] Comment on above: Hep B - 3rd Start: 01-25-2024 Covid-19 Vaccine ( season) Covid-19 Vaccine ( season) [facility] Start: 01-25-2024 Influenza vaccination Influenza Vacc ine (#1) [facility] Start: 11-27-2023 Hepb vaccine adult 3 dose schedule for im use HEP B VACCINE, 3-DOSE, AGE 20+ YR (ENGERIX-B, RECOMBIVAX HB) Immunization/Injection Routine Need for vaccination Expected: 11/27/2023 (Approximate) [facility] Work Phone: Comment on above: Expected: 11/27/2023 (Approximate) Start: 11-27-2023 Orders Only 11/27/2023 Ord ers Only [facility] [address] [place], [place] [phone] Zaid Philippe MD [address] [place], [place] [phone] Need for vaccination [facility] Comment on above: Need for vaccination Start: 11-26-2023 End: 11-26-2023 Patient encounter procedure 11/26/2023 7:20 AM EDT Office Visit [facility] [address] [place] [address] Marylin Buckley APRN.LEATHER SEASONER [address] [place], [place] [id number] Shot 2 of Hepatitis B vax [facility] Comment on above: Shot 2 of Hepatitis B vax Start: 11-25-2023 Hepatitis B Vaccine (2 of 3 - 19+ 3-dose series) Hepatitis B Vaccine (2 of 3 - 19+ 3-dose series) [facility] Start: 04-23-2023 Hepb vaccine adult 3 dose schedule for im use HEP B VACCINE, 3-DOSE, AGE 20+ YR (ENGERIX-B, RECOMBIVAX HB) Immunization/Injection Routine Encounter for immunization Expected: 04/23/2023 [facility] Work Phone: Comment on above: Expected: 04/23/2023 Start: 04-22-2023 Covid-19 Vaccine ( season) Covid-19 Vaccine ( season) [facility] Start: 01-24-2023 Influenza vaccination INFLUENZA (Sea son Ended) [facility] Start: 11-24-2022 Hepb vaccine adult 3 dose schedule for im use HEP B VACCINE, 3-DOSE, AGE 20+ YR (ENGERIX-B, RECOMBIVAX HB) Immunization/Injection Routine Encounter for immunization Expected: 11/24/2022 [facility] Work Phone: Comment on above: Expected: 11/24/2022 Start: 10-25-2022 End: 12-25-2022 Hepatitis C virus Ab [Presence] in Serum HEP C AB IA W/CONF SCRN Lab Routine Special screening examination for viral disease Expected: 10/25/2022, Expires: 12/25/2022 [facility] Work Phone: Comment on above: Expected: 10/25/2022 , Expires: 12/25/2022 Start: 10-25-2022 End: 12-25-2022 HIV 1+2 Ab [Presence] in Serum or Plasma by Immunoassay HIV 1 2 COMBO(AG/AB),WITH REFLEX TO DIFFERENTIATION Lab Routine Screening for HIV (human immunodeficiency virus) Expected: 10/25/2022, Expires: 12/25/2022 [facility] Work Phone: Comment on above: Expected: 10/25/2022 , Expires: 12/25/2022 Start: 05-26-2022 DEPRESSION ASSESSMENT DEPRESSION ASS ESSMENT [facility] Start: 05-14-2022 DIABETES SCREEN DIABETES SCREEN [facility] Start: 05-20-2021 COVID-19 VACCINE (4 - Booster for Moderna series) COVID-19 VACCINE (4 - Booster for Moderna series) [facility] Start: 11-30-2019 Colonoscopy COLONOSCOPY [facility] Start: 11-30-[address] COLONOGRAPHY [facility] Start: 11-30-2019 FECAL OCCULT BLOOD FECAL OCCULT BLOO D [facility] Start: 11-30-2019 Screening for malign ant neoplasm of colon [facility] Start: 11-30-2019 SIGMOIDOSCOPY SIGMOIDOSCOPY [facility] Start: 1993 Pneumococcal vaccination Pneumococcal Vaccine (1 of 2 - PCV) [facility] Start: 1993 SHINGRIX VACCINE (1 of 2) SHINGRIX VACCINE (1 of 2) [facility] Start: 1992 HEPATITIS C SCREENING HEPATITIS C SC JACOBNING [facility] Start: 1992 HIV SCREENING HIV SCREENING [facility] Start: 1980 PNEUMOCOCCAL (1 - PCV) PNEUMOCOCCAL (1 - PCV) [facility] Start: 1980 Pneumococcal vaccination Pneumococcal Vaccine (1 of 2 - PCV) [facility] Start: 1974 HEPATITIS B (1 of 3 - 3-dose series) HEPATITIS B (1 of 3 - 3-dose series) [facility] COLOGUARD COLOGUARD Lab Ro utine Special screening for malignant neoplasms, colon Ordered: 10/28/2024 [facility] Comment on above: Ordered: 10/28/2024 Hepb vaccine adult 3 dose schedule for im use HEP B VACCINE, 3-DOSE, AGE 20+ YR (ENGERIX-B, RECOMBIVAX HB) Immunization/Injection Routine Encounter for immunization 1 Occurrences starting 10/25/2022 [facility] Work Phone: Comment on above: 1 Occurrences starti ng 10/25/2022 Hzv zoster vacc recombinant adjuvanted im njx ZOSTER VACCINE, RECOMBINANT (SHINGRIX) Immunization/Injection Routine Encounter for immunization 1 Occurrences starting 10/25/2022 [facility] Work Phone: Comment on above: 1 Occurrences starti ng 10/25/2022 Pneumococcal vaccination PNEUMOCOCCAL VACCINE (PREVNAR 20) Immunization/Injection Routine Encounter for immunization 1 Occurrences starting 10/25/2022 [facility] Work Phone: Comment on above: 1 Occurrences starti ng 10/25/2022 [facility] Immunizations Immunization Date Immunization Notes Care Provider Fa cilijuan m 11-01-2024 pneumococcal conjuga te (PCV20) vaccine, 20 valent (PREVNAR 20) Zaid Philippe MD Work Phone: [facility] 03-29-2024 hepatitis B vaccine, adult dosage Mi Nurse Work Phone: [facility] 03-03-2024 influenza, injectabl e, madin roque canine kidney, preservative free Zaid Philippe MD Work Phone: [facility] 03-03-2024 influenza virus vacc ine, unspecified formulation Zaid Philippe MD Work Phone: [facility] 01-04-2024 tetanus toxoid, redu iris diphtheria toxoid, and acellular pertussis vaccine, adsorbed Dr. Zaid Philippe MD Work Phone: [facility] 11-26-2023 hepatitis B vaccine, adult dosage Marylin Buckley APRN.LEATHER SEASONER Work Phone: [facility] 10-28-2023 hepatitis B vaccine, adult dosage Zaid Philippe MD Work Phone: [facility] 04-07-2023 influenza, injectabl e, quadrivalent, preservative free Zaid Philippe MD Work Phone: [facility] 11-13-2023 influenza virus vacc ine, unspecified formulation Marylin Messinasudhir OROZCO.LEATHER SEASONER Work Phone: [facility] 02-08-2022 influenza, injectabl e, quadrivalent, preservative free Zaid Philippe MD Work Phone: [facility] 03-25-2021 COVID-19 original vaccine, full dose, monovalent (MODERNA) Zaid Philippe MD Work Phone: [facility] Work Phone: 03-25-2021 influenza, injectabl e, quadrivalent, preservative free Zaid Philippe MD Work Phone: [facility] Work Phone: 05-16-2020 measles, mumps and rubella virus vaccine Zaid Philippe MD Work Phone: [facility] Work Phone: 03-01-2020 Seasonal, quadrivale nt, recombinant, injectable influenza vaccine, preservative free Zaid Philippe MD Work Phone: [facility] Work Phone: 05-13-2019 influenza, injectabl e, quadrivalent, contains preservative Zaid Philippe MD Work Phone: [facility] 05-13-2019 tetanus toxoid, redu iris diphtheria toxoid, and acellular pertussis vaccine, adsorbed Zaid Philippe MD Work Phone: [facility] 02-24-2013 influenza virus vacc ine, unspecified formulation Zaid Philippe MD Work Phone: [facility] 03-29-2009 novel Influenza-H1N1 -09, live virus for nasal administration Zaid Philippe MD Work Phone: [facility] Work Phone: 06-22-2008 tetanus toxoid, redu iris diphtheria toxoid, and acellular pertussis vaccine, adsorbed Zaid Philippe MD Work Phone: [facility] Payers Date Payer Category Payer Self-pay [id number] 2021 [employer] BLUE ACCE SS PPO [id number] 2021 Unknown [employer] BLUE ACCE SS PPO [id number] 2021-Present [phone] [address] [place] [address] PPO [id number] 2021 Unknown [id number] Private Health Insurance [id number] Unknown AL Javier *DO NOT USE* [id number] Unknown [id number] Unknown [id number] Unknown [id number] Unknown [id number] Unknown [id number] Unknown [id number] Unknown [id number] Social History Date Type Detail Facility Start: 03-08-2019 End: 03-08-2019 Tobacco smoking status WAIS Unknown if ever smoked [facility] Start: 1975 Sex Assigned At Male [facility] Start: 09-27-2011 End: 01-04-2024 Tobacco smoking status WAIS Never smoked tobacco [facility] Start: 09-27-2011 Tobacco use and exposure Smokeless tobacco non-user [facility] Start: 06-25-2021 End: 10-28-2024 Alcohol intake Current non-drinker of alcohol (finding) [facility] Start: 06-11-2021 History SDOH Alcohol Frequency 3 [facility] Start: 06-11-2021 End: 06-16-2021 History SDOH Alcohol Std Drinks 1 [facility] Start: 06-11-2021 End: 06-16-2021 History SDOH Social Connections Phone 2 [facility] Start: 06-11-2021 History SDOH Financial 5 [facility] Start: 03-07-2020 Education 20 [facility] Start: 03-17-2023 End: 10-25-2024 History of Social function [facility] Start: 03-17-2023 End: 10-25-2024 [facility] [employer] [facility] Has the [employer], or [employer] threatened to shut off services in your home in past 12Mo No [facility] Frequency of Social Gatherings with Friends and Family Not on file [facility] Are you now , , , , never or living with a partner? [facility] How often to you hav e a drink containing alcohol? Monthly or less [facility] How many standard drinks containing alcohol do you have on a typical day? 1 or 2 [facility] How often do you hav e 6 or more drinks on 1 occasion? Never [facility] Do you feel stress - tense, restless, nervous, or anxious, or unable to sleep at night because your mind is troubled all the time - these days [OSQ] Only a little [facility] (I/We) worried elaina er (my/our) food would run out before (I/we) got money to buy more. Never true [facility] Start: 04-18-2020 Gender identity Identifies as male gender (finding) [facility] Start: 04-18-2020 Sexual orientation Heterosexual (bienvenido drake) [facility] Start: 09-01-2024 Sex Male (finding) [facility] Do you feel stress - tense, restless, nervous, or anxious, or unable to sleep at night because your mind is troubled all the time - these days [OSQ] Not at all [facility] Functional Status Date Assessment Result Facility 10-25-2024 Total score [AUDIT-C] 1 10/26/19 3:48 PM EDT User, Mycern[employer]t [facility] 10-25-2024 How often to you hav e a drink containing alcohol? Monthly or less 10/25/2024 3:48 PM EDT User, Hernant Monthly or less [facility] 10-25-[address] inks containing alcohol do you have on a typical day? 1 or 2 10/25/2024 3:48 PM EDT User, Hernant 1 or 2 [facility] 10-25-2024 How often do you hav e 6 or more drinks on 1 occasion? Never 10/25/2024 3:48 PM EDT User, Mychart Never [facility] 03-08-2014 Are you deaf, or do you have serious difficulty hearing No 03/08/2014 8:35 AM Allyson Benson Ma No [facility] Work Phone: 03-08-2014 Are you blind, or do you have serious difficulty seeing, even when wearing glasses No 03/08/2014 8:35 AM Allyson Benson Ma No [facility] 03-08-2014 Do you have serious difficulty walking or climbing stairs No 03/08/2014 8:35 AM Allyson Benson Ma No [facility] 03-08-2014 Do you have difficul ty dressing or bathing No 03/08/2014 8:35 AM Allyson Benson Ma No [facility] 03-08-2014 Because of a physica l, mental, or emotional condition, do you have difficulty doing errands alone such as visiting a physician's office or shopping No 03/08/2014 8:35 AM Allyson Benson Ma No [facility] Mental Status Date Assessment Result Facility 03-08-2014 Because of a physica l, mental, or emotional condition, do you have serious difficulty concentrating, remembering, or making decisions No 03/08/2014 8:35 AM EDT Allyson Story Ma [facility] Clinical Notes 04-25-2009 to 11-24-2024 Telephone Encounter - Elizabeth Muniz LPN - 11/24/2024 8:47 AM EDTTelephone Encounter - Elizabeth Muniz LPN - 11/24/2024 8:47 AM EDTTelephone Encounter - Elizabeth Muniz LPN - 11/23/2024 8:54 AM EDT Note Date & Type Note Facility 11-24-2024 Telephone encounter Note My chart message to pt with pcp response and sent the lab results from [facility] [place]. [facility] 11-24-2024 Miscellaneous Notes My chart message to pt with pcp response and sent the lab results from [facility] [place]. Lipid panel stable, and near optimal. Continue heart healthy choices like Mediterranean diet. View External Labs - CMP,lipids [ID [id number]] Labs completed at [facility] [place]. Please review. documented in this encounter [facility] 11-23-2024 Telephone encounter Note Lipid panel stable, and near optimal. Continue heart healthy choices like Mediterranean diet. [facility] 11-23-2024 Telephone encounter Note View External Labs - CMP,lipids [ID [id number]] Labs completed at [facility] [place]. Please review. [facility] 11-13-2024 Progress note Formatting of t his note might be different from the original. Test results are okay. [facility] 11-13-2024 Miscellaneous Notes Test results are okay. documented in this encounter [facility] 11-01-2024 Note HNO ID: [id number] Author: BARB SPEARS LPN Service: ? Author Type: LICENSED NURSE Type: Progress Notes Filed: 11/01/2024 18:24 Note Text: Patient given Pneumovax Patient tolerated injection well. Barb Spears LPN [facility] 11-01-2024 History of Presen t illness Narrative Patient given Pneumovax Patient tolerated injection well. Barb Spears LPN documented in this encounter [facility] 10-28-2024 Note HNO ID: [id number] Author: ZAID PHILIPPE MD Service: ? Author Type: Physician Type: Progress Notes Filed: 10/28/2024 08:53 Note Text: This note was created using Semantriariter. Subjective Patient presents with: Physical Naun Montes [...] to affected area daily at bedtime. [facility] Ziwfyojspch-Bskduyagt-Okh C-Mn (GLUCOSAMINE CHONDROITIN MAXSTR) 500-400 mg cap [...] PANEL, FASTING Victo (more content not included)... [facility] 10-28-2024 History of Presen t illness Narrative This note was created using NoteWriter. Subjective [...] to affected area daily at bedtime. Per [facility]. Qgozjpnabnz-Ctzbkgolu-Qta C-Mn (GLUCOSAMINE CHONDROITIN MAXSTR) 500-400 mg cap [...] - LIPID PANEL, FASTING Zaid Philippe MD [facility] OPEN ACCESS QUESTIONNAIRE 1. Are you currently [...] Please send all open access questionnaires to [facility] Pool #[id number] documented in this encounter [facility] 10-28-2024 Note HNO ID: [id number] Author: BARB SPEARS LPN Service: ? Author Type: LICENSED NURSE Type: Progress Notes Filed: 10/28/2024 08:53 Note Text: [facility] OPEN ACCESS QUESTIONNAIRE 1. Are you currently [...] Please send all open access questionnaires to [facility] Pool #[id number] [facility] 10-25-2024 Note Addended by: STEPHEN DAVID on: 10/25/2024 04:22 PM Modules accepted: Orders [facility] 10-25-2024 Miscellaneous Notes Addended by: STEPHEN CABELLO on: 10/25/2024 04:22 PM Modules accepted: Orders documented in this encounter [facility] 10-25-2024 Note HNO ID: [id number] Author: STEPHEN CABELLO PA-C Service: ? Author Type: Physician Bolt Labeler Type: Progress Notes Filed: 10/25/2024 15:53 Note Text: Telemedicine Visit - Distance Health Virtual Visit Note Patient seen on [employer] Video Visit platform. Location of patient: [place] Zaid Philippe MD I have communicated my name and active licensure. The patient's identity and physical location were verified at the time of this visit. Either the patient or their legal retail service representative has been informed of the risks [...] as a single dose. Prescription sent to [facility] in [place]. Monitor for any signs of rash or systemic symptoms and seek medical attention if they occur. Recording using [employer] software for draft documentation of the visit was discussed with the patient/authorized retail service representative; all questions welcomed and answered. Patient/authorized retail service representative agreed to proceed IF YOUR SYMPTOMS [...] the following reason(s): HANDP not suggestive CODING: [facility] 10-25-2024 History of Presen t illness Narrative Telemedicine Visit - Distance Health Virtual Visit Note Patient seen on [employer] Video Visit platform. Location of patient: [place] Zaid Philippe MD I have communicated my name and active licensure. The patient's identity and physical location were verified at the time of this visit. Either the patient or their legal retail service representative has been informed of the risks [...] as a single dose. Prescription sent to [facility] in [place]. Monitor for any signs of rash or systemic symptoms and seek medical attention if they occur. Recording using [employer] software for draft documentation of the visit was discussed with the patient/authorized retail service representative; all questions welcomed and answered. Patient/authorized retail service representative agreed to proceed IF YOUR SYMPTOMS [...] not suggestive CODING: documented in this encounter [facility] 09-23-2024 Note HNO ID: [id number] Author: ?, ?, ? Service: ? Author Type: ? Type: Progress Notes Filed: 10/07/2024 03:03 Note Text: Patient is scheduled for his est well visit 10-28-2024 [facility] 09-23-2024 History of Presen t illness Narrative Patient is scheduled for his est well visit 10-28-2024 1st attempt LVM to schedule colonoscopy documented in this encounter [facility] 09-07-2024 Note HNO ID: [id number] Author: ?, ?, ? Service: ? Author Type: ? Type: Progress Notes Filed: 09/07/2024 10:38 Note Text: 1st attempt LVM to schedule colonoscopy [facility] 09-06-2024 Instructions Christina Arcos RN - [...] am on dialysis? A: Please consult your balance weigher prior to scheduling to get instructions pertinent to you. In general, dialysis patients take the Golytely bowel prep and have the procedure same [...] inadequate prep quality. documented in this encounter [facility] 09-06-2024 Note Patient Outreach ( [facility]) ANUN MONTES DE OCA ([id number]) 1975 M Date Time Provider Department 09/06/24 [...] patients buy sugar-free, (more content not included)... [facility] 03-29-2024 Note HNO ID: [id number] Author: SIMI WINKLER LPN Service: ? Author Type: LICENSED NURSE Type: Progress Notes Filed: 03/29/2024 08:46 Note Text: Patient presents for Hepatitis B vaccine. Denies any problems at this time. Tolerated injection well. Simi Winkler LPN [facility] 03-29-2024 History of Presen t illness Narrative Patient presents for Hepatitis B vaccine. Denies any problems at this time. Tolerated injection well. Simi Winkler LPN documented in this encounter [facility] 11-26-2023 History of Presen t illness Narrative Patient here for his 2nd Hepatitis B injection. Vaccine given and Naun tolerated injection well. documented in this encounter [facility] 11-17-2023 Telephone encounter Note Message left to pts father to either call in for appt for daughter or have daughter call in. [facility] 11-17-2023 Miscellaneous Notes Message left to pts father to either call in for appt for daughter or have daughter call in. Schedule daughter to establish. documented in this encounter [facility] 11-15-2023 Telephone encounter Note Schedule daughter to establish. [facility] 10-28-2023 Instructions Zaid Philippe MD - 10/28/2023 8:45 AM EDT Hepatitis B 3 shot series. Consider FODMAP diet for irritable bowel syndrome. documented in this encounter [facility] 10-28-2023 History of Presen t illness Narrative This note was created using Semantriariter. Subjective Patient presents with: Physical Naun Montes [...] tablet cycloSPORINE (RESTASIS) 0.05 % ophthalmic emulsion mxelewl-spqc-nsayr-oreg-capryl 100 mg-150 mg- 50 mg-150 mg cap Take by mouth. leucovorin (LEUCOVORIN) 15 mg tablet Take 15 mg by mouth one time a week. SOOLANTRA 1 % crea Apply 1 application to affected area daily at bedtime. Per [facility]. Uolgxtrvbij-Sjdsxzkmt-Qww C-Mn (GLUCOSAMINE CHONDROITIN MAXSTR) 500-400 mg cap [...] and regular exercise - Patient was counseled [id number] by myself (the billing provider) for the [...] Zaid Philippe MD documented in this encounter [facility] 06-06-2023 History of Presen t illness Narrative [...] 2023 1:42 PM documented in this encounter [facility] 06-06-2023 Miscellaneous Notes No concerning findings on x-ray of hand. documented in this encounter [facility] 06-06-2023 Progress note Formatting of t his note might be different from the original. No concerning findings on x-ray of hand. [facility] 10-25-2022 Instructions Inge Zarco APRN.CNS - 10/25/2022 8:48 AM EDT Check with your desk operator regarding vaccines: Pneumococcal, shingles, hepatitis B Check with your insurance for what location to get vaccines may be best covered at your local pharmacy where you get prescriptions filled or at the clinic documented in this encounter [facility] 10-25-2022 History of Presen t illness Narrative [...] gluten intake. Labs completed 09/[address] [facility] [place] per Dr Matthews. See scanned documents. All WNL. Followed by Dr Matthews desk operator for psoriatic arthropathy. Taking methotrexate and [...] tablet cycloSPORINE (RESTASIS) 0.05 % ophthalmic emulsion scoteoe-kjbj-icbjf-oreg-capryl 100 mg-150 mg- 50 mg-150 mg cap Take by mouth. leucovorin (LEUCOVORIN) 15 mg tablet Take 15 mg by mouth one time a week. SOOLANTRA 1 % crea Apply 1 application to affected area daily at bedtime. Per [facility]. Mhhfvnpkoxt-Zbbkejbdt-Edy C-Mn (GLUCOSAMINE CHONDROITIN MAXSTR) 500-400 mg cap [...] V03.89, ICD10: Z23 He will check with crack off person and regarding insurance coverage for vaccines. - [...] Z13.1 Glucose within normal limits at [facility] 09/2022 6. Psoriasis and similar disorders - ICD9: 696.1, ICD10: L40.9 Follow[address] desk operator Dr[address] Matthews Currently controlled with methotrexate Physical form completed and returned 1 yr follow up MD Inge Robert APRN.TOOL CRIB CLERK documented in this encounter [facility] 08-25-2022 Miscellaneous Notes Patient contacted and was [...] list. Did suggest that he do a 24/ virtual visit on line to see if he would need treated with Paxlovid. documented in this encounter [facility] 04-25-2009 History of Past i llness Narrative Problem Noted Date Resolved Date Backache, unspecified 04/25/2009 11/10/2009 documented as of this encounter (statuses as of 08/25/2022) [facility]12-01-2009 History of Past illness Narrative* Problem Noted Date Resolved Date Backache, unspecified 04/25/2009 11/10/2009 documented as of this encounter (statuses as of 10/25/2022) [facility] noteNo assessment information availableWHolzer [facility] Work Phone: Evaluation note* Diagnosis Routine medical [...] disorders Other psoriasis [facility] Diagnosis Routine medical exam- Primary Routine general medical examination at a [facility] care facility Irritable bowel syndrome with both constipation and diarrhea Psoriatic arthritis (HCC) Psoriatic arthropathy Need for vaccination Need for prophylactic vaccination and inoculation against unspecified single disease [facility] Diagnosis Need for vaccination- Primary Need for prophylactic vaccination and inoculation against unspecified single disease Need for vaccination Need for prophylactic vaccination and inoculation against unspecified single disease [facility]* Diagnosis Left hand pain Pain in limb History of Raynaud's syndrome Personal history of other diseases of circulatory system Psoriasis and similar disorders Other psoriasis [facility]* Diagnosis Encounter for immunization- Primary Need for other specified prophylactic vaccination against single bacterial disease [facility] Diagnosis Screening for colorectal cancer- Primary Special screening for malignant neoplasms, colon [facility]* Diagnosis Encounter for prophylactic measures, unspecified [facility]* Diagnosis Wellness examination- Primary Screening for depression Encounter for screening examination for other mental health and behavioral disorders Special screening for malignant neoplasms, colon Need for vaccination Need for prophylactic vaccination and inoculation against unspecified single disease Psoriatic arthritis (HCC) Psoriatic arthropathy Psoriasis and similar disorders Other psoriasis Screening for lipid disorders [facility]* Diagnosis Need for vaccination- Primary Need for prophylactic vaccination and inoculation against unspecified single disease [facility] Diagnostic Procedure Only (Routine) - Closed Specialty Diagnoses / Procedures Referred By Contac t Referred To Contact XR IMAGING Diagnoses Left hand pain History of Raynaud's syndrome Psoriasis and similar disorders Procedures XR HAND GENERAL 3V PA/LAT/OBL LEFT RADEX HAND MINIMUM 3 VIEWS Inge Zarco, BURLAPPER.TOOL CRIB CLERK [address] [place] [address] [place] [address] Referral ID Status Reason Start Date Expiration Date V isits Requested Visits Authorized [id number] Closed Auto-Generate d Referral 06/06/2023 07/05/2024 1 [facility]No reason for referral information availableWHolzer Health [facility] Work Phone: Reason for visit Narrative* Diagnostic Procedure Only (Routine) - Closed Specialty Diagnoses / Procedures Referred By Contac t Referred To Contact XR IMAGING Diagnoses Left hand pain History of Raynaud's syndrome Psoriasis and similar disorders Procedures XR HAND GENERAL 3V PA/LAT/OBL LEFT RADEX HAND MINIMUM 3 VIEWS Inge Zarco, BURLAPPER.TOOL CRIB CLERK [address] [place] [address] [place] [address] Referral ID Status Reason Start Date Expiration Date V isits Requested Visits Authorized [id number] Closed Auto-Generate d Referral 06/06/2023 07/05/2024 1 1 [facility] Advance Directives No Advanced Directives Records Found Advance Directive Response Recorded Date/ Time Living Will No March 08 9:51am Power of Front Desk No March 08, 2019 9:51am Advance Directive Response Recorded Date/ Time Living Will No March 08 10:51am Power of Front Desk No March 08, 2019 10:51am Chief Complaint and Reason for Visit Chief Complaint PAIN- COPY PCP PAIN- COPY PCP Chief Complaint PAIN- COPY PCP PAIN- COPY PCP PAIN- COPY PCP Chief Complaint Admit Date PAIN- COPY PCP June 07, 2024 8 :23am PAIN- COPY PCP August 27, 2024 7:55 am Chief Complaint Admit Date PAIN- COPY PCP August 27, 2024 7:55 am 2 ORDERING IBETH November 18, 2024 7:14 am Summary Purpose Family History No Family [...] Dr. Antonia Matthews MD Attending Provider Active Lacer And Tier Relationship Specialty Start Date End Date Zaid Philippe MD [address] [place] [address] PCP - General Internal Medicine 09/30/19 Lacer And Tier Relationship Specialty Start Date End Date Zaid Philippe MD [address] [place] [address] PCP - General Internal Medicine 09/30/19 Team Status: Inactive Member Role Status Dates Dr. Zaid Philippe MD Primary Care Provider Active Dr. Antonia Matthews MD Attending Provider, Referring Provider Active Lacer And Tier Relationship Specialty Start Date End Date Zaid Philippe MD [address] [place] [address] PCP - General Internal Medicine 09/30/19 Lacer And Tier Relationship Specialty Start Date End Date Zaid Philippe MD [address] [place] [address] PCP - General Internal Medicine 09/30/19 Lacer And Tier Relationship Specialty Start Date End Date Zaid Philippe MD [address] [place] [address] PCP - General Internal Medicine 09/30/19 Lacer And Tier Relationship Specialty Start Date End Date Zaid Philippe MD [address] [place] [address] PCP - General Internal Medicine 09/30/19 Lacer And Tier Relationship Specialty Start Date End Date Zaid Philippe MD [address] [facility] [place] [id number] PCP - General Internal Medicine 09/30/19 Team [...] August 27, 2024 End: August 27, 2024 Lacer And Tier Relationship Specialty Start Date End Date Zaid Philippe MD [address] [facility] [place] [address] PCP - General Internal Medicine 09/30/19 Leah Car, [email or web address] [address] [facility] [id number] [employer]oter [employer] Pet Internal Medicine 05/03/24 Lacer And Tier Relationship Specialty Start Date End Date Zaid Philippe MD [address] [facility] [address] PCP - General Internal Medicine 09/30/19 Leah Car, [email or web address] [email or web address] [address] [facility] [place] [place] [id number] [employer] Pet Internal Medicine 05/03/24 Lacer And Tier Relationship Specialty Start Date End Date Zaid Philippe MD [address] [facility] [place] [address] PCP - General Internal Medicine 09/30/19 Leah Car, [email or web address] [email or web address] [address] [place] [address] [employer]oter [employer] Pet Internal Medicine 05/03/24 Lacer And Tier Relationship Specialty Start Date End Date Zaid Philippe MD [address] [facility] [place] [address] PCP - General Internal Medicine 09/30/19 Leah Car, [email or web address] [email or web address] [address] [place] [address] [employer]oter [employer] Pet Internal Medicine 05/03/24 Lacer And Tier Relationship Specialty Start Date End Date Zaid Philippe MD [address] [facility] [place] [address] PCP - General Internal Medicine 09/30/19 Leah Car, [email or web address] [email or web address] [address] [place] [address] [employer] Pet Internal Medicine 05/03/24 Team Status: Active Member Role/Relationship Status Dates No Primary Care Physician Family Provider Active Dr. Zaid Philippe MD Primary Care Provider Active Team Status: Inactive Member Role/Relationship Status Dates Dr. Zaid Philippe MD Primary Care Provider Active Start: August 27, 2024 End: August 27, 2024 Dr. Antonia Matthews MD Attending Provider Active Start: August 27, 2024 End: August 27, 2024 Dr. Antonia Matthews MD Referring Provider Active Start: August 27, 2024 End: August 27, 2024 Team Status: Inactive Member Role/Relationship Status Dates Dr. Zaid Philippe MD Primary Care Provider Active Start: November 18, 2024 End: November 18, 2024 Dr. Zaid Philippe MD Attending Provider Active Start: November 18, 2024 End: November 18, 2024 Dr. Zaid Philippe MD Referring Provider Active Start: November 18, 2024 End: November 18, 2024 Dr. Antonia Matthews MD Other Provider Active St art: November 18, 2024 End: November 18, 2024 Lacer And Tier Relationship Specialty Start Date End Date Zaid Philippe MD [address] [place] [address] PCP - General Internal Medicine 09/30/19 Leah Car, [email or web address] [address] [place] [address] [employer] Pet Internal Medicine 05/03/24 Goals (unrecognized section and [...] or prosecute any alcohol or drug abuse patient.[facility] the event this information is protected by the Federal Confidentiality of Alcohol and Drug Abuse Patient Records regulations: The Federal rules restrict any use of the information to criminally investigate or prosecute any alcohol or drug abuse patient.[facility] the event this information is protected by the Federal Confidentiality of Alcohol and Drug Abuse Patient Records regulations: The Federal rules restrict any use of the information to criminally investigate or prosecute any alcohol or drug abuse patient.[facility] the event this information is protected by the Federal Confidentiality of Alcohol and Drug Abuse Patient Records regulations: The Federal rules restrict any use of the information to criminally investigate or prosecute any alcohol or drug abuse patient.[facility] the event this information is protected by the Federal Confidentiality of Alcohol and Drug Abuse Patient Records regulations: The Federal rules restrict any use of the information to criminally investigate or prosecute any alcohol or drug abuse patient.[facility] the event this information is protected by the Federal Confidentiality of Alcohol and Drug Abuse Patient Records regulations: The Federal rules restrict any use of the information to criminally investigate or prosecute any alcohol or drug abuse patient.[facility] the event this information is protected by the Federal Confidentiality of Alcohol and Drug Abuse Patient Records regulations: The Federal rules restrict any use of the information to criminally investigate or prosecute any alcohol or drug abuse patient.[facility] the event this information is protected by the Federal Confidentiality of Alcohol and Drug Abuse Patient Records regulations: The Federal rules restrict any use of the information to criminally investigate or prosecute any alcohol or drug abuse patient.[facility] the event this information is protected by the Federal Confidentiality of Alcohol and Drug Abuse Patient Records regulations: The Federal rules restrict any use of the information to criminally investigate or prosecute any alcohol or drug abuse patient.[facility] the event this information is protected by the Federal Confidentiality of Alcohol and Drug Abuse Patient Records regulations: The Federal rules restrict any use of the information to criminally investigate or prosecute any alcohol or drug abuse patient.[facility] the event this information is protected by the Federal Confidentiality of Alcohol and Drug Abuse Patient Records regulations: The Federal rules restrict any use of the information to criminally investigate or prosecute any alcohol or drug abuse patient.[facility] Hospital[facility] the event this information is protected by the Federal Confidentiality of Alcohol and Drug Abuse Patient Records regulations: The Federal rules restrict any use of the information to criminally investigate or prosecute any alcohol or drug abuse patient.[facility] HospitalIn the event this information is protected by the Federal Confidentiality of Alcohol and Drug Abuse Patient Records regulations: The Federal rules restrict any use of the information to criminally investigate or prosecute any alcohol or drug abuse patient.[facility] Reason for Visit (unrecogniz ed section and content) Reason Comments + covid home test Reason Comments Camp Physical Reason Comments Physical Reason Comments Imm/Inj Reason Onset Date Comments Outpatient Colonoscopy 09/06/2024 Patient i s overdue for colorectal cancer screening since 07/02/2024. Please schedule open access colonoscopy. Reason Comments tick bite Reason Comments Results (unrecognized sect ion and content) No Status Records FoundNo Status Records Found INFORMATION SOURCE (unrecogn ized section and content) DATE CREATED AUTHOR 11/24/2024 [facility] DATE CREATED AUTHOR AUTHOR'S ORGANIZ ATION 11/26/2024 [facility] FOR RECORDS PERTAINING TO PATIENTS WHO [...] BE BASED ON THE PRIMARY CLINICAL RECORDS. [employer] provides no warranty or guarantee of the accuracy or completeness of information in this document.
[2025-02-10 10:11] LABS: Hematocrit 45.2 % (40-54); Hemoglobin 14.7 g/dL (13.0-16.5); Immature Granulocytes Count 0.010 X10^3/uL (0.0-0.0); Mean Corp Hgb Conc 32.5 g/dL (32-36); Mean Corpuscular Volume 95.0 fL (80-94); Mean Platelet Vol. 11.1 fl (6.2-12.0); NRBC Flagged by Analyzer 0 % (0-5); Platelet Count 235 K/mm3 (150-450); RBC Distribution Width CV 13.2 % (11.6-14.6); RBC Distribution Width SD 46.3 fl (35.1-43.9); Red Blood Count 4.76 M/mm3 (4.6-6.2); White Blood Count 5.4 K/mm3 (4.4-11.0)
[2025-02-10 10:51] LABS: AST(SGOT) 28 U/L (<=37); Alanine Aminotransfer ALT/SGPT 21 U/L (<=46); Albumin, Serum 4.0 g/dL (3.5-5.0); Alkaline Phosphatase 60 U/L (40-129); Anion Gap 13 (5-15); BUN 13 mg/dL (4-19); BUN/Creat Ratio 12.8 RATIO (10-20); Calcium,Total 9.6 mg/dL (7.6-11.0); Carbon Dioxide 24.6 mmol/L (21.0-32.0); Chloride 105 mmol/L (98-108); Globulin 3.0 g/dL (2.2-4.2); Glucose 85 mg/dL (70-99); Potassium 4.2 mmol/L (3.3-5.1)
== END | disposition home or self-care (01) ==
LOC: MTLAB 07:20
PROVIDERS: PCP Internal Medicine; Referring Provider Internal Medicine Rheumatology; Visit Provider Internal Medicine Rheumatology
DX: L40.59 Other psoriatic arthropathy (principal); Z79.899 Other long term (current) drug therapy
CPT/HCPCS: 36415; 80053; 85025

== ENCOUNTER → 2025-05-09 | Outpatient (CLI) | payer BC, SELFPAY ==
--- OUTSIDE RECORDS SUMMARY | 2025-05-09 08:33 | XMS RPT_ITS | CCD ---
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 Mar Primary Care Provider Cassie VALLES, Dr. Knight Attending Provider Cassie VALLES, Dr. Knight Referring Provider Derrell VALLES, Zaid Herron Primary Care Provider [facility] ERNESTO.BURNER TENDER, Leah M Unavailable Derrell VALLES, Dr. Mar Primary Care Provider Cassie VALLES, Dr. Knight Attending Provider Cassie VALLES, Dr. Knight Referring Provider Derrell VALLES, Dr. Mar Attending Provider Derrell VALLES, Dr. Mar Referring Provider Cassie VALLES, Dr. Knight Other Provider ZAID PHILIPPE Attending Unavailable ZAID PHILIPPE Primary Care Unavailable ZAID PHILIPPE Attending Unavailable ZAID PHILIPPE Primary Care Unavailable ZAID PHILIPPE Primary Care Unavailable STEPHEN CABELLO Attending Unavailable ZAID PHILIPPE Primary Care Unavailable Zaid Philippe Primary Care Unavailable Antonia Matthews Referring Unavailable Antonia Matthews Attending Unavailable Zaid Philippe Primary Care Unavailable Zaid Philippe Attending Unavailable aZid Philippe Referring Unavailable Antonia Matthews Consulting Unavailable Zaid Philippe Primary Care Unavailable Cassie, Antonia Referring Unavailable Cassie, Antonia Attending Unavailable Zaid Philippe Primary Care Unavailable Antonia Matthews Attending Unavailable Antonia Matthews Referring Unavailable Zaid Philippe Primary Care Unavailable Antonia Matthews Attending Unavailable Antonia Matthews Referring Unavailable Antonia Matthews Attending Unavailable Zaid Philippe Primary Care Unavailable Antonia Matthews Referring Unavailable Derrell VALLES, Dr. Mar Primary Care Physician Derrell VALLES, Dr. Mar Attending Physician Dr. Antonia Matthews MD Nurse Practitioner Dr. Antonia Matthews MD Attending Physician Dr. Antonia Matthews MD Referring Provider Allergies Allergy Classification Reported Allergen(s) Allergy Type Date of Onset Reaction(s) Facility (1 source) Seasonal allergy; Translations: [SEASONAL ALLERGIES] Propensity to adverse reactions (disorder) 3 [facility] Repository Medications Current Medications Medication Drug Class(es) Dates Sig (Normalized) Sig (Original) chondroitin sulfates 400 mg / glucosamine hydrochloride 500 mg oral capsule (13 sources) Start: 05-13-2019 take 1 capsule by mouth once daily Glucosamine-Chondr oit-Vit C-Mn (GLUCOSAMINE CHONDROITIN MAXSTR) 500-400 mg cap Take 1 capsule by mouth once daily. 05/13/2019 Active Comment on above: Take 1 capsule by [facility] once daily. cycloSPORINE (RESTASIS) 0.05 % [...] affected area daily at bedtime. Per [facility]. 0 05/13/2019 Active Comment on above: Apply 1 application to affected area daily at bedtime. Per [facility]. leucovorin 15 mg oral tablet (12 [...] once daily. naproxen 500 mg oral tablet (7 sources) Nonsteroidal Anti-inflammatory Drug Start: 03-08-20 take 1 tablet by mouth twice daily as needed ruxolitinib (4 sources) Start: 10-25-19 ruxolitinib (OPZELURA) 1.5 % cream Apply to affected area. 10/25/2023 Active triamcinolone acetonide 1 mg/ml topical cream (4 sources) Corticosteroid Start: 10-14-19 24 triamcinolone acetonide (KENALOG) 0.1 % cream 10/14/2023 Active kbtxpbk-czou-logxo-or eg-capryl 100 mg-150 mg- 50 mg-150 mg cap (9 sources) End: 10-29-19 25 oeikdwi-ovrq-jnnjh-o reg-capryl 100 mg-150 mg- 50 mg-150 mg cap Take by mouth. 10/28/2024 Discontinued xemzbnb-txte-jvh xv-cmon-gkulov 100 mg-150 mg- 50 mg-150 mg cap Take by mouth. Active qdjhoww-ocar-xya wr-cjei-ddsfvq 100 mg-150 mg- 50 mg-150 mg cap [...] 06-20-2021 Chronic Other inflammatory condition of skin (16 sources) Psoriatic arthritis; Translations: [Arthropathic psoriasis, unspecified] Onset: 09-30-2022 10-28-2023 Chronic Other inflammatory condition of skin (1 source) Arthropathic psoriasis, unspecified; Translations: [Psoriatic arthritis (HCC)] Onset: 10-28-2023 Chronic Other inflammatory condition of skin (1 source) Psoriasis, unspecified; Translations: [Psoriasis and similar disorders] Onset: 06-20-2021 Chronic Other inflammatory condition of skin (1 source) Other psoriatic arthropathy; Translations: [Other psoriatic arthropathy] Onset: 02-17-2025 Chronic Other screening for suspected conditions (not [...] health and behavioral disorders] Onset: 10-28-2024 Episodic Superficial injury; contusion (3 sources) Superficial foreign body of left middle finger, initial encounter; Translations: [Foreign body in skin of left middle finger] 01-12-2024 Episodic Past or Other Problems Problem Classification Problem Date Documented Date Episodic/Chronic Spondylosis; intervertebral disc disorders; other back problems (13 sources) Degeneration of intervertebral disc; Translations: [DDD (degenerative disc disease)] Onset: 11-10-2009 Resolved: 10-28-2024 11-10-2009 Chronic Spondylosis; intervertebral disc disorders; other back problems (11 sources) Backache; Translations: [Dorsalgia, unspecified] Onset: 04-25-2009 Resolved: 11-10-2009 11-10-2009 Episodic Viral infection (13 sources) Postherpetic neuralgia; Translations: [Other postherpetic nervous system involvement] Onset: 03-22-2019 Resolved: 03-19-2023 03-22-2019 Episodic Results Test Name Value Interpretation Reference Range Facility Absolute lymphocyte countOrd ered By: Antonia Matthews on 02-10-2025 Lymphocytes Auto (Unsp spec) [#/Vol] 1.10 10*3/uL 0.83-4.51 [facility] Absolute neutrophil countOrd ered By: Antonia Matthews on 02-10-2025 Neutrophils (Bld) [#/Vol] 3.3 10*3/uL 2.0-7.7 [facility] Anion gap in Serum or Plasma Ordered By: Antonia Matthews on 02-10-2025 Anion gap [Moles/Vol] 13 mmol/L 5-15 [facility] Automated lymphocyte count a s percentage of total leukocytesOrdered By: Antonia Matthews on 02-10-2025 Lymphocytes/100 WBC Auto (Unsp spec) 20.4 % 19-41 [facility] BUN/creatinine ratioOrdered By: Antonia Matthews on 02-10-2025 Urea nitrogen/Creatinine [Mass ratio] 12.8 mg/mg 10-20 [facility] Basophil percentageOrdered B y: Antonia Matthews on 02-10-2025 Basophils/100 WBC (Bld) 0.9 % 0-1 [facility] Bilirubin, totalOrdered By: Antonia Matthews on 02-10-2025 Bilirubin [Mass/Vol] 0.39 mg/dL 0.00-1.30 [facility] CBC W/Diff, Automatedon 01-24 Absolute Lymph 1.10 X10 3/uL Normal 0.83-4.51 [facility] Comment on above: Performed By: #### L 100.0100, L500.4050 #### [facility] Laboratory [address] [place], [address] Absolute Neut 3.3 X10 3/uL Normal 2.0-7.7 [facility] Comment on above: Performed By: #### L 100.0100, L500.4050 #### [facility] [address] [place], [address] Basophils/100 WBC (Bld) 0.9 % Normal 0-1 [facility] Comment on above: Performed By: #### L 100.0100, L500.4050 #### [facility] [address] [place], [address] Eosinophils/100 WBC (Bld) 3.9 % Normal 0-5 [facility] Comment on above: Performed By: #### L 100.0100, L500.4050 #### [facility] [address] [place], [address] Erythrocyte distribution width (RBC) [Ratio] 13.2 % Normal 11.6-14.6 [facility] Comment on above: Performed By: #### L 100.0100, L500.4050 #### [facility] [address] [place], [address] Hematocrit (Bld) [Volume fraction] 45.2 % Normal 40-54 [facility] Comment on above: Performed By: #### L 100.0100, L500.4050 #### [facility] [address] [place], [address] Hemoglobin (Bld) [Mass/Vol] 14.7 g/dL Normal 13.0-16.5 [facility] Comment on above: Performed By: #### L 100.0100, L500.4050 #### [facility] [address] [place], [address] IG% 0.200 Normal 0.0-0.9 [facility] Comment on above: Result Comment: IG% - Immature Granulocytes (promyelocytes, myelocytes and metamyelocytes) > 1% indicates that a LEFT SHIFT is Present. Performed By: #### L 100.0100, L500.4050 #### [facility] [address] [place], [address] Lymphocytes/100 WBC (Bld) 20.4 % Normal 19-41 [facility] Comment on above: Performed By: #### L 100.0100, L500.4050 #### [facility] [address] [place], [address] MCH (RBC) [Entitic mass] 30.9 pg Normal 27.0-32.0 [facility] Comment on above: Performed By: #### L 100.0100, L500.4050 #### [facility] [address] [place], [address] MCHC (RBC) [Mass/Vol] 32.5 g/dL Normal 32-36 [facility] Comment on above: Performed By: #### L 100.0100, L500.4050 #### [facility] [address] [place], [address] MCV (RBC) [Entitic vol] 95.0 fL High 80-94 [facility] Comment on above: Performed By: #### L 100.0100, L500.4050 #### [facility] [address] [place], [address] Monocytes/100 WBC (Bld) 12.8 % High 0-10 [facility] Comment on above: Performed By: #### L 100.0100, L500.4050 #### [facility] [address] [place], [address] Neutrophils/100 WBC (Bld) 61.8 % Normal 47-70 [facility] Comment on above: Performed By: #### L 100.0100, L500.4050 #### [facility] [address] [place], [address] Nucleated RBC (Bld) [#/Vol] 0 10*3/uL Normal 0-5 [facility] Comment on above: Performed By: #### L 100.0100, L500.4050 #### [facility] [address] [place], [address] Platelet mean volume (Bld) [Entitic vol] 11.1 fL Normal 6.2-12.0 [facility] Comment on above: Performed By: #### L 100.0100, L500.4050 #### [facility] [address] [place], [address] Platelets (Bld) [#/Vol] 235 10*3/uL Normal 150-450 [facility] Comment on above: Performed By: #### L 100.0100, L500.4050 #### [facility] [address] [place], [address] RBC (Bld) [#/Vol] 4.76 10*6/uL Normal 4.6-6.2 [facility] Comment on above: Performed By: #### L 100.0100, L500.4050 #### [facility] [address] [place], [address] RDW SD 46.3 fl High 35.1-43.9 [facility] Comment on above: Performed By: #### L 100.0100, L500.4050 #### [facility] [address] [place], [address] WBC (Bld) [#/Vol] 5.4 10*3/uL Normal 4.4-11.0 [facility] Comment on above: Performed By: #### L 100.0100, L500.4050 #### [facility] [address] [place], [address] Carbon dioxide, total [Moles /volume] in Central venous bloodOrdered By: Antonia Matthews on 02-10-2025 CO2 [Moles/Vol] 24.6 mmol/L 21.0-32.0 [facility] Chloride assayOrdered By: Félix Matthews on 02-10-2025 Chloride [Moles/Vol] 105 mmol/L 98-108 [facility] Comprehensive Metabolic Prof ilon 02-10-2025 Albumin [Mass/Vol] 4.0 g/dL Normal 3.5-5.0 [facility] Comment on above: Performed By: #### L 100.0100, [id number] #### [facility] [address] [place], [address] Albumin/Globulin [Mass ratio] 1.3 {ratio} Normal 0.9-2.4 [facility] Comment on above: Performed By: #### L 100.0100, L500.4050 #### [facility] [address] [place], [address] ALK PHOS 60 U/L Normal 40-129 [facility] Comment on above: Performed By: #### L 100.0100, L500.4050 #### [facility] [address] [place], [address] ALT [Catalytic activity/Vol] 21 U/L Normal <=46 [facility] Comment on above: Performed By: #### L 100.0100, L500.4050 #### [facility] [address] [place], [address] AST [Catalytic activity/Vol] 28 U/L Normal <=37 [facility] Comment on above: Performed By: #### L 100.0100, [id number] #### [facility] [address] [place], [address] Bilirubin [Mass/Vol] 0.39 mg/dL Normal 0.00-1.30 [facility] Comment on above: Performed By: #### L 100.0100, [id number] #### [facility] [address] [place], [address] BUN/CRE 12.8 RATIO Normal 10-20 [facility] Comment on above: Performed By: #### L 100.0100, L500.4050 #### [facility] [address] [place], [address] Calcium [Mass/Vol] 9.6 mg/dL Normal 7.6-11.0 [facility] Comment on above: Performed By: #### L 100.0100, L500.4050 #### [facility] [address] [place], [address] Chloride [Moles/Vol] 105 mmol/L Normal 98-108 [facility] Comment on above: Performed By: #### L 100.0100, L500.4050 #### [facility] [address] [place], [address] CO2 [Moles/Vol] 24.6 mmol/L Normal 21.0-32.0 [facility] Comment on above: Performed By: #### L 100.0100, L500.4050 #### [facility] [address] [place], [address] Creatinine [Mass/Vol] 1.05 mg/dL Normal 0.70-1.20 [facility] Comment on above: Performed By: #### L 100.0100, L500.4050 #### [facility] [address] [place], [address] GAP 13 Normal 5-15 [facility] Comment on above: Performed By: #### L 100.0100, L500.4050 #### [facility] [address] [place], [address] GFR/1.73 sq M.predicted among non-blacks MDRD (S/P/Bld) [Vol rate/Area] 86 mL/min/{1.73_m2} Normal >60 [facility] Comment on above: Result Comment: mL/m in/1.73m2 CKD-EPI Creatinine Equation (2020) Performed By: #### L 100.0100, L500.4050 #### [facility] [address] [place], [address] Globulin (S) [Mass/Vol] 3.0 g/dL Normal 2.2-4.2 [facility] Comment on above: Performed By: #### L 100.0100, L500.4050 #### [facility] [address] [place], [address] Glucose [Mass/Vol] 85 mg/dL Normal 70-99 [facility] Comment on above: Performed By: #### L 100.0100, L500.4050 #### [facility] [address] [place], [address] Potassium [Moles/Vol] 4.2 mmol/L Normal 3.3-5.1 [facility] Comment on above: Performed By: #### L 100.0100, L500.4050 #### [facility] [address] [place], [address] Sodium [Moles/Vol] 143 mmol/L Normal 133-145 [facility] Comment on above: Performed By: #### L 100.0100, L500.4050 #### [facility] [address] [place], [address] T PROT 7.0 g/dL Normal 5.9-8.4 [facility] Comment on above: Performed By: #### L 100.0100, L500.4050 #### [facility] [address] [place], [place], [id number] Urea nitrogen [Mass/Vol] 13 mg/dL Normal 4-19 [facility] Comment on above: Performed By: #### L 100.0100, L500.4050 #### [facility] [address] [place], [address] Eosinophil percentageOrdered By: Antonia Matthews on 02-10-2025 Eosinophils/100 WBC (Bld) 3.9 % 0-5 [facility] Erythrocyte distribution wid th ratioOrdered By: [facility] Cassie on 02-10-2025 Erythrocyte distribution width (RBC) [Ratio] 13.2 % 11.6-14.6 [facility] Erythrocyte distribution wid th standard deviationOrdered By: [facility] Cassie on 02-10-2025 Erythrocyte distribution width (RBC) [Ratio] 46.3 fl High 35.1-43.9 [facility] Glomerular filtration rate ( GFR) estimation/1.73 sq m using serum, plasma, or whole bOrdered By: Antoniastanislav Matthews on 02-10-2025 GFR/1.73 sq M.predicted among non-blacks MDRD (S/P/Bld) [Vol rate/Area] 86 mL/min/{1.73_m2} >60 [facility] Comment on above: mL/min/1.73m2 CKD-EP I Creatinine Equation (2020) Hematocrit Auto (Bld) [Volum e fraction]Ordered By: Antonia Matthews on 02-10-2025 Hematocrit (Bld) [Volume fraction] 45.2 % 40-54 [facility] Hemoglobin measurementOrdere d By: Antonia Matthews on 02-10-2025 Hemoglobin (Bld) [Mass/Vol] 14.7 g/dL 13.0-16.5 [facility] Immature granulocytes/100 WB C Auto (Bld)Ordered By: Antonia Matthews on 02-10-2025 Immature granulocytes/100 WBC (Bld) 0.200 % 0.0-0.9 [facility] Comment on above: IG% - Immature Granu locytes (promyelocytes, myelocytes and metamyelocytes) > 1% indicates that a LEFT SHIFT is Present. Laboratory - Chemistry and C hemistry - challengeOrdered By: Antonia Matthews on 02-10-2025 AST [Catalytic activity/Vol] 28 U/L <38 [facility] MCV (mean corpuscular volume ) determinationOrdered By: Antonia Matthews on 02-10-2025 MCV (RBC) [Entitic vol] 95.0 fL High 80-94 [facility] Mean corpuscular hemoglobin (MCH) determinationOrdered By: Antonia Matthews on 02-10-2025 MCH (RBC) [Entitic mass] 30.9 pg 27.0-32.0 [facility] Mean corpuscular hemoglobin concentration (MCHC) determinationOrdered By: Antonia Matthews on 02-10-2025 MCHC (RBC) [Mass/Vol] 32.5 g/dL 32-36 [facility] Mean platelet volume determi nationOrdered By: Antonia Matthews on 02-10-2025 Platelet mean volume (Bld) [Entitic vol] 11.1 fL 6.2-12.0 [facility] Monocyte percentageOrdered B y: Antonia Matthews on 02-10-2025 Monocytes/100 WBC (Bld) 12.8 % High 0-10 [facility] Neutrophil percentageOrdered By: Antonia Matthews on 02-10-2025 Neutrophils/100 WBC (Bld) 61.8 % 47-70 [facility] Nucleated red blood cell per centageOrdered By: Antonia Matthews on 02-10-2025 Nucleated RBC/100 WBC (Bld) [Ratio] 0 % 0-5 [facility] Platelet countOrdered By: Félix Matthews on 02-10-2025 Platelets (Bld) [#/Vol] 235 10*3/uL 150-450 [facility] Potassium measurement (mass/ volume)Ordered By: Antonia Matthews on 02-10-2025 Potassium (Unsp spec) [Mass/Vol] 4.2 mmol/L 3.3-5.1 [facility] RBC Auto (Bld) [#/Vol]Ordere d By: Antonia Matthews on 02-10-2025 RBC (Bld) [#/Vol] 4.76 10*6/uL 4.6-6.2 [facility] Serum creatinine measurement (mass/volume)Ordered By: Antonia Matthews on 02-10-2025 Creatinine [Mass/Vol] 1.05 mg/dL 0.70-1.20 [facility] Serum globulin measurementOr dered By: Antonia Matthews on 02-10-2025 Globulin (S) [Mass/Vol] 3.0 g/dL 2.2-4.2 [facility] Serum glucose measurement (m ass/volume)Ordered By: Antonia Matthews on 02-10-2025 Glucose [Mass/Vol] 85 mg/dL 70-99 [facility] Serum or plasma alanine hadley otransferase (ALT) measurementOrdered By: Antonia Matthews on 02-10-2025 ALT [Catalytic activity/Vol] 21 U/L <47 [facility] Serum or plasma albumin freida urement (mass/volume)Ordered By: Antonia Matthews on 02-10-2025 Albumin [Mass/Vol] 4.0 g/dL 3.5-5.0 [facility] Serum or plasma albumin/glob ulin mass ratioOrdered By: Antonia Matthews on 02-10-2025 Albumin/Globulin [Mass ratio] 1.3 {ratio} 0.9-2.4 [facility] Serum or plasma alkaline wai sphatase measurementOrdered By: Antonia Matthews on 02-10-2025 ALP [Catalytic activity/Vol] 60 U/L 40-129 [facility] Serum or plasma calcium freida urement (mass/volume)Ordered By: Antonia Matthews on 02-10-2025 Calcium [Mass/Vol] 9.6 mg/dL 7.6-11.0 [facility] Serum or plasma urea nitroge n measurement (mass/volume)Ordered By: Antonia Matthews on 02-10-2025 Urea nitrogen [Mass/Vol] 13 mg/dL 4-19 [facility] Sodium levelOrdered By: Noris Matthews on 02-10-2025 Sodium [Moles/Vol] 143 mmol/L 133-145 [facility] Total proteinOrdered By: Robbie Matthews on 02-10-2025 Protein [Mass/Vol] 7.0 g/dL 5.9-8.4 [facility] White blood cell (WBC) count Ordered By: Antonia Matthews on 02-10-2025 WBC (Bld) [#/Vol] 5.4 10*3/uL 4.4-11.0 [facility] Absolute lymphocyte countOrd ered By: Zaid Philippe on 11-18-2024 Lymphocytes Auto (Unsp spec) [#/Vol] 1.54 10*3/uL 0.83-4.51 [facility] [facility] Absolute neutrophil countOrd ered By: Zaid Philippe on 11-18-2024 Neutrophils (Bld) [#/Vol] 2.3 10*3/uL 2.0-7.7 [facility] Anion gap in Serum or Plasma Ordered By: Zaid Philippe on 11-18-2024 Anion gap [Moles/Vol] 12 mmol/L 5-15 [facility] Automated lymphocyte count a s percentage of total leukocytesOrdered By: Zaid Philippe on 11-18-2024 Lymphocytes/100 WBC Auto (Unsp spec) 33.3 % 19-41 [facility] BUN/creatinine ratioOrdered By: Zaid Philippe on 11-18-2024 Urea nitrogen/Creatinine [Mass ratio] 14.9 mg/mg 10-20 [facility] Basophil percentageOrdered B y: Zaid Philippe on 11-18-2024 Basophils/100 WBC (Bld) 1.1 % High 0-1 [facility] Bilirubin, totalOrdered By: Zaid Philippe on 11-18-2024 Bilirubin [Mass/Vol] 0.68 mg/dL 0.00-1.30 [facility] CBC W/Diff, Automatedon 10-25 Absolute Lymph 1.54 X10 3/uL Normal 0.83-4.51 [facility] Comment on above: Performed By: #### L 100.0100, L500.4100, L500.4050 #### [facility] Laboratory [address] [place] [address]. [place], [place], [id number] Absolute Neut 2.3 X10 3/uL Normal 2.0-7.7 [facility] Comment on above: Performed By: #### L 100.0100, L500.4100, L500.4050 #### [facility] Laboratory [address] [place], [address] Basophils/100 WBC (Bld) 1.1 % High 0-1 [facility] Comment on above: Performed By: #### L 100.0100, L500.4100, L500.4050 #### [facility] Laboratory [address] [place], [address] Eosinophils/100 WBC (Bld) 5.6 % High 0-5 [facility] Comment on above: Performed By: #### L 100.0100, L500.4100, L500.4050 #### [facility] Laboratory [address] [place], [address] Erythrocyte distribution width (RBC) [Ratio] 12.8 % Normal 11.6-14.6 [facility] Comment on above: Performed By: #### L 100.0100, L500.4100, L500.4050 #### [facility] Laboratory [address] [place], [address] Hematocrit (Bld) [Volume fraction] 43.6 % Normal 40-54 [facility] Comment on above: Performed By: #### L 100.0100, L500.4100, L500.4050 #### [facility] Laboratory [address] [place], [address] Hemoglobin (Bld) [Mass/Vol] 14.6 g/dL Normal 13.0-16.5 [facility] Comment on above: Performed By: #### L 100.0100, L500.4100, L500.4050 #### [facility] Laboratory [address] [place], [address] IG% 0.200 Normal 0.0-0.9 [facility] Comment on above: Result Comment: IG% - Immature Granulocytes (promyelocytes, myelocytes and metamyelocytes) > 1% indicates that a LEFT SHIFT is Present. Performed By: #### L 100.0100, L500.4100, L500.4050 #### [facility] Laboratory [address] [place], [address] Lymphocytes/100 WBC (Bld) 33.3 % Normal 19-41 [facility] Comment on above: Performed By: #### L 100.0100, L500.4100, L500.4050 #### [facility] Laboratory [address] [place], [address] MCH (RBC) [Entitic mass] 31.3 pg Normal 27.0-32.0 [facility] Comment on above: Performed By: #### L 100.0100, L500.4100, L500.4050 #### [facility] Laboratory [address] [place], [address] MCHC (RBC) [Mass/Vol] 33.5 g/dL Normal 32-36 [facility] Comment on above: Performed By: #### L 100.0100, L500.4100, L500.4050 #### [facility] Laboratory [address] [place], [address] MCV (RBC) [Entitic vol] 93.4 fL Normal 80-94 [facility] Comment on above: Performed By: #### L 100.0100, L500.4100, L500.4050 #### [facility] Laboratory [address] [place], [address] Monocytes/100 WBC (Bld) 10.6 % High 0-10 [facility] Comment on above: Performed By: #### L 100.0100, L500.4100, L500.4050 #### [facility] Laboratory [address] [place], [address] Neutrophils/100 WBC (Bld) 49.2 % Normal 47-70 [facility] Comment on above: Performed By: #### L 100.0100, L500.4100, L500.4050 #### [facility] Laboratory [address] [place], [address] Nucleated RBC (Bld) [#/Vol] 0 10*3/uL Normal 0-5 [facility] Comment on above: Performed By: #### L 100.0100, L500.4100, L500.4050 #### [facility] Laboratory [address] [place], [address] Platelet mean volume (Bld) [Entitic vol] 11.7 fL Normal 6.2-12.0 [facility] Comment on above: Performed By: #### L 100.0100, L500.4100, L500.4050 #### [facility] Laboratory [address] [place], [address] Platelets (Bld) [#/Vol] 239 10*3/uL Normal 150-450 [facility] Comment on above: Performed By: #### L 100.0100, L500.4100, L500.4050 #### [facility] Laboratory [address] [place], [address] RBC (Bld) [#/Vol] 4.67 10*6/uL Normal 4.6-6.2 [facility] Comment on above: Performed By: #### L 100.0100, L500.4100, L500.4050 #### [facility] Laboratory [address] [place], [address] RDW SD 43.8 fl Normal 35.1-43.9 [facility] Comment on above: Performed By: #### L 100.0100, L500.4100, L500.4050 #### [facility] Laboratory [address] [place], [address] WBC (Bld) [#/Vol] 4.6 10*3/uL Normal 4.4-11.0 [facility] Comment on above: Performed By: #### L 100.0100, L500.4100, L500.4050 #### [facility] Laboratory [address] [place], [address] [facility] 11-18-2024 [facility] Telephone (INTMWS) NAUN MONTES DE OCA ([id number]) 1975 M Date Time Provider Department 11/18/24 ZAID PHILIPPE INTMWS During your visit today, we recorded the following information about you: Elizabeth Muniz LPN 11/23/2024 8:56 AM Signed View External Labs - CMP,lipids [ID [id number]] Labs completed at [facility]. Please review. Zaid Philippe MD 11/23/2024 5:28 PM Signed Lipid panel stable, and near optimal. Continue heart healthy choices like Mediterranean diet. Elizabeth Muniz LPN 11/24/2024 8:48 AM Signed My chart message to pt with pcp response and sent the lab results from [facility]. Allergies As of Date: 11/18/2024 Noted Allergy [...] to affected area daily at bedtime. Per [facility]. - Glucosamine-Chondroi t-Vit C-Mn (GLUCOSAMINE CHONDROITIN MAXSTR) 500-400 mg cap Take 1 capsule by mouth once daily. - multivitamin tablet Take 1 tablet by mouth once daily. Problem List As Of Date 11/18/2024 Noted Resolved Unspecified Backache [M54.9] 04/25/2009 11/10/2009 DDD (degenerative disc disease) [[id number]] 11/10/2009 10/28/2024 Postherpetic neuralgia [B02.29] 03/22/2019 03/19/2023 Psoriasis and similar disorders [L40.9] 06/20/2021 Psoriatic arthritis (HCC) [L40.50] 09/30/2022 Encounter Status:Closed by ELIZABETH MUNIZ on 11/24/24 Normal [facility] Calculated very low density lipoprotein (VLDL) cholesterol measurementOrdered By: Zaid Philippe on 11-18-2024 Calculated very low density lipoprotein (VLDL) cholesterol measurement 13 mg/dL 5-40 [facility] Carbon dioxide, total [Moles /volume] in Central venous bloodOrdered By: Zaid Philippe on 11-18-2024 CO2 [Moles/Vol] 23.3 mmol/L 21.0-32.0 [facility] Chloride assayOrdered By: Chelsey Phiilppe on 11-18-2024 Chloride [Moles/Vol] 105 mmol/L 98-108 [facility] Comprehensive Metabolic Prof ilon 11-18-2024 Albumin [Mass/Vol] 4.2 g/dL Normal 3.5-5.0 [facility] Comment on above: Order Comment: DR. Celio ZHANG GETS RESULTS FOR CMP AND CBCD DR. PHILIPPE GETS RESULTS FOR LIPID Performed By: #### L 500.4050, L100.0100 #### [facility] Laboratory [facility] [address] [place], [place], [id number] Albumin/Globulin [Mass ratio] 1.4 {ratio} Normal 0.9-2.4 [facility] Comment on above: Order Comment: DR. Celio ZHANG GETS RESULTS FOR CMP AND CBCD DR. PHILIPPE GETS RESULTS FOR LIPID Performed By: #### L 500.4050, L100.0100 #### [facility] Laboratory [address] [place], [address] ALK PHOS 59 U/L Normal 40-129 [facility] Comment on above: Order Comment: DR. Celio ZHANG GETS RESULTS FOR CMP AND CBCD DR. PHILIPPE GETS RESULTS FOR LIPID Performed By: #### L 500.4050, L100.0100 #### [facility] Laboratory [address] [place], [address] ALT [Catalytic activity/Vol] 20 U/L Normal <=46 [facility] Comment on above: Order Comment: DR. Celio ZHANG GETS RESULTS FOR CMP AND CBCD DR. PHILIPPE GETS RESULTS FOR LIPID Performed By: #### L 500.4050, L100.0100 #### [facility] Laboratory [address] [place], [address] AST [Catalytic activity/Vol] 31 U/L Normal <=37 [facility] Comment on above: Order Comment: DR. Celio ZHANG GETS RESULTS FOR CMP AND CBCD DR. PHILIPPE GETS RESULTS FOR LIPID Performed By: #### L 500.4050, L100.0100 #### [facility] Laboratory [address] [place], [address] Bilirubin [Mass/Vol] 0.68 mg/dL Normal 0.00-1.30 [facility] Comment on above: Order Comment: DR. Celio ZHANG GETS RESULTS FOR CMP AND CBCD DR. PHILIPPE GETS RESULTS FOR LIPID Performed By: #### L 500.4050, L100.0100 #### [facility] Laboratory [address] [place], [address] BUN/CRE 14.9 RATIO Normal 10-20 [facility] Comment on above: Order Comment: DR. Celio ZHANG GETS RESULTS FOR CMP AND CBCD DR. PHILIPPE GETS RESULTS FOR LIPID Performed By: #### L 500.4050, L100.0100 #### [facility] Laboratory [address] [place], [address] Calcium [Mass/Vol] 9.3 mg/dL Normal 7.6-11.0 [facility] Comment on above: Order Comment: DR. Celio ZHANG GETS RESULTS FOR CMP AND CBCD DR. PHILIPPE GETS RESULTS FOR LIPID Performed By: #### L 500.4050, L100.0100 #### [facility] Laboratory [address] [place], [address] Chloride [Moles/Vol] 105 mmol/L Normal 98-108 [facility] Comment on above: Order Comment: DR. Celio ZHANG GETS RESULTS FOR CMP AND CBCD DR. PHILIPPE GETS RESULTS FOR LIPID Performed By: #### L 500.4050, L100.0100 #### [facility] Laboratory [address] [place], [address] CO2 [Moles/Vol] 23.3 mmol/L Normal 21.0-32.0 [facility] Comment on above: Order Comment: DR. Celio ZHANG GETS RESULTS FOR CMP AND CBCD DR. PHILIPPE GETS RESULTS FOR LIPID Performed By: #### L 500.4050, L100.0100 #### [facility] Laboratory [address] [place], [address] Creatinine [Mass/Vol] 1.03 mg/dL Normal 0.70-1.20 [facility] Comment on above: Order Comment: DR. Celio ZHANG GETS RESULTS FOR CMP AND CBCD DR. PHILIPPE GETS RESULTS FOR LIPID Performed By: #### L 500.4050, L100.0100 #### [facility] Laboratory [address] [place], [address] GAP 12 Normal 5-15 [facility] Comment on above: Order Comment: DR. Celio ZHANG GETS RESULTS FOR CMP AND CBCD DR. PHILIPPE GETS RESULTS FOR LIPID Performed By: #### L 500.4050, L100.0100 #### [facility] Laboratory [address] [place], [address] GFR/1.73 sq M.predicted among non-blacks MDRD (S/P/Bld) [Vol rate/Area] 89 mL/min/{1.73_m2} Normal >60 [facility] Comment on above: Order Comment: DR. Celio ZHANG GETS RESULTS FOR CMP AND CBCD DR. PHILIPPE GETS RESULTS FOR LIPID Result Comment: mL/m in/1.73m2 CKD-EPI Creatinine Equation (2020) Performed By: #### L 500.4050, L100.0100 #### [facility] Laboratory [address] [place], [address] Globulin (S) [Mass/Vol] 3.1 g/dL Normal 2.2-4.2 [facility] Comment on above: Order Comment: DR. Celio ZHANG GETS RESULTS FOR CMP AND CBCD DR. PHILIPPE GETS RESULTS FOR LIPID Performed By: #### L 500.4050, L100.0100 #### [facility] Laboratory [address] [place], [address] Glucose [Mass/Vol] 86 mg/dL Normal 70-99 [facility] Comment on above: Order Comment: DR. Celio ZHANG GETS RESULTS FOR CMP AND CBCD DR. PHILIPPE GETS RESULTS FOR LIPID Performed By: #### L 500.4050, L100.0100 #### [facility] Laboratory [address] [place], [address] Potassium [Moles/Vol] 4.0 mmol/L Normal 3.3-5.1 [facility] Comment on above: Order Comment: DR. Celio ZHANG GETS RESULTS FOR CMP AND CBCD DR. PHILIPPE GETS RESULTS FOR LIPID Performed By: #### L 500.4050, L100.0100 #### [facility] Laboratory [address] [place], [address] Sodium [Moles/Vol] 140 mmol/L Normal 133-145 [facility] Comment on above: Order Comment: DR. Celio ZHANG GETS RESULTS FOR CMP AND CBCD DR. PHILIPPE GETS RESULTS FOR LIPID Performed By: #### L 500.4050, L100.0100 #### [facility] Laboratory [address] [place], [address] T PROT 7.3 g/dL Normal 5.9-8.4 [facility] Comment on above: Order Comment: DR. Celio ZHANG GETS RESULTS FOR CMP AND CBCD DR. PHILIPPE GETS RESULTS FOR LIPID Performed By: #### L 500.4050, L100.0100 #### [facility] Laboratory [address] [place], [address] Urea nitrogen [Mass/Vol] 15 mg/dL Normal 4-19 [facility] Comment on above: Order Comment: DR. Celio ZHANG GETS RESULTS FOR CMP AND CBCD DR. PHILIPPE GETS RESULTS FOR LIPID Performed By: #### L 500.4050, L100.0100 #### [facility] Laboratory [address] [place], [address] Eosinophil percentageOrdered By: Zaid Philippe on 11-18-2024 Eosinophils/100 WBC (Bld) 5.6 % High 0-5 [facility] Erythrocyte distribution wid th ratioOrdered By: Zaid Philippe on 11-18-2024 Erythrocyte distribution width (RBC) [Ratio] 12.8 % 11.6-14.6 [facility] Erythrocyte distribution wid th standard deviationOrdered By: Zaid Philippe on 11-18-2024 Erythrocyte distribution width (RBC) [Ratio] 43.8 fl 35.1-43.9 [facility] Glomerular filtration rate ( GFR) estimation/1.73 sq m using serum, plasma, or whole bOrdered By: Zaid Philippe on 11-18-2024 GFR/1.73 sq M.predicted among non-blacks MDRD (S/P/Bld) [Vol rate/Area] 89 mL/min/{1.73_m2} >60 [facility] Comment on above: mL/min/1.73m2 CKD-EP I Creatinine Equation (2020) Hematocrit Auto (Bld) [Volum e fraction]Ordered By: Zaid Philippe on 11-18-2024 Hematocrit (Bld) [Volume fraction] 43.6 % 40-54 [facility] Hemoglobin measurementOrdere d By: Zaid Philippe on 11-18-2024 Hemoglobin (Bld) [Mass/Vol] 14.6 g/dL 13.0-16.5 [facility] Immature granulocytes/100 WB C Auto (Bld)Ordered By: Zaid Philippe on 11-18-2024 Immature granulocytes/100 WBC (Bld) 0.200 % 0.0-0.9 [facility] Comment on above: IG% - Immature Granu locytes (promyelocytes, myelocytes and metamyelocytes) > 1% indicates that a LEFT SHIFT is Present. LDL calc ser/plasOrdered By: Zaid Philippe on 11-18-2024 Cholesterol in LDL [Mass/Vol] 125 mg/dL [facility] Comment on above: Lwwygjpudn=414-271 m g/dL & Higher Bgmf=162 mg/dL or greater Laboratory - Chemistry and C hemistry - challengeOrdered By: Zaid Philippe on 11-18-2024 AST [Catalytic activity/Vol] 31 U/L <38 [facility] Lipid Profileon 11-18-2024 CHOL:HDL 3.65 Normal [facility] Comment on above: Order Comment: DR. Celio ZHANG GETS RESULTS FOR CMP AND CBCD DR. PHILIPPE GETS RESULTS FOR LIPID Performed By: #### L 500.4050, L100.0100 #### [facility] Laboratory [address] [place], [address] Cholesterol [Mass/Vol] 190 mg/dL Normal <=200 [facility] Comment on above: Order Comment: DR. Celio ZHANG GETS RESULTS FOR CMP AND CBCD DR. PHILIPPE GETS RESULTS FOR LIPID Result Comment: Chol esterol level, Desirable <200 mg/dL Borderline high cholesterol 200-239 mg/dL High cholesterol >=240 mg/dL Recommendations of the NCEP Adult Treatment Panel for the following risk-cutoff thresholds for the [place] population. Performed By: #### L 500.4050, L100.0100 #### [facility] Laboratory [address] [place], [address] Cholesterol in HDL [Mass/Vol] 52 mg/dL Normal [facility] Comment on above: Order Comment: DR. Celio [...] sex and age. Performed By: #### L 500.4050, L100.0100 #### [facility] Laboratory [address] [place], [address] Cholesterol in LDL [Mass/Vol] 125 mg/dL Normal [facility] Comment on above: Order Comment: DR. Celio ZHANG GETS RESULTS FOR CMP AND CBCD DR. PHILIPPE GETS RESULTS FOR LIPID Result Comment: Bord niwlfw=314-585 mg/dL Higher Rtpl=980 mg/dL or greater Performed By: #### L 500.4050, L100.0100 #### [facility] Laboratory [address] [place], [address] Cholesterol in VLDL [Mass/Vol] 13 mg/dL Normal 5-40 [facility] Comment on above: Order Comment: DR. Celio ZHANG GETS RESULTS FOR CMP AND CBCD DR. PHILIPPE GETS RESULTS FOR LIPID Performed By: #### L 500.4050, L100.0100 #### [facility] Laboratory [address] [place], [address] Triglyceride [Mass/Vol] 65 mg/dL Normal [facility] Comment on above: Order Comment: DR. Celio ZHANG GETS RESULTS FOR CMP AND CBCD DR. PHILIPEP GETS RESULTS FOR LIPID Result Comment: The drugs N-Acetylcysteine and Metamizole may falsely depress this assay. Normal range: <150 mg/dL Borderline High: 150-199 mg/dL High: 200-499 mg/dL Very High: >500 mg/dL Performed By: #### L 500.4050, L100.0100 #### [facility] Laboratory [address] [place], [address] MCV (mean corpuscular volume ) determinationOrdered By: Zaid Philippe on 11-18-2024 MCV (RBC) [Entitic vol] 93.4 fL 80-94 [facility] Mean corpuscular hemoglobin (MCH) determinationOrdered By: Zaid Philippe on 11-18-2024 MCH (RBC) [Entitic mass] 31.3 pg 27.0-32.0 [facility] Mean corpuscular hemoglobin concentration (MCHC) determinationOrdered By: Zaid Philippe on 11-18-2024 MCHC (RBC) [Mass/Vol] 33.5 g/dL 32-36 [facility] Mean platelet volume determi nationOrdered By: Zaid Philippe on 11-18-2024 Platelet mean volume (Bld) [Entitic vol] 11.7 fL 6.2-12.0 [facility] Monocyte percentageOrdered B y: Zaid Philippe on 11-18-2024 Monocytes/100 WBC (Bld) 10.6 % High 0-10 [facility] Neutrophil percentageOrdered By: Zaid Philippe on 11-18-2024 Neutrophils/100 WBC (Bld) 49.2 % 47-70 [facility] Nucleated red blood cell per centageOrdered By: Zaid Philippe on 11-18-2024 Nucleated RBC/100 WBC (Bld) [Ratio] 0 % 0-5 [facility] Platelet countOrdered By: Chelsey Philippe on 11-18-2024 Platelets (Bld) [#/Vol] 239 10*3/uL 150-450 [facility] Potassium measurement (mass/ volume)Ordered By: Zaid Philippe on 11-18-2024 Potassium (Unsp spec) [Mass/Vol] 4.0 mmol/L 3.3-5.1 [facility] RBC Auto (Bld) [#/Vol]Ordere d By: Zaid Philippe on 11-18-2024 RBC (Bld) [#/Vol] 4.67 10*6/uL 4.6-6.2 [facility] Screening total cholesterol/ high density lipoprotein (HDL) cholesterol ratioOrdered By: Zaid Philippe on 11-18-2024 Cholesterol.total/Choles terol in HDL [Mass ratio] 3.65 {ratio} [facility] Serum creatinine measurement (mass/volume)Ordered By: Zaid Philippe on 11-18-2024 Creatinine [Mass/Vol] 1.03 mg/dL 0.70-1.20 [facility] Serum globulin measurementOr dered By: Zaid Philippe on 11-18-2024 Globulin (S) [Mass/Vol] 3.1 g/dL 2.2-4.2 [facility] Serum glucose measurement (m ass/volume)Ordered By: Zaid Philippe on 11-18-2024 Glucose [Mass/Vol] 86 mg/dL 70-99 [facility] Serum or plasma alanine hadley otransferase (ALT) measurementOrdered By: Zaid Philippe on 11-18-2024 ALT [Catalytic activity/Vol] 20 U/L <47 [facility] Serum or plasma albumin freida urement (mass/volume)Ordered By: Zaid Philippe on 11-18-2024 Albumin [Mass/Vol] 4.2 g/dL 3.5-5.0 [facility] [facility] Serum or plasma albumin/glob ulin mass ratioOrdered By: Zaid Philippe on 11-18-2024 Albumin/Globulin [Mass ratio] 1.4 {ratio} 0.9-2.4 [facility] Serum or plasma alkaline wai sphatase measurementOrdered By: Zaid Philippe on 11-18-2024 ALP [Catalytic activity/Vol] 59 U/L 40-129 [facility] Serum or plasma calcium freida urement (mass/volume)Ordered By: Zaid Philippe on 11-18-2024 Calcium [Mass/Vol] 9.3 mg/dL 7.6-11.0 [facility] Serum or plasma cholesterol in HDL measurement (mass/volume)Ordered By: Zaid Philippe on 11-18-2024 Cholesterol in HDL [Mass/Vol] 52 mg/dL >40 [facility] Comment on above: National Cholesterol Education Program (NCEP) guidelines:<40 mg/dL: Low HDL-cholesterol (major risk factor for CHD)>= 60 mg/dL: High HDL-cholesterol (negative risk factor for CHD)HDL-cholesterol is affected by a number of factors, e.g. smoking, exercise, hormones, sex and age. Serum or plasma cholesterol measurement (mass/volume)Ordered By: Zaid Philippe on 11-18-2024 Cholesterol [Mass/Vol] 190 mg/dL <201 [facility] Comment on above: Cholesterol level, D esirable <200 mg/dLBorderline high cholesterol 200-239 mg/dLHigh cholesterol >=240 mg/dLRecommendations of the NCEP Adult Treatment Panel for the following risk-cutoff thresholds for the [place] population. Serum or plasma urea nitroge n measurement (mass/volume)Ordered By: Zaid Philippe on 11-18-2024 Urea nitrogen [Mass/Vol] 15 mg/dL 4-19 [facility] Sodium levelOrdered By: Unique Philippe on 11-18-2024 Sodium [Moles/Vol] 140 mmol/L 133-145 [facility] Total proteinOrdered By: Walker Philippe on 11-18-2024 Protein [Mass/Vol] 7.3 g/dL 5.9-8.4 [facility] Triglycerides measurementOrd ered By: Zaid Philippe on 11-18-2024 Triglyceride [Mass/Vol] 65 mg/dL <199 [facility] Comment on above: The drugs N-Acetylcy steine and Metamizole may falsely depress this assay. Normal range: <150 mg/dLBorderline High: 150-199 mg/dLHigh: 200-499 mg/dLVery High: >500 mg/dL White blood cell (WBC) count Ordered By: Zaid Philippe on 11-18-2024 WBC (Bld) [#/Vol] 4.6 10*3/uL 4.4-11.0 [facility] CNOVon 11-01-2024 CNOV Office Visit (INTMWS) NAUN MONTES DE OCA ([id number]) 1975 M Date Time Provider Department 11/01/24 6:20 PM ZAID PHILPIPE INTMWS During your visit today, we recorded [...] to affected area daily at bedtime. Per [facility]. - Glucosamine-Chondroi t-Vit C-Mn (GLUCOSAMINE CHONDROITIN MAXSTR) 500-400 mg cap Take 1 capsule by mouth once daily. - multivitamin tablet Take 1 tablet by mouth once daily. Problem List As Of Date 11/01/2024 Noted Resolved Unspecified Backache [M54.9] 04/25/2009 11/10/2009 DDD (degenerative disc disease) [VHZ4602] 11/10/2009 10/28/2024 Postherpetic neuralgia [B02.29] 03/22/2019 03/19/2023 Psoriasis and similar disorders [L40.9] 06/20/2021 Psoriatic arthritis (HCC) [L40.50] 09/30/2022 Encounter Status:Closed by BARB SPEARS on 11/01/24 [facility] CNOVon 10-28-2024 CNOV Office Visit (INTMWS) NAUN MONTES DE OCA ([id number]) 1975 M Date Time Provider Department 10/28/24 8:00 AM ZAID PHILIPPE INTMWS During your visit today, we recorded the following information about you: Pulse Respiration Blood pressure Weight 56/minute 16/minute 118/74 78.7 kg Height 1.88 m Barb Spears LPN 10/28/2024 8:53 AM Signed [facility] OPEN ACCESS QUESTIONNAIRE 1. Are you [...] Please send all open access [facility] Pool #[id number] Zaid Philippe MD 10/28/2024 8:53 AM Signed This note was created using FaceAlert[employer]. Subjective Patient presents with: Physical Naun Montes [...] Allergies Unknow (more content not included)... Normal [facility] Absolute lymphocyte countOrd ered By: Antonia Matthews on 08-27-2024 Lymphocytes Auto (Unsp spec) [#/Vol] 1.28 10*3/uL 0.83-4.51 [facility] Absolute neutrophil countOrd ered By: Antonia Matthews on 08-27-2024 Neutrophils (Bld) [#/Vol] 3.6 10*3/uL 2.0-7.7 [facility] Anion gap in Serum or Plasma Ordered By: Antonia Matthews on 08-27-2024 Anion gap [Moles/Vol] 11 mmol/L 5-15 [facility] Automated lymphocyte count a s percentage of total leukocytesOrdered By: Antonia Matthews on 08-27-2024 Lymphocytes/100 WBC Auto (Unsp spec) 22.6 % 19-41 [facility] BUN/creatinine ratioOrdered By: Antonia Matthews on 08-27-2024 Urea nitrogen/Creatinine [Mass ratio] 15.4 mg/mg 10-20 [facility] Basophil percentageOrdered B y: Antonia Thomaslanki on 08-27-2024 Basophils/100 WBC (Bld) 0.9 % 0-1 [facility] Bilirubin, totalOrdered By: Antonia Thomasfan on 08-27-2024 Bilirubin [Mass/Vol] 0.49 mg/dL 0.00-1.30 [facility] CBC W/Diff, Automatedon Absolute Lymph 1.28 X10 3/uL Normal 0.83-4.51 [facility] Comment on above: Performed By: #### L 500.4050, L100.0100 #### [facility] Laboratory [address] [place], [address] Absolute Neut 3.6 X10 3/uL Normal 2.0-7.7 [facility] Comment on above: Performed By: #### L 500.4050, L100.0100 #### [facility] [address] [place], [address] Basophils/100 WBC (Bld) 0.9 % Normal 0-1 [facility] Comment on above: Performed By: #### L 500.4050, L100.0100 #### [facility] [address] [place], [address] Eosinophils/100 WBC (Bld) 3.2 % Normal 0-5 [facility] Comment on above: Performed By: #### L 500.4050, L100.0100 #### [facility] [address] [place], [address] Erythrocyte distribution width (RBC) [Ratio] 13.1 % Normal 11.6-14.6 [facility] Comment on above: Performed By: #### L 500.4050, L100.0100 #### [facility] [address] [place], [address] Hematocrit (Bld) [Volume fraction] 44.6 % Normal 40-54 [facility] Comment on above: Performed By: #### L 500.4050, L100.0100 #### [facility] [address] [place], [address] Hemoglobin (Bld) [Mass/Vol] 14.6 g/dL Normal 13.0-16.5 [facility] Comment on above: Performed By: #### L 500.4050, L100.0100 #### [facility] [address] [place], [address] IG% 0.500 Normal 0.0-0.9 [facility] Comment on above: Result Comment: IG% - Immature Granulocytes (promyelocytes, myelocytes and metamyelocytes) > 1% indicates that a LEFT SHIFT is Present. Performed By: #### L 500.4050, L100.0100 #### [facility] [address] [place], [address] Lymphocytes/100 WBC (Bld) 22.6 % Normal 19-41 [facility] Comment on above: Performed By: #### L 500.4050, L100.0100 #### [facility] [address] [place], [address] MCH (RBC) [Entitic mass] 31.3 pg Normal 27.0-32.0 [facility] Comment on above: Performed By: #### L 500.4050, L100.0100 #### [facility] [address] [place], [address] MCHC (RBC) [Mass/Vol] 32.7 g/dL Normal 32-36 [facility] Comment on above: Performed By: #### L 500.4050, L100.0100 #### [facility] [address] [place], [address] MCV (RBC) [Entitic vol] 95.5 fL High 80-94 [facility] Comment on above: Performed By: #### L 500.4050, L100.0100 #### [facility] [address] [place], [address] Monocytes/100 WBC (Bld) 9.7 % Normal 0-10 [facility] Comment on above: Performed By: #### L 500.4050, L100.0100 #### [facility] [address] [place], [address] Neutrophils/100 WBC (Bld) 63.1 % Normal 47-70 [facility] Comment on above: Performed By: #### L 500.4050, L100.0100 #### [facility] [address] [place], [address] Nucleated RBC (Bld) [#/Vol] 0 10*3/uL Normal 0-5 [facility] Comment on above: Performed By: #### L 500.4050, L100.0100 #### [facility] [address] [place], [address] Platelet mean volume (Bld) [Entitic vol] 11.1 fL Normal 6.2-12.0 [facility] Comment on above: Performed By: #### L 500.4050, L100.0100 #### [facility] Laboratory [address] [place], [address] Platelets (Bld) [#/Vol] 251 10*3/uL Normal 150-450 [facility] Comment on above: Performed By: #### L 500.4050, L100.0100 #### [facility] [address] [place], [address] RBC (Bld) [#/Vol] 4.67 10*6/uL Normal 4.6-6.2 [facility] Comment on above: Performed By: #### L 500.4050, L100.0100 #### [facility] [address] [place], [address] RDW SD 45.5 fl High 35.1-43.9 [facility] Comment on above: Performed By: #### L 500.4050, L100.0100 #### [facility] [address] [place], [address] WBC (Bld) [#/Vol] 5.7 10*3/uL Normal 4.4-11.0 [facility] Comment on above: Performed By: #### L 500.4050, L100.0100 #### [facility] [address] [place], [address] Carbon dioxide, total [Moles /volume] in Central venous bloodOrdered By: Antonia Matthews on 08-27-2024 CO2 [Moles/Vol] 25.4 mmol/L 21.0-32.0 [facility] Chloride assayOrdered By: Félix Matthews on 08-27-2024 Chloride [Moles/Vol] 104 mmol/L 98-108 [facility] Comprehensive Metabolic Prof ilon 08-27-2024 Albumin [Mass/Vol] 4.2 g/dL Normal 3.5-5.0 [facility] Comment on above: Performed By: #### L 500.4050, L100.0100 #### [facility] [address] [place], [address] Albumin/Globulin [Mass ratio] 1.4 {ratio} Normal 0.9-2.4 [facility] Comment on above: Performed By: #### L 500.4050, L100.0100 #### [facility] [address] [place], [address] ALK PHOS 59 U/L Normal 40-129 [facility] Comment on above: Performed By: #### L 500.4050, L100.0100 #### [facility] [address] [place], [address] ALT [Catalytic activity/Vol] 25 U/L Normal <=46 [facility] Comment on above: Performed By: #### L 500.4050, L100.0100 #### [facility] [address] [place], [address] AST [Catalytic activity/Vol] 30 U/L Normal <=37 [facility] Comment on above: Performed By: #### L 500.4050, L100.0100 #### [facility] [address] [place], [address] Bilirubin [Mass/Vol] 0.49 mg/dL Normal 0.00-1.30 [facility] Comment on above: Performed By: #### L 500.4050, L100.0100 #### [facility] [address] [place], [address] BUN/CRE 15.4 RATIO Normal 10-20 [facility] Comment on above: Performed By: #### L 500.4050, L100.0100 #### [facility] [address] [place], [address] Calcium [Mass/Vol] 9.6 mg/dL Normal 7.6-11.0 [facility] Comment on above: Performed By: #### L 500.4050, L100.0100 #### [facility] [address] [place], [address] Chloride [Moles/Vol] 104 mmol/L Normal 98-108 [facility] Comment on above: Performed By: #### L 500.4050, L100.0100 #### [facility] [address] [place], [address] CO2 [Moles/Vol] 25.4 mmol/L Normal 21.0-32.0 [facility] Comment on above: Performed By: #### L 500.4050, L100.0100 #### [facility] [address] [place], [address] Creatinine [Mass/Vol] 1.08 mg/dL Normal 0.70-1.20 [facility] Comment on above: Performed By: #### L 500.4050, L100.0100 #### [facility] [address] [place], [address] GAP 11 Normal 5-15 [facility] Comment on above: Performed By: #### L 500.4050, L100.0100 #### [facility] [address] [place], [address] GFR/1.73 sq M.predicted among non-blacks MDRD (S/P/Bld) [Vol rate/Area] 84 mL/min/{1.73_m2} Normal >60 [facility] Comment on above: Result Comment: mL/m in/1.73m2 CKD-EPI Creatinine Equation (2020) Performed By: #### L 500.4050, L100.0100 #### [facility] [address] [place], [address] Globulin (S) [Mass/Vol] 3.1 g/dL Normal 2.2-4.2 [facility] Comment on above: Performed By: #### L 500.4050, L100.0100 #### [facility] [address] [place], [address] Glucose [Mass/Vol] 103 mg/dL High 70-99 [facility] Comment on above: Performed By: #### L 500.4050, L100.0100 #### [facility] [address] [place], [address] Potassium [Moles/Vol] 4.1 mmol/L Normal 3.3-5.1 [facility] Comment on above: Performed By: #### L 500.4050, L100.0100 #### [facility] [address] [place], [address] Sodium [Moles/Vol] 141 mmol/L Normal 133-145 [facility] Comment on above: Performed By: #### L 500.4050, L100.0100 #### [facility] [address] [place], [address] T PROT 7.3 g/dL Normal 5.9-8.4 [facility] Comment on above: Performed By: #### L 500.4050, L100.0100 #### [facility] [address] [place], [address] Urea nitrogen [Mass/Vol] 17 mg/dL Normal 4-19 [facility] Comment on above: Performed By: #### L 500.4050, L100.0100 #### [facility] [address] [place], [address] Eosinophil percentageOrdered By: Antonia Matthews on 08-27-2024 Eosinophils/100 WBC (Bld) 3.2 % 0-5 [facility] Erythrocyte distribution wid th (RBC) [Ratio]Ordered By: [facility] Cassie on 08-27-2024 Erythrocyte distribution width (RBC) [Entitic vol] 45.5 fL High 35.1-43.9 [facility] Erythrocyte distribution wid th ratioOrdered By: Antonia Matthews on 08-27-2024 Erythrocyte distribution width (RBC) [Ratio] 13.1 % 11.6-14.6 [facility] Erythrocyte distribution wid th standard deviationOrdered By: Antonia Matthews on 08-27-2024 Erythrocyte distribution width (RBC) [Ratio] 45.5 fl High 35.1-43.9 [facility] GFR/1.73 sq M.predicted carlo g non-blacks MDRD (S/P/Bld) [Vol rate/Area]Ordered By: Antonia Matthews on 08-27-2024 Estimated GFR (MDRD) Non-Af Amer 84 >60 [facility] Comment on above: mL/min/1.73m2 CKD-EP I Creatinine Equation (2020) Glomerular filtration rate ( GFR) estimation/1.73 sq m using serum, plasma, or whole bOrdered By: Antonia Matthews on 08-27-2024 GFR/1.73 sq M.predicted among non-blacks MDRD (S/P/Bld) [Vol rate/Area] 84 mL/min/{1.73_m2} >60 [facility] Comment on above: mL/min/1.73m2 CKD-EP I Creatinine Equation (2020) Hematocrit Auto (Bld) [Volum e fraction]Ordered By: Antonia Matthews on 08-27-2024 Hematocrit (Bld) [Volume fraction] 44.6 % 40-54 [facility] Hemoglobin measurementOrdere d By: Antonia Matthews on 08-27-2024 Hemoglobin (Bld) [Mass/Vol] 14.6 g/dL 13.0-16.5 [facility] Immature granulocytes/100 WB C Auto (Bld)Ordered By: Antonia Matthews on 08-27-2024 Immature granulocytes/100 WBC (Bld) 0.500 % 0.0-0.9 [facility] Comment on above: IG% - Immature Granu locytes (promyelocytes, myelocytes and metamyelocytes) > 1% indicates that a LEFT SHIFT is Present. Laboratory - Chemistry and C hemistry - challengeOrdered By: Antonia Matthews on 08-27-2024 AST [Catalytic activity/Vol] 30 U/L <38 [facility] Lymphocytes Auto (Unsp spec) [#/Vol]Ordered By: Antoniastanislav Matthews on 08-27-2024 Lymphocytes (Bld) [#/Vol] 1.28 10*3/uL 0.83-4.51 [facility] Lymphocytes/100 WBC Auto (Un sp spec)Ordered By: Antonia Matthews on 08-27-2024 Lymphocytes/100 WBC (Bld) 22.6 % 19-41 [facility] MCV (mean corpuscular volume ) determinationOrdered By: Antonia Matthews on 08-27-2024 MCV (RBC) [Entitic vol] 95.5 fL High 80-94 [facility] Mean corpuscular hemoglobin (MCH) determinationOrdered By: Antoniastanislav Matthews on 08-27-2024 MCH (RBC) [Entitic mass] 31.3 pg 27.0-32.0 [facility] Mean corpuscular hemoglobin concentration (MCHC) determinationOrdered By: Antonia Matthews on 08-27-2024 MCHC (RBC) [Mass/Vol] 32.7 g/dL 32-36 [facility] Mean platelet volume determi nationOrdered By: Antonia Matthews on 08-27-2024 Platelet mean volume (Bld) [Entitic vol] 11.1 fL 6.2-12.0 [facility] Monocyte percentageOrdered B y: Antonia Matthews on 08-27-2024 Monocytes/100 WBC (Bld) 9.7 % 0-10 [facility] Neutrophil percentageOrdered By: Antonia Matthews on 08-27-2024 Neutrophils/100 WBC (Bld) 63.1 % 47-70 [facility] Nucleated red blood cell per centageOrdered By: Antonia Matthews on 08-27-2024 Nucleated RBC/100 WBC (Bld) [Ratio] 0 % 0-5 [facility] Platelet countOrdered By: Félix Matthews on 08-27-2024 Platelets (Bld) [#/Vol] 251 10*3/uL 150-450 [facility] Potassium (Unsp spec) [Mass/ Vol]Ordered By: Antonia Matthews on 08-27-2024 Potassium [Moles/Vol] 4.1 mmol/L 3.3-5.1 [facility] Potassium measurement (mass/ volume)Ordered By: Antonia Matthews on 08-27-2024 Potassium (Unsp spec) [Mass/Vol] 4.1 mmol/L 3.3-5.1 [facility] RBC Auto (Bld) [#/Vol]Ordere d By: Antonia Matthews on 08-27-2024 RBC (Bld) [#/Vol] 4.67 10*6/uL 4.6-6.2 [facility] Serum creatinine measurement (mass/volume)Ordered By: Antonia Matthews on 08-27-2024 Creatinine [Mass/Vol] 1.08 mg/dL 0.70-1.20 [facility] Serum globulin measurementOr dered By: Antonia Matthews on 08-27-2024 Globulin (S) [Mass/Vol] 3.1 g/dL 2.2-4.2 [facility] Serum glucose measurement (m ass/volume)Ordered By: Antonia Matthews on 08-27-2024 Glucose [Mass/Vol] 103 mg/dL High 70-99 [facility] Serum or plasma alanine hadley otransferase (ALT) measurementOrdered By: Antonia Matthews on 08-27-2024 ALT [Catalytic activity/Vol] 25 U/L <47 [facility] Serum or plasma albumin freida urement (mass/volume)Ordered By: Antonia Matthews on 08-27-2024 Albumin [Mass/Vol] 4.2 g/dL 3.5-5.0 [facility] Serum or plasma albumin/glob ulin mass ratioOrdered By: Antonia Matthews on 08-27-2024 Albumin/Globulin [Mass ratio] 1.4 {ratio} 0.9-2.4 [facility] Serum or plasma alkaline wai sphatase measurementOrdered By: Antonia Matthews on 08-27-2024 ALP [Catalytic activity/Vol] 59 U/L 40-129 [facility] Serum or plasma calcium freida urement (mass/volume)Ordered By: Antonia Matthews on 08-27-2024 Calcium [Mass/Vol] 9.6 mg/dL 7.6-11.0 [facility] Serum or plasma urea nitroge n measurement (mass/volume)Ordered By: Antonia Matthews on 08-27-2024 Urea nitrogen [Mass/Vol] 17 mg/dL 4-19 [facility] Sodium levelOrdered By: Noris Matthews on 08-27-2024 Sodium [Moles/Vol] 141 mmol/L 133-145 [facility] Total proteinOrdered By: Robbie Matthews on 08-27-2024 Protein [Mass/Vol] 7.3 g/dL 5.9-8.4 [facility] White blood cell (WBC) count Ordered By: Antonia Matthews on 08-27-2024 WBC (Bld) [#/Vol] 5.7 10*3/uL 4.4-11.0 [facility] Absolute neutrophil countOrd ered By: Antonia Matthews on 06-07-2024 Neutrophils (Bld) [#/Vol] 2.5 10*3/uL 2.0-7.7 [facility] Albumin to globulin ratioOrd ered By: Antonia Matthews on 06-07-2024 Albumin/Globulin [Mass ratio] 1.1 {ratio} 0.9-2.4 [facility] Basophil percentageOrdered B y: Antonia Matthews on 06-07-2024 Basophils/100 WBC (Bld) 0.6 % 0-1 [facility] Bilirubin, totalOrdered By: Antonia Matthews on 06-07-2024 Bilirubin [Mass/Vol] 0.40 mg/dL 0.20-1.00 [facility] Comment on above: For patients on eltr ombopag therapy, use of Dimension [place] TBIL is not recommended. Blood urea nitrogen (BUN)/cr eatinine ratioOrdered By: Antonia Matthews on 06-07-2024 Urea nitrogen/Creatinine [Mass ratio] 17.2 mg/mg 10-20 [facility] CBC W/Diff, Automatedon 05-26 Absolute Lymph 1.35 X10 3/uL Normal 0.83-4.51 [facility] Comment on above: Performed By: #### L 500.4050, L100.0100 #### [facility] Laboratory [address] [place], [address] Absolute Neut 2.5 X10 3/uL Normal 2.0-7.7 [facility] Comment on above: Performed By: #### L 500.4050, L100.0100 #### [facility] Laboratory [address] [place], [address] Basophils/100 WBC (Bld) 0.6 % Normal 0-1 [facility] Comment on above: Performed By: #### L 500.4050, L100.0100 #### [facility] Laboratory [address] [place], [address] Eosinophils/100 WBC (Bld) 4.3 % Normal 0-5 [facility] Comment on above: Performed By: #### L 500.4050, L100.0100 #### [facility] Laboratory [address] [place], [address] Erythrocyte distribution width (RBC) [Ratio] 13.1 % Normal 11.6-14.6 [facility] Comment on above: Performed By: #### L 500.4050, L100.0100 #### [facility] Laboratory [address] [place], [address] Hematocrit (Bld) [Volume fraction] 43.7 % Normal 40-54 [facility] Comment on above: Performed By: #### L 500.4050, L100.0100 #### [facility] Laboratory [address] [place], [address] Hemoglobin (Bld) [Mass/Vol] 14.3 g/dL Normal 13.0-16.5 [facility] Comment on above: Performed By: #### L 500.4050, L100.0100 #### [facility] Laboratory [address] [place], [address] IG% 0.200 Normal 0.0-0.9 [facility] Comment on above: Result Comment: IG% - Immature Granulocytes (promyelocytes, myelocytes and metamyelocytes) > 1% indicates that a LEFT SHIFT is Present. Performed By: #### L 500.4050, L100.0100 #### [facility] Laboratory [address] [place], [address] Lymphocytes/100 WBC (Bld) 28.9 % Normal 19-41 [facility] Comment on above: Performed By: #### L 500.4050, L100.0100 #### [facility] Laboratory [address] [place], [address] MCH (RBC) [Entitic mass] 31.1 pg Normal 27.0-32.0 [facility] Comment on above: Performed By: #### L 500.4050, L100.0100 #### [facility] Laboratory [address] [place], [address] MCHC (RBC) [Mass/Vol] 32.7 g/dL Normal 32-36 [facility] Comment on above: Performed By: #### L 500.4050, L100.0100 #### [facility] Laboratory [address] [place], [address] MCV (RBC) [Entitic vol] 95.0 fL High 80-94 [facility] Comment on above: Performed By: #### L 500.4050, L100.0100 #### [facility] Laboratory [address] [place], [address] Monocytes/100 WBC (Bld) 12.0 % High 0-10 [facility] Comment on above: Performed By: #### L 500.4050, L100.0100 #### [facility] Laboratory [address] [place], [address] Neutrophils/100 WBC (Bld) 54.0 % Normal 47-70 [facility] Comment on above: Performed By: #### L 500.4050, L100.0100 #### [facility] Laboratory [address] [place], [address] Nucleated RBC (Bld) [#/Vol] 0 10*3/uL Normal 0-5 [facility] Comment on above: Performed By: #### L 500.4050, L100.0100 #### [facility] Laboratory [address] [place], [address] Platelet mean volume (Bld) [Entitic vol] 11.4 fL Normal 6.2-12.0 [facility] Comment on above: Performed By: #### L 500.4050, L100.0100 #### [facility] Laboratory [address] [place], [address] Platelets (Bld) [#/Vol] 240 10*3/uL Normal 150-450 [facility] Comment on above: Performed By: #### L 500.4050, L100.0100 #### [facility] Laboratory [address] [place], [address] RBC (Bld) [#/Vol] 4.60 10*6/uL Normal 4.6-6.2 [facility] Comment on above: Performed By: #### L 500.4050, L100.0100 #### [facility] Laboratory [address] [place], [address] RDW SD 44.7 fl High 35.1-43.9 [facility] Comment on above: Performed By: #### L 500.4050, L100.0100 #### [facility] Laboratory [address] [place], [address] WBC (Bld) [#/Vol] 4.7 10*3/uL Normal 4.4-11.0 [facility] Comment on above: Performed By: #### L 500.4050, L100.0100 #### [facility] Laboratory [address] [place], [address] Carbon dioxide measurementOr dered By: Antonia Matthews on 06-07-2024 CO2 [Moles/Vol] 28.0 mmol/L 21.0-32.0 [facility] Chloride measurementOrdered By: Antonia Matthews on 06-07-2024 Chloride [Moles/Vol] 108 mmol/L High 98-107 [facility] Comprehensive Metabolic Prof ilon 06-07-2024 Albumin [Mass/Vol] 3.8 g/dL Normal 3.2-5.0 [facility] Comment on above: Performed By: #### L 500.4050, L100.0100 #### [facility] Laboratory [address] [place], [address] Albumin/Globulin [Mass ratio] 1.1 {ratio} Normal 0.9-2.4 [facility] Comment on above: Performed By: #### L 500.4050, L100.0100 #### [facility] Laboratory [address] [place], [address] ALK P 60 U/L Normal 45-117 [facility] Comment on above: Performed By: #### L 500.4050, L100.0100 #### [facility] Laboratory [address] [place], [address] ALT [Catalytic activity/Vol] 29 U/L Normal 16-61 [facility] Comment on above: Performed By: #### L 500.4050, L100.0100 #### [facility] Laboratory [address] [place], [address] AST [Catalytic activity/Vol] 26 U/L Normal 15-37 [facility] Comment on above: Performed By: #### L 500.4050, L100.0100 #### [facility] Laboratory [address] [place], [address] Bilirubin [Mass/Vol] 0.40 mg/dL Normal 0.20-1.00 [facility] Comment on above: Result Comment: For patients on eltrombopag therapy, use of Dimension [place] TBIL is not recommended. Performed By: #### L 500.4050, L100.0100 #### [facility] Laboratory [address] [place], [address] BUN/CRE 17.2 RATIO Normal 10-20 [facility] Comment on above: Performed By: #### L 500.4050, L100.0100 #### [facility] Laboratory [address] [place], [address] CA,Total 9.4 mg/dL Normal 8.5-10.1 [facility] Comment on above: Performed By: #### L 500.4050, L100.0100 #### [facility] Laboratory [address] [place], [address] Chloride [Moles/Vol] 108 mmol/L High 98-107 [facility] Comment on above: Performed By: #### L 500.4050, L100.0100 #### [facility] Laboratory [address] [place], [address] CO2 [Moles/Vol] 28.0 mmol/L Normal 21.0-32.0 [facility] Comment on above: Performed By: #### L 500.4050, L100.0100 #### [facility] Laboratory [address] [place], [address] Creatinine [Mass/Vol] 1.16 mg/dL Normal 0.70-1.30 [facility] Comment on above: Result Comment: The validity of the calculated GFR GFRAA in patients over 70 years has not been determined. Clinical correlation is essential. Performed By: #### L 500.4050, L100.0100 #### [facility] Laboratory [address] [place], [address] EST GFR - AA 86 mL/min Normal >60 [facility] Comment on above: Result Comment: Afri can [place] GFR Calc Performed By: #### L 500.4050, L100.0100 #### [facility] Laboratory [address] [place], [address] GAP 4 Low 5-15 [facility] Comment on above: Performed By: #### L 500.4050, L100.0100 #### [facility] Laboratory [address] [place], [address] GFR/1.73 sq M.predicted among non-blacks MDRD (S/P/Bld) [Vol rate/Area] 71 mL/min/{1.73_m2} Normal >60 [facility] Comment on above: Result Comment: Non- GFR Calc Performed By: #### L 500.4050, L100.0100 #### [facility] Laboratory [address] [place], [address] Globulin (S) [Mass/Vol] 3.6 g/dL Normal 2.2-4.2 [facility] Comment on above: Performed By: #### L 500.4050, L100.0100 #### [facility] Laboratory [address] [place], [address] Glucose [Mass/Vol] 100 mg/dL Normal 74-106 [facility] Comment on above: Result Comment: Fast ing Glucose result from 100 to 125 mg/dL suggests IMPAIRED HOMEOSTASIS per A.D.A. criteria. Performed By: #### L 500.4050, L100.0100 #### [facility] Laboratory [address] [place], [address] Potassium [Moles/Vol] 4.5 mmol/L Normal 3.5-5.1 [facility] Comment on above: Performed By: #### L 500.4050, L100.0100 #### [facility] Laboratory [address] [place], [address] Sodium [Moles/Vol] 140 mmol/L Normal 136-145 [facility] Comment on above: Performed By: #### L 500.4050, L100.0100 #### [facility] Laboratory [address] [place], [address] T PROT 7.4 g/dL Normal 6.4-8.2 [facility] Comment on above: Performed By: #### L 500.4050, L100.0100 #### [facility] Laboratory [address] [place], [address] Urea nitrogen [Mass/Vol] 20 mg/dL High 7-18 [facility] Comment on above: Performed By: #### L 500.4050, L100.0100 #### [facility] Laboratory [address] [place], [address] Eosinophil percentageOrdered By: Antonia Matthews on 06-07-2024 Eosinophils/100 WBC (Bld) 4.3 % 0-5 [facility] Erythrocyte distribution wid th (RBC) [Ratio]Ordered By: Antonia Matthews on 06-07-2024 Erythrocyte distribution width (RBC) [Entitic vol] 44.7 fL High 35.1-43.9 [facility] Erythrocyte distribution wid th ratioOrdered By: Antonia Matthews on 06-07-2024 Erythrocyte distribution width (RBC) [Ratio] 13.1 % 11.6-14.6 [facility] Estimated glomerular filtrat ion rate (GFR) AmericanOrdered By: Antonia Matthews on 06-07-2024 Estimated GFR (MDRD) Amer 86 mL/min >60 [facility] Comment on above: GFR Calc Glomerular filtration rate ( GFR) estimationOrdered By: Antonia Matthews on 06-07-2024 Estimated GFR (MDRD) Non-Af Amer 71 mL/min >60 [facility] Comment on above: Non- GFR Calc Glucose measurementOrdered B y: Antonia Matthews on 06-07-2024 Glucose [Mass/Vol] 100 mg/dL 74-106 [facility] Comment on above: Fasting Glucose resu lt from 100 to 125 mg/dL suggests IMPAIRED HOMEOSTASIS per A.D.A. criteria. Hematocrit Auto (Bld) [Volum e fraction]Ordered By: Antonia Matthews on 06-07-2024 Hematocrit (Bld) [Volume fraction] 43.7 % 40-54 [facility] Hemoglobin measurementOrdere d By: Antonia Matthews on 06-07-2024 Hemoglobin (Bld) [Mass/Vol] 14.3 g/dL 13.0-16.5 [facility] Immature granulocytes/100 WB C Auto (Bld)Ordered By: Antonia Matthews on 06-07-2024 Immature granulocytes/100 WBC (Bld) 0.200 % 0.0-0.9 [facility] Comment on above: IG% - Immature Granu locytes (promyelocytes, myelocytes and metamyelocytes) > 1% indicates that a LEFT SHIFT is Present. Laboratory - Chemistry and C hemistry - challengeOrdered By: Antonia Matthews on 06-07-2024 AST [Catalytic activity/Vol] 26 U/L 15-37 [facility] Lymphocytes Auto (Unsp spec) [#/Vol]Ordered By: Antonia Matthews on 06-07-2024 Lymphocytes (Bld) [#/Vol] 1.35 10*3/uL 0.83-4.51 [facility] Lymphocytes/100 WBC Auto (Un sp spec)Ordered By: Antonia Matthews on 06-07-2024 Lymphocytes/100 WBC (Bld) 28.9 % 19-41 [facility] MCV (mean corpuscular volume ) determinationOrdered By: Antonia Matthews on 06-07-2024 MCV (RBC) [Entitic vol] 95.0 fL High 80-94 [facility] Mean corpuscular hemoglobin (MCH) determinationOrdered By: Antonia Matthews on 06-07-2024 MCH (RBC) [Entitic mass] 31.1 pg 27.0-32.0 [facility] Mean corpuscular hemoglobin concentration (MCHC) determinationOrdered By: Antonia Matthews on 06-07-2024 MCHC (RBC) [Mass/Vol] 32.7 g/dL 32-36 [facility] Mean platelet volume determi nationOrdered By: Antonia Matthews on 06-07-2024 Platelet mean volume (Bld) [Entitic vol] 11.4 fL 6.2-12.0 [facility] Monocyte percentageOrdered B y: Antonia Matthews on 06-07-2024 Monocytes/100 WBC (Bld) 12.0 % High 0-10 [facility] Neutrophil percentageOrdered By: Antonia Matthews on 06-07-2024 Neutrophils/100 WBC (Bld) 54.0 % 47-70 [facility] Nucleated red blood cell per centageOrdered By: Antonia Matthews on 06-07-2024 Nucleated RBC/100 WBC (Bld) [Ratio] 0 % 0-5 [facility] Platelet countOrdered By: Félix Matthews on 06-07-2024 Platelets (Bld) [#/Vol] 240 10*3/uL 150-450 [facility] Potassium measurementOrdered By: Antonia Matthews on 06-07-2024 Potassium [Moles/Vol] 4.5 mmol/L 3.5-5.1 [facility] RBC Auto (Bld) [#/Vol]Ordere d By: Antonia Matthews on 06-07-2024 RBC (Bld) [#/Vol] 4.60 10*6/uL 4.6-6.2 [facility] Serum anion gap measurementO rdered By: Antonia Matthews on 06-07-2024 Anion gap [Moles/Vol] 4 mmol/L Low 5-15 [facility] Serum globulin measurementOr dered By: Antonia Matthews on 06-07-2024 Globulin (S) [Mass/Vol] 3.6 g/dL 2.2-4.2 [facility] Serum or plasma alanine hadley otransferase (ALT) measurementOrdered By: Antonia Matthews on 06-07-2024 ALT [Catalytic activity/Vol] 29 U/L 16-61 [facility] Serum or plasma albumin freida urement (mass/volume)Ordered By: Antonia Matthews on 06-07-2024 Albumin [Mass/Vol] 3.8 g/dL 3.2-5.0 [facility] Serum or plasma alkaline wai sphatase measurementOrdered By: Antonia Matthews on 06-07-2024 ALP [Catalytic activity/Vol] 60 U/L 45-117 [facility] Serum or plasma calcium freida urement (mass/volume)Ordered By: Antonia Matthews on 06-07-2024 Calcium [Mass/Vol] 9.4 mg/dL 8.5-10.1 [facility] Serum or plasma creatinine m easurement (mass/volume)Ordered By: Antonia Matthews on 06-07-2024 Creatinine [Mass/Vol] 1.16 mg/dL 0.70-1.30 [facility] Comment on above: The validity of the calculated GFR & GFRAA in patients over 70 years has not been determined. Clinical correlation is essential. Serum or plasma urea nitroge n measurement (mass/volume)Ordered By: Antonia Matthews on 06-07-2024 Urea nitrogen [Mass/Vol] 20 mg/dL High 7-18 [facility] Sodium levelOrdered By: Noris Matthews on 06-07-2024 Sodium [Moles/Vol] 140 mmol/L 136-145 [facility] Total proteinOrdered By: Robbie Matthews on 06-07-2024 Protein [Mass/Vol] 7.4 g/dL 6.4-8.2 [facility] White blood cell (WBC) count Ordered By: Antonia Matthews on 06-07-2024 WBC (Bld) [#/Vol] 4.7 10*3/uL 4.4-11.0 [facility] CNNURSEon 03-29-2024 [facility] Nurse Visit (FAMPWS) NAUN MONTES DE OCA ([id number]) 1975 M Date Time Provider Department 03/29/24 9:15 AM [place] [facility] your visit today, we recorded the [...] cycloSPORINE (RESTASIS) 0.05 % ophthalmic emulsion - ckzkcpd-aifl-xjtep-o reg-capryl 100 mg-150 mg- 50 mg-150 mg cap Take by mouth. - leucovorin (LEUCOVORIN) 15 mg tablet Take 15 mg by mouth one time a week. - SOOLANTRA 1 % crea Apply 1 application to affected area daily at bedtime. Per [facility]. - Glucosamine-Chondroi t-Vit C-Mn (GLUCOSAMINE CHONDROITIN MAXSTR) 500-400 mg cap Take 1 capsule by mouth once daily. - multivitamin tablet Take 1 tablet by mouth once daily. Problem List As Of Date 03/29/2024 Noted Resolved Unspecified Backache [M54.9] 04/25/2009 11/10/2009 DDD (Degenerative Disc Disease) [IHX5625] 11/10/2009 Postherpetic neuralgia [B02.29] 03/22/2019 03/19/2023 Psoriasis and similar disorders [L40.9] 06/20/2021 Psoriatic arthritis (HCC) [L40.50] 09/30/2022 Encounter Status:Closed by SIMI WINKLER on 03/29/24 Normal [facility] Quantiferon TB-Gold+on 03-23 QFT MITOGEN VIKTORIA > 10.00 Normal . [facility] Comment on above: Performed By: #### L 3400.8000 #### [facility] Laboratory [address] [place], [place], [id number] QFT NIL VALUE 0 IU/mL Normal . [facility] Comment on above: Performed By: #### L 3400.8000 #### [facility] Laboratory [address] [place], [place], [id number] QFT TB GOLD+ Comment Normal . [facility] Comment on above: Result Comment: Abraham tiFERON-TB [...] test. Performed By: #### L 3400.8000 #### [facility] Laboratory [address] [place], [place], [id number] QFT TB POS CRIT Negative Normal Negative [facility] Comment on above: Result Comment: No r [...] interferon gamma. Chemiluminescence immunoassay methodology Performed at: [employer] [id number] [employer] Man: Marcelo Vee PhD, Phone: [phone] Performed By: #### L 3400.8000 #### [facility] Laboratory [address] [place], [address] QFT TB1+ AG VIKTORIA 0.01 IU/mL Normal . [facility] Comment on above: Performed By: #### L 3400.8000 #### [facility] Laboratory [address] [place], [address] QFT TB2+ AG VIKTORIA 0 IU/mL Normal . [facility] Comment on above: Performed By: #### L 3400.8000 #### [facility] Laboratory [address] [place], [address] CBC W/Diff, Automatedon 10-2 Absolute Lymph 1.46 X10 3/uL Normal 0.83-4.51 [facility] Comment on above: Performed By: #### L 100.0100, L500.4050 #### [facility] Laboratory [address] [place], [address] Absolute Neut 2.5 X10 3/uL Normal 2.0-7.7 [facility] Comment on above: Performed By: #### L 100.0100, L500.4050 #### [facility] Laboratory [address] [place], [address] Basophils/100 WBC (Bld) 1.1 % High 0-1 [facility] Comment on above: Performed By: #### L 100.0100, L500.4050 #### [facility] Laboratory [address] [place], [address] Eosinophils/100 WBC (Bld) 3.6 % Normal 0-5 [facility] Comment on above: Performed By: #### L 100.0100, L500.4050 #### [facility] Laboratory [address] [place], [address] Erythrocyte distribution width (RBC) [Ratio] 12.6 % Normal 11.6-14.6 [facility] Comment on above: Performed By: #### L 100.0100, L500.4050 #### [facility] Laboratory [address] [place], [address] Hematocrit (Bld) [Volume fraction] 44.2 % Normal 40-54 [facility] Comment on above: Performed By: #### L 100.0100, L500.4050 #### [facility] Laboratory [address] [place], [address] Hemoglobin (Bld) [Mass/Vol] 14.5 g/dL Normal 13.0-16.5 [facility] Comment on above: Performed By: #### L 100.0100, L500.4050 #### [facility] [address] [place], [address] IG% 0.200 Normal 0.0-0.9 [facility] Comment on above: Result Comment: IG% - Immature Granulocytes (promyelocytes, myelocytes and metamyelocytes) > 1% indicates that a LEFT SHIFT is Present. Performed By: #### L 100.0100, L500.4050 #### [facility] [address] [place], [address] Lymphocytes/100 WBC (Bld) 30.9 % Normal 19-41 [facility] Comment on above: Performed By: #### L 100.0100, L500.4050 #### [facility] [address] [place], [address] MCH (RBC) [Entitic mass] 30.7 pg Normal 27.0-32.0 [facility] Comment on above: Performed By: #### L 100.0100, L500.4050 #### [facility] [address] [place], [address] MCHC (RBC) [Mass/Vol] 32.8 g/dL Normal 32-36 [facility] Comment on above: Performed By: #### L 100.0100, L500.4050 #### [facility] [address] [place], [address] MCV (RBC) [Entitic vol] 93.6 fL Normal 80-94 [facility] Comment on above: Performed By: #### L 100.0100, L500.4050 #### [facility] [address] [place], [address] Monocytes/100 WBC (Bld) 10.4 % High 0-10 [facility] Comment on above: Performed By: #### L 100.0100, L500.4050 #### [facility] [address] [place], [address] Neutrophils/100 WBC (Bld) 53.8 % Normal 47-70 [facility] Comment on above: Performed By: #### L 100.0100, L500.4050 #### [facility] [address] [place], [address] Nucleated RBC (Bld) [#/Vol] 0 10*3/uL Normal 0-5 [facility] Comment on above: Performed By: #### L 100.0100, L500.4050 #### [facility] [address] [place], [address] Platelet mean volume (Bld) [Entitic vol] 11.6 fL Normal 6.2-12.0 [facility] Comment on above: Performed By: #### L 100.0100, L500.4050 #### [facility] [address] [place], [address] Platelets (Bld) [#/Vol] 253 10*3/uL Normal 150-450 [facility] Comment on above: Performed By: #### L 100.0100, L500.4050 #### [facility] [address] [place], [address] RBC (Bld) [#/Vol] 4.72 10*6/uL Normal 4.6-6.2 [facility] Comment on above: Performed By: #### L 100.0100, L500.4050 #### [facility] [address] [place], [address] RDW SD 43.4 fl Normal 35.1-43.9 [facility] Comment on above: Performed By: #### L 100.0100, L500.4050 #### [facility] [address] [place], [address] WBC (Bld) [#/Vol] 4.7 10*3/uL Normal 4.4-11.0 [facility] Comment on above: Performed By: #### L 100.0100, L500.4050 #### [facility] [address] [place], [address] Comprehensive Metabolic Prof [facility] 03-17-2024 Albumin [Mass/Vol] 3.6 g/dL Normal 3.2-5.0 [facility] Comment on above: Performed By: #### L 100.0100, L500.4050 #### [facility] [address] [place], [address] Albumin/Globulin [Mass ratio] 1.0 {ratio} Normal 0.9-2.4 [facility] Comment on above: Performed By: #### L 100.0100, L500.4050 #### [facility] [address] [place], [address] ALK P 55 U/L Normal 45-117 [facility] Comment on above: Performed By: #### L 100.0100, L500.4050 #### [facility] [address] [place], [address] ALT [Catalytic activity/Vol] 28 U/L Normal 16-61 [facility] Comment on above: Performed By: #### L 100.0100, L500.4050 #### [facility] [address] [place], [address] AST [Catalytic activity/Vol] 21 U/L Normal 15-37 [facility] Comment on above: Performed By: #### L 100.0100, L500.4050 #### [facility] [address] [place], [address] Bilirubin [Mass/Vol] 0.40 mg/dL Normal 0.20-1.00 [facility] Comment on above: Result Comment: For patients on eltrombopag therapy, use of Dimension [place] TBIL is not recommended. Performed By: #### L 100.0100, L500.4050 #### [facility] [address] [place], [address] BUN/CRE 16.0 RATIO Normal 10-20 [facility] Comment on above: Performed By: #### L 100.0100, L500.4050 #### [facility] [address] [place], [address] CA,Total 9.1 mg/dL Normal 8.5-10.1 [facility] Comment on above: Performed By: #### L 100.0100, L500.4050 #### [facility] [address] [place], [address] Chloride [Moles/Vol] 108 mmol/L High 98-107 [facility] Comment on above: Performed By: #### L 100.0100, L500.4050 #### [facility] [address] [place], [address] CO2 [Moles/Vol] 27.0 mmol/L Normal 21.0-32.0 [facility] Comment on above: Performed By: #### L 100.0100, L500.4050 #### [facility] [address] [place], [address] Creatinine [Mass/Vol] 1.00 mg/dL Normal 0.70-1.30 [facility] Comment on above: Result Comment: The validity of the calculated GFR GFRAA in patients over 70 years has not been determined. Clinical correlation is essential. Performed By: #### L 100.0100, L500.4050 #### [facility] [address] [place], [address] EST GFR - AA 102 mL/min Normal >60 [facility] Comment on above: Result Comment: Afri can [place] GFR Calc Performed By: #### L 100.0100, L500.4050 #### [facility] [address] [place], [address] GAP 3 Low 5-15 [facility] Comment on above: Performed By: #### L 100.0100, L500.4050 #### [facility] [address] [place], [address] GFR/1.73 sq M.predicted among non-blacks MDRD (S/P/Bld) [Vol rate/Area] 84 mL/min/{1.73_m2} Normal >60 [facility] Comment on above: Result Comment: Non- GFR Calc Performed By: #### L 100.0100, L500.4050 #### [facility] [address] [place], [address] Globulin (S) [Mass/Vol] 3.6 g/dL Normal 2.2-4.2 [facility] Comment on above: Performed By: #### L 100.0100, L500.4050 #### [facility] [address] [place], [address] Glucose [Mass/Vol] 88 mg/dL Normal 74-106 [facility] Comment on above: Performed By: #### L 100.0100, L500.4050 #### [facility] [address] [place], [address] Potassium [Moles/Vol] 4.4 mmol/L Normal 3.5-5.1 [facility] Comment on above: Performed By: #### L 100.0100, L500.4050 #### [facility] [address] [place], [address] Sodium [Moles/Vol] 138 mmol/L Normal 136-145 [facility] Comment on above: Performed By: #### L 100.0100, L500.4050 #### [facility] [address] [place], [address] T PROT 7.2 g/dL Normal 6.4-8.2 [facility] Comment on above: Performed By: #### L 100.0100, L500.4050 #### [facility] [address] [place], [address] Urea nitrogen [Mass/Vol] 16 mg/dL Normal 7-18 [facility] Comment on above: Performed By: #### L 100.0100, L500.4050 #### [facility] [address] [place], [address] Absolute lymphocyte countOrd ered By: Antonia Matthews on 07-15-2023 Lymphocytes Auto (Unsp spec) [#/Vol] 1.34 10*3/uL 0.83-4.51 [facility] Automated lymphocyte count a s percentage of total leukocytesOrdered By: Antonia Matthews on 07-15-2023 Lymphocytes/100 WBC Auto (Unsp spec) 29.0 % 19-41 [facility] Basophil percentageOrdered B y: Antonia Matthews on 07-15-2023 Basophils/100 WBC (Bld) 0.9 % 0-1 [facility] Bilirubin [Mass/Vol] 0.50 mg/dL 0.20-1.00 [facility] Comment on above: For patients on eltr ombopag therapy, use of Dimension [place] TBIL is not recommended. Chloride [Moles/Vol] 109 mmol/L 98-107 [facility] Eosinophils/100 WBC (Bld) 4.1 % 0-5 [facility] Glucose [Mass/Vol] 123 mg/dL 74-106 [facility] Comment on above: Fasting Glucose resu lt from 100 to 125 mg/dL suggests IMPAIRED HOMEOSTASIS per A.D.A. criteria. Hemoglobin (Bld) [Mass/Vol] 14.7 g/dL 13.0-16.5 [facility] Monocytes/100 WBC (Bld) 8.9 % 0-10 [facility] Neutrophils (Bld) [#/Vol] 2.6 10*3/uL 2.0-7.7 [facility] Neutrophils/100 WBC (Bld) 56.9 % 47-70 [facility] Potassium [Moles/Vol] 3.9 mmol/L 3.5-5.1 [facility] Protein [Mass/Vol] 7.4 g/dL 6.4-8.2 [facility] Sodium [Moles/Vol] 139 mmol/L 136-145 [facility] WBC (Bld) [#/Vol] 4.6 10*3/uL 4.4-11.0 [facility] Determination of erythrocyte mean corpuscular volume (MCV)Ordered By: Antonia Matthews on 07-15-2023 MCV (RBC) [Entitic vol] 94.5 fL 80-94 [facility] Erythrocyte distribution wid th ratioOrdered By: [facility] Cassie on 07-15-2023 Erythrocyte distribution width (RBC) [Ratio] 13.0 % 11.6-14.6 [facility] Erythrocyte distribution wid th standard deviationOrdered By: [facility] Cassie on 07-15-2023 Erythrocyte distribution width (RBC) [Entitic vol] 44.3 fL 35.1-43.9 [facility] Hematocrit Auto (Bld) [Volum e fraction]Ordered By: [facility] Cassie on 07-15-2023 Hematocrit (Bld) [Volume fraction] 44.3 % 40-54 [facility] Immature granulocytes/100 WB C Auto (Bld)Ordered By: [facility] Cassie on 07-15-2023 Immature granulocytes/100 WBC (Bld) 0.200 % 0.0-0.9 [facility] Comment on above: IG% - Immature Granu locytes (promyelocytes, myelocytes and metamyelocytes) > 1% indicates that a LEFT SHIFT is Present. Laboratory - Chemistry and C hemistry - challengeOrdered By: [facility] Cassie on 07-15-2023 Albumin/Globulin [Mass ratio] 1.0 {ratio} 0.9-2.4 [facility] ALP [Catalytic activity/Vol] 52 U/L 45-117 [facility] ALT [Catalytic activity/Vol] 29 U/L 16-61 [facility] CO2 [Moles/Vol] 27.0 mmol/L 21.0-32.0 [facility] Globulin (S) [Mass/Vol] 3.7 g/dL 2.2-4.2 [facility] Urea nitrogen/Creatinine [Mass ratio] 14.5 mg/mg 10-20 [facility] Laboratory - Hematology and Cell countsOrdered By: [facility] Cassie on 07-15-2023 MCH (RBC) [Entitic mass] 31.3 pg 27.0-32.0 [facility] MCHC (RBC) [Mass/Vol] 33.2 g/dL 32-36 [facility] Nucleated RBC/100 WBC (Bld) [Ratio] 0 % 0-5 [facility] Platelet mean volume (Bld) [Entitic vol] 11.0 fL 6.2-12.0 [facility] Platelets (Bld) [#/Vol] 242 10*3/uL 150-450 [facility] No Panel InformationOrdered By: Antonia Matthews on 07-15-2023 Estimated GFR (MDRD) Amer 92 mL/min >60 [facility] Comment on above: GFR Calc Estimated GFR (MDRD) Non-Af Amer 76 mL/min >60 [facility] Comment on above: Non- GFR Calc RBC Auto (Bld) [#/Vol]Ordere d By: Antonia Matthews on 07-15-2023 RBC (Bld) [#/Vol] 4.69 10*6/uL 4.6-6.2 [facility] Serum or plasma calcium freida urement (mass/volume)Ordered By: Antonia Matthews on 07-15-2023 Calcium [Mass/Vol] 9.1 mg/dL 8.5-10.1 [facility] Serum or plasma creatinine m easurement (mass/volume)Ordered By: Antonia Matthews on 07-15-2023 Creatinine [Mass/Vol] 1.10 mg/dL 0.70-1.30 [facility] Comment on above: The validity of the calculated GFR & GFRAA in patients over 70 years has not been determined. Clinical correlation is essential. Serum or plasma urea nitroge n measurement (mass/volume)Ordered By: Antonia Matthews on 07-15-2023 Urea nitrogen [Mass/Vol] 16 mg/dL 7-18 [facility] Thin prep Papanicolaou smear with manual screeningOrdered By: Antonia Matthews on 07-15-2023 Thin prep Papanicolaou smear with manual screening 3.7 g/dL 3.2-5.0 [facility] Thin prep Papanicolaou smear with manual screening 22 U/L 15-37 [facility] Thin prep Papanicolaou smear with manual screening 3 5-15 [facility] XR Hand - left PA and Latera l and Obliqueon 06-09-2023 IMPRESSION: Negative 3 views of the left hand. Marine Electrician: INDER Transcribe Date/Time: Jun 09 2023 5:03P Dictated by : JONA PIZANO MD This examination was interpreted and the report reviewed and electronically signed by: JONA PIZANO MD on Jun 09 2023 5:05PM [facility] DIVISION OF RADIOLOGY * * [...] soft tissue swelling. DIVISION OF RADIOLOGY Provider, [facility] - 06/09/2023 * * *Final Report* * [...] Negative 3 views of the left hand. Marine Electrician: PSCB Transcribe Date/Time: Jun 09 2023 5:03P Dictated by : JONA PIZANO MD This examination was interpreted and the report reviewed and electronically signed by: JONA PIZANO MD on Jun 09 2023 5:05PM EST [facility] XR Hand - left PA and Latera l and ObliqueOrdered By: Cc Provider on 06-09-2023 [facility] XR Hand - left PA and Latera l and Obliqueon 06-06-2023 Radiology Study observation (narrative) [facility] Absolute lymphocyte countOrd ered By: Antonia Matthews on 04-11-2023 Lymphocytes Auto (Unsp spec) [#/Vol] 1.35 10*3/uL 0.83-4.51 [facility] Basophil percentageOrdered B y: Antonia Matthews on 04-11-2023 Basophils/100 WBC (Bld) 1.0 % 0-1 [facility] Bilirubin [Mass/Vol] 0.40 mg/dL 0.20-1.00 [facility] Comment on above: For patients on eltr ombopag therapy, use of Dimension [place] TBIL is not recommended. Chloride [Moles/Vol] 108 mmol/L 98-107 [facility] Eosinophils/100 WBC (Bld) 4.6 % 0-5 [facility] Glucose [Mass/Vol] 109 mg/dL 74-106 [facility] Comment on above: Fasting Glucose resu lt from 100 to 125 mg/dL suggests IMPAIRED HOMEOSTASIS per A.D.A. criteria. Neutrophils (Bld) [#/Vol] 2.0 10*3/uL 2.0-7.7 [facility] Neutrophils/100 WBC (Bld) 49.3 % 47-70 [facility] Potassium [Moles/Vol] 4.1 mmol/L 3.5-5.1 [facility] Protein [Mass/Vol] 7.1 g/dL 6.4-8.2 [facility] Sodium [Moles/Vol] 140 mmol/L 136-145 [facility] WBC (Bld) [#/Vol] 4.1 10*3/uL 4.4-11.0 [facility] Blood erythrocytes count (nu mber/volume)Ordered By: Antonia Matthews on 04-11-2023 RBC (Bld) [#/Vol] 4.67 10*6/uL 4.6-6.2 [facility] Blood hemoglobin measurement (mass/volume)Ordered By: Antonia Matthews on 04-11-2023 Hemoglobin (Bld) [Mass/Vol] 14.4 g/dL 13.0-16.5 [facility] Blood lymphocytes/100 leukoc ytesOrdered By: Antonia Matthews on 04-11-2023 Lymphocytes/100 WBC (Bld) 32.9 % 19-41 [facility] Blood monocytes/100 leukocyt esOrdered By: Antonia Matthews on 04-11-2023 Monocytes/100 WBC (Bld) 12.0 % 0-10 [facility] Blood platelet mean volumeOr dered By: Antonia Matthews on 04-11-2023 Platelet mean volume (Bld) [Entitic vol] 10.8 fL 6.2-12.0 [facility] Determination of erythrocyte mean corpuscular volume (MCV)Ordered By: Antonia Matthews on 04-11-2023 MCV (RBC) [Entitic vol] 94.2 fL 80-94 [facility] Hematocrit Auto (Bld) [Volum e fraction]Ordered By: Antonia Matthews on 04-11-2023 Hematocrit (Bld) [Volume fraction] 44.0 % 40-54 [facility] Laboratory - Chemistry and C hemistry - challengeOrdered By: [facility] Cassie on 04-11-2023 ALP [Catalytic activity/Vol] 53 U/L 45-117 [facility] ALT [Catalytic activity/Vol] 28 U/L 16-61 [facility] CO2 [Moles/Vol] 27.0 mmol/L 21.0-32.0 [facility] Globulin (S) [Mass/Vol] 3.6 g/dL 2.2-4.2 [facility] Urea nitrogen/Creatinine [Mass ratio] 15.9 mg/mg 10-20 [facility] Laboratory - Hematology and Cell countsOrdered By: Antoniastanislav Matthews on 04-11-2023 Erythrocyte distribution width (RBC) [Entitic vol] 43.8 fL 35.1-43.9 [facility] Erythrocyte distribution width (RBC) [Ratio] 12.8 % 11.6-14.6 [facility] Immature granulocytes/100 WBC (Bld) 0.200 % 0.0-0.9 [facility] Comment on above: IG% - Immature Granu locytes (promyelocytes, myelocytes and metamyelocytes) > 1% indicates that a LEFT SHIFT is Present. MCH (RBC) [Entitic mass] 30.8 pg 27.0-32.0 [facility] Nucleated RBC/100 WBC (Bld) [Ratio] 0 % 0-5 [facility] ([facility]) [Mass/Vol]Or dered By: Antonia Matthews on 04-11-2023 MCHC (RBC) [Mass/Vol] 32.7 g/dL 32-36 [facility] No Panel InformationOrdered By: Antonia Matthews on 04-11-2023 Estimated GFR (MDRD) Amer 89 mL/min >60 [facility] Comment on above: GFR Calc Estimated GFR (MDRD) Non-Af Amer 74 mL/min >60 [facility] Comment on above: Non- GFR Calc Platelets bldOrdered By: Robbie Matthews on 04-11-2023 Platelets (Bld) [#/Vol] 236 10*3/uL 150-450 [facility] Serum or plasma albumin freida urement (mass/volume)Ordered By: Antonia Matthews on 04-11-2023 Albumin [Mass/Vol] 3.5 g/dL 3.2-5.0 [facility] Serum or plasma albumin/glob ulin mass ratioOrdered By: Antonia Matthews on 04-11-2023 Albumin/Globulin [Mass ratio] 1.0 {ratio} 0.9-2.4 [facility] Serum or plasma calcium freida urement (mass/volume)Ordered By: Antonia Matthews on 04-11-2023 Calcium [Mass/Vol] 8.9 mg/dL 8.5-10.1 [facility] Serum or plasma creatinine m easurement (mass/volume)Ordered By: Antonia Matthews on 04-11-2023 Creatinine [Mass/Vol] 1.13 mg/dL 0.70-1.30 [facility] Comment on above: The validity of the calculated GFR & GFRAA in patients over 70 years has not been determined. Clinical correlation is essential. Serum or plasma urea nitroge n measurement (mass/volume)Ordered By: Antonia Matthews on 04-11-2023 Urea nitrogen [Mass/Vol] 18 mg/dL 7-18 [facility] Thin prep Papanicolaou smear with manual screeningOrdered By: Antonia Matthews on 04-11-2023 Thin prep Papanicolaou smear with manual screening 24 U/L 15-37 [facility] Thin prep Papanicolaou smear with manual screening 5 5-15 [facility] Absolute lymphocyte countOrd ered By: Antonia Matthews on 01-17-2023 Lymphocytes Auto (Unsp spec) [#/Vol] 1.02 10*3/uL 0.83-4.51 [facility] Basophil percentageOrdered B y: Antonia Matthews on 01-17-2023 Basophils/100 WBC (Bld) 0.8 % 0-1 [facility] Bilirubin [Mass/Vol] 0.30 mg/dL 0.20-1.00 [facility] Comment on above: For patients on eltr ombopag therapy, use of Dimension [place] TBIL is not recommended. Chloride [Moles/Vol] 106 mmol/L 98-107 [facility] Eosinophils/100 WBC (Bld) 6.1 % 0-5 [facility] Glucose [Mass/Vol] 114 mg/dL 74-106 [facility] Comment on above: Fasting Glucose resu lt from 100 to 125 mg/dL suggests IMPAIRED HOMEOSTASIS per A.D.A. criteria. Neutrophils (Bld) [#/Vol] 2.2 10*3/uL 2.0-7.7 [facility] Neutrophils/100 WBC (Bld) 54.8 % 47-70 [facility] [facility] Potassium [Moles/Vol] 4.1 mmol/L 3.5-5.1 [facility] Protein [Mass/Vol] 7.3 g/dL 6.4-8.2 [facility] Sodium [Moles/Vol] 141 mmol/L 136-145 [facility] WBC (Bld) [#/Vol] 3.9 10*3/uL 4.4-11.0 [facility] Blood erythrocytes count (nu mber/volume)Ordered By: Antonia Matthews on 01-17-2023 RBC (Bld) [#/Vol] 4.64 10*6/uL 4.6-6.2 [facility] Blood hemoglobin measurement (mass/volume)Ordered By: Antonia Matthews on 01-17-2023 Hemoglobin (Bld) [Mass/Vol] 14.4 g/dL 13.0-16.5 [facility] Blood lymphocytes/100 leukoc ytesOrdered By: Antonia Matthews on 01-17-2023 Lymphocytes/100 WBC (Bld) 26.0 % 19-41 [facility] Blood monocytes/100 leukocyt esOrdered By: Antonia Matthews on 01-17-2023 Monocytes/100 WBC (Bld) 12.0 % 0-10 [facility] Blood platelet mean volumeOr dered By: Antonia Matthews on 01-17-2023 Platelet mean volume (Bld) [Entitic vol] 10.8 fL 6.2-12.0 [facility] Determination of erythrocyte mean corpuscular volume (MCV)Ordered By: Antoniastanislav Matthews on 01-17-2023 MCV (RBC) [Entitic vol] 96.8 fL 80-94 [facility] Hematocrit Auto (Bld) [Volum e fraction]Ordered By: [facility] Cassie on 01-17-2023 Hematocrit (Bld) [Volume fraction] 44.9 % 40-54 [facility] Laboratory - Chemistry and C hemistry - challengeOrdered By: [facility] Cassie on 01-17-2023 ALP [Catalytic activity/Vol] 45 U/L 45-117 [facility] ALT [Catalytic activity/Vol] 23 U/L 16-61 [facility] CO2 [Moles/Vol] 30.0 mmol/L 21.0-32.0 [facility] Globulin (S) [Mass/Vol] 3.6 g/dL 2.2-4.2 [facility] Urea nitrogen/Creatinine [Mass ratio] 11.4 mg/mg 10-20 [facility] Laboratory - Hematology and Cell countsOrdered By: Antoniastanislav Matthews on 01-17-2023 Erythrocyte distribution width (RBC) [Entitic vol] 45.4 fL 35.1-43.9 [facility] Erythrocyte distribution width (RBC) [Ratio] 12.9 % 11.6-14.6 [facility] Immature granulocytes/100 WBC (Bld) 0.300 % 0.0-0.9 [facility] Comment on above: IG% - Immature Granu locytes (promyelocytes, myelocytes and metamyelocytes) > 1% indicates that a LEFT SHIFT is Present. MCH (RBC) [Entitic mass] 31.0 pg 27.0-32.0 [facility] Nucleated RBC/100 WBC (Bld) [Ratio] 0 % 0-5 [facility] MCHC Auto (RBC) [Mass/Vol]Or dered By: Antonia Matthews on 01-17-2023 MCHC (RBC) [Mass/Vol] 32.1 g/dL 32-36 [facility] No Panel InformationOrdered By: Antonia Matthews on 01-17-2023 Estimated GFR (MDRD) Amer 97 mL/min >60 [facility] Comment on above: GFR Calc Estimated GFR (MDRD) Non-Af Amer 80 mL/min >60 [facility] Comment on above: Non- GFR Calc Platelets bldOrdered By: Robbie Matthews on 01-17-2023 Platelets (Bld) [#/Vol] 233 10*3/uL 150-450 [facility] Serum or plasma albumin freida urement (mass/volume)Ordered By: Antonia Matthews on 01-17-2023 Albumin [Mass/Vol] 3.7 g/dL 3.2-5.0 [facility] Serum or plasma albumin/glob ulin mass ratioOrdered By: Antonia Matthews on 01-17-2023 Albumin/Globulin [Mass ratio] 1.0 {ratio} 0.9-2.4 [facility] Serum or plasma calcium freida urement (mass/volume)Ordered By: Antonia Matthews on 01-17-2023 Calcium [Mass/Vol] 9.2 mg/dL 8.5-10.1 [facility] Serum or plasma creatinine m easurement (mass/volume)Ordered By: Antonia Matthews on 01-17-2023 Creatinine [Mass/Vol] 1.05 mg/dL 0.70-1.30 [facility] Comment on above: The validity of the calculated GFR & GFRAA in patients over 70 years has not been determined. Clinical correlation is essential. Serum or plasma urea nitroge n measurement (mass/volume)Ordered By: Antonia Matthews on 01-17-2023 Urea nitrogen [Mass/Vol] 12 mg/dL 7-18 [facility] Thin prep Papanicolaou smear with manual screeningOrdered By: Antonia Matthews on 01-17-2023 Thin prep Papanicolaou smear with manual screening 21 U/L 15-37 [facility] Thin prep Papanicolaou smear with manual screening 5 5-15 [facility] Absolute lymphocyte countOrd ered By: Dr. Matthews on 11-08-2022 Lymphocytes Auto (Unsp spec) [#/Vol] 1.61 10*3/uL 0.83-4.51 [facility] Basophil percentageOrdered B y: Dr. Matthews on 11-08-2022 Basophils/100 WBC (Bld) 0.7 % 0-1 [facility] Bilirubin [Mass/Vol] 0.60 mg/dL 0.20-1.00 [facility] Comment on above: For patients on eltr ombopag therapy, use of Dimension [place] TBIL is not recommended. Chloride [Moles/Vol] 108 mmol/L 98-107 [facility] Eosinophils/100 WBC (Bld) 5.3 % 0-5 [facility] Glucose [Mass/Vol] 88 mg/dL 74-106 [facility] Neutrophils (Bld) [#/Vol] 3.1 10*3/uL 2.0-7.7 [facility] Neutrophils/100 WBC (Bld) 55.9 % 47-70 [facility] Potassium [Moles/Vol] 4.1 mmol/L 3.5-5.1 [facility] Protein [Mass/Vol] 7.3 g/dL 6.4-8.2 [facility] Sodium [Moles/Vol] 142 mmol/L 136-145 [facility] WBC (Bld) [#/Vol] 5.5 10*3/uL 4.4-11.0 [facility] Blood erythrocytes count (nu mber/volume)Ordered By: Dr. Matthews on 11-08-2022 RBC (Bld) [#/Vol] 4.74 10*6/uL 4.6-6.2 [facility] Blood hemoglobin measurement (mass/volume)Ordered By: Dr. Matthews on 11-08-2022 Hemoglobin (Bld) [Mass/Vol] 14.6 g/dL 13.0-16.5 [facility] Blood lymphocytes/100 leukoc ytesOrdered By: Dr. Matthews on 11-08-2022 Lymphocytes/100 WBC (Bld) 29.3 % 19-41 [facility] Blood monocytes/100 leukocyt esOrdered By: Dr. Matthews on 11-08-2022 Monocytes/100 WBC (Bld) 8.6 % 0-10 [facility] Blood platelet mean volumeOr dered By: Dr. Matthews on 11-08-2022 Platelet mean volume (Bld) [Entitic vol] 10.2 fL 6.2-12.0 [facility] Determination of erythrocyte mean corpuscular volume (MCV)Ordered By: Dr. Matthews on 11-08-2022 MCV (RBC) [Entitic vol] 92.8 fL 80-94 [facility] Hematocrit Auto (Bld) [Volum e fraction]Ordered By: Dr. Matthews on 11-08-2022 Hematocrit (Bld) [Volume fraction] 44.0 % 40-54 [facility] Laboratory - Chemistry and C hemistry - challengeOrdered By: Dr. Matthews on 11-08-2022 ALP [Catalytic activity/Vol] 48 U/L 45-117 [facility] ALT [Catalytic activity/Vol] 23 U/L 16-61 [facility] CO2 [Moles/Vol] 25.0 mmol/L 21.0-32.0 [facility] Globulin (S) [Mass/Vol] 3.5 g/dL 2.2-4.2 [facility] Urea nitrogen/Creatinine [Mass ratio] 18.6 mg/mg 10-20 [facility] Laboratory - Hematology and Cell countsOrdered By: Dr. Matthews on 11-08-2022 Erythrocyte distribution width (RBC) [Entitic vol] 44.6 fL 35.1-43.9 [facility] Erythrocyte distribution width (RBC) [Ratio] 13.3 % 11.6-14.6 [facility] Immature granulocytes/100 WBC (Bld) 0.200 % 0.0-0.9 [facility] Comment on above: IG% - Immature Granu locytes (promyelocytes, myelocytes and metamyelocytes) > 1% indicates that a LEFT SHIFT is Present. MCH (RBC) [Entitic mass] 30.8 pg 27.0-32.0 [facility] Nucleated RBC/100 WBC (Bld) [Ratio] 0 % 0-5 [facility]) [Mass/Vol]Or dered By: Dr. Matthews on 11-08-2022 MCHC (RBC) [Mass/Vol] 33.2 g/dL 32-36 [facility] No Panel InformationOrdered By: Dr. Matthews on 11-08-2022 Estimated GFR (MDRD) Amer 100 mL/min >60 [facility] Comment on above: GFR Calc Estimated GFR (MDRD) Non-Af Amer 83 mL/min >60 [facility] Comment on above: Non- GFR Calc Platelets bldOrdered By: Dr. Matthews on 11-08-2022 Platelets (Bld) [#/Vol] 280 10*3/uL 150-450 [facility] Serum or plasma albumin freida urement (mass/volume)Ordered By: Dr. Matthews on 11-08-2022 Albumin [Mass/Vol] 3.8 g/dL 3.2-5.0 [facility] Serum or plasma albumin/glob ulin mass ratioOrdered By: Dr. Matthews on 11-08-2022 Albumin/Globulin [Mass ratio] 1.1 {ratio} 0.9-2.4 [facility] Serum or plasma calcium freida urement (mass/volume)Ordered By: Dr. Matthews on 11-08-2022 Calcium [Mass/Vol] 8.9 mg/dL 8.5-10.1 [facility] Serum or plasma creatinine m easurement (mass/volume)Ordered By: Dr. Matthews on 11-08-2022 Creatinine [Mass/Vol] 1.02 mg/dL 0.70-1.30 [facility] Comment on above: The validity of the calculated GFR & GFRAA in patients over 70 years has not been determined. Clinical correlation is essential. Serum or plasma urea nitroge n measurement (mass/volume)Ordered By: Dr. Matthews on 11-08-2022 Urea nitrogen [Mass/Vol] 19 mg/dL 7-18 [facility] Thin prep Papanicolaou smear with manual screeningOrdered By: Dr. Matthews on 11-08-2022 Thin prep Papanicolaou smear with manual screening 23 U/L 15-37 [facility] Thin prep Papanicolaou smear with manual screening 9 5-15 [facility] Absolute lymphocyte countOrd ered By: Dr. Matthews on 09-24-2022 Lymphocytes Auto (Unsp spec) [#/Vol] 1.27 10*3/uL 0.83-4.51 [facility] Basophil percentageOrdered B y: Dr. Matthews on 09-24-2022 Basophils/100 WBC (Bld) 0.7 % 0-1 [facility] Bilirubin [Mass/Vol] 0.40 mg/dL 0.20-1.00 [facility] Comment on above: For patients on eltr ombopag therapy, use of [place] TBIL is not recommended. Chloride [Moles/Vol] 107 mmol/L 98-107 [facility] Eosinophils/100 WBC (Bld) 6.6 % 0-5 [facility] Glucose [Mass/Vol] 92 mg/dL 74-106 [facility] Neutrophils (Bld) [#/Vol] 2.5 10*3/uL 2.0-7.7 [facility] Neutrophils/100 WBC (Bld) 55.4 % 47-70 [facility] Potassium [Moles/Vol] 4.6 mmol/L 3.5-5.1 [facility] Protein [Mass/Vol] 7.7 g/dL 6.4-8.2 [facility] Sodium [Moles/Vol] 136 mmol/L 136-145 [facility] WBC (Bld) [#/Vol] 4.4 10*3/uL 4.4-11.0 [facility] Blood erythrocytes count (nu mber/volume)Ordered By: Dr. Matthews on 09-24-2022 RBC (Bld) [#/Vol] 4.98 10*6/uL 4.6-6.2 [facility] Blood hemoglobin measurement (mass/volume)Ordered By: Dr. Matthews on 09-24-2022 Hemoglobin (Bld) [Mass/Vol] 15.1 g/dL 13.0-16.5 [facility] Blood lymphocytes/100 leukoc ytesOrdered By: Dr. Matthews on 09-24-2022 Lymphocytes/100 WBC (Bld) 28.7 % 19-41 [facility] Blood monocytes/100 leukocyt esOrdered By: Dr. Matthews on 09-24-2022 Monocytes/100 WBC (Bld) 8.4 % 0-10 [facility] Blood platelet mean volumeOr dered By: Dr. Matthews on 09-24-2022 Platelet mean volume (Bld) [Entitic vol] 10.5 fL 6.2-12.0 [facility] Determination of erythrocyte mean corpuscular volume (MCV)Ordered By: Dr. Matthews on 09-24-2022 MCV (RBC) [Entitic vol] 92.6 fL 80-94 [facility] Hematocrit Auto (Bld) [Volum e fraction]Ordered By: Dr. Matthews on 09-24-2022 Hematocrit (Bld) [Volume fraction] 46.1 % 40-54 [facility] Laboratory - Chemistry and C hemistry - challengeOrdered By: Dr. Matthews on 09-24-2022 ALP [Catalytic activity/Vol] 50 U/L 45-117 [facility] ALT [Catalytic activity/Vol] 32 U/L 16-61 [facility] CO2 [Moles/Vol] 28.0 mmol/L 21.0-32.0 [facility] Globulin (S) [Mass/Vol] 3.9 g/dL 2.2-4.2 [facility] Urea nitrogen/Creatinine [Mass ratio] 10.1 mg/mg 10-20 [facility] Laboratory - Hematology and Cell countsOrdered By: Dr. Matthews on 09-24-2022 Erythrocyte distribution width (RBC) [Entitic vol] 43.5 fL 35.1-43.9 [facility] Erythrocyte distribution width (RBC) [Ratio] 12.9 % 11.6-14.6 [facility] Immature granulocytes/100 WBC (Bld) 0.200 % 0.0-0.9 [facility] Comment on above: IG% - Immature Granu locytes (promyelocytes, myelocytes and metamyelocytes) > 1% indicates that a LEFT SHIFT is Present. MCH (RBC) [Entitic mass] 30.3 pg 27.0-32.0 [facility] Nucleated RBC/100 WBC (Bld) [Ratio] 0 % 0-5 [facility] ([facility]BC) [Mass/Vol]Or dered By: Dr. Matthews on 09-24-2022 MCHC (RBC) [Mass/Vol] 32.8 g/dL 32-36 [facility] No Panel InformationOrdered By: Dr. Matthews on 09-24-2022 Estimated GFR (MDRD) Amer 93 mL/min >60 [facility] Comment on above: GFR Calc Estimated GFR (MDRD) Non-Af Amer 77 mL/min >60 [facility] Comment on above: Non- GFR Calc Platelets bldOrdered By: Dr. Matthews on 09-24-2022 Platelets (Bld) [#/Vol] 238 10*3/uL 150-450 [facility] Serum or plasma albumin freida urement (mass/volume)Ordered By: Dr. Matthews on 09-24-2022 Albumin [Mass/Vol] 3.8 g/dL 3.2-5.0 [facility] Serum or plasma albumin/glob ulin mass ratioOrdered By: Dr. Matthews on 09-24-2022 Albumin/Globulin [Mass ratio] 1.0 {ratio} 0.9-2.4 [facility] Serum or plasma calcium freida urement (mass/volume)Ordered By: Dr. Matthews on 09-24-2022 Calcium [Mass/Vol] 9.3 mg/dL 8.5-10.1 [facility] Serum or plasma creatinine m easurement (mass/volume)Ordered By: Dr. Matthews on 09-24-2022 Creatinine [Mass/Vol] 1.09 mg/dL 0.70-1.30 [facility] Comment on above: The validity of the calculated GFR & GFRAA in patients over 70 years has not been determined. Clinical correlation is essential. Serum or plasma urea nitroge n measurement (mass/volume)Ordered By: Dr. Matthews on 09-24-2022 Urea nitrogen [Mass/Vol] 11 mg/dL 7-18 [facility] Thin prep Papanicolaou smear with manual screeningOrdered By: Dr. Matthews on 09-24-2022 Thin prep Papanicolaou smear with manual screening 25 U/L 15-37 [facility] Thin prep Papanicolaou smear with manual screening 1 5-15 [facility] Absolute lymphocyte countOrd ered By: Dr. Matthews on 07-08-2022 Lymphocytes Auto (Unsp spec) [#/Vol] 1.34 10*3/uL 0.83-4.51 [facility] Basophil percentageOrdered B y: Dr. Matthews on 07-08-2022 Basophils/100 WBC (Bld) 0.9 % 0-1 [facility] Bilirubin [Mass/Vol] 0.20 mg/dL 0.20-1.00 [facility] Comment on above: For patients on eltr ombopag therapy, use of [place] TBIL is not recommended. Chloride [Moles/Vol] 111 mmol/L 98-107 [facility] Eosinophils/100 WBC (Bld) 4.3 % 0-5 [facility] Glucose [Mass/Vol] 103 mg/dL 74-106 [facility] Comment on above: Fasting Glucose resu lt from 100 to 125 mg/dL suggests IMPAIRED HOMEOSTASIS per A.D.A. criteria. Neutrophils (Bld) [#/Vol] 2.7 10*3/uL 2.0-7.7 [facility] Neutrophils/100 WBC (Bld) 56.8 % 47-70 [facility] Potassium [Moles/Vol] 3.8 mmol/L 3.5-5.1 [facility] Protein [Mass/Vol] 7.7 g/dL 6.4-8.2 [facility] Sodium [Moles/Vol] 141 mmol/L 136-145 [facility] WBC (Bld) [#/Vol] 4.7 10*3/uL 4.4-11.0 [facility] Blood erythrocytes count (nu mber/volume)Ordered By: Dr. Matthews on 07-08-2022 RBC (Bld) [#/Vol] 4.84 10*6/uL 4.6-6.2 [facility] Blood hemoglobin measurement (mass/volume)Ordered By: Dr. Matthews on 07-08-2022 Hemoglobin (Bld) [Mass/Vol] 14.7 g/dL 13.0-16.5 [facility] Blood lymphocytes/100 leukoc ytesOrdered By: Dr. Matthews on 07-08-2022 Lymphocytes/100 WBC (Bld) 28.6 % 19-41 [facility] Blood monocytes/100 leukocyt esOrdered By: Dr. Matthews on 07-08-2022 Monocytes/100 WBC (Bld) 9.2 % 0-10 [facility] Blood platelet mean volumeOr dered By: Dr. Matthews on 07-08-2022 Platelet mean volume (Bld) [Entitic vol] 11.1 fL 6.2-12.0 [facility] Determination of erythrocyte mean corpuscular volume (MCV)Ordered By: Dr. Matthews on 07-08-2022 MCV (RBC) [Entitic vol] 92.8 fL 80-94 [facility] Erythrocyte sedimentation ra teOrdered By: Dr. Matthews on 07-08-2022 ESR (Bld) [Velocity] 3 mm/h 0-20 [facility] Hematocrit Auto (Bld) [Volum e fraction]Ordered By: Dr. Matthews on 07-08-2022 Hematocrit (Bld) [Volume fraction] 44.9 % 40-54 [facility] Laboratory - Chemistry and C hemistry - challengeOrdered By: Dr. Matthews on 07-08-2022 ALP [Catalytic activity/Vol] 48 U/L 45-117 [facility] ALT [Catalytic activity/Vol] 24 U/L 16-61 [facility] CO2 [Moles/Vol] 27.0 mmol/L 21.0-32.0 [facility] Globulin (S) [Mass/Vol] 3.9 g/dL 2.2-4.2 [facility] Urea nitrogen/Creatinine [Mass ratio] 19.8 mg/mg 10-20 [facility] Laboratory - Hematology and Cell countsOrdered By: Dr. Matthews on 07-08-2022 Erythrocyte distribution width (RBC) [Entitic vol] 41.9 fL 35.1-43.9 [facility] Erythrocyte distribution width (RBC) [Ratio] 12.2 % 11.6-14.6 [facility] Immature granulocytes/100 WBC (Bld) 0.200 % 0.0-0.9 [facility] Comment on above: IG% - Immature Granu locytes (promyelocytes, myelocytes and metamyelocytes) > 1% indicates that a LEFT SHIFT is Present. MCH (RBC) [Entitic mass] 30.4 pg 27.0-32.0 [facility] Nucleated RBC/100 WBC (Bld) [Ratio] 0 % 0-5 [facility] MCHC Auto (RBC) [Mass/Vol]Or dered By: Dr. Matthews on 07-08-2022 MCHC (RBC) [Mass/Vol] 32.7 g/dL 32-36 [facility] No Panel InformationOrdered By: Dr. Matthews on 07-08-2022 Anti-Nuclear Antibody Screen Negative Negative [facility] Comment on above: Performed at: [employer] [address] Director: Marcelo Vee PhD, Phone: [phone] Estimated GFR (MDRD) Amer 107 mL/min >60 [facility] Comment on above: GFR Calc Estimated GFR (MDRD) Non-Af Amer 89 mL/min >60 [facility] Comment on above: Non- GFR Calc Hepatitis B Surface Antigen Non-Reactive Nonreactive [facility] Hepatitis C Antibody Non-Reactive Nonreactive [facility] Comment on above: Non Reactive: < 0.8 Equivocal: >/= 0.8 to < 1.0 Reactive: >/= 1.0The CDC recommends that a reactive/equivocal HCV antibody result be followed up by the HCV Nucleic Acid Amplificationtest (399389) Platelets bldOrdered By: Dr. Matthews on 07-08-2022 Platelets (Bld) [#/Vol] 227 10*3/uL 150-450 [facility] Serum cyclic citrullinated p eptide IgG antibody assay (units/volume)Ordered By: Dr. Matthews on 07-08-2022 Cyclic citrullinated peptide IgG Qn 0 units 0-19 [facility] Comment on above: Negative <20 Weak po sitive 20 - 39 Moderate positive 40 - 59 Strong positive >59Performed at: [facility] [address] Director: Marcelo Vee PhD, Phone: [phone] Serum hepatitis B virus surf donnell antibody IgG detectionOrdered By: Dr. Matthews on 07-08-2022 HBV surface IgG Ql (S) Non-Reactive [facility] Comment on above: Non Reactive: Incons istent with immunity less than <10 mIU/mL Reactive: Consistent with immunity greater than or equal to 10 mIU/mL Serum or plasma C reactive p rotein measurement (mass/volume)Ordered By: Dr. Matthews on 07-08-2022 CRP [Mass/Vol] mg/L 0.0-3.0 [facility] Comment on above: C-Reactive Protein ( CRP) provides useful information for thediagnosis, therapy and monitoring of inflammatory processesand associated diseases. For the evaluation of Relative Riskfor Cardiovascular Disease, a High Sensitivity CRP (HSCRP)should be ordered. Serum or plasma albumin freida urement (mass/volume)Ordered By: Dr. Matthews on 07-08-2022 Albumin [Mass/Vol] 3.8 g/dL 3.2-5.0 [facility] Serum or plasma albumin/glob ulin mass ratioOrdered By: Dr. Matthews on 07-08-2022 Albumin/Globulin [Mass ratio] 1.0 {ratio} 0.9-2.4 [facility] Serum or plasma calcium freida urement (mass/volume)Ordered By: Dr. Matthews on 07-08-2022 Calcium [Mass/Vol] 9.1 mg/dL 8.5-10.1 [facility] Serum or plasma creatinine m easurement (mass/volume)Ordered By: Dr. Matthews on 07-08-2022 Creatinine [Mass/Vol] 0.96 mg/dL 0.70-1.30 [facility] Comment on above: The validity of the calculated GFR & GFRAA in patients over 70 years has not been determined. Clinical correlation is essential. Serum or plasma urea nitroge n measurement (mass/volume)Ordered By: Dr. Matthews on 07-08-2022 Urea nitrogen [Mass/Vol] 19 mg/dL 7-18 [facility] Serum rheumatoid factor dete ctionOrdered By: Dr. Matthews on 07-08-2022 Rheumatoid factor Ql (S) < 10.0 IU/mL <15 [facility] Thin prep Papanicolaou smear with manual screeningOrdered By: Dr. Matthews on 07-08-2022 Thin prep Papanicolaou smear with manual screening 19 U/L 15-37 [facility] Thin prep Papanicolaou smear with manual screening 3 5-15 [facility] Vital Signs Date Time Vital Sign Value Performing Clinician Juanisi khurram 10-28-2024 08:01-0400 Body height 188 cm Zaid Philippe MD Work Phone: [facility] 10-28-2024 08:01-0400 Body mass index (BMI) [Ratio] 22.28 kg/m2 Zaid Philippe MD Work Phone: [facility] 10-28-2024 08:01-0400 Body weight 78.7 kg Zaid Philippe MD Work Phone: [facility] 10-28-2024 08:01-0400 Diastolic blood pressure 74 mm[Hg] Zaid Philippe MD Work Phone: [facility] 10-28-2024 08:01-0400 Heart rate 56 /min Zaid Philippe MD Work Phone: [facility] 10-28-2024 08:01-0400 Respiratory rate 16 /min Zaid Philippe MD Work Phone: [facility] 10-28-2024 08:01-0400 Systolic blood pressure 118 mm[Hg] Zaid Philippe MD Work Phone: [facility] 10-28-2023 08:00-0400 Body height 188.6 cm Zaid Philippe MD Work Phone: [facility] 10-28-2023 08:00-0400 Body mass index (BMI) [Ratio] 22.83 kg/m2 Zaid Philippe MD Work Phone: [facility] 10-28-2023 08:00-0400 Body weight 81.19 kg Zaid Philippe MD Work Phone: [facility] 10-28-2023 08:00-0400 Diastolic blood pressure 72 mm[Hg] Zaid Philippe MD Work Phone: [facility] 10-28-2023 08:00-0400 Heart rate 60 /min Zaid Philippe MD Work Phone: [facility] 10-28-2023 08:00-0400 Respiratory rate 16 /min Zaid Philippe MD Work Phone: [facility] 10-28-2023 08:00-0400 Systolic blood pressure 116 mm[Hg] Zaid Philippe MD Work Phone: [facility] 10-25-2022 07:57-0400 Body height 188.6 cm Inge Zarco BUILDING ILLUMINATING ENGINEER.DOCK MANAGER Work Phone: [facility] 10-25-2022 07:57-0400 Body weight 75.75 kg Inge Zarco BUILDING ILLUMINATING ENGINEER.DOCK MANAGER Work Phone: [facility] 10-25-2022 07:57-0400 Diastolic blood pressure 72 mm[Hg] Inge Zarco BUILDING ILLUMINATING ENGINEER.DOCK MANAGER Work Phone: [facility] 10-25-2022 07:57-0400 Heart rate 72 /min Inge Zarco BUILDING ILLUMINATING ENGINEER.DOCK MANAGER Work Phone: [facility] 10-25-2022 07:57-0400 Respiratory rate 16 /min Inge Zarco BUILDING ILLUMINATING ENGINEER.DOCK MANAGER Work Phone: [facility] 10-25-2022 07:57-0400 Systolic blood pressure 110 mm[Hg] Inge Zarco BUILDING ILLUMINATING ENGINEER.DOCK MANAGER Work Phone: [facility] Encounters Encounter Date Encounter Type Care Provider Facility Start: 02-10-2025 End: 02-10-[address] Zaid Philippe MD Work Phone: [facility] Start: 02-10-2025 End: 02-10-[address] Antonia Matthews MD -[facility] Work Phone: Start: 02-10-2025 End: 02-10-2025 ambulatory Zaid Philippe Facility:[facility] Start: 11-18-2024 End: 11-24-2024 Telephone encounter Zaid Philippe MD Work Phone: [facility] [place] Comment on above: Results Start: 11-18-2024 End: 11-18-[address] Zaid Philippe MD Work Phone: -[facility] Start: 11-18-2024 End: 11-18-[address] Zaid Philippe MD -[facility] Work Phone: Start: 11-18-2024 End: 11-18-2024 ambulatory Zaid Philippe Facility:[facility] Start: 11-13-2024 End: 11-13-2024 Follow-up encounter Zaid Philippe MD Work Phone: [facility] [place] Start: 11-01-2024 End: 11-01-2024 Patient encounter procedure Zaid Philippe MD Work Phone: [facility] [place] Comment on above: Need for vaccination (Primary Dx) Start: 11-01-2024 End: 11-01-2024 ambulatory ZAID PHILIPPE Facility:[facility] Start: 10-28-2024 End: 10-28-2024 Patient encounter procedure Zaid Philippe MD Work Phone: [facility] [place] Comment on above: Wellness examination (Primary Dx); Screening for depression; Encounter for screening examination for other mental health and behavioral disorders; Special screening for malignant neoplasms, colon; Need for vaccination; Psoriatic arthritis (HCC); Psoriasis and similar disorders; Screening for lipid disorders Start: 10-28-2024 End: 10-28-2024 Patient encounter status Zaid Philippe MD Work Phone: [facility] Start: 10-28-2024 End: 10-28-2024 ambulatory ZAID PHILIPPE Facility:[facility] Start: 10-28-2024 Encounter for genera l adult medical examination without abnormal findings ZAID PHILIPPE [facility] Start: 10-25-2024 End: 10-25-2024 ambulatory ZAID PHILIPPE Facility:[facility] Start: 10-25-2024 End: 10-25-2024 Telemedicine consultation with patient Stephen Joeanamika HYLTON Work Phone: Telemedicine Comment on above: [...] ambulatory Dr. Zaid Philippe MD Work Phone: [facility] Work Phone: Start: 08-27-2024 End: 08-27-[address] Antonia Matthews MD -Laboratory, [facility] Work Phone: Start: 08-27-2024 End: 08-27-2024 ambulatory Zaid Philippe Facility:[facility] Start: 06-07-2024 End: 06-07-[address] Antonia Matthews MD -Laboratory, [place] Work Phone: Start: 06-07-2024 End: 06-07-2024 ambulatory Antonia Matthews Facility:[facility] Start: 03-29-2024 End: 03-29-2024 Nursing evaluation of patient and report Mi Nurse Work Phone: [facility] [place] Comment on above: Encounter for immuni zation (Primary Dx) Start: 03-29-2024 End: 03-29-2024 ambulatory ZAID PHILIPPE Facility:[facility] Start: 03-19-2024 End: 03-19-2024 ambulatory Zaid Philippe Facility:[facility] Start: 03-17-2024 End: 03-17-2024 ambulatory Zaid Philippe Facility:[facility] Start: 11-26-2023 End: 11-26-2023 Patient encounter procedure Marylin Buckley BURNER TENDER Work Phone: Internal [facility] Comment on above: Need for vaccination (Primary Dx) Start: 11-13-2023 ambulatory Zaid huynh MD Work Phone: [facility] [place] Start: 11-13-2023 Patient encounter procedure Zaid Philippe MD Work Phone: Internal [facility] Comment on above: Consult Appointment Start: 10-28-2023 End: 10-28-2023 Patient encounter procedure Zaid Philippe MD Work Phone: [facility] [place] Comment on above: Routine medical exam (Primary Dx); Irritable bowel syndrome with both constipation and diarrhea; Psoriatic arthritis (HCC); Need for vaccination Start: 10-28-2023 End: 10-28-2023 Patient encounter status Zaid Philippe MD Work Phone: [facility] Work Phone: Start: 07-15-2023 End: 07-15-2023 ambulatory [facility] Work Phone: Start: 07-15-2023 End: 07-15-2023 Patient encounter procedure [facility] Work Phone: Start: 06-06-2023 End: 06-06-2023 Subsequent hospital visit by physician Araceli [facility] Work Phone: Radiology Comment on above: Left hand pain [M79. 642] Start: 04-11-2023 End: 04-11-2023 Patient encounter procedure [facility] Work Phone: Start: 01-17-2023 End: 01-17-2023 ambulatory [facility] Work Phone: Start: 01-17-2023 End: 01-17-2023 Patient encounter procedure [facility] Work Phone: Start: 11-08-2022 End: 11-08-2022 ambulatory [facility] Work Phone: Start: 11-08-2022 End: 11-08-2022 Patient encounter procedure [facility] Start: 10-25-2022 End: 10-25-2022 Patient encounter procedure Inge Zarco DOCK MANAGER Work Phone: [facility] [place] Comment on above: Routine medical exam (Primary Dx); Encounter for immunization; Special screening examination for viral disease; Screening for HIV (human immunodeficiency virus); Screening for diabetes mellitus (DM); Psoriasis and similar disorders Start: 10-25-2022 End: 10-25-2022 Patient encounter status Inge Zarco ERNESTO.DOCK MANAGER Work Phone: [facility] [place] Start: 09-24-2022 End: 09-24-2022 Patient encounter procedure [facility] Start: 08-23-2022 Telephone encounter Zaid avila MD Work Phone: [facility] [place] Comment on above: + covid home test Start: 07-08-2022 End: 07-08-2022 ambulatory [facility] Work Phone: Start: 07-08-2022 End: 07-08-2022 Patient encounter procedure [facility] Procedures Date Procedure Procedure Detail Performing Clinician Start: 10-28-2024 Adult depression screening assessment Zaid Philippe MD Work Phone: Start: 10-28-2023 Adult depression screening assessment [facility] [place] Work Phone: Start: 06-06-2023 Radex hand minimum 3 views Inge Sethragini OROZCO.DOCK MANAGER Work Phone: Start: 07-08-2022 Pelvis X-ray Start: 05-14-2019 Lipid 1996 panel - S iliana or Plasma Zaid Philippe MD Work Phone: Plan of Treatment Date Care Activity Detail Author Start: 01-03-2034 Urine microalbumin profile DTaP,Tdap,Td Vaccine (4 - Td or Tdap) [facility] Start: 05-13-2029 Urine microalbumin profile [facility] Start: 11-10-2027 Screening for malign ant neoplasm of colon [facility] Start: 11-01-2025 End: 11-01-2025 Patient encounter procedure 11/01/2025 8:00 AM EDT Office Visit [facility] [place] [address] [facility] [place] [address] Zaid Philippe MD [address] [place] [address] Yearly [facility] [place] Comment on above: Yearly Start: 10-28-2025 Anxiety Screening Anxiety Screening [facility] Start: 10-28-2025 Depression Screening Depression Scre ening [facility] Start: 09-25-2025 DIABETES SCREEN DIABETES SCREEN [facility] Start: 09-25-2025 Diabetes Screening Diabetes Screenin g [facility] Start: 01-24-2025 Influenza vaccination Influenza Vacc ine (#1) [facility] Start: 11-02-2024 Pneumococcal vaccination PNEUMOCOCCAL VACCINE, 20 VALENT (PREVNAR 20) Immunization/Injection Routine Need for vaccination Expected: 11/02/2024 [facility] Work Phone: Comment on above: Expected: 11/02/2024 Start: 11-01-2024 End: 11-01-2024 Patient encounter procedure 11/01/2024 6:20 PM EDT Office Visit [facility] [place] [address] [facility] [place] [address] Zaid Philippe MD [address] [facility] [address] Pneumovax 20 [facility] [place] Comment on above: Pneumovax 20 Start: 11-01-2024 End: 01-31-2025 Lipid 1996 panel - Serum or Plasma LIPID PANEL, FASTING Lab Routine Screening for lipid disorders Expected: 11/01/2024, Expires: 01/31/2025 [facility] Comment on above: Expected: 11/01/2024 , Expires: 01/31/2025 Start: 10-28-2024 End: 10-28-2024 Patient encounter procedure [facility] [place] Comment on above: Annual Annual / due for col onoscopy Start: 10-27-2024 Anxiety Screening Anxiety Screening [facility] Start: 10-27-2024 Depression Screening Depression Scre ening [facility] Start: 09-01-2024 Covid-19 Vaccine (7 - Moderna risk season) Covid-19 Vaccine (7 - Moderna risk season) [facility] Start: 07-02-2024 COLOGUARD (FIT-DNA) COLOGUARD (FIT-D NA) [facility] Start: 07-02-2024 COLORECTAL CANCER SCREENING COLORECTAL CANCER SCREENING [facility] Start: 07-02-2024 Screening for malign ant neoplasm of colon [facility] Start: 05-14-2024 Lipid panel Lipid Screening [facility] Start: 05-14-2024 LIPID SCREEN LIPID SCREEN [facility] Start: 04-28-2024 Covid-19 Vaccine () Covid-19 Vaccine () [facility] Start: 04-28-2024 Hepatitis B Vaccine (3 of 3 - 19+ 3-dose series) Hepatitis B Vaccine (3 of 3 - 19+ 3-dose series) [facility] Start: 04-25-2024 Hepb vaccine adult 3 dose schedule for im use HEP B VACCINE, 3-DOSE, AGE 20+ YR (ENGERIX-B, RECOMBIVAX HB) Immunization/Injection Routine Need for vaccination Expected: 04/25/2024 (Approximate) [facility] Comment on above: Expected: 04/25/2024 (Approximate) Start: 03-29-2024 End: 03-29-2024 Nursing evaluation of patient and report 03/29/2024 9:15 AM EST Nurse Visit [facility] [place] [address] [place] [address] Nurse, [place] [address] [place] [address] Hep B - 3rd [facility] [place] Comment on above: Hep B - 3rd Start: 01-25-2024 Covid-19 Vaccine ( season) Covid-19 Vaccine ( season) [facility] Start: 01-25-2024 Influenza vaccination Influenza Vacc ine (#1) [facility] Start: 11-27-2023 Hepb vaccine adult 3 dose schedule for im use HEP B VACCINE, 3-DOSE, AGE 20+ YR (ENGERIX-B, RECOMBIVAX HB) Immunization/Injection Routine Need for vaccination Expected: 11/27/2023 (Approximate) [facility] Work Phone: Comment on above: Expected: 11/27/2023 (Approximate) Start: 11-27-2023 Orders Only 11/27/2023 Ord ers Only [facility] [place] [address] [place], [place] [id number] Zaid Philippe MD [address] [place], [place] [id number] Need for vaccination [facility] [place] Comment on above: Need for vaccination Start: 11-26-2023 End: 11-26-2023 Patient encounter procedure 11/26/2023 7:20 AM EDT Office Visit [facility] [place] [address] [place], [place] [id number] Marylin Buckley APRN.BURNER TENDER [address] [place], [place] [id number] Shot 2 of Hepatitis B vax [facility] [place] Comment on above: Shot 2 of Hepatitis B vax Start: 11-25-2023 Hepatitis B Vaccine (2 of 3 - 19+ 3-dose series) Hepatitis B Vaccine (2 of 3 - 19+ 3-dose series) [facility] Start: 04-23-2023 Hepb vaccine adult 3 dose schedule for im use HEP B VACCINE, 3-DOSE, AGE 20+ YR (ENGERIX-B, RECOMBIVAX HB) Immunization/Injection Routine Encounter for immunization Expected: 04/23/2023 [facility] Work Phone: Comment on above: Expected: 04/23/2023 Start: 04-22-2023 Covid-19 Vaccine ( season) Covid-19 Vaccine ( season) [facility] Start: 01-24-2023 Influenza vaccination INFLUENZA (Sea son Ended) [facility] Start: 11-24-2022 Hepb vaccine adult 3 dose schedule for im use HEP B VACCINE, 3-DOSE, AGE 20+ YR (ENGERIX-B, RECOMBIVAX HB) Immunization/Injection Routine Encounter for immunization Expected: 11/24/2022 [facility] Work Phone: Comment on above: Expected: 11/24/2022 Start: 10-25-2022 End: 12-25-2022 Hepatitis C virus Ab [Presence] in Serum HEP C AB IA W/CONF SCRN Lab Routine Special screening examination for viral disease Expected: 10/25/2022, Expires: 12/25/2022 [facility] Work Phone: Comment on above: Expected: 10/25/2022 , Expires: 12/25/2022 Start: 10-25-2022 End: 12-25-2022 HIV 1+2 Ab [Presence] in Serum or Plasma by Immunoassay HIV 1 2 COMBO(AG/AB),WITH REFLEX TO DIFFERENTIATION Lab Routine Screening for HIV (human immunodeficiency virus) Expected: 10/25/2022, Expires: 12/25/2022 [facility] Work Phone: Comment on above: Expected: 10/25/2022 , Expires: 12/25/2022 Start: 05-26-2022 DEPRESSION ASSESSMENT DEPRESSION ASS ESSMENT [facility] Start: 05-14-2022 DIABETES SCREEN DIABETES SCREEN [facility] Start: 05-20-2021 COVID-19 VACCINE (4 - Booster for Moderna series) COVID-19 VACCINE (4 - Booster for Moderna series) [facility] Start: 11-30-2019 Colonoscopy COLONOSCOPY [facility] Start: 11-30-[address] COLONOGRAPHY [facility] Start: 11-30-2019 FECAL OCCULT BLOOD FECAL OCCULT BLOO D [facility] Start: 11-30-2019 Screening for malign ant neoplasm of colon [facility] Start: 11-30-2019 SIGMOIDOSCOPY SIGMOIDOSCOPY [facility] Start: 1993 Pneumococcal vaccination Pneumococcal Vaccine (1 of 2 - PCV) [facility] Start: 1993 SHINGRIX VACCINE (1 of 2) SHINGRIX VACCINE (1 of 2) [facility] Start: 1992 HEPATITIS C SCREENING HEPATITIS C SC REENING [facility] Start: 1992 HIV SCREENING HIV SCREENING [facility] Start: 1980 PNEUMOCOCCAL (1 - PCV) PNEUMOCOCCAL (1 - PCV) [facility] Start: 1980 Pneumococcal vaccination Pneumococcal Vaccine (1 of 2 - PCV) [facility] Start: 1974 HEPATITIS B (1 of 3 - 3-dose series) HEPATITIS B (1 of 3 - 3-dose series) [facility] COLOGUARD COLOGUARD Lab Ro utine Special screening for malignant neoplasms, colon Ordered: 10/28/2024 [facility] Comment on above: Ordered: 10/28/2024 Hepb vaccine adult 3 dose schedule for im use HEP B VACCINE, 3-DOSE, AGE 20+ YR (ENGERIX-B, RECOMBIVAX HB) Immunization/Injection Routine Encounter for immunization 1 Occurrences starting 10/25/2022 [facility] Work Phone: Comment on above: 1 Occurrences starti ng 10/25/2022 Hzv zoster vacc recombinant adjuvanted im njx ZOSTER VACCINE, RECOMBINANT (SHINGRIX) Immunization/Injection Routine Encounter for immunization 1 Occurrences starting 10/25/2022 [facility] Work Phone: Comment on above: 1 Occurrences starti ng 10/25/2022 Pneumococcal vaccination PNEUMOCOCCAL VACCINE (PREVNAR 20) Immunization/Injection Routine Encounter for immunization 1 Occurrences starting 10/25/2022 [facility] Work Phone: Comment on above: 1 Occurrences starti ng 10/25/2022 [facility] Immunizations Immunization Date Immunization Notes Care Provider Fa cility 11-01-2024 pneumococcal conjuga te (PCV20) vaccine, 20 valent (PREVNAR 20) Zaid Philippe MD Work Phone: [facility] 03-29-2024 hepatitis B vaccine, adult dosage Mi Nurse Work Phone: [facility] 03-03-2024 influenza, injectabl e, madin roque canine kidney, preservative free Zaid Philippe MD Work Phone: [facility] 03-03-2024 influenza virus vacc ine, unspecified formulation Zaid Philippe MD Work Phone: [facility] 01-04-2024 tetanus toxoid, redu iris diphtheria toxoid, and acellular pertussis vaccine, adsorbed Dr. Zaid Philippe MD Work Phone: [facility] 11-26-2023 hepatitis B vaccine, adult dosage Marylin Buckley APRN.BURNER TENDER Work Phone: [facility] 10-28-2023 hepatitis B vaccine, adult dosage Zaid Philippe MD Work Phone: [facility] 04-07-2023 influenza, injectabl e, quadrivalent, preservative free Zaid Philippe MD Work Phone: [facility] 04-07-2023 influenza virus vacc ine, unspecified formulation Marylin Buckley BUILDING ILLUMINATING ENGINEER.BURNER TENDER Work Phone: [facility] 02-08-2022 influenza, injectabl e, quadrivalent, preservative free Zaid Philippe MD Work Phone: [facility] 03-25-2021 COVID-19 original vaccine, full dose, monovalent (MODERNA) Zaid Philippe MD Work Phone: [facility] Work Phone: 03-25-2021 influenza, injectabl e, quadrivalent, preservative free Zaid Philippe MD Work Phone: [facility] Work Phone: 05-16-2020 measles, mumps and rubella virus vaccine Zaid Philippe MD Work Phone: [facility] Work Phone: 03-01-2020 Seasonal, quadrivale nt, recombinant, injectable influenza vaccine, preservative free Zaid Philippe MD Work Phone: [facility] Work Phone: 05-13-2019 influenza, injectabl e, quadrivalent, contains preservative Zaid Philippe MD Work Phone: [facility] 05-13-2019 tetanus toxoid, redu iris diphtheria toxoid, and acellular pertussis vaccine, adsorbed Zaid Pihlippe MD Work Phone: [facility] 02-24-2013 influenza virus vacc ine, unspecified formulation Zaid Philippe MD Work Phone: [facility] 03-29-2009 novel Influenza-H1N1 -09, live virus for nasal administration Zaid Philippe MD Work Phone: [facility] Work Phone: 06-22-2008 tetanus toxoid, redu iris diphtheria toxoid, and acellular pertussis vaccine, adsorbed Zaid Philippe MD Work Phone: [facility] Payers Date Payer Category Payer Self-pay [id number] 2021 [employer] BLUE ACCE PPO [id number] 2021 Unknown [employer]LEY REILLY ACCE PPO [id number] 2021-Present [phone] [address] [place], [place] [address] [id number] 2021 Unknown [id number] Private Health Insurance [id number] Unknown AL Javier *DO NOT USE* [id number] Unknown [id number] Unknown [id number] Unknown [id number] Unknown [id number] Unknown [id number] Unknown [id number] Social History Date Type Detail Facility Start: 03-08-2019 End: 03-08-2019 Tobacco smoking status PRIS Unknown if ever smoked [facility] Start: 1975 Sex Assigned At Male [facility] Start: 09-27-2011 End: 01-04-2024 Tobacco smoking status PRIS Never smoked tobacco [facility] Start: 09-27-2011 Tobacco use and exposure Smokeless tobacco non-user [facility] Start: 06-25-2021 End: 10-28-2024 Alcohol intake Current non-drinker of alcohol (finding) [facility] Start: 06-11-2021 History SDOH Alcohol Frequency 3 [facility] Start: 06-11-2021 End: 06-16-2021 History SDOH Alcohol Std Drinks 1 [facility] Start: 06-11-2021 End: 06-16-2021 History SDOH Social Connections Phone 2 [facility] Start: 06-11-2021 History SDOH Financial 5 [facility] Start: 03-07-2020 Education 20 [facility] Start: 03-17-2023 End: 10-25-2024 History of Social function [facility] Start: 03-17-2023 End: 10-25-2024 [facility] Utilities [facility] Has the [employer], or [email or web address] threatened to shut off services in your home in past 12Mo No [facility] Frequency of Social Gatherings with Friends and Family Not on file [facility] Are you now , , , , never or living with a partner? [facility] How often to you hav e a drink containing alcohol? Monthly or less [facility] How many standard drinks containing alcohol do you have on a typical day? 1 or 2 [facility] How often do you hav e 6 or more drinks on 1 occasion? Never [facility] Do you feel stress - tense, restless, nervous, or anxious, or unable to sleep at night because your mind is troubled all the time - these days [OSQ] Only a little [facility] (I/We) worried wheth er (my/our) food would run out before (I/we) got money to buy more. Never true [facility] Start: 04-18-2020 Gender identity Identifies as male gender (finding) [facility] Start: 04-18-2020 Sexual orientation Heterosexual (fin ding) [facility] Start: 09-01-2024 Sex Male (finding) [facility] Do you feel stress - tense, restless, nervous, or anxious, or unable to sleep at night because your mind is troubled all the time - these days [OSQ] Not at all [facility] Functional Status Date Assessment Result Facility 10-25-2024 Total score [AUDIT-C] 1 10/26/19 25 3:48 PM EDT User, Aurelia [facility] 10-25-2024 How often to you hav e a drink containing alcohol? Monthly or less 10/25/2024 3:48 PM EDT User, Hernant Monthly or less [facility] 10-25-[address] inks containing alcohol do you have on a typical day? 1 or 2 10/25/2024 3:48 PM EDT User, Hernant 1 or 2 [facility] 10-25-2024 How often do you hav e 6 or more drinks on 1 occasion? Never 10/25/2024 3:48 PM EDT User, Aurelia Never [facility] 03-08-2014 Are you deaf, or do you have serious difficulty hearing No 03/08/2014 8:35 AM Allyson Benson Ma No [facility] Work Phone: 03-08-2014 Are you blind, or do you have serious difficulty seeing, even when wearing glasses No 03/08/2014 8:35 AM Allyson Benson Ma No [facility] 03-08-2014 Do you have serious difficulty walking or climbing stairs No 03/08/2014 8:35 AM EDT Allyson Story Ma No [facility] 03-08-2014 Do you have difficul ty dressing or bathing No 03/08/2014 8:35 AM EDT Allyson Story Ma No [facility] 03-08-2014 Because of a physica l, mental, or emotional condition, do you have difficulty doing errands alone such as visiting a physician's office or shopping No 03/08/2014 8:35 AM EDT Allyson Story Ma No [facility] Mental Status Date Assessment Result Facility 03-08-2014 Because of a physica l, mental, or emotional condition, do you have serious difficulty concentrating, remembering, or making decisions No 03/08/2014 8:35 AM EDT Allyson Story Ma No [facility] Clinical Notes 04-25-2009 to 11-24-2024 Telephone Encounter - Elizabeth Muniz LPN - 11/24/2024 8:47 AM EDTTelephone Encounter - Elizabeth Muniz LPN - 11/24/2024 8:47 AM EDTTelephone Encounter - Elizabeth Muniz LPN - 11/23/2024 8:54 AM EDT Note Date & Type Note Facility 11-24-2024 Telephone encounter Note My chart message to pt with pcp response and sent the lab results from [facility]. [facility] 11-24-2024 Miscellaneous Notes My chart message to pt with pcp response and sent the lab results from [facility]. Lipid panel stable, and near optimal. Continue heart healthy choices like Mediterranean diet. View External Labs - CMP,lipids [ID [id number]] Labs completed at [facility]. Please review. documented in this encounter [facility] 11-23-2024 Telephone encounter Note Lipid panel stable, and near optimal. Continue heart healthy choices like Mediterranean diet. [facility] 11-23-2024 Telephone encounter Note View External Labs - CMP,lipids [ID [id number]] Labs completed at [facility]. Please review. [facility] 11-13-2024 Progress note Formatting of t his note might be different from the original. Test results are okay. [facility] 11-13-2024 Miscellaneous Notes Test results are okay. documented in this encounter [facility] 11-01-2024 Note HNO ID: [id number] Author: BARB SPEARS LPN Service: ? Author Type: LICENSED NURSE Type: Progress Notes Filed: 11/01/2024 18:24 Note Text: Patient given Pneumovax Patient tolerated injection well. Barb Spears LPN [facility] 11-01-2024 History of Presen t illness Narrative Patient given Pneumovax Patient tolerated injection well. Barb Spears LPN documented in this encounter [facility] 10-28-2024 Note HNO ID: [id number] Author: ZAID PHILIPPE MD Service: ? Author Type: Physician Type: Progress Notes Filed: 10/28/2024 08:53 Note Text: This note was created using NoteWriter. Subjective [...] to affected area daily at bedtime. Per [facility]. Peroihvxmwr-Jvkvcslkq-Asw C-Mn (GLUCOSAMINE CHONDROITIN MAXSTR) 500-400 mg cap [...] PANEL, FASTING Victo (more content not included)... [facility] 10-28-2024 History of Presen t [...] to affected area daily at bedtime. Per [facility]. Wuyftrfwloc-Smybnbjlo-Enn C-Mn (GLUCOSAMINE CHONDROITIN MAXSTR) 500-400 mg cap [...] V76.51, ICD10: Z12.11 - COLONOSCOPY SCREENING - COLBRUNA 5. Need for vaccination - ICD9: V05.9, [...] - LIPID PANEL, FASTING Zaid Philippe MD TR OPEN ACCESS QUESTIONNAIRE 1. Are you currently [...] Please send all open access questionnaires to [facility] Pool #[id number] documented in this encounter [facility] 10-28-2024 Note HNO ID: [id number] Author: BARB SPEARS LPN Service: ? Author Type: LICENSED NURSE Type: Progress Notes Filed: 10/28/2024 08:53 Note Text: [facility] OPEN ACCESS QUESTIONNAIRE 1. Are you [...] Please send all open access questionnaires to [facility] Pool #[id number] [facility] 10-25-2024 Note Addended by: STEPHEN DAVID on: 10/25/2024 04:22 PM Modules accepted: Orders [facility] 10-25-2024 Miscellaneous Notes Addended by: STEPHEN CABELLO on: 10/25/2024 04:22 PM Modules accepted: Orders documented in this encounter [facility] 10-25-2024 Note HNO ID: [id number] Author: STEPHEN CABELLO PA-C Service: ? Author Type: Physician Casing Crew Pusher Type: Progress Notes Filed: 10/25/2024 15:53 Note Text: Telemedicine Visit - Distance Health Virtual Visit Note Patient seen on [employer] Video Visit platform. Location of patient: [place] Zaid Philippe MD I have communicated my name and active licensure. The patient's identity and physical location were verified at the time of this visit. Either the patient or their legal publications sales representative has been informed of the risks [...] as a single dose. Prescription sent to [facility] in [place]. Monitor for any signs of rash or systemic symptoms and seek medical attention if they occur. Recording using [employer] software for draft documentation of the visit was discussed with the patient/authorized publications sales representative; all questions welcomed and answered. Patient/authorized publications sales representative agreed to proceed IF YOUR SYMPTOMS [...] the following reason(s): HANDP not suggestive CODING: [facility] 10-25-2024 History of Presen t illness Narrative Telemedicine Visit - Distance Health Virtual Visit Note Patient seen on [employer] Video Visit platform. Location of patient: [place] Zaid Philippe MD I have communicated my name and active licensure. The patient's identity and physical location were verified at the time of this visit. Either the patient or their legal publications sales representative has been informed of the risks [...] as a single dose. Prescription sent to [facility] in [place]. Monitor for any signs of rash or systemic symptoms and seek medical attention if they occur. Recording using [employer] software for draft documentation of the visit was discussed with the patient/authorized publications sales representative; all questions welcomed and answered. Patient/authorized publications sales representative agreed to proceed IF YOUR SYMPTOMS [...] not suggestive CODING: documented in this encounter [facility] 09-23-2024 Note HNO ID: [id number] Author: ?, ?, ? Service: ? Author Type: ? Type: Progress Notes Filed: 10/07/2024 03:03 Note Text: Patient is scheduled for his est well visit 10-28-2024 [facility] 09-23-2024 History of Presen t illness Narrative Patient is scheduled for his est well visit 10-28-2024 1st attempt LVM to schedule colonoscopy documented in this encounter [facility] 09-07-2024 Note HNO ID: [id number] Author: ?, ?, ? Service: ? Author Type: ? Type: Progress Notes Filed: 09/07/2024 10:38 Note Text: 1st attempt LVM to schedule colonoscopy [facility] 09-06-2024 Instructions Christina Arcos RN [...] am on dialysis? A: Please consult your entry driver operator prior to scheduling to get instructions pertinent [...] inadequate prep quality. documented in this encounter [facility] 09-06-2024 Note Patient Outreach ( WSTR) FALGUNINAUN RUIZ ([id number]) 1975 M Date Time Provider Department 09/06/24 ZAID PHILIPPE ASWSTR During your visit today, we recorded the following information about you: Christina Arcos, EUGENE 09/06/2024 12:14 PM Signed COLONOSCOPY BOWEL PREPARATION [...] patients buy sugar-free, (more content not included)... [facility] 03-29-2024 Note HNO ID: [id number] Author: SIMI WINKLER LPN Service: ? Author Type: LICENSED NURSE Type: Progress Notes Filed: 03/29/2024 08:46 Note Text: Patient presents for Hepatitis B vaccine. Denies any problems at this time. Tolerated injection well. Simi Winkler LPN [facility] 03-29-2024 History of Presen t illness Narrative Patient presents for Hepatitis B vaccine. Denies any problems at this time. Tolerated injection well. Simi Winkler LPN documented in this encounter [facility] 11-26-2023 History of Presen t illness Narrative Patient here for his 2nd Hepatitis B injection. Vaccine given and Naun tolerated injection well. documented in this encounter [facility] 11-17-2023 Telephone encounter Note Message left to pts father to either call in for appt for daughter or have daughter call in. [facility] 11-17-2023 Miscellaneous Notes Message left to pts father to either call in for appt for daughter or have daughter call in. Schedule daughter to establish. documented in this encounter [facility] 11-15-2023 Telephone encounter Note Schedule daughter to establish. [facility] 10-28-2023 Instructions Zaid Philippe MD - 10/28/2023 8:45 AM EDT Hepatitis B 3 shot series. Consider FODMAP diet for irritable bowel syndrome. documented in this encounter [facility] 10-28-2023 History of Presen t illness Narrative This note was created using [employer]. Subjective Patient presents with: Physical Naun Montes [...] tablet cycloSPORINE (RESTASIS) 0.05 % ophthalmic emulsion vjfawbj-lnhr-pkove-oreg-capryl 100 mg-150 mg- 50 mg-150 mg cap Take by mouth. leucovorin (LEUCOVORIN) 15 mg tablet Take 15 mg by mouth one time a week. SOOLANTRA 1 % crea Apply 1 application to affected area daily at bedtime. Per [facility]. Owxboigqujm-Speqamyxa-Miz C-Mn (GLUCOSAMINE CHONDROITIN MAXSTR) 500-400 mg cap [...] and regular exercise - Patient was counseled symc-hq-cuta by myself (the billing provider) for the [...] Zaid Philippe MD documented in this encounter [facility] 06-06-2023 History of Presen t illness Narrative [...] 2023 1:42 PM documented in this encounter [facility] 06-06-2023 Miscellaneous Notes No concerning findings on x-ray of hand. documented in this encounter [facility] 06-06-2023 Progress note Formatting of t his note might be different from the original. No concerning findings on x-ray of hand. [facility] 10-25-2022 Emiliana Zarco APRN.CNS - 10/25/2022 8:48 AM EDT Check with your batting machine operator regarding vaccines: Pneumococcal, shingles, hepatitis B Check with your insurance for what location to get vaccines may be best covered at your local pharmacy where you get prescriptions filled or at the clinic documented in this encounter [facility] 10-25-2022 History of Presen t illness Narrative [...] increased gluten intake. Labs completed 09/2022 at [facility] per Dr Matthews. See scanned documents. All WNL. Followed by Dr Matthews batting machine operator for psoriatic arthropathy. Taking methotrexate and [...] tablet cycloSPORINE (RESTASIS) 0.05 % ophthalmic emulsion floycwu-nzce-atfin-oreg-capryl 100 mg-150 mg- 50 mg-150 mg cap Take by mouth. leucovorin (LEUCOVORIN) 15 mg tablet Take 15 mg by mouth one time a week. SOOLANTRA 1 % crea Apply 1 application to affected area daily at bedtime. Per [facility]. Zjasqmwhlyw-Txgpvkarn-Uye C-Mn (GLUCOSAMINE CHONDROITIN MAXSTR) 500-400 mg cap [...] V03.89, ICD10: Z23 He will check with circus trainer and regarding insurance coverage for vaccines. - [...] ICD10: Z13.1 Glucose within normal limits at [facility] 09/2022 6. Psoriasis and similar disorders - ICD9: 696.1, ICD10: L40.9 Followed by batting machine operator Dr. Matthews Currently controlled with methotrexate Physical form completed and returned 1 yr follow up MD Inge Robert APRN.DOCK MANAGER documented in this encounter [facility] 08-25-2022 Miscellaneous Notes Patient contacted and was [...] treated with Paxlovid. documented in this encounter [facility] 04-25-2009 History of Past i llness Narrative Problem Noted Date Resolved Date Backache, unspecified 04/25/2009 11/10/2009 documented as of this encounter (statuses as of 08/25/2022) [facility]12-01-2009 History of Past illness Narrative* Problem Noted Date Resolved Date Backache, unspecified 04/25/2009 11/10/2009 documented as of this encounter (statuses as of 10/25/2022) [facility] noteNo assessment information [facility]WCher[facility] Work Phone: Evaluation note* Diagnosis Routine [...] disorders Other psoriasis [facility] Diagnosis Routine medical exam- Primary Routine general medical examination at a health care facility Irritable bowel syndrome with both constipation and diarrhea Psoriatic arthritis (HCC) Psoriatic arthropathy Need for vaccination Need for prophylactic vaccination and inoculation against unspecified single disease [facility] Diagnosis Need for vaccination- Primary Need for prophylactic vaccination and inoculation against unspecified single disease Need for vaccination Need for prophylactic vaccination and inoculation against unspecified single disease [facility] Diagnosis Left hand pain Pain in limb History of Raynaud's syndrome Personal history of other diseases of circulatory system Psoriasis and similar disorders Other psoriasis [facility] Diagnosis Encounter for immunization- Primary Need for other specified prophylactic vaccination against single bacterial disease [facility] Diagnosis Screening for colorectal cancer- Primary Special screening for malignant neoplasms, colon [facility] Diagnosis Encounter for prophylactic measures, unspecified documented in this encounter [facility] note* Diagnosis Wellness examination- Primary Screening for depression Encounter for screening examination for other mental health and behavioral disorders Special screening for malignant neoplasms, colon Need for vaccination Need for prophylactic vaccination and inoculation against unspecified single disease Psoriatic arthritis (HCC) Psoriatic arthropathy Psoriasis and similar disorders Other psoriasis Screening for lipid disorders documented in this encounter [facility] note* Diagnosis Need for vaccination- Primary Need for prophylactic vaccination and inoculation against unspecified single disease documented in this encounter [facility] for referral (narrative)* Diagnostic Procedure Only (Routine) - Closed Specialty Diagnoses / Procedures Referred By Contac t Referred To Contact XR IMAGING Diagnoses Left hand pain History of Raynaud's syndrome Psoriasis and similar disorders Procedures XR HAND GENERAL 3V PA/LAT/OBL LEFT RADEX HAND MINIMUM 3 VIEWS Inge Zarco APRN.DOCK MANAGER [address] [place] [address] [place] [address] Referral ID Status Reason Start Date Expiration Date V isits Requested Visits Authorized [id number] Closed Auto-Generate d Referral 06/06/2023 07/05/2024 1 1 [facility] for referral (narrative)No reason for referral information availableWCherrington Hospital Work Phone: reason for visit Narrative* Diagnostic Procedure Only (Routine) - Closed Specialty Diagnoses / Procedures Referred By Contac t Referred To Contact XR IMAGING Diagnoses Left hand pain History of Raynaud's syndrome Psoriasis and similar disorders Procedures XR HAND GENERAL 3V PA/LAT/OBL LEFT RADEX HAND MINIMUM 3 VIEWS Inge Zarco, BUILDING ILLUMINATING ENGINEER.DOCK MANAGER [address] [place] [address] [place] [address] Referral ID Status Reason Start Date Expiration Date V isits Requested Visits Authorized [id number] Closed Auto-Generate d Referral 06/06/2023 07/05/2024 1 1 [facility] Advance Directives Advance Directive Response Recorded Date/ Time Living Will No March 08 9:51am Power of Windows Software Engineer No March 08, 2019 9:51am Advance Directive Response Recorded Date/ Time Living Will No March 08 10:51am Power of Windows Software Engineer No March 08, 2019 10:51am Chief Complaint [...] ORDERING IBETH November 18, 2024 7:14 am Chief Complaint Admit Date 2 ORDERING IBETH November 18, 2024 7:14 [...] Dr. Antonia Matthews MD Attending Provider Active Temper Mill Operator Relationship Specialty Start Date End Date Zaid Philippe MD [address] [place] [address] PCP - General Internal Medicine 09/30/19 Temper Mill Operator Relationship Specialty Start Date End Date Zaid Philippe MD [address] [place] [address] PCP - General Internal Medicine 09/30/19 Team Status: Inactive Member Role Status Dates Dr. Zaid Philippe MD Primary Care Provider Active Dr. Antonia Matthews MD Attending Provider, Referring Provider Active Temper Mill Operator Relationship Specialty Start Date End Date Zaid Philippe MD [address] [place] [address] PCP - General Internal Medicine 09/30/19 Temper Mill Operator Relationship Specialty Start Date End Date Zaid Philippe MD [address] [place], [place] [address] PCP - General Internal Medicine 09/30/19 Temper Mill Operator Relationship Specialty Start Date End Date Zaid Philippe MD [address] [facility] [place] [address] PCP - General Internal Medicine 09/30/19 Temper Mill Operator Relationship Specialty Start Date End Date Zaid Philippe MD [address] [facility], [place] [id number] PCP - General Internal Medicine 09/30/19 Temper Mill Operator Relationship Specialty Start Date End Date Zaid Philippe MD [address] [place], [place] [id number] PCP - General Internal Medicine 09/30/19 Team [...] August 27, 2024 End: August 27, 2024 Temper Mill Operator Relationship Specialty Start Date End Date Zaid Philippe MD [address] [place] [address] PCP - General Internal Medicine 09/30/19 Leah Car, BUILDING ILLUMINATING ENGINEER.BURNER TENDER [address] [place] [address] Director Database Internal Medicine 05/03/24 Temper Mill Operator Relationship Specialty Start Date End Date Zaid Philippe MD [address] [place] [address] PCP - General Internal Medicine 09/30/19 Leah Car, BUILDING ILLUMINATING ENGINEER.BURNER TENDER [address] [place] [address] Director Database Internal Medicine 05/03/24 Temper Mill Operator Relationship Specialty Start Date End Date Zaid Philippe MD [address] [place] [address] PCP - General Internal Medicine 09/30/19 Leah Car, BUILDING ILLUMINATING ENGINEER.BURNER TENDER [address] [place] [address] Director Database Internal Medicine 05/03/24 Temper Mill Operator Relationship Specialty Start Date End Date Zaid Philippe MD [address] [place] [address] PCP - General Internal Medicine 09/30/19 Leah Car, BUILDING ILLUMINATING ENGINEER.BURNER TENDER [address] [place] [address] Director Database Internal Medicine 05/03/24 Temper Mill Operator Relationship Specialty Start Date End Date Zaid Philippe MD [address] [place] [address] PCP - General Internal Medicine 09/30/19 Leah Car, BUILDING ILLUMINATING ENGINEER.BURNER TENDER [address] [place] [address] Director Database Internal Medicine 05/03/24 Team Status: Active Member [...] November 18, 2024 End: November 18, 2024 Temper Mill Operator Relationship Specialty Start Date End Date Zaid Philippe MD [address] [place] [address] PCP - General Internal Medicine 09/30/19 Leah Car, BUILDING ILLUMINATING ENGINEER.BURNER TENDER [address] [place] [address] Director Database Internal Medicine 05/03/24 Team Status: Active Member Role/Relationship Status Dates No Primary Care Physician Primary care physician Activ e Dr. Zaid Philippe MD Primary care physician Activ e Team Status: Inactive Member Role/Relationship Status Dates Dr. Zaid Philippe MD Primary care physician Activ e Start: November 18, 2024 End: November 18, 2024 Dr. Zaid Philippe MD Attending physician Active Start: November 18, 2024 End: November 18, 2024 Dr. Zaid Philippe MD Referring Provider Active Start: November 18, 2024 End: November 18, 2024 Dr. Antonia Matthews MD Nurse Practitioner Active Start: November 18, 2024 End: November 18, 2024 Team Status: Inactive Member Role/Relationship Status Dates Dr. Zaid Philippe MD Primary care physician Activ e Start: February 10, 2025 End: February 10, 2025 Dr. Antonia Matthews MD Attending physician Active Start: February 10, 2025 End: February 10, 2025 Dr. Antonia Matthews MD Referring Provider Active Start: February 10, 2025 End: February 10, 2025 Goals (unrecognized section and content) Goals may [...] or prosecute any alcohol or drug abuse patient.[facility] the event this information is protected by the Federal Confidentiality of Alcohol and Drug Abuse Patient Records regulations: The Federal rules restrict any use of the information to criminally investigate or prosecute any alcohol or drug abuse patient.[facility] Company[facility] the event this information is protected by the Federal Confidentiality of Alcohol and Drug Abuse Patient Records regulations: The Federal rules restrict any use of the information to criminally investigate or prosecute any alcohol or drug abuse patient.[facility] Company[facility] the event this information is protected by the Federal Confidentiality of Alcohol and Drug Abuse Patient Records regulations: The Federal rules restrict any use of the information to criminally investigate or prosecute any alcohol or drug abuse patient.[facility] Company[facility] the event this information is protected by the Federal Confidentiality of Alcohol and Drug Abuse Patient Records regulations: The Federal rules restrict any use of the information to criminally investigate or prosecute any alcohol or drug abuse patient.[facility] Company[facility] the event this information is protected by the Federal Confidentiality of Alcohol and Drug Abuse Patient Records regulations: The Federal rules restrict any use of the information to criminally investigate or prosecute any alcohol or drug abuse patient.[facility] Company[facility] the event this information is protected by the Federal Confidentiality of Alcohol and Drug Abuse Patient Records regulations: The Federal rules restrict any use of the information to criminally investigate or prosecute any alcohol or drug abuse patient.[facility] Company[facility] the event this information is protected by the Federal Confidentiality of Alcohol and Drug Abuse Patient Records regulations: The Federal rules restrict any use of the information to criminally investigate or prosecute any alcohol or drug abuse patient.[facility] CompanyIn the event this information is protected by the Federal Confidentiality of Alcohol and Drug Abuse Patient Records regulations: The Federal rules restrict any use of the information to criminally investigate or prosecute any alcohol or drug abuse patient.[facility] CompanyIn the event this information is protected by the Federal Confidentiality of Alcohol and Drug Abuse Patient Records regulations: The Federal rules restrict any use of the information to criminally investigate or prosecute any alcohol or drug abuse patient.[facility] CompanyIn the event this information is protected by the Federal Confidentiality of Alcohol and Drug Abuse Patient Records regulations: The Federal rules restrict any use of the information to criminally investigate or prosecute any alcohol or drug abuse patient.[facility] CompanyIn the event this information is protected by the Federal Confidentiality of Alcohol and Drug Abuse Patient Records regulations: The Federal rules restrict any use of the information to criminally investigate or prosecute any alcohol or drug abuse patient.[facility] CompanyIn the event this information is protected by the Federal Confidentiality of Alcohol and Drug Abuse Patient Records regulations: The Federal rules restrict any use of the information to criminally investigate or prosecute any alcohol or drug abuse patient.[facility] Reason for Visit (unrecogniz ed section and [...] ized section and content) DATE CREATED AUTHOR 11/26/2024 [facility] DATE CREATED AUTHOR AUTHOR'S VALERIE HOWARD 02/25/2025 [facility] FOR RECORDS PERTAINING TO PATIENTS WHO ARE [...] BE BASED ON THE PRIMARY CLINICAL RECORDS. [facility] [employer] provides no warranty or guarantee of the accuracy or completeness of information in this document.
[2025-05-09 10:49] LABS: Hematocrit 44.7 % (40-54); Hemoglobin 14.7 g/dL (13.0-16.5); Immature Granulocytes Count 0.010 X10^3/uL (0.0-0.0); Mean Corp Hgb Conc 32.9 g/dL (32-36); Mean Corpuscular Volume 94.5 fL (80-94); Mean Platelet Vol. 11.3 fl (6.2-12.0); NRBC Flagged by Analyzer 0 % (0-5); Platelet Count 221 K/mm3 (150-450); RBC Distribution Width CV 13.2 % (11.6-14.6); RBC Distribution Width SD 45.2 fl (35.1-43.9); Red Blood Count 4.73 M/mm3 (4.6-6.2); White Blood Count 4.2 K/mm3 (4.4-11.0)
[2025-05-09 11:18] LABS: AST(SGOT) 25 U/L (<=37); Alanine Aminotransfer ALT/SGPT 22 U/L (<=46); Albumin, Serum 4.2 g/dL (3.5-5.0); Alkaline Phosphatase 48 U/L (40-129); Anion Gap 9 (5-15); BUN 19 mg/dL (4-19); BUN/Creat Ratio 17.0 RATIO (10-20); Calcium,Total 9.3 mg/dL (7.6-11.0); Carbon Dioxide 26.8 mmol/L (21.0-32.0); Chloride 104 mmol/L (98-108); Globulin 2.7 g/dL (2.2-4.2); Glucose 92 mg/dL (70-99); Potassium 4.2 mmol/L (3.3-5.1)
== END | disposition home or self-care (01) ==
LOC: MTLAB 08:00
PROVIDERS: PCP Internal Medicine; Referring Provider Internal Medicine Rheumatology; Visit Provider Internal Medicine Rheumatology
DX: L40.59 Other psoriatic arthropathy (principal); Z79.899 Other long term (current) drug therapy
CPT/HCPCS: 36415; 80053; 85025